=== PATIENT | male | born 1965 | race Caucasian/White ===

== ENCOUNTER 2023-07-18 09:35 | Outpatient (OUT) | payer BC, SELFPAY ==
[2023-07-18 09:53] LABS: Basophils Percent Auto 0.5 % (0.2-2.0); Eosinophils Absolute Auto 0.1 10^3/uL (0.0-0.7); Eosinophils Percent Auto 1.1 % (0.9-7.0); Hematocrit 43.3 % (42.0-54.0); Hemoglobin 14.6 g/dL (14.0-18.0); Immature Granulocytes Abs Auto 0.03 10^3/uL (0.00-0.03); Immature Granulocytes Pct Auto 0.4 % (0.0-0.5); Lymphocytes Absolute Auto 3.5 10^3/uL (1.2-3.8); Lymphocytes Percent Auto 42.1 % (20.5-60.0); Mean Corpuscular HGB Conc 33.7 g/dL (29.9-35.2); Mean Corpuscular Hemoglobin 29.9 pg (25.9-34.0); Mean Corpuscular Volume 88.7 fL (80.0-94.0); Mean Platelet Volume 10.4 fL (9.5-13.5); Monocytes Absolute Auto 0.8 10^3/uL (0.3-0.8); Monocytes Percent Auto 9.4 % (1.7-12.0); Neutrophils Absolute Auto 3.8 10^3/uL (1.4-6.5); Neutrophils Percent Auto 46.5 % (43.0-75.0); Platelet Count 173 10^3/uL (150-450); Red Blood Count 4.88 10^6/uL (4.70-6.10); Red Cell Distribution Width 12.3 % (11.0-15.0); White Blood Count 8.2 10^3/uL (4.0-11.0)
[2023-07-18 10:18] LABS: Estimated Average Glucose 157 mg/dL; Glycohemoglobin A1C 7.1 % (4.5-6.2)
[2023-07-18 10:30] LABS: Alanine Aminotransferase 21 U/L (16-63); Albumin Globulin Ratio 0.9; Albumin Level 3.3 g/dL (3.4-5.0); Alkaline Phosphatase 68 U/L (46-116); Anion Gap 11.4; Aspartate Amino Transferase 9 U/L (15-37); Bilirubin Total 0.3 mg/dL (0.2-1.0); Calcium 8.9 mg/dL (8.5-10.1); Chloride 103 mmol/L (98-107); Cholesterol 222 mg/dL (<=200); Estimated GFR (African America >60 (>=60); Estimated GFR (Non-African Ame >60 (>=60); Free T3 2.54 pg/mL (2.18-3.98); Globulin 3.6 g/dL; Glucose 122 mg/dL (74-106); HDL Cholesterol 44 mg/dL (40-60); Potassium 4.4 mmol/L (3.5-5.1); Sodium 139 mmol/L (136-145); Thyroid Stimulating Hormone 1.707 uIU/mL (0.358-3.740); Total Protein 6.9 g/dL (6.4-8.2); Triglycerides 206 mg/dL (<=150); VLDL CHOLESTEROL 41.2 mg/dL
[2023-07-18 11:19] LABS: Prostate Specific Antigen Scrn 0.75 ng/mL (<=4.00)
== END 2023-07-18 09:36 | disposition home or self-care (01) ==
PROVIDERS: PCP Family Medicine; Visit Provider Family Medicine
DX: Z00.00 Encounter for general adult medical examination without abnormal findings (principal); E78.5 Hyperlipidemia, unspecified; R73.09 Other abnormal glucose; Z12.5 Encounter for screening for malignant neoplasm of prostate
CPT/HCPCS: 36415; 80053; 80061; 83036; 84436; 84443; 84481; 85025; G0103

== ENCOUNTER 2023-10-04 09:01 | Outpatient (OUT) | payer BC, SELFPAY ==
--- OUTSIDE RECORDS SUMMARY | 2023-10-04 09:04 | XMS_ITS | CCD ---
Author Organization [facility] Care Team Providers Care Spinning Frame Changer Name Role Phone Eva Carrillo Unavailable Rylee Morales Primary Care Physician [phone] DIANA MIGUEL Attending Unavailable DIANA MIGUEL Admitting Unavailable CLINTON, DR YURI Zelaya Consulting Unavailable FARIBA, DR MCKEE Primary Care Unavailable DIANA MIGUEL Consulting Unavailable LIZET MENCHACA Consulting Unavailable FARIBA, DR MCKEE Consulting Unavailable FARIBA, DR MCKEE Attending Unavailable FARIBA, DR MCKEE Admitting Unavailable FARIBA, DR MCKEE Primary Care Unavailable COLLEEN NORIEGA Consulting Unavailable FARIBA, DR MCKEE Consulting Unavailable FARIBA, DR MCKEE Attending Unavailable FARIBA, DR MCKEE Admitting Unavailable FARIBA, DR MCKEE Primary Care Unavailable Najma Mcdonnell Attending Unavailable Rylee Morales Referring Unavailable Najma Mcdonnell Attending Unavailable Rylee Morales Referring Unavailable Domingo KATHLEEN Attending Unavailable Rylee Morales Referring Unavailable Domingo KATHLEEN Attending Unavailable Allergies Allergy Classification Reported Allergen(s) Allergy Type Date of Onset Reaction(s) Facility (1 source) No Known Medication Allergies; Translations: [No Known Medication Allergies] Propensity to adverse reactions (disorder) [facility] Repository Medications Current Medications Medication Drug Class(es) Dates Sig (Normalized) Sig (Original) diclofenac sodium 75 mg delayed release oral tablet (2 sources) Nonsteroidal Anti-inflammatory Drug Start: 05-13-20 take 1 tablet by mouth twice daily diclofenac sodium 75 mg Oral EC Tab 75 mg = 1 tab(s), Oral, BID, Refills(s) 0 Start Date: 05/13/22 Status: Ordered 0.5 ml dulaglutide 1.5 mg/ml auto-injector (2 sources) GLP-1 Receptor Agonist Start: 05-13-20 inject 0.75 mg by subcutaneous injection every week Trulicity Pen 0.75 mg/0.5 mL subcutaneous solution 0.75 mg, SubCutaneous, qWeek, Refills(s) 0 Start Date: 05/13/22 Status: Ordered methylPREDNISolone 4 mg oral tablet (1 source) Corticosteroid Start: 06-17-20 methylPREDNISolone 4 MG as directed Orally Once a day for 6 days May, Active tadalafil 20 mg oral tablet (2 sources) Phosphodiesterase 5 Inhibitor Start: 05-15-20 take 1 tablet by mouth once daily tadalafil 20 mg Tab 20 mg = 1 tab(s), Oral, Daily, Refills(s) 0 Start Date: 05/15/22 Status: Ordered Completed/Discontinued Medications Medication Drug Class(es) Dates Sig (Normalized) Sig (Original) fluticasone propionate 0.05 mg/actuat metered dose nasal spray (1 source) Corticosteroid Start: 04-03-2018 take 2 spray(s) nasal route once daily Fluticasone Propionate 50 MCG/ACT 2 sprays in each nostril Nasally Once a day for 14 days Mar, Not-Taking 12 hr guaiFENesin 600 mg extended release oral tablet (1 source) Start: 04-03-2018 take 1-2 tablets by mouth every twelve hours as needed Mucinex 600 MG 1-2 tablet as needed Orally every 12 hrs for 5 days Mar, Not-Taking Problems Active Problems Problem Classification Problem Date Documented Date Episodic/Chronic Abdominal pain (3 sources) Unspecified abdominal pain; Translations: [UNSPECIFIED ABDOMINAL PAIN] Onset: 07-22-2022 Episodic Asthma (2 sources) Asthma 05-13-2022 Chronic Calculus of urinary tract (4 sources) History of calculus of kidney; Translations: [Calculus of kidney] Onset: 07-24-2022 05-13-2022 Episodic Complications of surgical procedures or medical care (1 source) Postprocedural hypothyroidism; Translations: [POSTPROCEDURAL HYPOTHYROIDISM] Onset: 07-24-2022 Chronic Diabetes mellitus without complication (1 source) Type 2 diabetes mellitus without complications; Translations: [TYPE 2 DM WITHOUT COMPLICATIONS] Onset: 07-24-2022 Chronic Esophageal disorders (1 source) Gastro-esophageal reflux disease without esophagitis; Translations: [GERD WITHOUT ESOPHAGITIS] Onset: 07-24-2022 Chronic Hyperplasia of prostate (3 sources) Benign prostatic hypertrophy without outflow obstruction; Translations: [Benign prostatic hyperplasia without lower urinary tract symptoms] Onset: 05-29-2022 Chronic Other and unspecified benign neoplasm (2 sources) History of polyp of colon 05-15-2022 Episodic Other connective tissue disease (2 sources) Impingement syndrome of shoulder region 05-13-2022 Episodic Other diseases of kidney and ureters (1 source) Other specified disorders of kidney and ureter; Translations: [OTHER SPEC DISORDERS KIDNEY URETER] Onset: 07-24-2022 Chronic Other diseases of kidney and ureters (4 sources) Disorder of kidney and ureter, unspecified; Translations: [DISORDER KIDNEY AND URETER UNS] Onset: 08-01-2022 Episodic Other male genital disorders (3 sources) Male erectile dysfunction, unspecified; Translations: [Erectile dysfunction] Onset: 05-29-2022 Chronic Other nutritional; endocrine; and metabolic disorders (2 sources) Body mass index 30+ - obesity 05-15-2022 Chronic Residual codes; unclassified (2 sources) Sleep apnea 05-13-2022 Chronic Screening and history of mental health and substance abuse codes (1 source) Personal history of nicotine dependence; Translations: [PERSONAL HISTORY OF NICOTINE DEPEND] Onset: 07-24-2022 Episodic Unclassified (2 sources) History of rupture of Achilles tendon 05-13-2022 Past or Other Problems Problem Classification Problem Date Documented Da te Episodic/Chronic Immunizations and screening for infectious disease (1 source) Contact with and (suspected) exposure to other viral communicable diseases Onset: 06-17-2021 Resolved: 06-17-2021 Episodic Other screening for suspected conditions (not mental disorders or infectious disease) (1 source) Encounter for screening for malignant neoplasm of prostate; Translations: [ENC SCREEN MALIG NEOPLASM PROSTATE] Onset: 08-21-2021 Episodic Other upper respiratory infections (1 source) Acute laryngitis Onset: 06-17-2021 Resolved: 06-17-2021 Episodic Results Test Name Value Interpretation Reference Range Facility US KIDNEYSon 08-01-2022 US KIDNEYS US KIDNEYS EXAM DATE: 08/01/2022 5:49 AM MST COMPARISON: CT abdomen and pelvis 07/22/2022, ultrasound kidney 09/15/2019, CT abdomen and pelvis 09/14/2019. INDICATION: Right superior pole cortical lesion measuring [address] abdomen and pelvis 07/22/2022. TECHNIQUE: Real-time ultrasound scanning of the kidneys and bladder was performed by the web programmer. Healthcare Consulting Manager static images are submitted for review. Cine images of the right superior renal pole were additionally submitted for review. FINDINGS: Right Kidney: The right kidney measures 10.9 x 5.3 x 5.2 cm and has a volume of 157 mL. Normal echogenicity. No hydronephrosis. No shadowing calculi. No obvious contour deforming lesion or solid renal mass. No sonographic correlate identified for 6 mm cortical lesion seen on comparison CT. Renal cortex measures 2 cm. Left Kidney: The left kidney measures 10.9 x 4.6 x 5.7 cm and has a volume of 150 mL. Normal echogenicity. No hydronephrosis. No shadowing calculi. No obvious contour deforming lesion or solid renal mass. Renal cortex measures 1.5 cm. Bladder: Bladder volume measures up to 672 mL No focal or diffuse bladder wall thickening noted. IMPRESSION: 1. No sonographic correlate identified for previously visualized CT lesion. Nonvisualization may be secondary to small size. Recommend attention on future/follow-up imaging. 2. No hydronephrosis. Electronically authenticated by: COLLEEN NORIEGA Date: 2022-08-01 11:31 Normal [facility] CBC AUTO DIFFon 07-22-2022 BASO # 0.0 103/ul Normal 0.0-0.1 [facility] Comment on above: Performed By: #### U MICRO, ERUR #### [facility] [address] [place] [address] Dr. Allyson Guerrero Basophils/100 WBC (Bld) 0.4 % Normal 0.2-2.0 [facility] Comment on above: Performed By: #### U MICRO, ERUR #### [facility] [address] [place] [address] Dr. Allyson Guerrero EO # 0.1 103/ul Normal 0.0-0.7 [facility] Comment on above: Performed By: #### U MICRO, ERUR #### [facility] [address] [address] [address] Allyson Guerrero Eosinophils/100 WBC (Bld) 1.3 % Normal 0.9-7.0 [facility] Comment on above: Performed By: #### U MICRO, ERUR #### [facility] [address] [place] [address] Dr. Allyson Guerrero Erythrocyte distribution width (RBC) [Ratio] 12.4 % Normal 11.0-15.0 [facility] Comment on above: Performed By: #### U MICRO, ERUR #### [facility] [address] [place] [address] Dr. Allyson Guerrero Hematocrit (Bld) [Volume fraction] 40.3 % Critically low 42.0-54.0 [facility] Comment on above: Performed By: #### U MICRO, ERUR #### [facility] [address] [place] [address] Dr. Allyson Guerrero Hemoglobin (Bld) [Mass/Vol] 14.2 g/dL Normal 14.0-18.0 [facility] Comment on above: Performed By: #### U MICRO, ERUR #### [facility] [address] [place] [address] Dr. Allyson Guerrero IG # 0.02 10e3/ul Normal 0.00-0.03 [facility] Comment on above: Performed By: #### U MICRO, ERUR #### [facility] [address] [place] [address] Dr. Allyson Guerrero IG % 0.3 % Normal 0.0-0.5 [facility] Comment on above: Performed By: #### U MICRO, ERUR #### [facility] [address] [place] [address] Dr. Allyson Guerrero LYMPH # 3.1 103/ul Normal 1.2-3.8 [facility] Comment on above: Performed By: #### U MICRO, ERUR #### [facility] [address] [place] [address] Dr. Allyson Guerrero Lymphocytes/100 WBC (Bld) 44.5 % Normal 20.5-60.0 [facility] Comment on above: Performed By: #### U MICRO, ERUR #### [facility] [address] [place] [address] Dr. Allyson Guerrero MANUAL DIFF REQ NO Normal [facility] Comment on above: Performed By: #### U MICRO, ERUR #### [facility] [address] [address] [address] Allyson Guerrero MCH (RBC) [Entitic mass] 30.0 pg Normal 25.9-34.0 [facility] Comment on above: Performed By: #### U MICRO, ERUR #### [facility] [address] [place] [address] Dr. Allyson Guerrero MCHC (RBC) [Mass/Vol] 35.2 g/dL Normal 29.9-35.2 [facility] Comment on above: Performed By: #### U MICRO, ERUR #### [facility] [address] [place] [address] Dr. Allyson Guerrero MCV (RBC) [Entitic vol] 85.0 fL Normal 80.0-94.0 [facility] Comment on above: Performed By: #### U MICRO, ERUR #### [facility] [address] [place] [address] Dr. Allyson Guerrero MONO # 0.6 103/ul Normal 0.3-0.8 [facility] Comment on above: Performed By: #### U MICRO, ERUR #### [facility] [address] [place] [address] Dr. Allyson Guerrero Monocytes/100 WBC (Bld) 9.1 % Normal 1.7-12.0 [facility] Comment on above: Performed By: #### U MICRO, ERUR #### [facility] [address] [place] [address] Dr. Allyson Guerrero NEUT # 3.1 103/ul Normal 1.4-6.5 [facility] Comment on above: Performed By: #### U MICRO, ERUR #### [facility] [address] [place] [address] Dr. Allyson Guerrero Neutrophils/100 WBC (Bld) 44.4 % Normal 43.0-75.0 [facility] Comment on above: Performed By: #### U MICRO, ERUR #### [facility] [address] [place] [address] Dr. Allyson Guerrero Platelet mean volume (Bld) [Entitic vol] 9.9 fL Normal 9.5-13.5 [facility] Comment on above: Performed By: #### U MICRO, ERUR #### [facility] [address], [place] [address] Dr. Allyson Guerrero PLT 166 103/ul Normal 150-450 [facility] Comment on above: Performed By: #### U MICRO, ERUR #### [facility] [address] [place], [place] [address] Dr. Allyson Guerrero RBC 4.74 106/ul Normal 4.70-6.10 [facility] Comment on above: Performed By: #### U MICRO, ERUR #### [facility] [address] [place], [place] [address] Dr. Allyson Guerrero WBC 7.0 103/ul Normal 4.0-11.0 [facility] Comment on above: Performed By: #### U MICRO, ERUR #### [facility] [address] [place], [place] [address] ABD/PELVIS WO CONon 07-22 CT ABD/PELVIS WO CON EXAMINATION: CT ABD/PELVIS WO CON, 07/22/2022 6:16 AM EST HISTORY: CALCULUS OF KIDNEY , right flank pain, nausea and vomiting COMPARISON: 09/14/2019 TECHNIQUE: CT scan of the abdomen and pelvis was performed without IV contrast. CT dose reduction technique was used, including Automated Exposure Control. FINDINGS: LUNG BASES: No visible pulmonary or pleural disease. LIVER: No enlargement, atrophy, abnormal density, or significant focal lesion. BILIARY: No dilatation or calcification. PANCREAS: No lesion, fluid collection, ductal dilatation, or atrophy. SPLEEN: No enlargement or focal lesion. ADRENALS: No mass or enlargement. KIDNEYS: The millimeter hyperdensity right upper pole cortex axial image 38. 3 mm calcification right ureteral vesicle junction axial image 114 with mild hydroureter. Normal left BOWEL/MESENTERY: Mild colonic diverticulosis. Normal appendix. Nonobstructive bowel gas pattern AORTA/VASCULAR: No aortic aneurysm. Moderate atherosclerosis RETROPERITONEUM: No mass or adenopathy. LYMPH NODES: No adenopathy. URINARY BLADDER: No visible focal wall thickening, lesion, or calculus. PELVIC ORGANS: No visible mass. Pelvic organs appropriate for patient age. ABDOMINAL WALL: No mass or hernia. BONES: No bony lesion or fracture. OTHER: Negative. IMPRESSION: 3 mm calcification right ureteral vesicle junction with mild hydroureter 6 mm hyperdense cortical lesion right upper pole kidney not seen on the prior exam. Consider ultrasound follow-up for short interval CT follow-up Electronically authenticated by: YURI ALONZO Date: 2022-07-22 06:56 Normal [facility] ER URINE PROFILEon 3 Bilirubin Ql (U) Negative Normal NEGATIVE [facility] Comment on above: Performed By: #### U MICRO, ERUR #### [facility] [address] [place] [address] Dr. Allyson Guerrero Clarity (U) CLEAR Normal CLEAR [facility] Comment on above: Performed By: #### U MICRO, ERUR #### [facility] [address] [place] [address] Dr. Allyson Guerrero Color (U) LT. YELLOW Normal YELLOW [facility] Comment on above: Performed By: #### U MICRO, ERUR #### [facility] [address] [place] [address] Dr. Allyson Guerrero ERUAHD A micrscopic examination will be performed if indicated. Normal [facility] Comment on above: Performed By: #### U MICRO, ERUR #### [facility] [address] [place] [address] Dr. Allyson Guerrero Glucose Ql (U) Negative Normal NEGATIVE [facility] Comment on above: Performed By: #### U MICRO, ERUR #### [facility] [address] [address] [address] Allyson Guerrero Hemoglobin Ql (U) LARGE Abnormal NEGATIVE [facility] Comment on above: Performed By: #### U MICRO, ERUR #### [facility] [address] [address] [address] Allyson Guerrero Ketones Ql (U) Negative Normal NEGATIVE [facility] Comment on above: Performed By: #### U MICRO, ERUR #### [facility] [address] [place] [address] Dr. Allyson Guerrero LEUKOCYTES Negative Normal NEGATIVE [facility] Comment on above: Performed By: #### U MICRO, ERUR #### [facility] [address] [place] [address] Dr. Allyson Guerrero Nitrite Ql (U) Negative Normal NEGATIVE [facility] Comment on above: Performed By: #### U MICRO, ERUR #### [facility] [address] [place] [address] Dr. Allyson Guerrero pH (U) 6.0 [pH] Normal 5-9 [facility] Comment on above: Performed By: #### U MICRO, ERUR #### [facility] [address] [place] [address] Dr. Allyson Guerrero SPEC GRAVITY 1.015 Normal 1.005-<=1.025 [facility] Comment on above: Performed By: #### U MICRO, ERUR #### [facility] [address] [place] [address] Dr. Allyson Guerrero UA PROTEIN TRACE Normal NEGATIVE/ TRACE [facility] Comment on above: Performed By: #### U MICRO, ERUR #### [facility] [address] [place] [address] Dr. Allyson Guerrero UR MICRO IND INDICATED Normal [facility] Comment on above: Performed By: #### U MICRO, ERUR #### [facility] [address] [place] [address] Dr. Allyson Guerrero Urobilinogen Qn (U) 0.2 {Dianna'U}/dL Normal 0.2 - 1. 0 [facility] Comment on above: Performed By: #### U MICRO, ERUR #### [facility] [address] [place] [address] Dr. Allyson Guerrero PROF CHEM 8 (BAS METB)on Anion gap [Moles/Vol] 12.7 mmol/L Normal [facility] Comment on above: Performed By: #### U MICRO, ERUR #### [facility] [address] [place] [address] Dr. Allyson Guerrero Calcium [Mass/Vol] 8.9 mg/dL Normal 8.5-10.1 [facility] Comment on above: Performed By: #### U MICRO, ERUR #### [facility] [address] [address] [address] Allyson Guerrero Chloride [Moles/Vol] 103 mmol/L Normal 98-107 [facility] Comment on above: Performed By: #### U MICRO, ERUR #### [facility] [address] [address] [address] Allyson Guerrero CO2 [Moles/Vol] 28.9 mmol/L Normal 21.0-32.0 [facility] Comment on above: Performed By: #### U MICRO, ERUR #### [facility] [address] [address] [address] Allyson Guerrero Creatinine [Mass/Vol] 1.06 mg/dL Normal 0.70-1.30 [facility] Comment on above: Performed By: #### U MICRO, ERUR #### [facility] [address] [address] [address] Allyson Guerrero EGFR-AF CZECH >60 Normal >=60 [facility] Comment on above: Performed By: #### U MICRO, ERUR #### [facility] [address] [address] [address] Allyson Guerrero EGFR-NON AF CZECH >60 Normal >=60 [facility] Comment on above: Performed By: #### U MICRO, ERUR #### [facility] [address] [address] [address] Allyson Guerrero Glucose [Mass/Vol] 191 mg/dL Critically high 74-106 [facility] Comment on above: Performed By: #### U MICRO, ERUR #### [facility] [address] [address] [address] Allyson Guerrero Potassium [Moles/Vol] 4.0 mmol/L Normal 3.5-5.1 [facility] Comment on above: Performed By: #### U MICRO, ERUR #### [facility] [address] [address] [address] Allyson Guerrero Sodium [Moles/Vol] 141 mmol/L Normal 136-145 [facility] Comment on above: Performed By: #### U MICRO, ERUR #### [facility] [address] [address] [address] Allyson Guerrero Urea nitrogen [Mass/Vol] 15.0 mg/dL Normal 7.0-18.0 [facility] Comment on above: Performed By: #### U MICRO, ERUR #### [facility] [address] [address] [address] Allyson Guerrero Urea nitrogen/Creatinine [Mass ratio] 14.2 mg/mg Normal [facility] Comment on above: Performed By: #### U MICRO, ERUR #### [facility] [address] [address] [address] Allyson Guerrero URINE MICROSCOPIC ONLYon BACTERIA NONE SEEN Normal NONE SEEN [facility] Comment on above: Performed By: #### U MICRO, ERUR #### [facility] [address] [place] [address] Dr. Allyson Guerrero Bacteria identified Cx Nom (U) NOT INDICATED Normal [facility] Comment on above: Performed By: #### U MICRO, ERUR #### [facility] [address] [place] [address] Dr. Allyson Guerrero CAST NONE SEEN Normal NONE SEEN [facility] Comment on above: Performed By: #### U MICRO, ERUR #### [facility] [address] [place] [address] Dr. Allyson Guerrero Crystals LM Nom (Urine sed) NONE SEEN Normal NONE SEEN [facility] Comment on above: Performed By: #### U MICRO, ERUR #### [facility] [address] [place] [address] Dr. Allyson Guerrero Epithelial cells LM Ql (Urine sed) FEW Abnormal NONE SEEN /RARE [facility] Comment on above: Performed By: #### U MICRO, ERUR #### [facility] [address] [place] [address] Dr. Allyson Guerrero MUCOUS NONE SEEN Normal NONE SEEN [facility] Comment on above: Performed By: #### U MICRO, ERUR #### [facility] [address] [place] [address] Dr. Allyson Guerrero RBC 10-20 Abnormal 0-2 [facility] Comment on above: Performed By: #### U MICRO, ERUR #### [facility] [address] [address] [address] Allyson Guerrero WBC NONE SEEN Normal NONE SEEN [facility] Comment on above: Performed By: #### U MICRO, ERUR #### [facility] [address] [place], [place] [address] Dr. Allyson Guerrero Auth for Release of Medical Recordson 05-30-2022 Auth for Release of Medical Records [id number] #1.00CD:127 Normal [facility] Formson 05-30-2022 Forms [id number] #1.00CD:127 Normal [facility] Physician Referralon 022 Physician Referral [id number] #1.00CD:127 Normal [facility] Screenson 05-30-2022 Screens [id number]# 1.00CD:127 Normal [facility] Screens [id number]# 1.00CD:127 Normal [facility] Patient Educationon 05-29-20 22 Patient Education Urology Erectile Dysfunction Erectile dysfunction (ED) is the inability to get or keep an erection in order to have sexual intercourse. Erectile dysfunction may include: ? Inability to get an erection. ? Lack of enough hardness of the erection to allow penetration. ? Loss of the erection before sex is finished. What are the causes? This condition may be caused by: ? Certain medicines, such as: ? Pain relievers. ? Antihistamines. ? Antidepressants. ? Blood pressure medicines. ? Water pills (diuretics). ? Ulcer medicines. ? Muscle relaxants. ? Drugs. ? Excessive drinking. ? Psychological causes, such as: ? Anxiety. ? Depression. ? Sadness. ? Exhaustion. ? Performance fear. ? Stress. ? Physical causes, such as: ? Artery problems. This may include diabetes, smoking, liver disease, or atherosclerosis. ? High blood pressure. ? Hormonal problems, such as low testosterone. ? Obesity. ? Nerve problems. This may include back or pelvic injuries, diabetes mellitus, multiple sclerosis, or Parkinson disease. What are the signs or symptoms? Symptoms of this condition include: ? Inability to get an erection. ? Lack of enough hardness of the erection to allow penetration. ? Loss of the erection before sex is finished. ? Normal erections at some times, but with frequent unsatisfactory episodes. ? Low sexual satisfaction in either partner due to erection problems. ? A curved penis occurring with erection. The curve may cause pain or the penis may be too curved to allow for intercourse. ? Never having nighttime erections. How is this diagnosed? This condition is often diagnosed by: ? Performing a physical exam to find other diseases or specific problems with the penis. ? Asking you detailed questions about the problem. ? Performing blood tests to check for diabetes mellitus or to measure hormone levels. ? Performing other tests to check for underlying health conditions. ? Performing an ultrasound exam to check for scarring. ? Performing a test to check blood flow to the penis. ? Doing a sleep study at home to measure nighttime erections. How is this treated? This condition may be treated by: ? Medicine taken by mouth to help you achieve an erection (oral medicine). ? Hormone replacement therapy to replace low testosterone levels. ? Medicine that is injected into the penis. Your health care provider may instruct you how to give yourself these injections at home. ? Vacuum pump. This is a pump with a ring on it. The pump and ring are placed on the penis and used to create pressure that helps the penis become erect. ? Penile implant surgery. In this procedure, you may receive: ? An inflatable implant. This consists of cylinders, a pump, and a reservoir. The cylinders can be inflated with a fluid that helps to create an erection, and they can be deflated after intercourse. ? A semi-rigid implant. This consists of two silicone rubber rods. The rods provide some rigidity. They are also flexible, so the penis can both curve downward in its normal position and become straight for sexual intercourse. ? Blood vessel surgery, to improve blood flow to the penis. During this procedure, a blood vessel from a different part of the body is placed into the penis to allow blood to flow around (bypass) damaged or blocked blood vessels. ? Lifestyle changes, such as exercising more, losing weight, and quitting smoking. Follow these instructions at home: Medicines ? Take edsf-wgp-kovmepn and prescription medicines only as told by your health care provider. Do not increase the dosage without first discussing it with your health care provider. ? If you are using self-injections, perform injections as directed by your health care provider. Make sure to avoid any veins that are on the surface of the penis. After giving an injection, apply pressure to the injection site for 5 minutes. General instructions ? Exercise regularly, as directed by your health care provider. Work with your health care provider to lose weight, if needed. ? Do not use any products that contain nicotine or tobacco, such as cigarettes and e-cigarettes. If you need help quitting, ask your health care provider. ? Before using a vacuum pump, read the instructions that come with the pump and discuss any questions with your health care provider. ? Keep all follow-up visits as told by your health care provider. This is important. Contact a health care provider if: ? You feel nauseous. ? You vomit. Get help right away if: ? You are taking oral or injectable medicines and you have an erection that lasts longer than 4 hours. If your health care provider is unavailable, go to the nearest emergency room for evaluation. An erection that lasts much longer than 4 hours can result in permanent damage to your penis. ? You have severe pain in your groin or abdomen. ? You develop redness or severe swelling of your (more content not included)... Normal [facility] Retail - Clinical Noteon Retail - Clinical Note [id number] #1.00CD:127 Normal [facility] Urology Office/Clinic Noteon 05-29-2022 Urology Office/Clinic Note Chief Complaint New patient ED HPI Staff New patient referral per Dr. Morales due to ED medications not working Patient has tried Cialis 20mg, Viagra 100mg. Stendra 200mg was the most recent medication prescribed to patient however insurance would not cover and he was not interested after he looked up the side effects Dysuria: no Incomplete bladder emptying: no Hematuria: no Frequency: no Urgency: no Nocturia: no Stream: good stream Leaking: no Post void dripping: no Wearing pads/ Depend s: no Urge incontinence: no Stress incontinence: no Incontinence without Sensory Awareness: no Abdominal pain: no Flank pain: no Sexual complaints: pt. states that he is taking Cialis right now, states that he is able to achieve penetration however the erection does not last long , states that Viagra worked however it made him very congested, patient would like to just possibly stop taking pills. History of Present Illness I have reviewed and verified the staff HPI to be accurate for this encounter. I have reviewed the previous health record information and history for this patient from Dr. Morales including external records, labs There have been no associated fever, chills, flank pain, or blood in the urine. Denies any urinary infections Review of Systems ROS - Provider Constitutional: denies weight loss, denies hot flashes. Eyes: denies eye problems. Gastrointestinal: denies nausea, denies vomiting. Cardiovascular: denies chest pain or angina. Integumentary: no dryness Musculoskeletal: denies musculoskeletal symptoms. ENMT: denies otolaryngeal symptoms. Respiratory: no shortness of breath. Heme/Lymph: denies easy bleeding tendency, denies easy bruising tendency. Psychiatric: no confusion, no anxiety. Genitourinary: see HPI Physical Exam Vitals & Measurements HR: 106(Peripheral) BP: 147/66 HT: 65 in HT: 165.1 cm WT: 83.64 kg WT: 184.008 lb BMI: 30.68 General Appearance: alert, no distress, well nourished, well developed male. Head: normocephalic . Eyes: normal orbit and globe. ENMT: normal examination of external ears. Chest: symmetric chest rise, respirations non labored. Cardiovascular: regular rate and rhythm. Abdomen: soft, non distended, no tenderness Genitourinary: Flank Pain: none. Bladder: nonpalpable. Skin: warm, dry, no bruising. Psychiatric: cooperative, affect appropriate for age, normal judgement, euthymic mood. Assessment/Plan 56 yo M with hx of DM2 (unsure of A1c but prior to trulicity was not well controlled Denies heart attack, stroke, or hx of blood thinners 1. Erectile dysfunction (N52.9: Male erectile dysfunction, unspecified) CHARISMA 17 on Cialis 20mg from PCP - difficulty maintaining erections and desired firmness. Desire intact Patient has tried Viagra 100mg. Stendra 200mg was the most recent medication prescribed to patient however insurance would not cover and he was not interested after he looked up the side effects Ongoing for few years. Denies trauma to area, HTN, narcotic use or Peyronie's - Educated how metabolic syndrome, uncontrolled diabetes and high cholesterol contribute to ED - Discussed options for ED, including oral medications, erection pumps, MUSE intraurethral pellet, intracorporal injection therapy, and surgical options. Benefits and risks of every treatment option was explained in full detail to pt's understanding. - Pt will like to try vacuum erection device/penile occlusive ring along with ED med. He is aware not to exceed over 20mg of Tadalafil. If this option does not work well for him, then could proceed with injections vs IPP -LINO will be ordered from [facility]. Education/instructio ns provided 2. BPH (benign prostatic hyperplasia) (N40.0: Benign prostatic hyperplasia without lower urinary tract symptoms) IPSS 1 - Did not leave a UA today - unsure if Dr. Morales is checking PSA. Will obtain PSA records from Dr. Morales office no urinary complaints no bph medications All questions and concerns were discussed. Pt acknowledge and understands. Pt will call our office with any changes in urinary symptoms. Follow-up With When Contact Information Sathya PAVON, Najma Lyon, URL, URO Within 3 months Additional Instructions: f/u to vacuum device Patient Education Erectile Dysfunction Kathrin Coles, personally scribed for Dr. Mdconnell on 05/29/2022 10:31:47. . Documentation recorded by the scribe, Kathrin Hahn, accurately reflects the services(s) I performed and decisions made by me. Authenticated by Dr. Mcdonnell on 05/29/2022 20:30:56. Problem List/Past Medical History Ongoing Asthma BMI 31.0-31.9,adult BPH (benign prostatic hyperplasia) Diabetes Erectile dysfunction History of nephrolithiasis History of rupture of Achilles tendon Personal history of colonic polyps Shoulder impingement syndrome Sleep apnea Historical No qualifying data Procedure/Surgical Hist (more content not included)... Normal [facility] Comment on above: Result Comment: Elec tronically Signed By: Sathya PAVON, Najma Lyon\.br\Date and Time Signed: 05/29/22 20:32 EST Facesheeton 05-16-2022 Facesheet [id number] #1.00CD:[address] [facility] Ambulatory Visit Summaryon 1 07-15-2021 Ambulatory Visit Summary ROSANA GALVAN :1965 Visit Date:05/15/2022 Ambulatory Visit Instructions Your Care Team Attending Physician - HEVER PAVON, Domingo Petersen Primary Care Physician - ARAM PAVON, VICKY Referring Physician - Rylee Morales MD This Is Your Medications List diclofenac (diclofenac sodium 75 mg Oral EC Tab) dulaglutide (Trulicity Pen 0.75 mg/0.5 mL subcutaneous solution) tadalafil (tadalafil 20 mg Tab) Procedures Performed Colonoscopy (03/28/2015), Colonoscopy (03/13/2015), Achilles tendon repair, Carpal tunnel release, History of partial thyroidectomy. Discharge Vitals Heart Rate (Peripheral) 68 Respiratory Rate 16 Blood Pressure 118/70 Height 165 cm Height 65 in Weight 85.7 kg Weight 188.54 lb BMI 31.48 What to do next Scheduled Follow-Up Appointments Friday 9:00 AM EST With: Sathya PAVON, Najma Lyon Where: [facility] Historical Records Officeon 04-18-2022 Historical Records Office [id number] #1.00CD:[address] [facility] Historical Records Office [id number] #1.00CD:[address] [facility] Physician Referralon 022 Physician Referral [id number] #1.00CD:[address] [facility] INSULINon 08-20-2021 Insulin 20.0 uIU/mL Normal 2.6-24.9 [facility] Comment on above: Performed By: #### I NSULIN #### [facility] [address] [place] [address] Dr. Allyson Guerrero CBC AUTO DIFFon 08-18-2021 BASO # 0.0 103/ul Normal 0.0-0.1 [facility] Comment on above: Performed By: #### U MICRO, ERUR #### [facility] [address] [place] [address] Dr. Allyson Guerrero Basophils/100 WBC (Bld) 0.6 % Normal 0.2-2.0 [facility] Comment on above: Performed By: #### U MICRO, ERUR #### [facility] [address] [place] [address] Dr. Allyson Guerrero EO # 0.1 103/ul Normal 0.0-0.7 [facility] Comment on above: Performed By: #### U MICRO, ERUR #### [facility] [address] [place] [address] Dr. Allyson Guerrero Eosinophils/100 WBC (Bld) 1.3 % Normal 0.9-7.0 [facility] Comment on above: Performed By: #### U MICRO, ERUR #### [facility] [address] [place] [address] Dr. Allyson Guerrero Erythrocyte distribution width (RBC) [Ratio] 12.2 % Normal 11.0-15.0 [facility] Comment on above: Performed By: #### U MICRO, ERUR #### [facility] [address] [place] [address] Dr. Allyson Guerrero Hematocrit (Bld) [Volume fraction] 42.7 % Normal 42.0-54.0 [facility] Comment on above: Performed By: #### U MICRO, ERUR #### [facility] [address] [place] [address] Dr. Allyson Guerrero Hemoglobin (Bld) [Mass/Vol] 14.1 g/dL Normal 14.0-18.0 [facility] Comment on above: Performed By: #### U MICRO, ERUR #### [facility] [address] [place] [address] Dr. Allyson Guerrero IG # 0.03 10e3/ul Normal 0.00-0.03 [facility] Comment on above: Performed By: #### U MICRO, ERUR #### [facility] [address] [address] [address] Allyson Guerrero IG % 0.5 % Normal 0.0-0.5 [facility] Comment on above: Performed By: #### U MICRO, ERUR #### [facility] [address] [address] [address] Allyson Guerrero LYMPH # 2.8 103/ul Normal 1.2-3.8 [facility] Comment on above: Performed By: #### U MICRO, ERUR #### [facility] [address] [address] [address] Allyson Guerrero Lymphocytes/100 WBC (Bld) 45.0 % Normal 20.5-60.0 [facility] Comment on above: Performed By: #### U MICRO, ERUR #### [facility] [address] [place] [address] Dr. Allyson Guerrero MANUAL DIFF REQ NO Normal [facility] Comment on above: Performed By: #### U MICRO, ERUR #### [facility] [address] [address] [address] Allyson Guerrero MCH (RBC) [Entitic mass] 28.9 pg Normal 25.9-34.0 [facility] Comment on above: Performed By: #### U MICRO, ERUR #### [facility] [address] [address] [address] Allyson Guerrero MCHC (RBC) [Mass/Vol] 33.0 g/dL Normal 29.9-35.2 [facility] Comment on above: Performed By: #### U MICRO, ERUR #### [facility] [address] [address] [address] Allyson Guerrero MCV (RBC) [Entitic vol] 87.5 fL Normal 80.0-94.0 [facility] Comment on above: Performed By: #### U MICRO, ERUR #### [facility] [address] [address] [address] Allyson Guerrero MONO # 0.6 103/ul Normal 0.3-0.8 [facility] Comment on above: Performed By: #### U MICRO, ERUR #### [facility] [address] [place] [address] Dr. Allyson Guerrero Monocytes/100 WBC (Bld) 10.1 % Normal 1.7-12.0 [facility] Comment on above: Performed By: #### U MICRO, ERUR #### [facility] [address] [place] [address] Dr. Allyson Guerrero NEUT # 2.6 103/ul Normal 1.4-6.5 [facility] Comment on above: Performed By: #### U MICRO, ERUR #### [facility] [address] [place] [address] Dr. Allyson Guerrero Neutrophils/100 WBC (Bld) 42.5 % Critically low 43.0-75.0 [facility] Comment on above: Performed By: #### U MICRO, ERUR #### [facility] [address] [place] [address] Dr. Allyson Guerrero Platelet mean volume (Bld) [Entitic vol] 10.2 fL Normal 9.5-13.5 [facility] Comment on above: Performed By: #### U MICRO, ERUR #### [facility] [address] [place] [address] Dr. Allyson Guerrero PLT 191 103/ul Normal 150-450 [facility] Comment on above: Performed By: #### U MICRO, ERUR #### [facility] [address] [place] [address] Dr. Allyson Guerrero RBC 4.88 106/ul Normal 4.70-6.10 [facility] Comment on above: Performed By: #### U MICRO, ERUR #### [facility] [address] [place] [address] Dr. Allyson Guerrero WBC 6.2 103/ul Normal 4.0-11.0 [facility] Comment on above: Performed By: #### U MICRO, ERUR #### [facility] [address] [place] [address] Dr. Allyson Guerrero FREE THYROXINE INDEX T7on 02 -19-2022 FTI 1.69 Normal [facility] Comment on above: Performed By: #### T SH, T4, LIPID, T7, URIC, CMP #### [facility] [address] [place] [address] Dr. Allyson Guerrero T3U 36.0 % Normal 23.5-40.5 [facility] Comment on above: Performed By: #### T SH, T4, LIPID, T7, URIC, CMP #### [facility] [address] [place] [address] Dr. Allyson Guerrero T4 [Mass/Vol] 4.70 ug/dL Critically low 5.53-11.00 [facility] Comment on above: Performed By: #### T SH, T4, LIPID, T7, URIC, CMP #### [facility] [address] [place] [address] Dr. Allyson Guerrero Performed By: #### U MICRO, ERUR #### [facility] [address] [place] [address] Dr. Allyson Guerrero GLYCOHEMOGLOBIN A1Con 2021 ADA RECOMMENDATION ADA THERAPEUTIC TARGET 6.0 - 7.0 ACTION SUGGESTED > 7.0 Normal [facility] Comment on above: Performed By: #### A 1C #### [facility] [address] [place] [address] Dr. Allyson Guerrero Glucose [Mass/Vol] 258 mg/dL Normal [facility] Comment on above: Performed By: #### A 1C #### [facility] [address] [place] [address] Dr. Allyson Guerrero HbA1c (Bld) [Mass fraction] 10.6 % Critically high <=6.0 [facility] Comment on above: Performed By: #### A 1C #### [facility] [address] [place] [address] Dr. Allyson Guerrero LIPID PROFILEon 08-18-2021 CHOL-HDL RATIO NORM SEE BELOW Normal [facility] Comment on above: Result Comment: 3.3 - 4.4 LOW RISK 4.4 - 7.1 AVERAGE RISK 7.1 - 11.0 MODERATE RISK >11.0 HIGH RISK Performed By: #### T SH, T4, LIPID, T7, URIC, CMP #### [facility] [address] [address] [address] Allyson Guerrero Cholesterol [Mass/Vol] 200 mg/dL Normal <=200 [facility] Comment on above: Performed By: #### T SH, T4, LIPID, T7, URIC, CMP #### [facility] [address] [place] [address] Dr. Allyson Guerrero Cholesterol in HDL [Mass/Vol] 36 mg/dL Normal [facility] Comment on above: Performed By: #### T SH, T4, LIPID, T7, URIC, CMP #### [facility] [address] [place] [address] Dr. Allyson Guerrero Cholesterol in LDL [Mass/Vol] 120.6 mg/dL Normal [facility] Comment on above: Performed By: #### T SH, T4, LIPID, T7, URIC, CMP #### [facility] [address] [place] [address] Dr. Allyson Guerrero Cholesterol.total/Ch olesterol in HDL [Mass ratio] 5.6 {ratio} Normal [facility] Comment on above: Performed By: #### T SH, T4, LIPID, T7, URIC, CMP #### [facility] [address] [place] [address] Dr. Allyson Guerrero HDL NORMAL > or = 60 mg/dl - LOW CARDIOVASCULAR RISK <40 mg/dl - HIGH CARDIOVASCULAR RISK Normal [facility] Comment on above: Performed By: #### T SH, T4, LIPID, T7, URIC, CMP #### [facility] [address] [place] [address] Dr. Allyson Guerrero LDL CALC NORMAL SEE BELOW Normal [facility] Comment on above: Result Comment: <100 mg/dl OPTIMAL 100 - 129 mg/dl NEAR OR ABOVE OPTIMAL 130 - 159 mg/dl BORDERLINE HIGH 160 - 189 mg/dl HIGH >190 mg/dl VERY HIGH Performed By: #### T SH, T4, LIPID, T7, URIC, CMP #### [facility] [address] [place] [address] Dr. Allyson Guerrero Triglyceride [Mass/Vol] 217 mg/dL Critically high <=150 [facility] Comment on above: Performed By: #### T SH, T4, LIPID, T7, URIC, CMP #### [facility] [address] [address] [address] Allyson Guerrero VLDL CALC 43.4 mg/dL Normal [facility] Comment on above: Performed By: #### T SH, T4, LIPID, T7, URIC, CMP #### [facility] [address] [address] [address] Allyson Guerrero PROF 14(COMP METB)on 022 Albumin [Mass/Vol] 3.5 g/dL Normal 3.5-5.0 [facility] Comment on above: Performed By: #### T SH, T4, LIPID, T7, URIC, CMP #### [facility] [address] [place] [address] Dr. Allyson Guerrero Albumin/Globulin [Mass ratio] 0.9 {ratio} Normal [facility] Comment on above: Performed By: #### T SH, T4, LIPID, T7, URIC, CMP #### [facility] [address] [address] [address] Allyson Guerrero ALP [Catalytic activity/Vol] 94 U/L Normal 38-126 [facility] Comment on above: Performed By: #### T SH, T4, LIPID, T7, URIC, CMP #### [facility] [address] [address] [address] Allyson Guerrero ALT [Catalytic activity/Vol] 27 U/L Normal 21-72 [facility] Comment on above: Performed By: #### T SH, T4, LIPID, T7, URIC, CMP #### [facility] [address] [address] [address] Allyson Guerrero Anion gap [Moles/Vol] 8.5 mmol/L Normal [facility] Comment on above: Performed By: #### T SH, T4, LIPID, T7, URIC, CMP #### [facility] [address] [address] [address] Allyson Guerrero AST [Catalytic activity/Vol] 12 U/L Critically low 17-59 [facility] Comment on above: Performed By: #### T SH, T4, LIPID, T7, URIC, CMP #### [facility] [address] [address] [address] Allyson Guerrero Bilirubin [Mass/Vol] 0.4 mg/dL Normal 0.2-1.3 [facility] Comment on above: Performed By: #### T SH, T4, LIPID, T7, URIC, CMP #### [facility] [address] [address] [address] Allyson Guerrero Calcium [Mass/Vol] 9.1 mg/dL Normal 8.4-10.2 [facility] Comment on above: Performed By: #### T SH, T4, LIPID, T7, URIC, CMP #### [facility] [address] [place] [address] Dr. Allyson Guerrero Chloride [Moles/Vol] 101 mmol/L Normal 98-107 [facility] Comment on above: Performed By: #### T SH, T4, LIPID, T7, URIC, CMP #### [facility] [address] [address] [address] Allyson Guerrero CO2 [Moles/Vol] 30.9 mmol/L Critically high 22.0-30.0 [facility] Comment on above: Performed By: #### T SH, T4, LIPID, T7, URIC, CMP #### [facility] [address] [place] [address] Dr. Allyson Guerrero Creatinine [Mass/Vol] 0.98 mg/dL Normal 0.66-1.25 [facility] Comment on above: Performed By: #### T SH, T4, LIPID, T7, URIC, CMP #### [facility] [address] [address] [address] Allyson Guerrero EGFR-AF CZECH >60 Normal >=60 [facility] Comment on above: Performed By: #### T SH, T4, LIPID, T7, URIC, CMP #### [facility] [address] [place] [address] Dr. Allyson Guerrero EGFR-NON AF CZECH >60 Normal >=60 [facility] Comment on above: Performed By: #### T SH, T4, LIPID, T7, URIC, CMP #### [facility] [address] [place] [address] Dr. Allyson Guerrero Globulin (S) [Mass/Vol] 3.7 g/dL Normal [facility] Comment on above: Performed By: #### T SH, T4, LIPID, T7, URIC, CMP #### [facility] [address] [place] [address] Dr. Allyson Guerrero Glucose [Mass/Vol] 265 mg/dL Critically high 74-106 [facility] Comment on above: Performed By: #### T SH, T4, LIPID, T7, URIC, CMP #### [facility] [address] [place] [address] Dr. Allyson Guerrero Potassium [Moles/Vol] 4.4 mmol/L Normal 3.4-5.0 [facility] Comment on above: Performed By: #### T SH, T4, LIPID, T7, URIC, CMP #### [facility] [address] [place] [address] Dr. Allyson Guerrero Protein [Mass/Vol] 7.2 g/dL Normal 6.1-8.2 [facility] Comment on above: Performed By: #### T SH, T4, LIPID, T7, URIC, CMP #### [facility] [address] [place] [address] Dr. Allyson Guerrero Sodium [Moles/Vol] 136 mmol/L Critically low 137-145 [facility] Comment on above: Performed By: #### T SH, T4, LIPID, T7, URIC, CMP #### [facility] [address] [place] [address] Dr. Allyson Guerrero Urea nitrogen [Mass/Vol] 13.0 mg/dL Normal 9.0-20.0 [facility] Comment on above: Performed By: #### T SH, T4, LIPID, T7, URIC, CMP #### [facility] [address] [place] [address] Dr. Allyson Guerrero Urea nitrogen/Creatinine [Mass ratio] 13.3 mg/mg Normal [facility] Comment on above: Performed By: #### T SH, T4, LIPID, T7, URIC, CMP #### [facility] [address] [address] [address] Allyson Guerrero TSHon 08-18-2021 TSH 2.147 uIU/mL Normal 0.470-4.680 [facility] Comment on above: Performed By: #### U MICRO, ERUR #### [facility] [address] [address] [address] Allyson Guerrero TSH RANGE SEE BELOW Normal [facility] Comment on above: Result Comment: <0.3 4 UIU/ml HYPERTHYROID 0.34-5.60 UIU/ml EUTHYROID >5.60 UIU/ml HYPOTHYROID Performed By: #### U MICRO, ERUR #### [facility] [address] [address] [address] Allyson Guerrero URIC ACID SERUMon 08-18-2021 Urate [Mass/Vol] 4.4 mg/dL Normal 3.5-8.5 [facility] Comment on above: Performed By: #### U MICRO, ERUR #### [facility] [address] [address] [address] Allyson Guerrero COVID Quick Testingon 2020 Result Negative [employer] Other Vital Signs Date Time Vital Sign Value Performing Clinician Facility 05-29-2022 08:59-0500 Blood Pressure Location Najmasalbador Mcdonnell [facility] 05-29-2022 08:59-0500 Diastolic blood pressure 66 mm[Hg] Najma Lue [facility] 05-29-2022 08:59-0500 Heart rate 106 /min Najma Lue [facility] 05-29-2022 08:59-0500 Systolic blood pressure 147 mm[Hg] Najma Lue [facility] 06-17-2021 13:00-0500 Body height 161.29 cm Eva Carrillo Other [employer] Other 06-17-2021 13:00-0500 Body mass index (BMI) [Ratio] 33.13 kg/m2 Eva Carrillo Other [employer] Other 06-17-2021 13:00-0500 Body temperature 97.7 [degF] Eva Carrillo Other [employer] Other 06-17-2021 13:00-0500 Body weight 86.18 kg Eva Carrillo Other [employer] Other 06-17-2021 13:00-0500 Respiratory rate 18 /min Eva Carrillo Other [employer] Other 06-17-2021 13:00-0500 SaO2% (BldA) [Mass fraction] 96 % Eva Carrillo Other [employer] Other Encounters Encounter Date Encounter Type Care Provider Facility Start: 08-28-2022 End: 08-29-2022 ambulatory Najma Mcdonnell Facility:[facility] Start: 08-28-2022 End: 08-28-2022 Patient encounter procedure Najma Mcdonnell [facility] Start: 08-01-2022 End: 08-02-[address] RYLEE MORALES Facility: Start: 07-22-2022 End: 07-22-2022 ambulatory DIANA MIGUEL Facility: Start: 05-29-2022 End: 05-30-2022 ambulatory Najma Mcdonnell Facility:[facility] Start: 05-29-2022 End: 05-29-2022 Patient encounter procedure Najma LakeErik Sathya [facility] Start: 05-15-2022 End: 05-16-2022 ambulatory Rylee Morales Facility:[facility] Start: 04-25-2022 ambulatory Najma Mcdonnell Facility:[facility] Start: 04-16-2022 ambulatory Rylee Morales Facility:[facility] Start: 08-21-2021 Encounter for genera l adult medical examination without abnormal findings DR RYLEE MORALES [facility] Start: 08-18-2021 End: 08-19-[address] RYLEE MORALES Facility:[facility] Start: 08-18-2021 End: 08-19-2021 Encounter for general adult medical examination without abnormal findings DR RYLEE MORALES Facility:[facility] Start: 06-17-2021 End: 06-17-2021 ambulatory Eva Carrillo Other [employer] Other Start: 06-17-2021 Office outpatient vi sit 15 minutes Eva Carrillo [facility] Procedures Date Procedure Procedure Detail Performing Clinician Start: 08-18-2021 PSA screening DIANA MCCORD Comment on above: Performed By: #### [facility] #### [facility] [address] [place] [address] Dr. Allyson Guerrero Start: 03-28-2015 Colonoscopy Najma Lue Start: 03-13-2015 Colonoscopy Najma Lue Decompression of med pari nerve Najma Lusouleymane History of subtotal thyroidectomy Najma Azule Repair of tendo achilles Tiara hy Lue Immunizations Immunization Date Immunization Notes Care Provider Prasanna rushing 04-17-2022 influenza virus vaccine, unspecified formulation Najma Mcdonnell [facility] 05-18-2021 influenza, unspecifi ed formulation Najma Lue [facility] 04-18-2021 influenza virus vaccine, unspecified formulation Najma Lue [facility] 02-14-2021 SARS-CoV-2 (COVID-19 ) mRNA BNT-162b2 vax Najma Lue [facility] Comment on above: Result Comment: 2021: [id number] 01-24-2021 SARS-CoV-2 (COVID-19 ) mRNA BNT-162a3 vax Najma Lue [facility] Comment on above: Result Comment: 2021: [id number] 03-29-2020 influenza virus vaccine, unspecified formulation Najma Lue [facility] 04-14-2019 influenza virus vaccine, unspecified formulation Najma Lue [facility] 04-07-2018 influenza virus vaccine, unspecified formulation Najma Lue [facility] 04-09-2017 influenza virus vaccine, unspecified formulation Najma Lue [facility] 04-10-2016 influenza virus vaccine, unspecified formulation Najma Lue [facility] Payers Date Payer Category Payer Unknown [id number] 2.16.84 [id number] 1965 Unknown [id number] 2.16.84 [id number] 1965 Unknown [id number] 2.16.84 [id number] 1965 Unknown [id number] 2.16.8 [id number] 1965 Unknown [id number] 2.16.8 [id number] 1965 Unknown [id number] 2.16.8 [id number] 1965 Unknown [id number] 2.16.8 [id number] 1959 Unknown [id number] Private Health Insurance [id number] Social History Date Type Detail Facility Unknown if ever smoked [employer] Other Sex Assigned At [facility] Start: 05-29-2022 Tobacco smoking status Ex-smoker (fi nding) [facility] Tobacco smoking status Never [facility] Functional Status Date Assessment Result Facility 05-29-2022 Functional Status N/A [facility] Hospital Discharge instructions 05-29-2022 Note Date & Type Note Facility 05-29-2022 Hospital Discharg e instructions Patient Education 05/29/2022 10:25:12 Erectile Dysfunction Erectile Dysfunction Erectile dysfunction (ED) is the inability to get or keep an erection in order to have sexual intercourse. Erectile dysfunction may include: Inability to get an erection. Lack of enough hardness of the erection to allow penetration. Loss of the erection before sex is finished. What are the causes? This condition may be caused by: Certain medicines, such as: ?Pain relievers. ?Antihistamines. ?Antidepressants. ?Blood pressure medicines. ?Water pills (diuretics). ?Ulcer medicines. ?Muscle relaxants. ?Drugs. Excessive drinking. Psychological causes, such as: ?Anxiety. ?Depression. ?Sadness. ?Exhaustion. ?Performance fear. ?Stress. Physical causes, such as: ?Artery problems. This may include diabetes, smoking, liver disease, or atherosclerosis. ?High blood pressure. ?Hormonal problems, such as low testosterone. ?Obesity. ?Nerve problems. This may include back or pelvic injuries, diabetes mellitus, multiple sclerosis, or Parkinson disease. What are the signs or symptoms? Symptoms of this condition include: Inability to get an erection. Lack of enough hardness of the erection to allow penetration. Loss of the erection before sex is finished. Normal erections at some times, but with frequent unsatisfactory episodes. Low sexual satisfaction in either partner due to erection problems. A curved penis occurring with erection. The curve may cause pain or the penis may be too curved to allow for intercourse. Never having nighttime erections. How is this diagnosed? This condition is often diagnosed by: Performing a physical exam to find other diseases or specific problems with the penis. Asking you detailed questions about the problem. Performing blood tests to check for diabetes mellitus or to measure hormone levels. Performing other tests to check for underlying health conditions. Performing an ultrasound exam to check for scarring. Performing a test to check blood flow to the penis. Doing a sleep study at home to measure nighttime erections. How is this treated? This condition may be treated by: Medicine taken by mouth to help you achieve an erection (oral medicine). Hormone replacement therapy to replace low testosterone levels. Medicine that is injected into the penis. Your health care provider may instruct you how to give yourself these injections at home. Vacuum pump. This is a pump with a ring on it. The pump and ring are placed on the penis and used to create pressure that helps the penis become erect. Penile implant surgery. In this procedure, you may receive: ?An inflatable implant. This consists of cylinders, a pump, and a reservoir. The cylinders can be inflated with a fluid that helps to create an erection, and they can be deflated after intercourse. ?A semi-rigid implant. This consists of two silicone rubber rods. The rods provide some rigidity. They are also flexible, so the penis can both curve downward in its normal position and become straight for sexual intercourse. Blood vessel surgery, to improve blood flow to the penis. During this procedure, a blood vessel from a different part of the body is placed into the penis to allow blood to flow around (bypass) damaged or blocked blood vessels. Lifestyle changes, such as exercising more, losing weight, and quitting smoking. Follow these instructions at home: Medicines Take vols-jva-dmzrejy and prescription medicines only as told by your health care provider. Do not increase the dosage without first discussing it with your health care provider. If you are using self-injections, perform injections as directed by your health care provider. Make sure to avoid any veins that are on the surface of the penis. After giving an injection, apply pressure to the injection site for 5 minutes. General instructions Exercise regularly, as directed by your health care provider. Work with your health care provider to lose weight, if needed. Do not use any products that contain nicotine or tobacco, such as cigarettes and e-cigarettes. If you need help quitting, ask your health care provider. Before using a vacuum pump, read the instructions that come with the pump and discuss any questions with your health care provider. Keep all follow-up visits as told by your health care provider. This is important. Contact a health care provider if: You feel nauseous. You vomit. Get help right away if: You are taking oral or injectable medicines and you have an erection that lasts longer than 4 hours. If your health care provider is unavailable, go to the nearest emergency room for evaluation. An erection that lasts much longer than 4 hours can result in permanent damage to your penis. You have severe pain in your groin or abdomen. You develop redness or severe swelling of your penis. You have redness spreading up into your groin or lower abdomen. You are unable to urinate. You experience chest pain or a rapid heart beat (palpitations) after taking oral medicines. Summary Erectile dysfunction (ED) is the inability to get or keep an erection during sexual intercourse. This problem can usually be treated successfully. This condition is diagnosed based on a physical exam, your symptoms, and tests to determine the cause. Treatment varies depending on the cause, and may include medicines, hormone therapy, surgery, or vacuum pump. You may need follow-up visits to make sure that you are using your medicines or devices correctly. Get help right away if you are taking or injecting medicines and you have an erection that lasts longer than 4 hours. This information is not intended to replace advice given to you by your health care provider. Make sure you discuss any questions you have with your health care provider. Document Released: 06/13/2001 Document Revised: 05/29/2018 Document Reviewed: 07/02/2017 [employer] Patient Education 2020 [employer] Follow Up Care 04/25/2022 16:00:36 With:Sathya PAVON, Najma Lyon, URL, URO Address: When:3 months Comments:f/u to vacuum device [facility] 05-15-2022 Note Date & Type Note Facility 05-15-2022 Note Chief Complaint consultation for colonoscopy HPI Staff 56 year old male presents on consultation from Dr. Morales for colonoscopy recall. Colonoscopy completed 03/13/2015 and 03/28/2015 with tubular adenoma x 4 and tubulovillous adenoma x 1. Denies abdominal or rectal pain. No rectal bleeding or change in bowel habits. Denies nausea or vomiting. No unexplained weight loss. No known family history of colon cancer. History of Present Illness 56 yo male with h/o DMII, asthma, TRACY, referred for personal h/o colon polyps; colonoscopy 02/2015 with removal of multiple tubular adenomas, and 2 cm tubulovillous adenoma; had 2 colonoscopies 2 weeks apart due to sedation problems, last colonoscopy reported that a 1 cm cecal polyp was left behind due to inability to snare it; TBH, patient not aware of it; no change in bms or blood in stools, no abdominal complaints; no previous abdominal operations; no asa or NSAID use, no SBE prophylaxis; no fmhx of GI malignancy or IBD; no tobacco use. Review of Systems PHQ Score Initial Depression Screen Score: 0 ROS - Provider Constitutional: no fever, no sweats, no weight loss. Eyes: no glasses, no blurred vision, no visual loss. ENMT: no dentures, no hoarseness, no swallowing difficulties, no hearing loss, no ear infection(s), no nose bleeds. Cardiovascular: normal blood pressure, no chest pain, regular heartbeat, no heart murmur. Respiratory: no shortness of breath, no cough, no asthma, no wheezing. Gastrointestinal: no nausea, no vomiting, no diarrhea, no constipation, no blood in stool, no change in bowel habits, no abdominal pain, no hepatitis. Genitourinary: no kidney stones, no urine infection, no dysuria. Musculoskeletal: no pain, no weakness. Skin: no changing moles, no rash, no skin lumps. Neurologic: no seizures, no epilepsy, no headache. Psychiatric: no emotional or psychiatric problem. Heme/Lymph: no bleeding problems, no anemia, no blood clots, no transfusions. Allergy/Immunologic: no swollen lymph nodes/glands, no IV drug abuse. Other: Additional ROS info: Except as noted in the above Review of Systems and in the History of Present Illness, all other systems have been reviewed and are negative or noncontributory. Physical Exam Vitals & Measurements HR: 68(Peripheral) RR: 16 BP: 118/70 HT: 65 in HT: 165 cm WT: 85.7 kg WT: 188.54 lb BMI: 31.48 HEENT: normal conjunctiva, sclera clear, no scleral icterus, EOM intact, PERRLA, oral mucosa moist without lesions. Neck: trachea midline, no mass, symmetric, no thyromegaly or nodules, no adenopathy Respiratory: lungs CTA, respirations non labored. Cardiovascular: regular rate and rhythm, no murmur, no pedal edema or varicosities. Gastrointestinal: soft, non distended, no tenderness, no masses, no palpable hernias, diastasis recti no, no hepatosplenomegaly; normal bs Lymphatic: no cervical adenopathy, Musculoskeletal: normal gait, digits and nails without infection, nodes, cyanosis, clubbing. Skin: no rashes, no lesions, no ulcers, no subcutaneous nodules, induration. Psychiatric/Neuro: oriented to time, place, person, judgement normal, affect appropriate for age, insight intact, no focal deficits. Tests: , review of old records completed, Discussed surgical options, risks, and possible complications with patient. Assessment/Plan 1. Personal history of colonic polyps (Z86.010: Personal history of colonic polyps) plan surveillance colonoscopy under anesthesia, informed consent obtained. Follow-up No qualifying data available Problem List/Past Medical History Ongoing Asthma BMI 31.0-31.9,adult Diabetes Erectile dysfunction History of nephrolithiasis History of rupture of Achilles tendon Personal history of colonic polyps Shoulder impingement syndrome Sleep apnea Historical No qualifying data Procedure/Surgical History Colonoscopy (03/28/2015), Colonoscopy (03/13/2015), Achilles tendon repair, Carpal tunnel release, History of partial thyroidectomy. Medications diclofenac sodium 75 mg Oral EC Tab, 75 mg= 1 tab(s), Oral, BID tadalafil 20 mg Tab, 20 mg= 1 tab(s), Oral, Daily Trulicity Pen 0.75 mg/0.5 mL subcutaneous solution, 0.75 mg, SubCutaneous, qWeek Allergies No Known Allergies No Known Medication Allergies Social History Alcohol - Denies Alcohol Use, 05/15/2022 Substance Abuse - Denies Substance Abuse, 05/15/2022 Tobacco Former smoker, quit more than 30 days ago Tobacco Use:. Never Smokeless Tobacco Use:. Cigarettes, 1 per day. Started age 19.0 Years. Stopped age 40 Years., 05/15/2022 Family History Cancer: Father. Diabetes mellitus type 2: Father and Brother. [facility] Comment on above: Result Comment: Elec tronically Signed By: HEVER PAVON, Domingo Boo.[email or web address]\Date and Time Signed: 05/15/22 17:38 EST Evaluation note 06-17-2021 Note Date & Type Note Facility 06-17-2021 Evaluation note Encounter Date Diagnosis Assessment Notes May, Contact with and (suspected) exposure to other viral communicable diseases (ICD-10 - Z20.828) Today test was performed in office. Results are currently negative. That does not mean that you will not develop COVID or do not currently have a low viral count of COVID. The rapid test works best if symptoms have been over 72 hours and the results can vary if you are asymptomatic There is a higher chance of false negative results to occur if testing is performed too soon. It is recommended that even if results are negative and you have been exposed to someone that has COVID that you follow current CDC recommendations . These can be found at CDC.GOV. Follow up with primary care provider if symptoms persist or do not improve *VIRAL URI HANOUT GIVEN ON OTC TREATMENTS, FOLLOW UP AND WHEN TO SEEK EMERGENCY TREATMENT May, Laryngitis (ICD-10 - J04.0) Symptoms of laryngitis is caused by viruses or allergies. Salt water gargles may help with discomfort. Take medications as directed. Cool mist humidifier, steaming up bathroom with shower may help with symptom relief. Follow up with primary care provider if no improvement of symptoms May, Other Additional time spent conducting pre-visit phone call, screening for symptoms, instructions on social distancing, application and removal of PPE, and cleaning of examination room, equipment and supplies was preformed. Patient education given for testing methodology and results. Patient care instructions given in writting by [facility] Care At Home document. [employer] Other Evaluation + Plan note Note Date & Type Note Facility Evaluation + Plan note Future Appointments Appointment Date:08/28/2022 09:30:00 AM Scheduled Provider:Najma Mcdonnell MD Location:[facility] Appointment Type:URO Office Visit [facility] History general Narrative - Reported Note Date & Type Note Facility History general Narrative - Reported Type Medical History Diabetes type 2 Surgical History half thryroid removal Hospitalization History see above [employer] Other Hospital course Narrative Note Date & Type Note Facility Hospital course Narrative No data available for this section [facility] Hospital Discharge instructions Note Date & Type Note Facility Hospital Discharge instructions No data available for this section [facility] Progress note Note Date & Type Note Facility Progress note No data available for this section [facility] [employer] Summary Purpose Family History No Family History Records FoundNo Family History Records Found Advance Directives No Advanced Directives Records FoundNo Advanced Directives Records Found Additional Source Comments REASON FOR VISIT (unrecogniz ed section and content) #13 SILVER CHEVY TRUCK, COUG H, CONGESTION, COVID Provider Visit Patient Care team informatio n (unrecognized section and content) Personnel Name: Rylee Morales MD Address: Address: [address] [place] [address] Personnel Name: Rylee Morales MD Address: Address: [address] [place] [address] (unrecognized sect ion and content) No Status Records FoundNo Status Records Found INFORMATION SOURCE (unrecogn ized section and content) DATE CREATED AUTHOR 08/04/2022 [facility] DATE CREATED AUTHOR 'S ORGANIZ ATION 08/30/2022 [facility] FOR RECORDS PERTAINING TO PATIENTS WHO ARE OR HAVE BEEN ENROLLED IN A CHEMICAL DEPENDENCY/SUBSTANCEABUSE PROGRAM, SOME INFORMATION MAY BE OMITTED. This clinical summary was aggregated from multiple sources. Caution should be exercised in using it in the provision of clinical care. This summary normalizes information from multiple sources, and as a consequence, information in this document may materially change the coding, format and clinical context of patient data. In addition, data may be omitted in some cases. CLINICAL DECISIONS SHOULD BE BASED ON THE PRIMARY CLINICAL RECORDS. [facility] [employer] [facility]. provides no warranty or guarantee of the accuracy or completeness of information in this document.
[2023-10-04 09:50] LABS: Estimated Average Glucose 157 mg/dL; Glycohemoglobin A1C 7.1 % (4.5-6.2)
[2023-10-04 10:13] LABS: Basophils Percent Auto 0.5 % (0.2-2.0); Eosinophils Absolute Auto 0.1 10^3/uL (0.0-0.7); Hematocrit 43.5 % (42.0-54.0); Hemoglobin 14.2 g/dL (14.0-18.0); Immature Granulocytes Abs Auto 0.03 10^3/uL (0.00-0.03); Immature Granulocytes Pct Auto 0.3 % (0.0-0.5); Lymphocytes Absolute Auto 2.6 10^3/uL (1.2-3.8); Lymphocytes Percent Auto 29.8 % (20.5-60.0); Mean Corpuscular HGB Conc 32.6 g/dL (29.9-35.2); Mean Corpuscular Hemoglobin 29.3 pg (25.9-34.0); Mean Corpuscular Volume 89.9 fL (80.0-94.0); Mean Platelet Volume 10.5 fL (9.5-13.5); Monocytes Absolute Auto 0.8 10^3/uL (0.3-0.8); Monocytes Percent Auto 9.8 % (1.7-12.0); Neutrophils Percent Auto 58.6 % (43.0-75.0); Platelet Count 164 10^3/uL (150-450); Red Blood Count 4.84 10^6/uL (4.70-6.10); Red Cell Distribution Width 12.2 % (11.0-15.0); White Blood Count 8.6 10^3/uL (4.0-11.0)
[2023-10-04 10:46] LABS: Prostate Specific Antigen Scrn 0.59 ng/mL (<=4.00)
[2023-10-04 11:52] LABS: Alanine Aminotransferase 15 U/L (16-63); Albumin Level 3.4 g/dL (3.4-5.0); Alkaline Phosphatase 69 U/L (46-116); Anion Gap 10.4; Aspartate Amino Transferase 8 U/L (15-37); BUN Creatinine Ratio 14.7; Bilirubin Total 0.4 mg/dL (0.2-1.0); Chloride 104 mmol/L (98-107); Chol HDL Ratio 5.2; Cholesterol 230 mg/dL (<=200); Estimated GFR (African America >60 (>=60); Estimated GFR (Non-African Ame >60 (>=60); Free T3 2.96 pg/mL (2.18-3.98); Globulin 3.3 g/dL; Glucose 135 mg/dL (74-106); HDL Cholesterol 44 mg/dL (40-60); Potassium 4.4 mmol/L (3.5-5.1); Sodium 140 mmol/L (136-145); Thyroid Stimulating Hormone 2.317 uIU/mL (0.358-3.740); Total Protein 6.7 g/dL (6.4-8.2); Triglycerides 185 mg/dL (<=150)
== END 2023-10-04 09:02 | disposition home or self-care (01) ==
LOC: LAB 09:02
PROVIDERS: PCP Family Medicine; Visit Provider Nurse Practitioner Family
DX: Z00.00 Encounter for general adult medical examination without abnormal findings (principal); E78.5 Hyperlipidemia, unspecified; R73.09 Other abnormal glucose; Z12.5 Encounter for screening for malignant neoplasm of prostate
CPT/HCPCS: 36415; 80053; 80061; 82306; 83036; 83525; 83540; 84436; 84443; 84481; 85025; G0103

== ENCOUNTER 2023-10-24 07:47 | Outpatient (OUT) | payer BC, SELFPAY ==
--- NOTE | 2023-10-24 | PCN_ITS ---
CARDIAC STRESS TEST Requesting Physician: Procedure Date: 10/24/2023 This was a treadmill stress test with myocardial perfusion imaging performed at the [facility] on 10/24/2023. Informed consent was obtained. The patient was attached to electrocardiographic monitoring. An intravenous line was secured. Baseline ECG and vital signs were obtained. The patient exercises on the treadmill according to the Teo protocol. ECG and vital signs were obtained at regular intervals. Following exercise, the patient went on to obtain myocardial perfusion imaging. Resting heart rate was 74 BPM and maximum heart rate was 146 BPM representing 89% of maximum predicted heart rate. Resting blood pressure was 134/82 and maximum blood pressure was 150/84. Total exercise time was 6 minutes and 36 seconds, the patient reached stage 3 of the Teo protocol and achieved 8.8 METS. The patient reported chest pain during treadmill exercise and the pain subsided at the end of the test. Baseline ECG showed normal sinus rhythm with no ischemic changes. ECG during exercise showed sinus tachycardia. At peak exercise, there was evidence of [address] segment depressions in leads V5 and V6. During recovery, there was evidence of sinus rhythm with occasional PVCs. Final ECG showed evidence of normal sinus rhythm with no ischemic changes and was comparable to baseline. SUMMARY OF THE FINDINGS: 1. Positive treadmill exercise stress for exercise induced ischemic ECG changes. 2. Resting hypertension and appropriate blood pressure response to exercise. 3. Symptoms of chest pain developed during treadmill exercise that resolved at rest. 4. 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 5. Myocardial perfusion images will be reported separately. [email or web address]
--- OUTSIDE RECORDS SUMMARY | 2023-10-24 07:50 | XMS_ITS | CCD ---
Author Organization [facility] Care Team Providers Care Litigation Attorney Name Role Phone Eva Carrillo Unavailable Rylee Morales Primary Care Physician DIANA MIGUEL Attending Unavailable DIANA MIGUEL Admitting [...] Medication Allergies] Propensity to adverse reactions (disorder) [facility] Repository Medications Current Medications Medication Drug Class(es) [...] kidneys and bladder was performed by the assistant professor of forestry. Assistant Professor Of Drama static images are submitted for review. Cine [...] COLLEEN NORIEGA Date: 2022-08-01 11:31 Normal [facility] CBC AUTO DIFFon 07-22-2022 BASO # 0.0 103/ul Normal 0.0-0.1 [facility] Comment on above: Performed By: #### U MICRO, ERUR #### [facility] [address] [place] [address] Dr. Allyson Guerrero Basophils/100 WBC (Bld) 0.4 % Normal 0.2-2.0 [facility] Comment on above: Performed By: #### U MICRO, ERUR #### [facility] [address] [place] [address] Dr. Allyson Guerrero EO # 0.1 103/ul Normal 0.0-0.7 [facility] Comment on above: Performed By: #### U MICRO, ERUR #### [facility] [address] [address] [address] Allyson Guerrero Eosinophils/100 WBC (Bld) 1.3 % Normal 0.9-7.0 [facility] Comment on above: Performed By: #### U MICRO, ERUR #### [facility] [address] [place] [address] Dr. Allyson Guerrero Erythrocyte distribution width (RBC) [Ratio] 12.4 % Normal 11.0-15.0 [facility] Comment on above: Performed By: #### U MICRO, ERUR #### [facility] [address] [place] [address] Dr. Allyson Guerrero Hematocrit (Bld) [Volume fraction] 40.3 % Critically low 42.0-54.0 [facility] Comment on above: Performed By: #### U MICRO, ERUR #### [facility] [address] [place] [address] Dr. Allyson Guerrero Hemoglobin (Bld) [Mass/Vol] 14.2 g/dL Normal 14.0-18.0 [facility] Comment on above: Performed By: #### U MICRO, ERUR #### [facility] [address] [place] [address] Dr. Allyson Guerrero IG # 0.02 10e3/ul Normal 0.00-0.03 [facility] Comment on above: Performed By: #### U MICRO, ERUR #### [facility] [address] [place] [address] Dr. Allyson Guerrero IG % 0.3 % Normal 0.0-0.5 [facility] Comment on above: Performed By: #### U MICRO, ERUR #### [facility] [address] [place] [address] Dr. Allyson Guerrero LYMPH # 3.1 103/ul Normal 1.2-3.8 [facility] Comment on above: Performed By: #### U MICRO, ERUR #### [facility] [address] [place] [address] Dr. Allyson Guerrero Lymphocytes/100 WBC (Bld) 44.5 % Normal 20.5-60.0 [facility] Comment on above: Performed By: #### U MICRO, ERUR #### [facility] [address] [place] [address] Dr. Allyson Guerrero MANUAL DIFF REQ NO Normal [facility] Comment on above: Performed By: #### U MICRO, ERUR #### [facility] [address] [address] [address] Allyson Guerrero MCH (RBC) [Entitic mass] 30.0 pg Normal 25.9-34.0 [facility] Comment on above: Performed By: #### U MICRO, ERUR #### [facility] [address] [place] [address] Dr. Allyson Guerrero MCHC (RBC) [Mass/Vol] 35.2 g/dL Normal 29.9-35.2 [facility] Comment on above: Performed By: #### U MICRO, ERUR #### [facility] [address] [place] [address] Dr. Allyson Guerrero MCV (RBC) [Entitic vol] 85.0 fL Normal 80.0-94.0 [facility] Comment on above: Performed By: #### U MICRO, ERUR #### [facility] [address] [place] [address] Dr. Allyson Guerrero MONO # 0.6 103/ul Normal 0.3-0.8 [facility] Comment on above: Performed By: #### U MICRO, ERUR #### [facility] [address] [place] [address] Dr. Allyson Guerrero Monocytes/100 WBC (Bld) 9.1 % Normal 1.7-12.0 [facility] Comment on above: Performed By: #### U MICRO, ERUR #### [facility] [address] [place] [address] Dr. Allyson Guerrero NEUT # 3.1 103/ul Normal 1.4-6.5 [facility] Comment on above: Performed By: #### U MICRO, ERUR #### [facility] [address] [place] [address] Dr. Allyson Guerrero Neutrophils/100 WBC (Bld) 44.4 % Normal 43.0-75.0 [facility] Comment on above: Performed By: #### U MICRO, ERUR #### [facility] [address] [place] [address] Dr. Allyson Guerrero Platelet mean volume (Bld) [Entitic vol] 9.9 fL Normal 9.5-13.5 [facility] Comment on above: Performed By: #### U MICRO, ERUR #### [facility] [address] [place], [place] [address] Dr. Allyson Guerrero PLT 166 103/ul Normal 150-450 [facility] Comment on above: Performed By: #### U MICRO, ERUR #### [facility] [address] [place], [place] [address] Dr. Allyson Guerrero RBC 4.74 106/ul Normal 4.70-6.10 [facility] Comment on above: Performed By: #### U MICRO, ERUR #### [facility] [address] [place], [place] [address] Dr. Allyson Guerrero WBC 7.0 103/ul Normal 4.0-11.0 [facility] Comment on above: Performed By: #### U MICRO, ERUR #### [facility] [address] [place], [place] [address] ABD/PELVIS WO CONon [...] YURI ALONZO Date: 2022-07-22 06:56 Normal [facility] ER URINE PROFILEon 3 Bilirubin Ql (U) Negative Normal NEGATIVE [facility] Comment on above: Performed By: #### U MICRO, ERUR #### [facility] [address] [place] [address] Dr. Allyson Guerrero Clarity (U) CLEAR Normal CLEAR [facility] Comment on above: Performed By: #### U MICRO, ERUR #### [facility] [address] [place] [address] Dr. Allyson Guerrero Color (U) LT. YELLOW Normal YELLOW [facility] Comment on above: Performed By: #### U MICRO, ERUR #### [facility] [address] [place] [address] Dr. Allyson Guerrero ERUAHD A micrscopic examination will be performed if indicated. Normal [facility] Comment on above: Performed By: #### U MICRO, ERUR #### [facility] [address] [place] [address] Dr. Allyson Guerrero Glucose Ql (U) Negative Normal NEGATIVE [facility] Comment on above: Performed By: #### U MICRO, ERUR #### [facility] [address] [address] [address] Allyson Guerrero Hemoglobin Ql (U) LARGE Abnormal NEGATIVE [facility] Comment on above: Performed By: #### U MICRO, ERUR #### [facility] [address] [address] [address] Allyson Guerrero Ketones Ql (U) Negative Normal NEGATIVE [facility] Comment on above: Performed By: #### U MICRO, ERUR #### [facility] [address] [place] [address] Dr. Allyson Guerrero LEUKOCYTES Negative Normal NEGATIVE [facility] Comment on above: Performed By: #### U MICRO, ERUR #### [facility] [address] [place] [address] Dr. Allyson Guerrero Nitrite Ql (U) Negative Normal NEGATIVE [facility] Comment on above: Performed By: #### U MICRO, ERUR #### [facility] [address] [place] [address] Dr. Allyson Guerrero pH (U) 6.0 [pH] Normal 5-9 [facility] Comment on above: Performed By: #### U MICRO, ERUR #### [facility] [address] [place] [address] Dr. Allyson Guerrero SPEC GRAVITY 1.015 Normal 1.005-<=1.025 [facility] Comment on above: Performed By: #### U MICRO, ERUR #### [facility] [address] [place] [address] Dr. Allyson Guerrero UA PROTEIN TRACE Normal NEGATIVE/ TRACE [facility] Comment on above: Performed By: #### U MICRO, ERUR #### [facility] [address] [place] [address] Dr. Allyson Guerrero UR MICRO IND INDICATED Normal [facility] Comment on above: Performed By: #### U MICRO, ERUR #### [facility] [address] [place] [address] Dr. Allyson Guerrero Urobilinogen Qn (U) 0.2 {Dianna'U}/dL Normal 0.2 - 1. 0 [facility] Comment on above: Performed By: #### U MICRO, ERUR #### [facility] [address] [place] [address] Dr. Allyson Guerrero PROF CHEM 8 (BAS METB)on Anion gap [Moles/Vol] 12.7 mmol/L Normal [facility] Comment on above: Performed By: #### U MICRO, ERUR #### [facility] [address] [place] [address] Dr. Allyson Guerrero Calcium [Mass/Vol] 8.9 mg/dL Normal 8.5-10.1 [facility] [place] [facility] Comment on above: Performed By: #### U MICRO, ERUR #### [facility] [address] [address] [address] Allyson Guerrero Chloride [Moles/Vol] 103 mmol/L Normal 98-107 [facility] Comment on above: Performed By: #### U MICRO, ERUR #### [facility] [address] [address] [address] Allyson Guerrero CO2 [Moles/Vol] 28.9 mmol/L Normal 21.0-32.0 [facility] Comment on above: Performed By: #### U MICRO, ERUR #### [facility] [address] [address] [address] Allyson Guerrero Creatinine [Mass/Vol] 1.06 mg/dL Normal 0.70-1.30 [facility] Comment on above: Performed By: #### U MICRO, ERUR #### [facility] [address] [address] [address] Allyson Guerrero EGFR-AF GABONESE >60 Normal >=60 [facility] Comment on above: Performed By: #### U MICRO, ERUR #### [facility] [address] [address] [address] Allyson Guerrero EGFR-NON AF GABONESE >60 Normal >=60 [facility] Comment on above: Performed By: #### U MICRO, ERUR #### [facility] [address] [address] [address] Allyson Guerrero Glucose [Mass/Vol] 191 mg/dL Critically high 74-106 [facility] Comment on above: Performed By: #### U MICRO, ERUR #### [facility] [address] [address] [address] Allyson Guerrero Potassium [Moles/Vol] 4.0 mmol/L Normal 3.5-5.1 [facility] Comment on above: Performed By: #### U MICRO, ERUR #### [facility] [address] [address] [address] Allyson Guerrero Sodium [Moles/Vol] 141 mmol/L Normal 136-145 [facility] [place] [facility] Comment on above: Performed By: #### U MICRO, ERUR #### [facility] [address] [address] [address] Allyson Guerrero Urea nitrogen [Mass/Vol] 15.0 mg/dL Normal 7.0-18.0 [facility] Comment on above: Performed By: #### U MICRO, ERUR #### [facility] [address] [address] [address] Allyson Guerrero Urea nitrogen/Creatinine [Mass ratio] 14.2 mg/mg Normal [facility] Comment on above: Performed By: #### U MICRO, ERUR #### [facility] [address] [address] [address] Allyson Guerrero URINE MICROSCOPIC ONLYon BACTERIA NONE SEEN Normal NONE SEEN [facility] Comment on above: Performed By: #### U MICRO, ERUR #### [facility] [address] [place] [address] Dr. Allyson Guerrero Bacteria identified Cx Nom (U) NOT INDICATED Normal [facility] Comment on above: Performed By: #### U MICRO, ERUR #### [facility] [address] [place] [address] Dr. Allyson Guerrero CAST NONE SEEN Normal NONE SEEN [facility] Comment on above: Performed By: #### U MICRO, ERUR #### [facility] [address] [place] [address] Dr. Allyson Guerrero Crystals LM Nom (Urine sed) NONE SEEN Normal NONE SEEN [facility] Comment on above: Performed By: #### U MICRO, ERUR #### [facility] [address] [place] [address] Dr. Allyson Guerrero Epithelial cells LM Ql (Urine sed) FEW Abnormal NONE SEEN /RARE [facility] Comment on above: Performed By: #### U MICRO, ERUR #### [facility] [address] [place] [address] Dr. Allyson Guerrero MUCOUS NONE SEEN Normal NONE SEEN [facility] Comment on above: Performed By: #### U MICRO, ERUR #### [facility] [address] [place] [address] Dr. Allyson Guerrero RBC 10-20 Abnormal 0-2 [facility] Comment on above: Performed By: #### U MICRO, ERUR #### [facility] [address] [address] [address] Allyson Guerrero WBC NONE SEEN Normal NONE SEEN [facility] Comment on above: Performed By: #### U MICRO, ERUR #### [facility] [address] [place], [place] [address] Dr. Allyson Guerrero Auth for Release of Medical Recordson 05-30-2022 Auth for Release of Medical Records [id number] #1.00CD:127 Normal [facility] Formson 05-30-2022 Forms [id number] #1.00CD:127 Normal [facility] Physician Referralon 022 Physician Referral [id number] #1.00CD:127 Normal [facility] Screenson 05-30-2022 Screens [id number]# 1.00CD:127 Normal [facility] Screens [id number]# 1.00CD:127 Normal [facility] Patient Educationon 05-29-20 22 Patient Education Urology [...] these instructions at home: Medicines ? Take kohy-qoc-mspfrtj and prescription medicines only as told by [...] of your (more content not included)... Normal [facility] Retail - Clinical Noteon Retail - Clinical Note [id number] #1.00CD:127 Normal [facility] Urology Office/Clinic Noteon 05-29-2022 Urology Office/Clinic Note [...] vs IPP -LINO will be ordered from [facility]. Education/instructio ns provided 2. BPH (benign prostatic [...] Dysfunction Kathrin Coles, personally scribed for Dr. Mcdonnell on 05/29/2022 10:31:47. . Documentation recorded by [...] Procedure/Surgical Hist (more content not included)... Normal [facility] Comment on above: Result Comment: Elec tronically Signed By: Sathya PAVON, Najma Lyon\.br\Date and Time Signed: 05/29/22 20:32 EST Facesheeton 05-16-2022 Facesheet [id number] #1.00CD:127 [facility] Ambulatory Visit Summaryon 1 07-15-2021 Ambulatory Visit [...] PAVON, Najma Lyon Where: [facility] Historical Records Officeon 04-18-2022 Historical Records Office [id number] #1.00CD:127 [facility] Historical Records Office [id number] #1.00CD:127 [facility] Physician Referralon 022 Physician Referral [id number] #1.00CD:127 [facility] INSULINon 08-20-2021 Insulin 20.0 uIU/mL Normal 2.6-24.9 [facility] Comment on above: Performed By: #### I NSULIN #### [facility] [address] [place] [address] Dr. Allyson Guerrero CBC AUTO DIFFon 08-18-2021 BASO # 0.0 103/ul Normal 0.0-0.1 [facility] Comment on above: Performed By: #### U MICRO, ERUR #### [facility] [address] [place] [address] Dr. Allyson Guerrero Basophils/100 WBC (Bld) 0.6 % Normal 0.2-2.0 [facility] Comment on above: Performed By: #### U MICRO, ERUR #### [facility] [address] [place] [address] Dr. Allyson Guerrero EO # 0.1 103/ul Normal 0.0-0.7 [facility] Comment on above: Performed By: #### U MICRO, ERUR #### [facility] [address] [place] [address] Dr. Allyson Guerrero Eosinophils/100 WBC (Bld) 1.3 % Normal 0.9-7.0 [facility] Comment on above: Performed By: #### U MICRO, ERUR #### [facility] [address] [place] [address] Dr. Allyson Guerrero Erythrocyte distribution width (RBC) [Ratio] 12.2 % Normal 11.0-15.0 [facility] Comment on above: Performed By: #### U MICRO, ERUR #### [facility] [address] [place] [address] Dr. Allyson Guerrero Hematocrit (Bld) [Volume fraction] 42.7 % Normal 42.0-54.0 [facility] Comment on above: Performed By: #### U MICRO, ERUR #### [facility] [address] [place] [address] Dr. Allyson Guerrero Hemoglobin (Bld) [Mass/Vol] 14.1 g/dL Normal 14.0-18.0 [facility] Comment on above: Performed By: #### U MICRO, ERUR #### [facility] [address] [place] [address] Dr. Allyson Guerrero IG # 0.03 10e3/ul Normal 0.00-0.03 [facility] Comment on above: Performed By: #### U MICRO, ERUR #### [facility] [address] [address] [address] Allyson Guerrero IG % 0.5 % Normal 0.0-0.5 [facility] Comment on above: Performed By: #### U MICRO, ERUR #### [facility] [address] [address] [address] Allyson Guerrero LYMPH # 2.8 103/ul Normal 1.2-3.8 [facility] Comment on above: Performed By: #### U MICRO, ERUR #### [facility] [address] [address] [address] Allyson Guerrero Lymphocytes/100 WBC (Bld) 45.0 % Normal 20.5-60.0 [facility] Comment on above: Performed By: #### U MICRO, ERUR #### [facility] [address] [place] [address] Dr. Allyson Guerrero MANUAL DIFF REQ NO Normal [facility] Comment on above: Performed By: #### U MICRO, ERUR #### [facility] [address] [address] [address] Allyson Guerrero MCH (RBC) [Entitic mass] 28.9 pg Normal 25.9-34.0 [facility] Comment on above: Performed By: #### U MICRO, ERUR #### [facility] [address] [address] [address] Allyson Guerrero MCHC (RBC) [Mass/Vol] 33.0 g/dL Normal 29.9-35.2 [facility] Comment on above: Performed By: #### U MICRO, ERUR #### [facility] [address] [address] [address] Allyson Guerrero MCV (RBC) [Entitic vol] 87.5 fL Normal 80.0-94.0 [facility] Comment on above: Performed By: #### U MICRO, ERUR #### [facility] [address] [address] [address] Allyson Guerrero MONO # 0.6 103/ul Normal 0.3-0.8 [facility] Comment on above: Performed By: #### U MICRO, ERUR #### [facility] [address] [place] [address] Dr. Allyson Guerrero Monocytes/100 WBC (Bld) 10.1 % Normal 1.7-12.0 [facility] Comment on above: Performed By: #### U MICRO, ERUR #### [facility] [address] [place] [address] Dr. Allyson Guerrero NEUT # 2.6 103/ul Normal 1.4-6.5 [facility] Comment on above: Performed By: #### U MICRO, ERUR #### [facility] [address] [place] [address] Dr. Allyson Guerrero Neutrophils/100 WBC (Bld) 42.5 % Critically low 43.0-75.0 [facility] Comment on above: Performed By: #### U MICRO, ERUR #### [facility] [address] [place] [address] Dr. Allyson Guerrero Platelet mean volume (Bld) [Entitic vol] 10.2 fL Normal 9.5-13.5 [facility] Comment on above: Performed By: #### U MICRO, ERUR #### [facility] [address] [place] [address] Dr. Allyson Guerrero PLT 191 103/ul Normal 150-450 [facility] Comment on above: Performed By: #### U MICRO, ERUR #### [facility] [address] [place] [address] Dr. Allyson Guerrero RBC 4.88 106/ul Normal 4.70-6.10 [facility] Comment on above: Performed By: #### U MICRO, ERUR #### [facility] [address] [place] [address] Dr. Allyson Guerrero WBC 6.2 103/ul Normal 4.0-11.0 [facility] Comment on above: Performed By: #### U MICRO, ERUR #### [facility] [address] [place] [address] Dr. Allyson Guerrero FREE THYROXINE INDEX T7on 02 -19-2022 FTI 1.69 Normal [facility] Comment on above: Performed By: #### T SH, T4, LIPID, T7, URIC, CMP #### [facility] [address] [place] [address] Dr. Allyson Guerrero T3U 36.0 % Normal 23.5-40.5 [facility] Comment on above: Performed By: #### T SH, T4, LIPID, T7, URIC, CMP #### [facility] [address] [place] [address] Dr. Allyson Guerrero T4 [Mass/Vol] 4.70 ug/dL Critically low 5.53-11.00 [facility] Comment on above: Performed By: #### T SH, T4, LIPID, T7, URIC, CMP #### [facility] [address] [place] [address] Dr. Allyson Guerrero Performed By: #### U MICRO, ERUR #### [facility] [address] [place] [address] Dr. Allyson Guerrero GLYCOHEMOGLOBIN A1Con 2021 ADA RECOMMENDATION ADA THERAPEUTIC TARGET 6.0 - 7.0 ACTION SUGGESTED > 7.0 Normal [facility] Comment on above: Performed By: #### A 1C #### [facility] [address] [place] [address] Dr. Allyson Guerrero Glucose [Mass/Vol] 258 mg/dL Normal [facility] [place] [facility] Comment on above: Performed By: #### A 1C #### [facility] [address] [place] [address] Dr. Allyson Guerrero HbA1c (Bld) [Mass fraction] 10.6 % Critically high <=6.0 [facility] Comment on above: Performed By: #### A 1C #### [facility] [address] [place] [address] Dr. Allyson Guerrero LIPID PROFILEon 08-18-2021 CHOL-HDL RATIO NORM SEE BELOW Normal [facility] Comment on above: Result Comment: 3.3 - 4.4 LOW RISK 4.4 - 7.1 AVERAGE RISK 7.1 - 11.0 MODERATE RISK >11.0 HIGH RISK Performed By: #### T SH, T4, LIPID, T7, URIC, CMP #### [facility] [address] [address] [address] Allyson Guerrero Cholesterol [Mass/Vol] 200 mg/dL Normal <=200 [facility] Comment on above: Performed By: #### T SH, T4, LIPID, T7, URIC, CMP #### [facility] [address] [place] [address] Dr. Allyson Guerrero Cholesterol in HDL [Mass/Vol] 36 mg/dL Normal [facility] [facility] Comment on above: Performed By: #### T SH, T4, LIPID, T7, URIC, CMP #### [facility] [address] [place] [address] Dr. Allyson Guerrero Cholesterol in LDL [Mass/Vol] 120.6 mg/dL Normal [facility] Comment on above: Performed By: #### T SH, T4, LIPID, T7, URIC, CMP #### [facility] [address] [place] [address] Dr. Allyson Guerrero Cholesterol.total/Ch olesterol in HDL [Mass ratio] 5.6 {ratio} Normal [facility] Comment on above: Performed By: #### T SH, T4, LIPID, T7, URIC, CMP #### [facility] [address] [place] [address] Dr. Allyson Guerrero HDL NORMAL > or = 60 mg/dl - LOW CARDIOVASCULAR RISK <40 mg/dl - HIGH CARDIOVASCULAR RISK Normal [facility] Comment on above: Performed By: #### T SH, T4, LIPID, T7, URIC, CMP #### [facility] [address] [place] [address] Dr. Allyson Guerrero LDL CALC NORMAL SEE BELOW Normal [facility] Comment on above: Result Comment: <100 mg/dl OPTIMAL 100 - 129 mg/dl NEAR OR ABOVE OPTIMAL 130 - 159 mg/dl BORDERLINE HIGH 160 - 189 mg/dl HIGH >190 mg/dl VERY HIGH Performed By: #### T SH, T4, LIPID, T7, URIC, CMP #### [facility] [address] [place] [address] Dr. Allyson Guerrero Triglyceride [Mass/Vol] 217 mg/dL Critically high <=150 [facility] Comment on above: Performed By: #### T SH, T4, LIPID, T7, URIC, CMP #### [facility] [address] [address] [address] Allyson Guerrero VLDL CALC 43.4 mg/dL Normal [facility] Comment on above: Performed By: #### T SH, T4, LIPID, T7, URIC, CMP #### [facility] [address] [address] [address] Allyson Guerrero PROF 14(COMP METB)on 022 Albumin [Mass/Vol] 3.5 g/dL Normal 3.5-5.0 [facility] Comment on above: Performed By: #### T SH, T4, LIPID, T7, URIC, CMP #### [facility] [address] [place] [address] Dr. Allyson Guerrero Albumin/Globulin [Mass ratio] 0.9 {ratio} Normal [facility] Comment on above: Performed By: #### T SH, T4, LIPID, T7, URIC, CMP #### [facility] [address] [address] [address] Allyson Guerrero ALP [Catalytic activity/Vol] 94 U/L Normal 38-126 [facility] Comment on above: Performed By: #### T SH, T4, LIPID, T7, URIC, CMP #### [facility] [address] [address] [address] Allyson Guerrero ALT [Catalytic activity/Vol] 27 U/L Normal 21-72 [facility] Comment on above: Performed By: #### T SH, T4, LIPID, T7, URIC, CMP #### [facility] [address] [address] [address] Allyson Guerrero Anion gap [Moles/Vol] 8.5 mmol/L Normal [facility] Comment on above: Performed By: #### T SH, T4, LIPID, T7, URIC, CMP #### [facility] [address] [address] [address] Allyson Guerrero AST [Catalytic activity/Vol] 12 U/L Critically low 17-59 [facility] Comment on above: Performed By: #### T SH, T4, LIPID, T7, URIC, CMP #### [facility] [address] [address] [address] Allyson Guerrero Bilirubin [Mass/Vol] 0.4 mg/dL Normal 0.2-1.3 [facility] Comment on above: Performed By: #### T SH, T4, LIPID, T7, URIC, CMP #### [facility] [address] [address] [address] Allyson Guerrero Calcium [Mass/Vol] 9.1 mg/dL Normal 8.4-10.2 [facility] Comment on above: Performed By: #### T SH, T4, LIPID, T7, URIC, CMP #### [facility] [address] [place] [address] Dr. Allyson Guerrero Chloride [Moles/Vol] 101 mmol/L Normal 98-107 [facility] Comment on above: Performed By: #### T SH, T4, LIPID, T7, URIC, CMP #### [facility] [address] [address] [address] Allyson Guerrero CO2 [Moles/Vol] 30.9 mmol/L Critically high 22.0-30.0 [facility] Comment on above: Performed By: #### T SH, T4, LIPID, T7, URIC, CMP #### [facility] [address] [place] [address] Dr. Allyson Guerrero Creatinine [Mass/Vol] 0.98 mg/dL Normal 0.66-1.25 [facility] Comment on above: Performed By: #### T SH, T4, LIPID, T7, URIC, CMP #### [facility] [address] [address] [address] Allyson Guerrero EGFR-AF GABONESE >60 Normal >=60 [facility] Comment on above: Performed By: #### T SH, T4, LIPID, T7, URIC, CMP #### [facility] [address] [place] [address] Dr. Allyson Guerrero EGFR-NON AF GABONESE >60 Normal >=60 [facility] Comment on above: Performed By: #### T SH, T4, LIPID, T7, URIC, CMP #### [facility] [address] [place] [address] Dr. Allyson Guerrero Globulin (S) [Mass/Vol] 3.7 g/dL Normal [facility] Comment on above: Performed By: #### T SH, T4, LIPID, T7, URIC, CMP #### [facility] [address] [place] [address] Dr. Allyson Guerrero Glucose [Mass/Vol] 265 mg/dL Critically high 74-106 [facility] Comment on above: Performed By: #### T SH, T4, LIPID, T7, URIC, CMP #### [facility] [address] [place] [address] Dr. Allyson Guerrero Potassium [Moles/Vol] 4.4 mmol/L Normal 3.4-5.0 [facility] Comment on above: Performed By: #### T SH, T4, LIPID, T7, URIC, CMP #### [facility] [address] [place] [address] Dr. Allyson Guerrero Protein [Mass/Vol] 7.2 g/dL Normal 6.1-8.2 [facility] Comment on above: Performed By: #### T SH, T4, LIPID, T7, URIC, CMP #### [facility] [address] [place] [address] Dr. Allyson Guerrero Sodium [Moles/Vol] 136 mmol/L Critically low 137-145 [facility] Comment on above: Performed By: #### T SH, T4, LIPID, T7, URIC, CMP #### [facility] [address] [place] [address] Dr. Allyson Guerrero Urea nitrogen [Mass/Vol] 13.0 mg/dL Normal 9.0-20.0 [facility] Comment on above: Performed By: #### T SH, T4, LIPID, T7, URIC, CMP #### [facility] [address] [place] [address] Dr. Allyson Guerrero Urea nitrogen/Creatinine [Mass ratio] 13.3 mg/mg Normal [facility] Comment on above: Performed By: #### T SH, T4, LIPID, T7, URIC, CMP #### [facility] [address] [address] [address] Allyson Guerrero TSHon 08-18-2021 TSH 2.147 uIU/mL Normal 0.470-4.680 [facility] Comment on above: Performed By: #### U MICRO, ERUR #### [facility] [address] [address] [address] Allyson Guerrero TSH RANGE SEE BELOW Normal [facility] Comment on above: Result Comment: <0.3 4 UIU/ml HYPERTHYROID 0.34-5.60 UIU/ml EUTHYROID >5.60 UIU/ml HYPOTHYROID Performed By: #### U MICRO, ERUR #### [facility] [address] [address] [address] Allyson Guerrero URIC ACID SERUMon 08-18-2021 Urate [Mass/Vol] 4.4 mg/dL Normal 3.5-8.5 [facility] Comment on above: Performed By: #### U MICRO, ERUR #### [facility] [address] [address] [address] Allyson Guerrero COVID Quick Testingon 2020 Result Negative [facility] Other Vital Signs Date Time Vital Sign Value Performing Clinician Facility 05-29-2022 08:59-0500 Blood Pressure Location Najmasalbador Mcdonnell [facility] 05-29-2022 08:59-0500 Diastolic blood pressure 66 mm[Hg] Najma Lue [facility] 05-29-2022 08:59-0500 Heart rate 106 /min Najma Lue [facility] 05-29-2022 08:59-0500 Systolic blood pressure 147 mm[Hg] Najma Lue [facility] 06-17-2021 13:00-0500 Body height 161.29 cm Eva Carrillo Other [facility] Other 06-17-2021 13:00-0500 Body mass index (BMI) [Ratio] 33.13 kg/m2 Eva Carrillo Other [facility] Other 06-17-2021 13:00-0500 Body temperature 97.7 [degF] Eva Carrillo Other [facility] Other 06-17-2021 13:00-0500 Body weight 86.18 kg Eva Carrillo Other [facility] Other 06-17-2021 13:00-0500 Respiratory rate 18 /min Eva Carrillo Other [facility] Other 06-17-2021 13:00-0500 SaO2% (BldA) [Mass fraction] 96 % Eva Carrillo Other [facility] Other Encounters Encounter Date Encounter Type Care Provider Facility Start: 08-28-2022 End: 08-29-2022 ambulatory Najma Mcdonnell Facility:[facility] Start: 08-28-2022 End: 08-28-2022 Patient encounter procedure Najma Mcdonnell [facility] Start: 08-01-2022 End: 08-02-[address] RYLEE MORALES Facility: Start: 07-22-2022 End: 07-22-2022 ambulatory DIANA MIGUEL Facility: Start: 05-29-2022 End: 05-30-2022 ambulatory Najma Mcdonnell Facility:[facility] Start: 05-29-2022 End: 05-29-2022 Patient encounter procedure Najma LakeErik Sathya [facility] Start: 05-15-2022 End: 05-16-2022 ambulatory Rylee Morales Facility:[facility] Start: 04-25-2022 ambulatory Najma Mcdonnell Facility:[facility] Start: 04-16-2022 ambulatory Rylee Morales Facility:[facility] Start: 08-21-2021 Encounter for genera l adult medical examination without abnormal findings DR RYLEE MORLAES [facility] Start: 08-18-2021 End: 08-19-[address] RYLEE MORALES Facility:[facility] Start: 08-18-2021 End: 08-19-2021 Encounter for general adult medical examination without abnormal findings DR RYLEE MORALES Facility:[facility] Start: 06-17-2021 End: 06-17-2021 ambulatory Eva Carrillo Other [facility] Other Start: 06-17-2021 Office outpatient vi sit 15 minutes Eva Carrillo [facility] Procedures Date Procedure Procedure Detail Performing Clinician Start: 08-18-2021 PSA screening DIANA MCCORD Comment on above: Performed By: #### P [facility] #### [facility] [address] [place] [address] Dr. Allyson Guerrero Start: 03-28-2015 Colonoscopy Najma Lue Start: 03-13-2015 Colonoscopy Najma Lue Decompression of med pari nerve Najma Lusouleymane History of subtotal thyroidectomy Najma Azule Repair of tendo achilles Tiara hy Lue Immunizations Immunization Date Immunization Notes Care Provider Prasanna rushing 04-17-2022 influenza virus vaccine, unspecified formulation Najma Mcdonnell [facility] 05-18-2021 influenza, unspecifi ed formulation Najma Lue [facility] 04-18-2021 influenza virus vaccine, unspecified formulation Najma Lue [facility] 02-14-2021 SARS-CoV-2 (COVID-19 ) mRNA BNT-162b2 vax Najma Lue [facility] Comment on above: Result Comment: 2021: TPV50 01-24-2021 SARS-CoV-2 (COVID-19 ) mRNA BNT-162u2 vax Najma Lue [facility] Comment on above: Result Comment: 2021: TPV50 03-29-2020 influenza virus vaccine, unspecified formulation Najma Lue [facility] 04-14-2019 influenza virus vaccine, unspecified formulation Najma Lue [facility] 04-07-2018 influenza virus vaccine, unspecified formulation Najma Lue [facility] 04-09-2017 influenza virus vaccine, unspecified formulation Najma Lue [facility] 04-10-2016 influenza virus vaccine, unspecified formulation Najma Lue [facility] Payers Date Payer Category Payer Unknown [id number] 2.16.84 [id number] 1965 Unknown [id number] 2.16.84 [id number] 1965 Unknown [id number] 2.16.84 [id number] 1965 Unknown [id number] 2.16.8 [id number] 1965 Unknown [id number] 2.16.8 [id number] 1965 Unknown [id number] 2.16.8 [id number] 1965 Unknown [id number] 2.16.8 [id number] 1959 Unknown [id number] Private Health Insurance [id number] Social History Date Type Detail Facility Unknown if ever smoked [facility] Other Sex Assigned [facility] Start: 05-29-2022 Tobacco smoking status Ex-smoker (fi nding) [facility] Tobacco smoking status Never [facility] Functional Status Date Assessment Result Facility 05-29-2022 Functional Status N/A [facility] Hospital Discharge instructions 05-29-2022 Note Date [...] Follow these instructions at home: Medicines Take [id number] and prescription medicines only as told by [...] 06/13/2001 Document Revised: 05/29/2018 Document Reviewed: 07/02/2017 [employer] Patient Education 2020 [employer] Follow Up Care 04/25/2022 16:00:36 With:Sathya PAVON, Najma Lyon, URL, URO Address: When:3 months Comments:f[facility]u to vacuum device [facility] 05-15-2022 Note Date [...] Diabetes mellitus type 2: Father and Brother. [facility] Comment on above: Result Comment: Elec tronically Signed By: HEVER PAVON, Domingo Boo.kneneth\Date and Time Signed: 05/15/22 17:38 EST Evaluation [...] Patient care instructions given in writting by [facility] Care At Home document. [facility] Other Evaluation + Plan note Note Date & Type Note Facility Evaluation + Plan note Future Appointments Appointment Date:08/28/2022 09:30:00 AM Scheduled Provider:Najma Mcdonnell MD Location:[facility] Appointment Type:URO Office Visit [facility] History general Narrative - Reported Note Date & Type Note Facility History general Narrative - Reported Type Medical History Diabetes type 2 Surgical History half thryroid removal Hospitalization History see above [facility] Other Hospital course Narrative Note Date & Type Note Facility Hospital course Narrative No data available for this section [facility] Hospital Discharge instructions Note Date & Type Note Facility Hospital Discharge instructions No data available for this section [facility] Progress note Note Date & Type Note Facility Progress note No data available for this section [facility] [employer] Summary Purpose Family History No Family History Records FoundNo Family History Records Found Advance Directives No Advanced Directives Records FoundNo Advanced Directives Records Found Additional Source Comments REASON FOR VISIT (unrecogniz ed section and content) #13 SILVER CHEVY TRUCK, COUG H, CONGESTION, COVID Provider Visit Patient Care team informatio n (unrecognized section and content) Personnel Name: Rylee Morales MD Address: Address: [address] [place] [address] Personnel Name: Rylee Morales MD Address: Address: [address] [place] [address] (unrecognized sect ion and content) No Status Records FoundNo Status Records Found INFORMATION SOURCE (unrecogn ized section and content) DATE CREATED AUTHOR 08/04/2022 [facility] DATE CREATED AUTHOR 'S ORGANIZ ATION 08/30/2022 [facility] FOR RECORDS PERTAINING TO PATIENTS WHO [...] BE BASED ON THE PRIMARY CLINICAL RECORDS. [facility] [employer] [facility]. provides no warranty or guarantee of the accuracy or completeness of information in this document.
--- NOTE | 2023-10-24 08:10 | NM_ITS ---
Patient Name: ROSANA GALVAN MR#: [id number] : 1965 Exam Date: 10/24/2023 Ordering Doctor: DR William Morales . RADIOLOGY REPORT PROCEDURE: NM ISABELLE PERF SPECT REST STR COMPARISON: None. INDICATIONS: CHEST PAIN TECHNIQUE: Exam Description: Stress/Rest two day protocol gated SPECT Rest Imagin.2 mCi Tc-99m Cardiolite IV on 10/24/2023 Stress Imaging 30.7 mCi Tc-99m Cardiolite IV on 10/24/2023 Exercise Protocol: Teo Heart Rate (bpm): Rest: 74 Max: 146 PMHR: 89 Blood Pressure: Rest: 134/82 Max: 150/84 Exercise Time: Minutes: 6 Seconds: 36 Stage Reached: Stage: 3 Mets 8.8 Symptoms: Rest and peak stress ECG findings were abnormal and the exercise portion of the study was abnormal per attending physician Dr. Almaguer due to EKG changes. For more details please see separate cardiac stress test report. FINDINGS: QUALITY OF STUDY: Excellent. PERFUSION DEFECT: LOCATION: Basal inferior. Mid-inferior. Apical anterior. Apical inferior. [place]. SIZE: Large (5 or more segments). SEVERITY: Severe. TYPE: Mixed. WALL MOTION: Mild hypokinesis: LV SIZE: Normal. 94 mL. TID / TCD: None; 1.1 LVEF: Normal. Calculated EF 55%. SUMMARY: Myocardial perfusion imaging study has ABNORMAL findings. CONCLUSION: 1. Moderate to large area moderate to severe decreased uptake in the distal anterior wall, apex and apical inferior wall with redistribution on rest imaging. An area reversible ischemia is suspected. Further evaluation is recommended 2. Borderline low left ventricular ejection fraction of 55% 3. Abnormal exercise test secondary to EKG changes Dictated by: Julio Cesar Olvera MD on 10/24/2023 at 13:14 Approved by: Julio Cesar Olvera MD on 10/24/2023 at 13:16
[2023-10-24 08:32] LABS: Chol HDL Ratio 4.2; Cholesterol 189 mg/dL (<=200); HDL Cholesterol 45 mg/dL (40-60); LDL Cholesterol Calculated 121.6 mg/dL; Triglycerides 112 mg/dL (<=150); VLDL CHOLESTEROL 22.4 mg/dL
--- NOTE | 2023-10-24 13:43 | PC.NURSE ---
Cardiolite stress test done today. Pt had chest pain with 8/10 noted that resolved to a 0/10 within 3 minutes of rest. States this pain was not as severe as it has been while he was at home over the last few weeks. No other symptoms noted and pt left stress lab to go to the cafeteria in no pain and states felt back to normal.
== END 2023-10-24 07:48 | disposition home or self-care (01) ==
LOC: LAB 07:47
PROVIDERS: PCP Family Medicine; Visit Provider Family Medicine
DX: I24.9 Acute ischemic heart disease, unspecified (principal); I21.4 Non-ST elevation (NSTEMI) myocardial infarction; Z87.891 Personal history of nicotine dependence; E11.9 Type 2 diabetes mellitus without complications; Z79.899 Other long term (current) drug therapy; E78.5 Hyperlipidemia, unspecified; R07.9 Chest pain, unspecified
CPT/HCPCS: 36415; 71045; 78452; 80053; 80061; 83880; 84484; 85025; 85610; 85730; 93005; 93017; 96374; 99285; A9500

== ENCOUNTER 2023-10-24 14:19 | Emergency (ER) | payer BC, SELFPAY ==
[2023-10-24] VITALS (15 sets, daily range): BP systolic 118–140; BP diastolic 78–99; PULSE 82–103; TEMP 36.9; O2SAT 93–98; BMI 29.1
--- NOTE | 2023-10-24 14:43 | XR_ITS ---
[address] [address] Patient Name: ROSANA GALVAN MRN: [id number] date: 1965 Sex: M Assigned Patient Location: ER Current Patient Location: ED.MAIN Accession/Order Number: [id number] Exam Date: 10/24/2023 15:03 Report Date: 10/24/2023 15:47 At the request of: ROSANA SILVERIO Procedure: XR chest 1V EXAM: XR CHEST 1V 10/24/2023 FINDINGS: Upright AP chest image was obtained. HISTORY: Failed stress. COMPARISON: None. XR/XR chest 1V IMPRESSION: 1. Cardiomediastinal contours are within normal limits. 2. No dense consolidation, effusion, edema, failure, pneumothorax or acute osseous change otherwise identified. Electronically authenticated by: NADER OAKLEY Date: 10/24/2023 15:47
--- NOTE | 2023-10-24 14:43 | ECG_ITS ---
[facility] Test Date: 2023-10-24 Pat Name: ROSANA GALVAN Department: Room: - Gender: Male [employer] Super[employer]: : 1965 Requested By: [id number] Order Number: [id number] Reading MD: RYLEE LINK Measurements Intervals [place] Rate: 108 P: 38 MO: 142 QRS: 54 QRSD: 74 T: -8 QT: 282 QTc: 345 Interpretive Statements 1120 Sinus tachycardia 4068 Nonspecific Twave abnormality - concerning for inferior wall ischemia 8305 Short QTc interval 9150 abnormal ECG No previous ECG available for comparison Electronically Signed On 10-26-2023 7:10:03 EDT by RYLEE LINK
--- NOTE | 2023-10-24 14:48 | ED_ITS ---
HPI HPI - General Adult General Chief complaint: Chest Pain Stated complaint: FAST HEART RATE Time Seen by Provider: 10/24/23 14:33 Source: patient Mode of arrival: walk-in Limitations: no limitations History of Present Illness HPI narrative: Patient is a 57-year-old male who is presenting to the ER with chief complaint to be seen, evaluated, and transferred to [facility] To the ER from our ER to be seen evaluated and go to the cardiac Brim Stretcher today. The [employer] who reviewed patient's stress test, Dr Sanders, has called the cardiac cath team and [employer] in [place] to make them aware of the failed stress test, need for transfer, and need for cardiac cath today. Patient's PCP DR MORALES may be aware of this, and also Maximiliano WIN RN. Patient did smoke cigarettes, patient quit smoking in 2009. Patient does no cocaine, no illicit drug use. Patient does take Ozempic for type 2 diabetes, also takes medication for cholesterol, not blood pressure. Patient has no recent traveling out of state or country in the last several months. Patient went home after a stress test, patient came back he is asymptomatic at this time. He is having no chest pain, no shortness of breath. No abdominal pain, nausea or vomiting. Patient has been having chest pain with exertion for the past month. Patient finally had his cardiac stress test done today. Patient works in a factory, owns a side business. Patient has no other acute complaints at this time. All systems are negative except as noted/marked. All systems reviewed and otherwise negative. Nurses note and vital signs reviewed and patient is not hypoxic. General: The patient appears well and in no apparent distress. Patient is resting comfortably on cart. Patient is not toxic, lethargic, or listless Skin: Warm, dry, no pallor noted. There is no rash noted. No petechiae, purpura. Head: Normocephalic, atraumatic Eye: Normal conjunctiva, no drainage, EOMI. PERRL Ears, Nose, Mouth, and Throat: oral mucosa is moist. Nares patent. Mouth without vesicles. Cardiovascular: Regular Rate and Rhythm, no murmur, gallop, rub Respiratory: Patient is in no distress, no accessory muscle use, lungs are clear to auscultation, no wheezing, rales or rhonchi Back: non-tender, no CVA tenderness bilaterally to percussion. No CT LS midline pain GI: no tenderness to palpation, no masses appreciated. No rebound, guarding, or rigidity noted. No distention Musculoskeletal: Patient has full range of motion of all of the extremities, no motor, sensory, or focal neurological deficits Neurological: A&O x4, normal speech Psychiatric: Cooperative Related Data Allergies Allergy/AdvReac Type Severity Reaction Status Date / Time No Known Drug Allergies Allergy Verified 10/24/23 14:24 Opioid HPI Opioid Management Most Recent Opioid Data: Last Pain Scale 1 10/24/23 14:39 PFSH [facility] Medical History (Updated 10/24/23 @ 15:39 by Jeramie Parker MD) Diabetes ?E11.9 - Type 2 diabetes mellitus without complications (ICD-10) Exam Constitutional Vital Signs, click to edit/add: Last Vital Signs Temp 98.5 F 10/24/23 14:25 Pulse 89 10/24/23 16:10 Resp 17 10/24/23 16:10 BP 118/78 10/24/23 16:00 Pulse Ox 98 10/24/23 16:10 O2 Del Method Nasal Cannula 10/24/23 15:29 O2 Flow Rate 2 10/24/23 15:29 Course Vital Signs Vital signs: Vital Signs Temperature 98.5 F 10/24/23 14:25 Pulse Rate 93 H 10/24/23 14:25 Respiratory Rate 18 10/24/23 14:25 Blood Pressure 137/92 H 10/24/23 14:25 Pulse Oximetry 95 10/24/23 14:25 Oxygen Delivery Method Room Air 10/24/23 14:25 Temperature 98.5 F 10/24/23 14:25 Pulse Rate 89 10/24/23 16:10 Respiratory Rate 17 10/24/23 16:10 Blood Pressure 118/78 10/24/23 16:00 Pulse Oximetry 98 10/24/23 16:10 Oxygen Delivery Method Nasal Cannula 10/24/23 15:29 Oxygen Delivery Flow Rate 2 10/24/23 15:29 Medical Decision Making MDM Narrative Medical decision making narrative: Patient had a nuclear medicine stress test done today at [facility]. The myocardial perfusion imaging study was abnormal. The rest and peak stress EKG findings were abnormal and the exercise portion of the study was abnormal per attending [employer] Dr. Almaguer due to EKG changes. Patient has a moderate to large area of moderate to severe decreased uptake in the distal anterior wall, apex, and apical inferior wall with redistribution on rest imaging. An area of reversible ischemia is suspected. EF was 55%. I received a phone call from Dr. Morales prior to arrival. Pt Failed a stress test, was coming back from home to the ER and will be sent to the ER to [facility] and will be going to cardiac Brim Stretcher today. After the stress test, patient was feeling lightheaded, dizzy, the patient did go back home. The stress test was read at [address] Olvera, radiologist. Dr. Sanders has called out to the cash[employer] at [facility] and has spoken to the Brim Stretcher team; and [employer] to arrange this transfer and cardiac cath today. Andrew Win RN, also came down to the ER to deliver the results of the stress test, and confirmed information listed above. 1445 Phone calls were made to [facility] to secure transfer from ER to ER. Transfer line was not aware of the information, they will be looking into this. 1520 I have spoken to Dr. Wallace; and he initially was not aware the patient, but his cardiac fellow was. Patient will be seen by cardiology. Dr. Wallace will see the patient, agrees with heparin drip at this time. No other recommendations. 1530 I did speak to the ER physician at [facility], Dr Salguero. He is aware of the patient, and agrees to acceptance of the patient from ER to ER. Report was given to him as well. He is aware of IV, O2, monitoring analyst and pulse ox. Oxygen 2 L nasal cannula was placed for comfort, he is not hypoxic. Patient has been started on heparin drip. 1540 patient lab work came back, patient's troponin was 203. This result was af ter I spoke to the [employer] and ER physician 1650 EMS has arrived, report was given to them by myself and Maranda MARTIN. Patient now will be going directly to the cardiac Brim Stretcher, the cardiac Brim Stretcher is waiting for the patient at [facility]. Critical care time 35 minutes exclusive from separate billable procedures that were performed. The following was considered in the determination of critical ca re but not limited to the level of medical decision making, intensive cardiac and/or respiratory monitoring, frequent vital sign monitoring, evaluation of laboratory studies, evaluation of radiographic studies, oxygen monitoring, and constant monitoring and speaking to family at bedside Lab Data Lab results reviewed: Yes I reviewed the patient's lab results Labs: Lab Results 10/24/23 Range/Units 14:30 WBC 9.2 (4.0-11.0) 10^3/uL RBC 4.90 (4.70-6.10) 10^6/uL Hgb 14.4 (14.0-18.0) g/dL Hct 42.7 (42.0-54.0) % MCV 87.1 (80.0-94.0) fL MCH 29.4 (25.9-34.0) pg MCHC 33.7 (29.9-35.2) g/dL RDW 12.1 (11.0-15.0) % Plt Count 204 (150-450) 10^3/uL MPV 10.7 (9.5-13.5) fL Neut % (Auto) 48.4 (43.0-75.0) % Lymph % (Auto) 41.5 (20.5-60.0) % Chase % (Auto) 8.2 (1.7-12.0) % Eos % (Auto) 1.4 (0.9-7.0) % Baso % (Auto) 0.3 (0.2-2.0) % Neut # (Auto) 4.4 (1.4-6.5) 10^3/uL Lymph # (Auto) 3.8 (1.2-3.8) 10^3/uL Chase # (Auto) 0.8 (0.3-0.8) 10^3/uL Eos # (Auto) 0.1 (0.0-0.7) 10^3/uL Baso # (Auto) 0.0 (0.0-0.1) 10^3/uL Abs Immat Gran (auto) 0.02 (0.00-0.03) 10^3/uL Imm/Tot Granulo (auto) 0.2 (0.0-0.5) % PT 9.8 (9.0-11.6) sec INR <0.93 APTT 27.3 (22.3-36.2) sec Sodium 141 (136-145) mmol/L Potassium 4.0 (3.5-5.1) mmol/L Chloride 103 (98-107) mmol/L Carbon Dioxide 27.3 (21.0-32.0) mmol/L Anion Gap 14.7 BUN 20.0 H (7.0-18.0) mg/dL Creatinine 1.16 (0.70-1.30) mg/dL Est GFR ( Amer) >60 (>=60) Est GFR (Non-Af Amer) >60 (>=60) BUN/Creatinine Ratio 17.2 Glucose 248 H (74-106) mg/dL Calcium 9.8 (8.5-10.1) mg/dL Total Bilirubin 0.4 (0.2-1.0) mg/dL AST 10 L (15-37) U/L ALT 19 (16-63) U/L Alkaline Phosphatase 86 (46-116) U/L Troponin I High Sens 203.3 H* (4.0-76.1) pg/mL NT-Pro-B Natriuret Pep 215.0 (<=900.0) pg/mL Total Protein 7.1 (6.4-8.2) g/dL Albumin 3.5 (3.4-5.0) g/dL Globulin 3.6 g/dL Albumin/Globulin Ratio 1.0 troponin [address] scan - pelvis: Radiologist's impression: ITS Impressions Chest X-Ray 10/24/23 14:43 IMPRESSION: 1. Cardiomediastinal contours are within normal limits. 2. No dense consolidation, effusion, edema, failure, pneumothorax or acute osseous change otherwise identified. Electronically authenticated by: NADER OAKLEY Date: 10/24/2023 15:47 ECG Data Attestation: I personally reviewed and interpreted this ECG as follows: (EKG interpretation. Sinus tachycardia at 108. Normal axis deviation. No acute ST elevation, no acute ectopy. T wave inversion through the inferior leads, nonspecific ST changes throughout.. QTC 345) Critical Care Time Critical Care Time Critical Care Time: Yes Total Critical Care Time: 35 Attestation: Critical care time 35 minutes exclusive from separate billable procedures that were performed. The following was considered in the determination of critical care but not limited to the level of medical decision making, intensive cardiac and/or respiratory monitoring, frequent vital sign monitoring, evaluation of laboratory studies, evaluation of radiographic studies, oxygen monitoring, and constant monitoring and speaking to family at bedside Discharge Plan Discharge Chief Complaint: Chest Pain Clinical Impression: ACS (acute coronary syndrome), Non-ST elevation IA (NSTEMI) Patient Disposition: [facility] Time of Disposition Decision: 15:39 Discharge Location: [facility] Condition: Serious Mode of Transportation: EMS
[2023-10-24] MEDS: ASPIRIN 81 MG TAB.CHEW 162 MG PO (14:51)
[2023-10-24 14:56] LABS: Basophils Percent Auto 0.3 % (0.2-2.0); Eosinophils Absolute Auto 0.1 10^3/uL (0.0-0.7); Eosinophils Percent Auto 1.4 % (0.9-7.0); Hematocrit 42.7 % (42.0-54.0); Hemoglobin 14.4 g/dL (14.0-18.0); Immature Granulocytes Abs Auto 0.02 10^3/uL (0.00-0.03); Immature Granulocytes Pct Auto 0.2 % (0.0-0.5); Lymphocytes Absolute Auto 3.8 10^3/uL (1.2-3.8); Lymphocytes Percent Auto 41.5 % (20.5-60.0); Mean Corpuscular HGB Conc 33.7 g/dL (29.9-35.2); Mean Corpuscular Hemoglobin 29.4 pg (25.9-34.0); Mean Corpuscular Volume 87.1 fL (80.0-94.0); Mean Platelet Volume 10.7 fL (9.5-13.5); Monocytes Absolute Auto 0.8 10^3/uL (0.3-0.8); Monocytes Percent Auto 8.2 % (1.7-12.0); Neutrophils Absolute Auto 4.4 10^3/uL (1.4-6.5); Neutrophils Percent Auto 48.4 % (43.0-75.0); Platelet Count 204 10^3/uL (150-450); Red Cell Distribution Width 12.1 % (11.0-15.0); White Blood Count 9.2 10^3/uL (4.0-11.0)
[2023-10-24] MEDS: HEPARIN SODIUM,PORCINE/D5W 25,000 UNIT/500 ML IV.SOLN 17 UNIT IV (15:25)
[2023-10-24] MEDS: HEPARIN SODIUM (PORCINE) 5,000 UNIT/ML VIAL 4000 UNIT IV (15:25)
[2023-10-24 15:36] LABS: Alanine Aminotransferase 19 U/L (16-63); Albumin Level 3.5 g/dL (3.4-5.0); Alkaline Phosphatase 86 U/L (46-116); Anion Gap 14.7; Aspartate Amino Transferase 10 U/L (15-37); BUN Creatinine Ratio 17.2; Bilirubin Total 0.4 mg/dL (0.2-1.0); Calcium 9.8 mg/dL (8.5-10.1); Carbon Dioxide 27.3 mmol/L (21.0-32.0); Chloride 103 mmol/L (98-107); Estimated GFR (African America >60 (>=60); Estimated GFR (Non-African Ame >60 (>=60); Globulin 3.6 g/dL; Glucose 248 mg/dL (74-106); Sodium 141 mmol/L (136-145); Total Protein 7.1 g/dL (6.4-8.2)
[2023-10-24 15:38] LABS: Troponin I High Sensitivity 203.3 pg/mL (4.0-76.1)
[2023-10-24 15:46] LABS: Partial Thromboplastin Time 27.3 sec (22.3-36.2); Prothrombin Time 9.8 sec (9.0-11.6)
[2023-10-24 15:47] LABS: INR <0.93
== END 2023-10-24 17:11 | disposition short-term general hospital (02) ==
PROVIDERS: Emergency Provider Emergency Medicine; PCP Family Medicine
DX: I24.9 Acute ischemic heart disease, unspecified (principal); I21.4 Non-ST elevation (NSTEMI) myocardial infarction; Z87.891 Personal history of nicotine dependence; E11.9 Type 2 diabetes mellitus without complications; Z79.899 Other long term (current) drug therapy
CPT/HCPCS: 36415; 71045; 80053; 83880; 84484; 85025; 85610; 85730; 93005; 96374; 99285

== ENCOUNTER 2024-02-06 07:16 | Outpatient (RCR) | payer BC, SELFPAY ==
--- NOTE | 2023-12-15 | CR1_ITS ---
[facility] Test Date: 2023-12-15 Pat Name: ROSANA GALVAN Department: Room: - Gender: Male Overhead [employer]er: : 1965 Requested By: RYLEE LINK Order Number: [id number] Talia MD: LORETTA CHIU Interpretive Statements Session Date: Electronically Signed On 12-15-2023 22:54:39 EDT by LORETTA CHIU
--- OUTSIDE RECORDS SUMMARY | 2023-12-15 07:33 | XMS_ITS ---
Patient Summarization (C-CDA 2.1 CCD) Created on: December 15, 2023 MARANDA GALVANKAMRYN Pritchard : 1965 Sex: Undifferentiated Author Organization Sample organization Care Team Providers Care Plan Checker Name Role Phone Eva Carrillo Unavailable Rylee Link Primary Care Physician DIANA MIGUEL Attending Unavailable [...] Care Unavailable Najma Mcdonnell Attending Unavailable Rylee Link Referring Unavailable Najma Mcdonnell Attending Unavailable Rylee Link Referring Unavailable Domingo KATHLEEN Attending Unavailable Rylee Link Referring Unavailable Domingo KATHLEEN Attending Unavailable MD Rylee Link Primary Care Provider [phone] MD Terrell Richardson Admit Provider MD Terrell Richardson Attending Provider MARIO Dias Other Provider Unavailable MARIO Harmon Other Provider Unavailable MARIO Beasley Other Provider Unavailable MARIO Kurtz Other Provider Unavailable MARIO Caor Other Provider Unavailable MD Katia Irvin Other Provider DO Elpidio Hardwick Other Provider [phone] MD Jas Winslow Other Provider DO Lisandro Collado Other Provider MD Won Jesus Other Provider MD Cristy Miner Other Provider MD Art Lombardo Other Provider Unavailable YIN Gomez Other Provider MD John Flower Other Provider MD James Sheets Other Provider MD Maty Johnson Other Provider MD Doron Napier Other Provider DO Domingo Merrill Other Provider MD Samantha Ornelas Other Provider MD Parth Canales Other Provider NAVA Bustos-C mIan Pritchard Other Provider YIN Spencer Other Provider Unavailable MD Morgan Jc Other Provider MD Rikki Trammell Other Provider MD Bo Samuel Other Provider MD Maria C Daniels Other Provider Unavailable MD Bill Ramos Other Provider DO Anali Martinez Other Provider DO Parker Giron Other Provider [phone] YIN Bradford Other Provider DO Murali Ford Other Provider MD Aditya Harvey Other Provider YIN Camejo Other Provider YIN Gee Other Provider [phone] MD Kai Christopher Other Provider MD Andrew Cárdenas Other Provider DO Won Dior Other Provider DO Amalia Kent Other Provider MD Jeffrey Samuel Other Provider MARIO Kuo Other Provider Unavailable Terrell Richardson Admitting Unavailable Rylee Link Primary Care Unavailable Leora Dias Consulting Unavailable Terrell Richardson Attending Unavailable Gudelia Harmon Consulting Unavailable Lorraine Beasley Consulting Unavailable Geetha Kurtz Consulting Unavailable Catherine Caro Consulting Unavailable Katia Irvin Consulting Unavailable Elpidio Hardwick Consulting Unavailable Jas Winslow Consulting Unavailable Lisandro Collado Consulting Unavailabl Won Mays Consulting Unavailable Cristy Miner Consulting Unavailable Art Lombardo Consulting Unavailable Michelle Gomez Consulting UnavailJohn Storm Consulting Unavailable James Sheets Consulting Unavailable Maty Johnson Consulting Unavailable Doron Napier Consulting Unavailable Domingo Merrill Consulting Unavailable Samantha Ornelas Consulting Unavailable Parth Canales Consulting Unavailable Iman Bustos Consulting Unavailable Jeanie Spencer Consulting Unavailable Morgan Jc Consulting Unavailab Rikki Esquivel Consulting Unavailable Bo Samuel Consulting Unavailable Maria C Daniels Consulting Unavailable Rachel Bill Consulting Unavailable Anali Martinez Consulting Unavailable Parker Giron Consulting Unavailable Gilda Bradford Consulting Unavailable Murali Ford Consulting Unavailable DaromaAditya petersen Consulting Unavailable Cece Camejo Consulting Unavailable Donna Gee Consulting Unavailable Alajose Alaa Consulting Unavailable Andrew Cárdenas Consulting Unavailable Won Dior Consulting Unavailable Amalia Kent Consulting Unavailable Jeffrey Samuel Consulting Unavailable Wilda Kuo Consulting Unavailable CORNELIO REED Referring Unavailable CORNELIO REED Referring Unavailable LAUREN MAI Referring Unavailabl VICTORIA Martinez Referring Unavailable LAUREN MAI Referring Unavailabl DEB Craig Attending Unavailable VICTORIA MATHEWS Consulting Unavailable CORNELIO REED Attending Unavailable CORNELIO REED Admitting Unavailable JERAMIE SAWYER Referring Unavailable DARYL PENA Referring Unavailable VICTORIA MATHEWS Referring Unavailable CORNELIO REED Referring Unavailable LAUREN MAI Referring Unavailabl e REED, CORNELIO Referring Unavailable REED, CORNELIO Referring Unavailable ADALBERTO HAGAN Attending Unavailable LAUREN MAI Referring Unavailabl e PAU, LAUREN Pritchard Referring Unavailabl e LING, NASHEED Referring Unavailable REED, CORNELIO Referring Unavailable REED, CORNELIO Referring Unavailable VICTORIA MATHEWS Referring Unavailable LAUREN MAI Referring Unavailabl e PAU, LAUREN Pritchard Referring Unavailabl e REED, CORNELIO Referring Unavailable REED, DEB Referring Unavailable Allergies Allergy Classification Reported Allergen(s) Allergy Type Date of Onset Reaction(s) Facility (1 source) No Known Medication Allergies; Translations: [No Known Medication Allergies] Propensity to adverse reactions (disorder) [facility] Repository (1 source) ALLERGIES NOT ON FILE; Translations: [ALLERGIES NOT ON FILE] Propensity to adverse reactions (disorder) [facility] Repository Encounters Encounter Date Encounter Type Care Provider Facility Start: 12-11-2023 End: 12-11-2023 ambulatory [facility] Start: 12-11-2023 End: 12-11-2023 ambulatory [facility] Start: 11-20-2023 ambulatory ADALBERTO [facility] Start: 11-04-2023 Non-patient / Non-visit MD Bere Link Work Phone: [facility] Work Phone: Start: 11-03-2023 End: 11-10-2023 Evaluation and management of inpatient Terrell Richardson Facility:[facility] Start: 11-03-2023 End: 11-10-2023 Evaluation and management of inpatient MD Rylee Link Work Phone: [facility] Work Phone: Start: 11-03-2023 Evaluation and management of inpatient [facility] Start: 11-01-2023 Evaluation and management of inpatient [facility] Start: 10-31-2023 Evaluation and management of inpatient [facility] Start: 10-31-2023 Evaluation and management of inpatient CORNELIO REED [facility] Start: 10-30-2023 Evaluation and management of inpatient LAUREN MAI [facility] Start: 10-29-2023 Evaluation and management of inpatient LAUREN HOLLEYCACHALINOAALIYAH [facility] Start: 10-28-2023 [facility]: 10-28-[facility]23 Evaluation and management of inpatient LAUREN MAI [facility] Start: 10-28-2023 [facility]: 10-27-2023 Evaluation and management of inpatient CORNELIO [facility] Start: 10-27-2023 Evaluation and management of inpatient DARYL PENA [facility] Start: 10-27-2023 [facility]: 10-27-[facility]23 [facility] Start: 10-27-2023 Evaluation and management of inpatient VICTORIA [facility] Start: 10-26-2023 [facility] Start: 10-25-2023 Evaluation and management of inpatient CORNELIO [facility] Start: 10-25-2023 Evaluation and management of inpatient CORNELIO [facility] Start: 10-25-2023 Evaluation and management of inpatient VICTORIA VELASCO [facility] Start: 10-24-2023 Emergency department patient visit [facility] Start: 10-24-2023 End: 11-03-2023 Evaluation and management of inpatient VICTORIA VELASCO [facility] Start: 08-28-2022 End: 08-29-2022 ambulatory Najma Mcdonnell Facility:[facility] Start: 08-28-2022 End: 08-28-2022 Patient encounter procedure Najma Mcdonnell [facility] Start: 08-01-2022 End: 08-02-[address] RYLEE LINK Facility:[facility] Start: 07-22-2022 End: 07-22-2022 ambulatory DIANA MIGUEL Facility:[facility] Start: 05-29-2022 End: 05-30-2022 ambulatory Najma Mcdonnell Facility:[facility] Start: 05-29-2022 End: 05-29-2022 Patient encounter procedure Najma Mcdonnell [facility] Start: 05-15-2022 End: 05-16-2022 ambulatory Rylee Link Facility:[facility] Start: 04-25-2022 ambulatory Najma Mcdonnell Facility:[facility] Start: 04-16-2022 ambulatory Rylee Link Facility:[facility] Start: 08-21-2021 Encounter for genera l adult medical examination without abnormal findings DR RYLEE LINK [facility] Start: 08-18-2021 End: 08-19-[address] RYLEE LINK Facility:[facility] Start: 08-18-2021 End: 08-19-2021 Encounter for general adult medical examination without abnormal findings DR RYLEE LINK Facility:[facility] Start: 06-17-2021 End: 06-17-2021 ambulatory Eva Carrillo Other [facility] Other Start: 06-17-2021 Office outpatient vi sit 15 minutes Eva Carrillo [facility] Goals Date Patient Goal Desired Activity /State Immunizations Immunization Date Immunization Notes Care Provider Prasanna rushing 04-17-2022 influenza virus vaccine, unspecified formulation Najma Mcdonnell [facility] 05-18-2021 influenza, unspecifi ed formulation Najma Mcdonnell [facility] 04-18-2021 influenza virus vaccine, unspecified formulation Najma Lue [facility] 02-14-2021 SARS-CoV-2 (COVID-19 ) mRNA BNT-162b2 vax Najma Lue [facility] Comment on above: Result Comment: 2021: TPV50 01-24-2021 SARS-CoV-2 (COVID-19 ) mRNA BNT-162k8 vax Najma Lue [facility] Comment on above: Result Comment: 2021: TPV50 03-29-2020 influenza virus vaccine, unspecified formulation Najma Lue [facility] 04-14-2019 influenza virus vaccine, unspecified formulation Najma Lue [facility] 04-07-2018 influenza virus vaccine, unspecified formulation Najma Lue [facility] 04-09-2017 influenza virus vaccine, unspecified formulation Najma Lue [facility] 04-10-2016 influenza virus vaccine, unspecified formulation Najma Lue [facility] Medications Current Medications Medication Drug Class(es) Dates Sig (Normalized) Sig (Original) acetaminophen 500 mg oral tablet (1 source) Start: 11-10-2023 take 500 mg by mouth every four hours Acetaminophen Active 500 MG PO Q4H 0 November 10, 2023 12:00am aspirin 81 mg chewable tablet (2 sources) Platelet Aggregation Inhibitor, Nonsteroidal Anti-inflammatory Drug Start: 11-03-2023 End: 11-10-2023 take 1 tablet by mouth once daily Aspirin (Children's Aspirin) 81 mg Tablet,Chewable Active 81 MG PO Daily November 10, 2023 12:00am atorvastatin 80 mg oral tablet (2 sources) HMG-CoA Reductase Inhibitor Start: 11-03-2023 End: 11-10-2023 take 80 mg by mouth once daily at bedtime Atorvastatin Active 80 MG PO Daily at bedtime November 10, 2023 12:00am clopidogrel 75 mg oral tablet (2 sources) P2Y12 Platelet Inhibitor Start: 11-03-2023 End: 11-10-2023 take 75 mg by mouth once daily Clopidogrel Active 75 MG PO Daily November 10, 2023 12:00am diclofenac sodium 75 mg delayed release oral tablet (2 sources) Nonsteroidal Anti-inflammatory Drug Start: 05-13-2022 take 1 tablet by mouth twice daily diclofenac sodium 75 mg Oral EC Tab 75 mg = 1 tab(s), Oral, BID, Refills(s) 0 Start Date: 05/13/22 Status: Ordered 0.5 ml dulaglutide 1.5 mg/ml auto-injector (2 sources) GLP-1 Receptor Agonist Start: 05-13-2022 inject 0.75 mg by subcutaneous injection every week Trulicity Pen 0.75 mg/0.5 mL subcutaneous solution 0.75 mg, SubCutaneous, qWeek, Refills(s) 0 Start Date: 05/13/22 Status: Ordered ezetimibe 10 mg oral tablet (2 sources) Dietary Cholesterol Absorption Inhibitor Start: 11-03-2023 End: 11-10-2023 take 10 mg by mouth at bedtime Ezetimibe Active 10 MG PO Bedtime November 10, 2023 12:00am ferrous sulfate 324 mg delayed release oral tablet (2 sources) Start: 11-10-2023 take 324 mg by mouth once daily Ferrous Sulfate Active 324 MG PO Daily November 10, 2023 12:00am Start: 11-03-2023 End: 11-10-2023 take 1 tablet by mouth at breakfast Ferrous Sulfate (Ferosul) 325 mg (65 mg iron) tablet Discontinued 325 MG PO With breakfast and supper November 03, 2023 12:00am November 10, 2023 9:00am methylPREDNISolone 4 mg oral tablet (1 source) Corticosteroid Start: 06-17-2021 methylPREDNISolone 4 MG as directed Orally Once a day for 6 days May, Active metoprolol tartrate 25 mg oral tablet (2 sources) beta-Adrenergic Tessa Start: 11-03-2023 End: 11-10-2023 take 12.5 mg by mouth twice daily Metoprolol Tartrate Active 12.5 MG PO Twice daily 30 November 10, 2023 12:00am Semaglutide (2 sources) Start: 11-10-2023 inject 0.5 mg by subcutaneous injection every week Semaglutide Active 0.5 MG SUBCUT every week November 10, 2023 12:00am Start: 11-03-2023 End: 11-10-2023 Semaglutide (Ozempic) 0.25 m g or 0.5 mg (2 mg/3 mL) pen injector Discontinued 0.5 MG SUBCUT every week November 03, 2023 12:00am November 10, 2023 9:00am tadalafil 20 mg oral tablet (2 sources) Phosphodiesterase 5 Inhibitor Start: 05-15-2022 take 1 tablet by mouth once daily [...] a day for 14 days Mar, Not-Taking gabapentin 100 mg oral capsule (1 source) Anti-epileptic Agent Start: 11-03-2023 End: 11-10-2023 take 100 mg by mouth three times daily Gabapentin Discontinued 100 MG PO Three times daily November 03, 2023 12:00am November 10, 2023 9:00am 12 hr guaiFENesin 600 mg extended release oral tablet (1 source) Start: 04-03-2018 take 1-2 tablets by mouth every twelve hours as needed Mucinex 600 MG 1-2 tablet as needed Orally every 12 hrs for 5 days Mar, Not-Taking 3 ml insulin glargine 100 unt/ml pen injector (1 source) Insulin Analog Start: 11-03-2023 End: 11-10-2023 Insulin Glargine (Lantus Solostar U-100 Insulin) 100 unit/mL (3 mL) insulin pen Discontinued 15 UNIT SUBCUT Twice daily November 03, 2023 12:00am November 10, 2023 9:00am Payers Date Payer Category Payer Self-pay 1965 Unknown [id number] 2.16.84 [id number] 1965 Unknown [id number] 2.16.84 [id number] 1965 Unknown [id number] 2.16.84 [id number] 1965 Unknown [id number] 2.16.8 [id number] 1965 Unknown [id number] 2.16.8 [id number] 1965 Unknown [id number] 2.16.8 [id number] 1965 Unknown [id number] 2.16.8 [id number] 1959 Unknown [id number] Private Health Insurance [id number] Unknown [facility] [id number] Unknown [id number] 2.16.8 [id number] Plan of Treatment Date Care Activity Detail Author Start: 11-10-2023 [facility] Start: 11-03-2023 Hospital admission [facility] Start: 11-03-2023 Referral to clinical surveillance sensor operator [facility] Patient Education Heart Healthy Diet Sternal Precautions After Heart Bypass Surgery Coronary Artery Disease (DC) Know your Meds [facility] Work Phone: Patient referral [facility] Work Phone: Problems Active Problems Problem Classification Problem Date Documented Date Episodic/Chronic Abdominal pain (3 sources) Unspecified abdominal pain; Translations: [UNSPECIFIED ABDOMINAL PAIN] Onset: 07-22-2022 Episodic Acute myocardial infarction (6 sources) Myocardial infarction; Translations: [Non-ST elevation (NSTEMI) myocardial infarction] Onset: 10-26-2023 11-04-2023 Chronic Administrative/social admission (3 sources) Other reduced mobility; Translations: [Impaired mobility and activities of daily living] Onset: 11-03-2023 11-04-2023 Episodic Asthma (2 sources) Asthma 05-13-2022 Chronic Calculus of urinary tract (4 sources) History of calculus of kidney; Translations: [Calculus of kidney] Onset: 07-24-2022 05-13-2022 Episodic Complication of device; implant or graft (5 sources) Atherosclerosis of coronary artery bypass graft(s) without angina pectoris; Translations: [Atherosclerosis of coronary artery bypass graft(s), unspecified, with other forms of angina pectoris] Onset: 10-24-2023 Chronic Complications of surgical procedures or medical care (1 source) Postprocedural hypothyroidism; Translations: [POSTPROCEDURAL HYPOTHYROIDISM] Onset: 07-24-2022 Chronic Coronary atherosclerosis and other heart disease (7 sources) Coronary arteriosclerosis; Translations: [Atherosclerotic heart disease of [place] coronary artery without angina pectoris] Onset: 10-24-2023 11-04-2023 Chronic Coronary atherosclerosis and other heart disease (5 sources) Presence of aortocoronary bypass graft; Translations: [Aortocoronary bypass status] Onset: 11-03-2023 11-10-2023 Episodic Deficiency and other anemia (1 source) Anemia; Translations: [Anemia, unspecified] 11-04-2023 Episodic Deficiency and other anemia (2 sources) Anemia, unspecified; Translations: [Anemia, unspecified] Onset: 11-03-2023 11-10-2023 Episodic Diabetes mellitus with complications (3 sources) Diabetes mellitus; Translations: [Type 2 diabetes mellitus with diabetic neuropathy, unspecified] Onset: 11-03-2023 11-04-2023 Chronic Diabetes mellitus without complication (7 sources) Type 2 diabetes mellitus without complications; Translations: [Diabetes mellitus] Onset: 07-24-2022 11-04-2023 Chronic Disorders of lipid metabolism (3 sources) Hyperlipidemia; Translations: [Hyperlipidemia, unspecified] Onset: 11-03-2023 11-04-2023 Chronic Esophageal disorders (1 source) Gastro-esophageal reflux disease without esophagitis; Translations: [GERD WITHOUT ESOPHAGITIS] Onset: 07-24-2022 Chronic Essential hypertension (6 sources) Hypertensive disorder; Translations: [Essential (primary) hypertension] Onset: 10-26-2023 11-04-2023 Chronic Hyperplasia of prostate (3 sources) Benign [...] unclassified (2 sources) Sleep apnea 05-13-2022 Chronic Residual codes; unclassified (1 source) Other specified health status; Translations: [Other specified health status] Onset: 11-03-2023 Episodic Screening and history of mental health and substance abuse codes (1 source) Personal history of nicotine dependence; Translations: [PERSONAL HISTORY OF NICOTINE DEPEND] Onset: 07-24-2022 Episodic Unclassified (2 sources) History of rupture of Achilles tendon 05-13-2022 Unclassified (2 sources) Hospital Follow-up; Translations: [Hospital Follow-up] Onset: 11-20-2023 Past or Other Problems Problem Classification Problem [...] Acute laryngitis Onset: 06-17-2021 Resolved: 06-17-2021 Episodic Procedures Date Procedure Procedure Detail Performing Clinician Start: 12-11-2023 Follow-up visit CORNELIO REED Start: 11-04-2023 Plain chest X-ray MD Hinojosa Work Phone: Start: 08-18-2021 PSA screening DIANA MCCORD Comment on above: Performed By: #### P [facility] #### [facility] [address] [place] [address] Dr. Allyson Guerrero Start: 03-28-2015 Colonoscopy Najma Lusouleymane Start: 03-13-2015 Colonoscopy Najma Lue Decompression of med pari nerve Najma Sathya History of coronary artery bypass grafting S/P CABG x 4 MD Rylee Link Work Phone: History of subtotal thyroidectomy Najma Mcdonnell Repair of tendo achilles Tiara Mcdonnell Results Test Name Value Interpretation Reference Range Facility Apolipoprotein B [Mass/Vol]o n 12-11-2023 APOLIPOPROTEIN B See Below Normal [facility] Comment on above: Result Comment: NOTE TEST RESULT FLAG UNIT REF.RANGE -------- Apolipoprotein B 72 mg/dL <90 Moderate Risk: 90-119 mg/dL High Risk: >119 mg/dL Test Performed By: [facility] [employer] [address] [place] [address] Grassland Conservationist: Lucille Kahn III #[id number] Performed By: #### Hermes BC, CMP, 80705-1, , HA1C #### [facility] ([id number]) [address], [address] [place] [address] COMPLETE BLOOD COUNTon 12-10 Erythrocyte distribution width (RBC) [Ratio] 14.7 % Normal 11.5-15.0 [facility] Comment on above: Performed By: #### Hermes BC, CMP, 61950-8, , HA1C #### [facility] ([id number]) [address], [address] [place] [address] Hematocrit (Bld) [Volume fraction] 38.3 % Low 39-49 [facility] Comment on above: Performed By: #### Hermes BC, CMP, 72404-2, , HA1C #### [facility] ([id number]) [address], [address] [place] [address] Hemoglobin (Bld) [Mass/Vol] 13.4 g/dL Normal 13.0-17.0 [facility] Comment on above: Performed By: #### Hermes BC, CMP, 03358-6, , HA1C #### [facility] ([id number]) [address], [address] [place] [address] MCH (RBC) [Entitic mass] 29.7 pg Normal 27-34 [facility] Comment on above: Performed By: #### C BC, CMP, 48850-3, , HA1C #### [facility] ([id number]) [address], [address] [place] [address] MCHC (RBC) [Mass/Vol] 34.9 g/dL Normal 32-36 [facility] Comment on above: Performed By: #### Hermes BC, CMP, 80734-1, , HA1C #### [facility] ([id number]) [address], [address] [place] [address] MCV (RBC) [Entitic vol] 85 fL Normal 80-100 [facility] Comment on above: Performed By: #### C BC, CMP, 57829-3, , HA1C #### [facility] ([id number]) [address], [address] [place] [address] Platelet mean volume (Bld) [Entitic vol] 8.7 fL Normal 7-12 [facility] Comment on above: Performed By: #### Hermes BC, CMP, 19856-8, , HA1C #### [facility] ([id number]) [address], [address] [place] [address] Platelets (Bld) [#/Vol] 210 10*3/uL Normal 150-450 [facility] Comment on above: Performed By: #### Hermes BC, CMP, 68524-7, , HA1C #### [facility] ([id number]) [address], [address] [place] [address] RBC COUNT 4.50 X10E12/L Normal 4.10-5.70 [facility] Comment on above: Performed By: #### Hermes BC, CMP, 75666-6, , HA1C #### [facility] ([id number]) [address], [address] [place] [address] WBC (Bld) [#/Vol] 6.7 10*3/uL Normal 4.0-11.0 [facility] Comment on above: Performed By: #### Hermes BC, CMP, 37273-3, , HA1C #### [facility] ([id number]) [address], [address] [place] [address] COMPREHENSIVE METABOLIC PANE Edgar 12-11-2023 Albumin [Mass/Vol] 3.9 g/dL Normal 3.2-5.3 [facility] Comment on above: Performed By: #### C SHIRIN, CMP, 31136-8, , HA1C #### [facility] ([id number]) [address] [place] [address] ALP [Catalytic activity/Vol] 78 U/L Normal 39-130 [facility] Comment on above: Performed By: #### C BC, CMP, 91226-1, , HA1C #### [facility] ([id number]) [address], [address] [place] [address] ALT [Catalytic activity/Vol] 13 U/L Normal 0-40 [facility] Comment on above: Performed By: #### C BC, CMP, 03039-6, , HA1C #### [facility] ([id number]) [address], [address] [place] [address] Anion gap [Moles/Vol] 7 mmol/L Normal 5-15 [facility] Comment on above: Performed By: #### Hermes CARPIO, CMP, 16681-3, , HA1C #### [facility] ([id number]) [address], [address] [place] [address] AST [Catalytic activity/Vol] 13 U/L Normal 0-41 [facility] Comment on above: Performed By: #### C BC, CMP, 22987-5, , HA1C #### [facility] ([id number]) [address], [address] [place] [address] Bilirubin [Mass/Vol] 0.5 mg/dL Normal 0.3-1.2 [facility] [facility] Comment on above: Performed By: #### C BC, CMP, 02240-2, , HA1C #### [facility] ([id number]) [address], [address] [place] [address] Calcium [Mass/Vol] 9.1 mg/dL Normal 8.5-10.5 [facility] Comment on above: Performed By: #### C SHIRIN [facility], , , HA1C #### [facility] ([id number]) [address], [address] [place] [address] Chloride [Moles/Vol] 100 mmol/L Normal 98-109 [facility] Comment on above: Performed By: #### C SHIRIN, [facility], , , HA1C #### [facility] ([id number]) [address], [address] [place] [address] CO2 [Moles/Vol] 30 mmol/L Normal 22-32 [facility] Comment on above: Performed By: #### Hermes CARPIO CMP, , , HA1C #### [facility] ([id number]) [address], [address] [place] [address] Creatinine [Mass/Vol] 0.83 mg/dL Normal 0.60-1.30 [facility] Comment on above: Result Comment: METH OD TRACEABLE TO IDMS STANDARD Performed By: #### C CAIN CARPIO, , , HA1C #### [facility] ([id number]) [address], [address] [place] [address] eGFR (CKD-EPI) NON-RACE DEPENDENT >90 Normal >59 [facility] Comment on above: Result Comment: Reported eGFR is based on the CKD-EPI 2021 equation that does not use a race coefficient. Performed By: #### C SHIRIN, CAIN, , , HA1C #### [facility] ([id number]) [address], [address] [place] [address] Glucose [Mass/Vol] 267 mg/dL High 65-99 [facility] Comment on above: Performed By: #### C BCCAIN, , , HA1C #### [facility] ([id number]) [address], [address] [place] [address] Potassium [Moles/Vol] 4.3 mmol/L Normal 3.5-5.0 [facility] Comment on above: Performed By: #### Hermes BC, [facility], , , HA1C #### [facility] ([id number]) [address], [address] [place] [address] Protein [Mass/Vol] 6.6 g/dL Normal 6.0-8.0 [facility] Comment on above: Performed By: #### Hermes CARPIO, [facility], , , HA1C #### [facility] ([id number]) [address], [address] [place] [address] Sodium [Moles/Vol] 137 mmol/L Normal 134-146 [facility] Comment on above: Performed By: #### Hermes CARPIO, [facility], , , HA1C #### [facility] ([id number]) [address], [address] [place] [address] Urea nitrogen [Mass/Vol] 14 mg/dL Normal 5-23 [facility] Comment on above: Performed By: #### Hermes CARPIO, [facility], , , HA1C #### [facility] ([id number]) [address], [address] [place] [address] HGB A1C (GLYCO-HGB)on 2023 Glucose [Mass/Vol] 157 mg/dL Normal [facility] Comment on above: Performed By: #### Hermes CARPIO, CMP, , , HA1C #### [facility] ([id number]) [address], [address] [place] [address] HbA1c (Bld) [Mass fraction] 7.1 % High 4.4-5.6 [facility] [place] [facility] Comment on above: Result Comment: NOTE ADA Guidelines Result HgbA1c Normal : less than 5.7 % Prediabetes : 5.7 % to 6.4 % Diabetes : > 6.4 % Use with caution in patients with abnormal hemoglobin variants as the half-life of red blood cells and in vivo glycation rates are affected. Performed By: #### C SHIRIN, [facility], 01664-5, , HA1C #### [facility] ([id number]) [address] [place] [address] LIPOPROTEIN (a)on 12-11-2023 Lipoprotein a [Mass/Vol] mg/dL Normal <30 [facility] Comment on above: Result Comment: NOTE Test Performed By: [facility] [address] [place] [address] Grassland Conservationist: Lucille Kahn III #[id number] Performed By: #### Hermes CARPIO, [facility], 99786-3, 88249-2, HA1C #### [facility] ([id number]) [address], [address] [place] [address] Lipid 1996 panelon 4 Cholesterol [Mass/Vol] 137 mg/dL Low 150-200 [facility] Comment on above: Performed By: #### Hermes CARPIO, [facility], , , HA1C #### [facility] ([id number]) [address] [place] [address] Cholesterol in HDL [Mass/Vol] 43 mg/dL Normal >39 [facility] Comment on above: Result Comment: HDL <40 mg/dL - High Risk HDL > or = 40mg/dL- Desirable HDL >60 mg/dL - Negative Risk Performed By: #### Hermes BC, [facility], 22659-7, , HA1C #### [facility] ([id number]) [address], [address] [place] [address] Cholesterol in LDL [Mass/Vol] 49 mg/dL Normal <130 [facility] Comment on above: Result Comment: LDL <100 mg/dL - Desirable LDL >160 mg/dL - High Risk Performed By: #### Hermes CARPIO, [facility], 47141-9, , HA1C #### [facility] ([id number]) [address], [address] [place] [address] Cholesterol in VLDL [Mass/Vol] 45 mg/dL High 0-30 [facility] Comment on above: Performed By: #### Hermes CARPIO, [facility], 36152-0, , HA1C #### [facility] ([id number]) [address], [address] [place] [address] CHOLESTEROL:HDL 3.2 Normal 1.0-5.0 [facility] Comment on above: Performed By: #### Hermes CARPIO, [facility], 19701-2, , HA1C #### [facility] ([id number]) [address], [address] [place] [address] Triglyceride [Mass/Vol] 226 mg/dL High 27-150 [facility] Comment on above: Performed By: #### Hermes BC, [facility], 70526-4, , HA1C #### [facility] ([id number]) [address], [address] [place] [address] MAGNESIUMon 12-11-2023 Magnesium [Mass/Vol] 1.9 mg/dL Normal 1.8-2.6 [facility] Comment on above: Performed By: #### C , [facility], 26245-5, 91816-2, HA1C #### [facility] ([id number]) [address] [place] [address] Abstracton 11-25-2023 Abstract [id number] Jeramie Galvan 1965 M Date Provider Department Center 11/25/2023 2020-OLIVARES, JASS HVCVASENDO [facility] No family history on file Normal [facility] Glucose Glucometer (BldC) [M ass/Vol]Ordered By: Terrell Richardson on 11-10-2023 Glucose [Mass/Vol] 89 mg/dL [facility] Comment on above: Random Glucose Refer ence Range is dependent on time and content of last meal. Glucose of more than 200 mg/dL in a nonstressed, ambulatory subject supports the diagnosis of Diabetes Mellitus. Glucose Poct Glucometerson 0 11-10-2023 Commemt1 Glu2: Cleaned Meter Normal [facility] Comment on above: Result Comment: PERF ORMED BY: [facility] [address] [place] [address] PATHOLOGIST SAP CONSULTANT NAN ANDREW M.D. Performed By: #### G LULS #### Point of Care testing , Glucose [Mass/Vol] 89 mg/dL Normal [facility] Comment on above: Result Comment: [place] om Glucose Reference Range is dependent on time and content of last meal. Glucose of more than 200 mg/dL in a nonstressed, ambulatory subject supports the diagnosis of Diabetes Mellitus. Performed By: #### G LULS #### Point of Care testing , No Panel InformationOrdered By: Terrell Richardson on 11-10-2023 Bedside Glucose Comment Glu2: cleaned meter [facility] Glucose Poct Glucometerson 0 11-09-2023 Commemt1 Glu2: Cleaned Meter Normal [facility] Comment on above: Result Comment: PERF ORMED BY: [facility] [address] [place] [address] PATHOLOGIST SAP CONSULTANT NAN ANDREW M.D. Performed By: #### G LULS #### Point of Care testing , Commemt1 Glu2: Cleaned Meter Normal [facility] Comment on above: Result Comment: PERF ORMED BY: [address] [place] [address] PATHOLOGIST SAP CONSULTANT NAN ANDREW M.D. Performed By: #### G LULS #### Point of Care testing , Glucose [Mass/Vol] 105 mg/dL Normal [facility] Comment on above: Result Comment: [place] om Glucose Reference Range is dependent on time and content of last meal. Glucose of more than 200 mg/dL in a nonstressed, ambulatory subject supports the diagnosis of Diabetes Mellitus. PERFORMED BY: [address] [place] [address] PATHOLOGIST SAP CONSULTANT NAN ANDREW M.D. Performed By: #### G LULS #### Point of Care testing , Glucose [Mass/Vol] 196 mg/dL Normal [facility] Comment on above: Result Comment: [place] om Glucose Reference Range is dependent on time and content of last meal. Glucose of more than 200 mg/dL in a nonstressed, ambulatory subject supports the diagnosis of Diabetes Mellitus. Performed By: #### G LULS #### Point of Care testing , Glucose [Mass/Vol] 90 mg/dL Normal [facility] Comment on above: Result Comment: [place] om Glucose Reference Range is dependent on time and content of last meal. Glucose of more than 200 mg/dL in a nonstressed, ambulatory subject supports the diagnosis of Diabetes Mellitus. Performed By: #### G LULS #### Point of Care testing , Glucose [Mass/Vol] 224 mg/dL Normal [facility] Comment on above: Result Comment: [place] om Glucose Reference Range is dependent on time and content of last meal. Glucose of more than 200 mg/dL in a nonstressed, ambulatory subject supports the diagnosis of Diabetes Mellitus. PERFORMED BY: [place] [address] [place] [address] PATHOLOGIST SAP CONSULTANT NAN ANDREW M.D. Performed By: #### G LULS #### Point of Care testing , Glucose Poct Glucometerson 0 11-08-2023 Glucose [Mass/Vol] 110 mg/dL Normal [facility] Comment on above: Result Comment: [place] Glucose Reference Range is dependent on time and content of last meal. Glucose of more than 200 mg/dL in a nonstressed, ambulatory subject supports the diagnosis of Diabetes Mellitus. PERFORMED BY: [address] [place] [address] PATHOLOGIST SAP CONSULTANT NAN ANDREW M.D. Performed By: #### G LULS #### Point of Care testing , Glucose [Mass/Vol] 139 mg/dL Normal [facility] Comment on above: Result Comment: [facility] Glucose Reference Range is dependent on time and content of last meal. Glucose of more than 200 mg/dL in a nonstressed, ambulatory subject supports the diagnosis of Diabetes Mellitus. PERFORMED BY: [address] [place] [address] PATHOLOGIST SAP CONSULTANT NAN ANDREW M.D. Performed By: #### G LULS #### Point of Care testing , Glucose [Mass/Vol] 105 mg/dL Normal [facility] Comment on above: Result Comment: [facility] Glucose Reference Range is dependent on time and content of last meal. Glucose of more than 200 mg/dL in a nonstressed, ambulatory subject supports the diagnosis of Diabetes Mellitus. PERFORMED BY: [address] [place] [address] PATHOLOGIST SAP CONSULTANT NAN ANDREW M.D. Performed By: #### G LULS #### Point of Care testing , Glucose [Mass/Vol] 150 mg/dL Normal [facility] Comment on above: Result Comment: [facility] Glucose Reference Range is dependent on time and content of last meal. Glucose of more than 200 mg/dL in a nonstressed, ambulatory subject supports the diagnosis of Diabetes Mellitus. PERFORMED BY: [facility] [address] [place] [place] [address] PATHOLOGIST SAP CONSULTANT NAN ANDREW M.D. Performed By: #### G LULS #### Point of Care testing , Glucose Poct Glucometerson 0 11-07-2023 Glucose [Mass/Vol] 84 mg/dL Normal [facility] Comment on above: Result Comment: [place] Glucose Reference Range is dependent on time and content of last meal. Glucose of more than 200 mg/dL in a nonstressed, ambulatory subject supports the diagnosis of Diabetes Mellitus. PERFORMED BY: [address] [place] [address] PATHOLOGIST SAP CONSULTANT NAN ANDREW M.D. Performed By: #### G LULS #### Point of Care testing , Glucose [Mass/Vol] 125 mg/dL Normal [facility] Comment on above: Result Comment: [facility] Glucose Reference Range is dependent on time and content of last meal. Glucose of more than 200 mg/dL in a nonstressed, ambulatory subject supports the diagnosis of Diabetes Mellitus. PERFORMED BY: [address] [place] [address] PATHOLOGIST SAP CONSULTANT NAN ANDREW M.D. Performed By: #### G LULS #### Point of Care testing , Glucose [Mass/Vol] 157 mg/dL Normal [facility] Comment on above: Result Comment: [facility] Glucose Reference Range is dependent on time and content of last meal. Glucose of more than 200 mg/dL in a nonstressed, ambulatory subject supports the diagnosis of Diabetes Mellitus. PERFORMED BY: [address] [place] [address] PATHOLOGIST SAP CONSULTANT NAN ANDREW M.D. Performed By: #### G LULS #### Point of Care testing , Glucose [Mass/Vol] 232 mg/dL Normal [facility] Comment on above: Result Comment: [facility] Glucose Reference Range is dependent on time and content of last meal. Glucose of more than 200 mg/dL in a nonstressed, ambulatory subject supports the diagnosis of Diabetes Mellitus. PERFORMED BY: [facility] [address] [facility] [place] [address] PATHOLOGIST SAP CONSULTANT NAN ANDREW M.D. Performed By: #### G LULS #### Point of Care testing , Glucose Poct Glucometerson 0 11-06-2023 Commemt1 Glu2: Cleaned Meter Normal [facility] Comment on above: Result Comment: PERF ORMED BY: [address] [place] [address] PATHOLOGIST SAP CONSULTANT NAN ANDREW M.D. Performed By: #### G LULS #### Point of Care testing , Glucose [Mass/Vol] 138 mg/dL Normal [facility] Comment on above: Result Comment: [place] om Glucose Reference Range is dependent on time and content of last meal. Glucose of more than 200 mg/dL in a nonstressed, ambulatory subject supports the diagnosis of Diabetes Mellitus. PERFORMED BY: [address] [place] [address] PATHOLOGIST SAP CONSULTANT NAN ANDREW M.D. Performed By: #### G LULS #### Point of Care testing , Glucose [Mass/Vol] 178 mg/dL Normal [facility] Comment on above: Result Comment: [place] om Glucose Reference Range is dependent on time and content of last meal. Glucose of more than 200 mg/dL in a nonstressed, ambulatory subject supports the diagnosis of Diabetes Mellitus. Performed By: #### G LULS #### Point of Care testing , Glucose [Mass/Vol] 100 mg/dL Normal [facility] Comment on above: Result Comment: [place] om Glucose Reference Range is dependent on time and content of last meal. Glucose of more than 200 mg/dL in a nonstressed, ambulatory subject supports the diagnosis of Diabetes Mellitus. PERFORMED BY: [address] [place] [address] PATHOLOGIST SAP CONSULTANT NAN ANDREW M.D. Performed By: #### G LULS #### Point of Care testing , Glucose [Mass/Vol] 195 mg/dL Normal [facility] Comment on above: Result Comment: [place] om Glucose Reference Range is dependent on time and content of last meal. Glucose of more than 200 mg/dL in a nonstressed, ambulatory subject supports the diagnosis of Diabetes Mellitus. PERFORMED BY: [place] [address] PATHOLOGIST SAP CONSULTANT NAN ANDREW M.D. Performed By: #### G LULS #### Point of Care testing , Glucose Poct Glucometerson 0 11-05-2023 Commemt1 Glu2: Cleaned Meter Normal [facility] Comment on above: Result Comment: PERF ORMED BY: [place] [address] PATHOLOGIST SAP CONSULTANT NAN ANDREW M.D. Performed By: #### G LULS #### Point of Care testing , Glucose [Mass/Vol] 130 mg/dL Normal [facility] Comment on above: Result Comment: [place] om Glucose Reference Range is dependent on time and content of last meal. Glucose of more than 200 mg/dL in a nonstressed, ambulatory subject supports the diagnosis of Diabetes Mellitus. PERFORMED BY: [place] [address] PATHOLOGIST SAP CONSULTANT NAN ANDREW M.D. Performed By: #### G LULS #### Point of Care testing , Glucose [Mass/Vol] 149 mg/dL Normal [facility] Comment on above: Result Comment: [place] om Glucose Reference Range is dependent on time and content of last meal. Glucose of more than 200 mg/dL in a nonstressed, ambulatory subject supports the diagnosis of Diabetes Mellitus. Performed By: #### G LULS #### Point of Care testing , Glucose [Mass/Vol] 154 mg/dL Normal [facility] Comment on above: Result Comment: [place] om Glucose Reference Range is dependent on time and content of last meal. Glucose of more than 200 mg/dL in a nonstressed, ambulatory subject supports the diagnosis of Diabetes Mellitus. PERFORMED BY: [place] [address] PATHOLOGIST SAP CONSULTANT NAN ANDREW M.D. Performed By: #### G LULS #### Point of Care testing , Glucose [Mass/Vol] 175 mg/dL Normal [facility] Comment on above: Result Comment: [place] om Glucose Reference Range is dependent on time and content of last meal. Glucose of more than 200 mg/dL in a nonstressed, ambulatory subject supports the diagnosis of Diabetes Mellitus. PERFORMED BY: [facility] [place] [address] PATHOLOGIST SAP CONSULTANT NAN ANDREW M.D. Performed By: #### G LULORRIE #### Point of Care testing , Alanine aminotransferase [En zymatic activity/volume] in Serum or PlasmaOrdered By: Terrell Richardson on 11-04-2023 ALT [Catalytic activity/Vol] 26 U/L 7-52 [facility] Albumin [Mass/volume] in Ser um or Plasma by Bromocresol green (BCG) dye binding methoOrdered By: Terrell Richardson on 11-04-2023 Albumin BCG dye [Mass/Vol] 3.3 g/dL 3.5-5.7 [facility] Alkaline phosphatase [Enzyma tic activity/volume] in Serum or PlasmaOrdered By: Terrell Richardson on 11-04-2023 ALP [Catalytic activity/Vol] 54 U/L 34-104 [facility] Aspartate aminotransferase [ Enzymatic activity/volume] in Serum or PlasmaOrdered By: Terrell Richardson on 11-04-2023 AST [Catalytic activity/Vol] 33 U/L 13-39 [facility] Basophils Auto (Bld) [#/Vol] Ordered By: Terrell Richardson on 11-04-2023 Basophils (Bld) [#/Vol] 0.0 10*3/uL 0.0-0.2 [facility] Basophils/100 WBC Auto (Bld) Ordered By: Terrell Richardson on 11-04-2023 Basophils/100 WBC (Bld) 0.4 % . [facility] Bilirubin.total [Mass/volume ] in Serum or PlasmaOrdered By: Terrell Richardson on 11-04-2023 Bilirubin [Mass/Vol] 0.7 mg/dL 0.3-1.0 [facility] Calcium [Mass/volume] in Ser um or PlasmaOrdered By: Terrell Richardson on 11-04-2023 Calcium [Mass/Vol] 8.6 mg/dL 8.6-10.3 [facility] Carbon dioxide, total [Moles /volume] in Serum or PlasmaOrdered By: Terrell Richardson on 11-04-2023 CO2 [Moles/Vol] 30.1 mmol/L 21.0-31.0 [facility] Chloride [Moles/volume] in S stephanie or PlasmaOrdered By: Terrell Richardson on 11-04-2023 Chloride [Moles/Vol] 104 mmol/L 98-107 [facility] Complete Blood Count Auto Di ffon 11-04-2023 Basophils (Bld) [#/Vol] 0.0 10*3/uL Normal 0.0-0.2 [facility] Comment on above: Result Comment: PERF ORMED BY: [facility] [address] [place] [address] PATHOLOGIST SAP CONSULTANT NAN ANDREW M.D. Performed By: #### G LULS #### Point of Care testing , Basophils/100 WBC (Bld) 0.4 % Normal . [facility] Comment on above: Performed By: #### G LULS #### Point of Care testing , Eosinophils (Bld) [#/Vol] 0.2 10*3/uL Normal 0.0-0.45 [facility] Comment on above: Performed By: #### G LULS #### Point of Care testing , Eosinophils/100 WBC (Bld) 1.9 % Normal . [facility] Comment on above: Performed By: #### G LULS #### Point of Care testing , Erythrocyte distribution width (RBC) [Ratio] 13.7 % Normal 12.0-14.8 [facility] Comment on above: Performed By: #### G LULS #### Point of Care testing , Hematocrit (Bld) [Volume fraction] 26.9 % Low 38.8-50.0 [facility] Comment on above: Performed By: #### G LULS #### Point of Care testing , Hemoglobin (Bld) [Mass/Vol] 9.1 g/dL Low 13.0-17.0 [facility] Comment on above: Performed By: #### G LULS #### Point of Care testing , Lymphocytes (Bld) [#/Vol] 2.5 10*3/uL Normal 1.00-4.8 [facility] Comment on above: Performed By: #### G LULS #### Point of Care testing , Lymphocytes/100 WBC (Bld) 26.4 % Normal . [facility] Comment on above: Performed By: #### G LULS #### Point of Care testing , MCH (RBC) [Entitic mass] 30.0 pg Normal 27.5-35.2 [facility] Comment on above: Performed By: #### G LULS #### Point of Care testing , MCV (RBC) [Entitic vol] 88.9 fL Normal 83.5-101 [facility] Comment on above: Performed By: #### G LULS #### Point of Care testing , Mean Corpuscular HGB Conc 33.8 g/dL Normal 32.5-35.6 [facility] Comment on above: Performed By: #### G LULS #### Point of Care testing , Monocytes (Bld) [#/Vol] 1.3 10*3/uL High 0.0-0.8 [facility] Comment on above: Performed By: #### G LULS #### Point of Care testing , Monocytes/100 WBC (Bld) 13.6 % Normal . [facility] Comment on above: Performed By: #### G LULS #### Point of Care testing , Neutrophils (Bld) [#/Vol] 5.4 10*3/uL Normal 1.8-7.7 [facility] Comment on above: Performed By: #### G LULS #### Point of Care testing , Neutrophils/100 WBC (Bld) 57.7 % Normal . [facility] Comment on above: Performed By: #### G LULS #### Point of Care testing , NRBC% 0.2 /100{WBC} Normal 0-0.5 [facility] Comment on above: Performed By: #### G LULS #### Point of Care testing , Platelet mean volume (Bld) [Entitic vol] 7.1 fL Normal 6.6-10.1 [facility] Comment on above: Performed By: #### G ARVINLS #### Point of Care testing , Platelets (Bld) [#/Vol] 283 10*3/uL Normal 150-450 [facility] Comment on above: Performed By: #### G LULS #### Point of Care testing , RBC (Bld) [#/Vol] 3.03 10*6/uL Low 3.90-5.60 [facility] Comment on above: Performed By: #### G ARVINLS #### Point of Care testing , WBC (Bld) [#/Vol] 9.4 10*3/uL Normal 4.1-10.5 [facility] Comment on above: Performed By: #### G ARVINLS #### Point of Care testing , Comprehensive Metabolic Pane edgar 11-04-2023 Albumin [Mass/Vol] 3.3 g/dL Low 3.5-5.7 [facility] Comment on above: Performed By: #### G ARVINLS #### Point of Care testing , Albumin/Globulin [Mass ratio] 1.4 {ratio} Normal [facility] Comment on above: Performed By: #### G NÉSTOR #### Point of Care testing , ALP [Catalytic activity/Vol] 54 U/L Normal 34-104 [facility] Comment on above: Performed By: #### G NÉSTOR #### Point of Care testing , ALT [Catalytic activity/Vol] 26 U/L Normal 7-52 [facility] Comment on above: Performed By: #### G ARVINLS #### Point of Care testing , Anion gap [Moles/Vol] 11.6 mmol/L Normal 6.0-15.[address] [facility] Comment on above: Performed By: #### G ARVINLS #### Point of Care testing , AST [Catalytic activity/Vol] 33 U/L Normal 13-39 [facility] Comment on above: Performed By: #### G NÉSTOR #### Point of Care testing , Bilirubin [Mass/Vol] 0.7 mg/dL Normal 0.3-1.0 [facility] Comment on above: Performed By: #### G LULS #### Point of Care testing , Calcium [Mass/Vol] 8.6 mg/dL Normal 8.6-10.3 [facility] Comment on above: Performed By: #### G LULS #### Point of Care testing , Chloride [Moles/Vol] 104 mmol/L Normal 98-107 [facility] Comment on above: Performed By: #### G LULS #### Point of Care testing , CO2 [Moles/Vol] 30.1 mmol/L Normal 21.0-31.0 [facility] Comment on above: Performed By: #### G LULS #### Point of Care testing , Creatinine [Mass/Vol] 0.91 mg/dL Normal 0.70-1.30 [facility] Comment on above: Performed By: #### G LULS #### Point of Care testing , Creatinine Clr Calc Pharmacy 89.89 Normal [facility] Comment on above: Performed By: #### G LULS #### Point of Care testing , GFR/1.73 sq M.predicted MDRD (S/P/Bld) [Vol rate/Area] mL/min/{1.73_m2} Normal [facility] Comment on above: Performed By: #### G LULS #### Point of Care testing , Globulin (S) [Mass/Vol] 2.3 g/dL Normal T [facility] Comment on above: Performed By: #### G LULS #### Point of Care testing , Glucose [Mass/Vol] 83 mg/dL Normal 70-100 [facility] Comment on above: Result Comment: [place] Glucose Reference Range is dependent on time and content of last meal. Glucose of more than 200 mg/dL in a nonstressed, ambulatory subject supports the diagnosis of Diabetes Mellitus. ADA recommended reference range Performed By: #### G LULS #### Point of Care testing , Potassium [Moles/Vol] 3.7 mmol/L Normal 3.5-5.1 [facility] Comment on above: Performed By: #### G LULS #### Point of Care testing , Protein [Mass/Vol] 5.6 g/dL Low 6.4-8.9 [facility] Comment on above: Performed By: #### G LULS #### Point of Care testing , Sodium [Moles/Vol] 142 mmol/L Normal 136-145 [facility] Comment on above: Performed By: #### G LULS #### Point of Care testing , Urea nitrogen [Mass/Vol] 14 mg/dL Normal 7-25 [facility] Comment on above: Performed By: #### G LULS #### Point of Care testing , Creatinine [Mass/volume] in Serum or PlasmaOrdered By: Terrell Richardson on 11-04-2023 Creatinine [Mass/Vol] 0.91 mg/dL 0.70-1.[address] [facility] Eosinophils Auto (Bld) [#/Vo l]Ordered By: Terrell Richardson on 11-04-2023 Eosinophils (Bld) [#/Vol] 0.2 10*3/uL 0.0-0.45 [facility] Eosinophils/100 WBC Auto (Bl d)Ordered By: Terrell Richardson on 11-04-2023 Eosinophils/100 WBC (Bld) 1.9 % . [facility] Erythrocyte distribution wid th Auto (RBC) [Ratio]Ordered By: Terrell Richardson on 11-04-2023 Erythrocyte distribution width (RBC) [Ratio] 13.7 % 12.0-14.8 [facility] Globulin Calc (S) [Mass/Vol] Ordered By: Terrell Richardson on 11-04-2023 Globulin (S) [Mass/Vol] 2.3 g/dL [facility] Glucose Poct Glucometerson 0 11-04-2023 Commemt1 Glu2: Cleaned Meter Normal [facility] Comment on above: Result Comment: PERF ORMED BY: [facility] [address] [place] [address] PATHOLOGIST SAP CONSULTANT NAN ANDREW M.D. Performed By: #### G LULS #### Point of Care testing , Commemt1 Glu2: Cleaned Meter Normal [facility] Comment on above: Result Comment: PERF ORMED BY: [facility] [address] [place] [address] PATHOLOGIST SAP CONSULTANT NAN ANDREW M.D. Performed By: #### G LULS #### Point of Care testing , Glucose [Mass/Vol] 152 mg/dL Normal [facility] Comment on above: Result Comment: [place] om Glucose Reference Range is dependent on time and content of last meal. Glucose of more than 200 mg/dL in a nonstressed, ambulatory subject supports the diagnosis of Diabetes Mellitus. Performed By: #### G LULS #### Point of Care testing , Glucose [Mass/Vol] 104 mg/dL Normal [facility] Comment on above: Result Comment: [place] om Glucose Reference Range is dependent on time and content of last meal. Glucose of more than 200 mg/dL in a nonstressed, ambulatory subject supports the diagnosis of Diabetes Mellitus. PERFORMED BY: [facility] [address] [place] [address] PATHOLOGIST SAP CONSULTANT NAN ANDREW M.D. Performed By: #### G LULS #### Point of Care testing , Glucose [Mass/Vol] 109 mg/dL Normal [facility] Comment on above: Result Comment: [place] om Glucose Reference Range is dependent on time and content of last meal. Glucose of more than 200 mg/dL in a nonstressed, ambulatory subject supports the diagnosis of Diabetes Mellitus. PERFORMED BY: [facility] [address] [place] [address] PATHOLOGIST SAP CONSULTANT NAN ANDREW M.D. Performed By: #### G LULS #### Point of Care testing , Glucose [Mass/Vol] 191 mg/dL Normal [facility] Comment on above: Result Comment: [place] om Glucose Reference Range is dependent on time and content of last meal. Glucose of more than 200 mg/dL in a nonstressed, ambulatory subject supports the diagnosis of Diabetes Mellitus. Performed By: #### G LULS #### Point of Care testing , Glucose [Mass/volume] in Ser um or PlasmaOrdered By: Terrell Richardson on 11-04-2023 Glucose [Mass/Vol] 83 mg/dL 70-100 [facility] Comment on above: ADA recommended refe rence rangeRandom Glucose Reference Range is dependent on time and content of last meal. Glucose of more than 200 mg/dL in a nonstressed, ambulatory subject supports the diagnosis of Diabetes Mellitus. Hematocrit Auto (Bld) [Volum e fraction]Ordered By: Terrell Richardson on 11-04-2023 Hematocrit (Bld) [Volume fraction] 26.9 % 38.8-50.0 [facility] Hemoglobin [Mass/volume] in BloodOrdered By: Terrell Richardson on 11-04-2023 Hemoglobin (Bld) [Mass/Vol] 9.1 g/dL 13.0-17.0 [facility] Leukocytes [#/volume] correc destiny for nucleated erythrocytes in Blood by Automated counOrdered By: Terrell Richardson on 11-04-2023 WBC corrected for nucl RBC Auto (Bld) [#/Vol] 9.4 10*3/uL 4.1-10.5 [facility] Lymphocytes Auto (Bld) [#/Vo l]Ordered By: Terrell Richardson on 11-04-2023 Lymphocytes (Bld) [#/Vol] 2.5 10*3/uL 1.00-4.8 [facility] Lymphocytes/100 WBC Auto (Bl d)Ordered By: Terrell Richardson on 11-04-2023 Lymphocytes/100 WBC (Bld) 26.4 % . [facility] MCH Auto (RBC) [Entitic mass ]Ordered By: Terrell Richardson on 11-04-2023 MCH (RBC) [Entitic mass] 30.0 pg 27.5-35.2 [facility] MCHC Auto (RBC) [Mass/Vol]Or dered By: Terrell Richardson on 11-04-2023 MCHC (RBC) [Mass/Vol] 33.8 g/dL 32.5-35.[address] [facility] MCV Auto (RBC) [Entitic vol] Ordered By: Terrell Richardson on 11-04-2023 MCV (RBC) [Entitic vol] 88.9 fL 83.5-101 [facility] Monocytes Auto (Bld) [#/Vol] Ordered By: Terrell Richardson on 11-04-2023 Monocytes (Bld) [#/Vol] 1.3 10*3/uL 0.0-0.8 [facility] Monocytes/100 WBC Auto (Bld) Ordered By: Terrell Richardson on 11-04-2023 Monocytes/100 WBC (Bld) 13.6 % . [facility] Neutrophils Auto (Bld) [#/Vo l]Ordered By: Terrell Richardson on 11-04-2023 Neutrophils (Bld) [#/Vol] 5.4 10*3/uL 1.8-7.7 [facility] Neutrophils/100 WBC Auto (Bl d)Ordered By: Terrell Richardson on 11-04-2023 Neutrophils/100 WBC (Bld) 57.7 % . [facility] No Panel InformationOrdered By: Terrell Richardson on 11-04-2023 Estimated GFR (CKD-EPI) > 60.0 mL/Min [facility] Creatinine Clearance (Chem 89.89 [facility] Nucleated erythrocytes [Pres ence] in Blood by Automated countOrdered By: Terrell Richardson on 11-04-2023 Nucleated RBC Auto Ql (Bld) 0.2 /100{WBC} 0-0.5 [facility] Platelet mean volume Auto (B ld) [Entitic vol]Ordered By: Terrell Richardson on 11-04-2023 Platelet mean volume (Bld) [Entitic vol] 7.1 fL 6.6-10.1 [facility] Platelets Auto (Bld) [#/Vol] Ordered By: Terrell Richardson on 11-04-2023 Platelets (Bld) [#/Vol] 283 10*3/uL 150-450 [facility] Potassium [Moles/volume] in Serum or PlasmaOrdered By: Terrell Richardson on 11-04-2023 Potassium [Moles/Vol] 3.7 mmol/L 3.5-5.[address] [facility] Prealbuminon 11-04-2023 Prealbumin [Mass/Vol] 14.2 mg/dL Low 17.0-34.0 [facility] Comment on above: Result Comment: PERF ORMED BY: [facility] [address] [place] [address] PATHOLOGIST SAP CONSULTANT NAN ANDREW M.D. Performed By: #### G LULS #### Point of Care testing , Prealbumin [Mass/volume] in Serum or PlasmaOrdered By: Terrell Richardson on 11-04-2023 Prealbumin [Mass/Vol] 14.2 mg/dL 17.0-34.[address] [facility] Protein [Mass/volume] in Ser um or PlasmaOrdered By: Terrell Richardson on 11-04-2023 Protein [Mass/Vol] 5.6 g/dL 6.4-8.9 [facility] RBC Auto (Bld) [#/Vol]Ordere d By: Terrell Richardson on 11-04-2023 RBC (Bld) [#/Vol] 3.03 10*6/uL 3.90-5.60 [facility] Serum or plasma albumin/glob ulin mass ratioOrdered By: Terrell Richardson on 11-04-2023 Albumin/Globulin [Mass ratio] 1.4 {ratio} [facility] Serum or plasma anion gap de terminationOrdered By: Terrell Richardson on 11-04-2023 Anion gap [Moles/Vol] 11.6 mmol/L 6.0-15.0 [facility] Sodium [Moles/volume] in Ser um or PlasmaOrdered By: Terrell Richardson on 11-04-2023 Sodium [Moles/Vol] 142 mmol/L 136-145 [facility] Urea nitrogen [Mass/volume] in Serum or PlasmaOrdered By: Terrell Richardson on 11-04-2023 Urea nitrogen [Mass/Vol] 14 mg/dL 7-25 [facility] WBC Auto (Bld) [#/Vol]Ordere d By: Terrell Richardson on 11-04-2023 WBC (Bld) [#/Vol] 9.4 10*3/uL 4.1-10.5 [facility] XR chest 2V*on 11-04-2023 XR chest 2V* [address] [address] XRay Report Signed Patient: Jeramie Galvan MR#: [id number] : 1965 Acct:[id number] Age/Sex: 57 / M ADM Date: 11/03/23 Loc: Room: [address] [place] [address] Type: ADM IN Attending Dr: Terrell Richardson MD Copies to: YIN Aguilar MD Ordering Provider: Moon Beck APRN Date of Service: 11/04/23 XR/XR chest 2V*: f/u CABG Plain film chest 2 view HISTORY: Follow-up CABG COMPARISON: None FINDINGS: SUPPORT DEVICES: None POSTSURGICAL CHANGES: Unremarkable CABG changes. HEART: Within normal limits PULMONARY DASIA: Within normal limits MEDIASTINUM: Unremarkable LUNGS AND PLEURA: Minor basilar pleural-parenchymal changes with blunting the posterior costophrenic angles BONY STRUCTURES: Thoracic hyperostosis ADDITIONAL FINDINGS None XR/XR chest 2V* IMPRESSION: Minor basilar pleural-parenchymal change. Impression dictated by: Jeramie Morris M.D.11/04/2023 4:10 PM Dictation Location: [place] [address] Transcribed By: [facility] 11/04/23 1610 Dictated By: Jeramie Morris DO 11/04/23 1609 Signed By: 11/04/23 1610 Normal [facility] 30on 11-03-2023 30 Normal [facility] DSon 11-03-2023 DS Normal [facility] Glucose Poct Glucometerson 0 11-03-2023 Commemt1 Glu2: Cleaned Meter Normal [facility] Comment on above: Result Comment: PERF ORMED BY: [facility] [address] [place] [address] PATHOLOGIST SAP CONSULTANT NAN ANDREW M.D. Performed By: #### G LULS #### Point of Care testing , Glucose [Mass/Vol] 96 mg/dL Normal [facility] Comment on above: Result Comment: [place] Glucose Reference Range is dependent on time and content of last meal. Glucose of more than 200 mg/dL in a nonstressed, ambulatory subject supports the diagnosis of Diabetes Mellitus. Performed By: #### G LULS #### Point of Care testing , NURSNOTEon 11-03-2023 NURSNOTE Report called to Shaniqua at [facility] NURSNOTE Report given to [facility], pt discharged via stretcher to [facility] without incident. Normal [facility] POCT GLUCOSE METER UNSOLICIT ED RESULTSon 11-03-2023 Glucose [Mass/Vol] 89 mg/dL Normal 70-105 [facility] Comment on above: Order Comment: Waive d Testing in the ED is performed under the ED CLIA certificate #[id number]. Result Comment: [email or web address] Performed By: #### L [id number] ####[facility] ([facility])[address] [place] [address] Glucose [Mass/Vol] 151 mg/dL High 70-105 [facility] Comment on above: Order Comment: Waive d Testing in the ED is performed under the ED CLIA certificate #[id number]. Result Comment: [email or web address] Performed By: #### L [id number] ####[facility] ([facility])[address] [place] [address] Glucose [Mass/Vol] 170 mg/dL High 70-105 [facility] Comment on above: Order Comment: Waive d Testing in the ED is performed under the ED CLIA certificate #[id number]. Result Comment: [email or web address] Performed By: #### L [id number] ####[facility] ([facility])[address] [place] [address] 30on 11-02-2023 30 Normal [facility] POCT GLUCOSE METER UNSOLICIT ED RESULTSon 11-02-2023 Glucose [Mass/Vol] 107 mg/dL High 70-105 [facility] Comment on above: Order Comment: Waive d Testing in the ED is performed under the ED CLIA certificate #[id number]. Result Comment: [email or web address] Performed By: #### L [id number] ####[facility] ([facility])[address] [place] [address] Glucose [Mass/Vol] 56 mg/dL Low 70-105 [facility] Comment on above: Order Comment: Waive d Testing in the ED is performed under the ED CLIA certificate #[id number]. Result Comment: [email or web address] Performed By: #### L [id number] ####[facility] ([facility])[address] [place] [address] Glucose [Mass/Vol] 99 mg/dL Normal 70-105 [facility] Comment on above: Order Comment: Waive d Testing in the ED is performed under the ED CLIA certificate #[id number]. Result Comment: [email or web address] Performed By: #### L [id number] ####[facility] ([facility])[address] [place] [address] Glucose [Mass/Vol] 116 mg/dL High 70-105 [facility] Comment on above: Order Comment: Waive d Testing in the ED is performed under the ED CLIA certificate #[id number]. Result Comment: [email or web address] Performed By: #### L [id number] ####[facility] ([facility])[address] [place] [address] Glucose [Mass/Vol] 192 mg/dL High 70-105 [facility] Comment on above: Order Comment: Waive d Testing in the ED is performed under the ED CLIA certificate #[id number]. Result Comment: [email or web address] Performed By: #### L [id number] ####[facility] ([facility])[address] [place] [address] 30on 11-01-2023 30 Normal [facility] BASIC METABOLIC PANELon 05-0 Anion gap [Moles/Vol] 11 mmol/L Normal 7-20 [facility] Comment on above: Performed By: #### L [id number] ####[facility] ([facility])[address] [place] [address] Calcium [Mass/Vol] 8.4 mg/dL Low 8.6-10.3 [facility] Comment on above: Performed By: #### L [id number] ####[facility] ([facility])[address] [place] [address] Chloride [Moles/Vol] 96 mmol/L Low 98-107 [facility] Comment on above: Performed By: #### L [id number] ####[facility] ([facility])[address] [place] [address] CO2 [Moles/Vol] 30 mmol/L Normal 21-31 [facility] Comment on above: Performed By: #### L [id number] ####[facility] ([facility])[address] [place] [address] Creatinine [Mass/Vol] 0.90 mg/dL Normal 0.70-1.30 [facility] Comment on above: Performed By: #### L [id number] ####[facility] ([facility])[address] [place] [address] GLOMERULAR FILTRATION RATE ML/MIN/1.73 SQ M.PREDICTED 99.6 mL/min/1.73m*2 Normal >60.0 [facility] Comment on above: Result Comment: The [facility]???s estimated glomerular filtration rate (eGFR) will no longer include consideration of race in its calculation. The National Kidney Foundation???s eGFR Task Force developed new recommendations for the estimation of the glomerular filtration rate in the [place] They recommend immediate implementation of the new equation refit without the race variable in all laboratories because the calculation does not include race. In addition to not including race in the calculation and reporting, it included diversity in its development, and has acceptable performance characteristics and potential consequences that do not disproportionately affect any one group of individuals. Performed By: #### L [id number] ####[facility] ([facility])[address] [place] [address] Glucose [Mass/Vol] 149 mg/dL High 70-100 [facility] Comment on above: Performed By: #### L [id number] ####[facility] ([facility])[address] [place] [address] Potassium [Moles/Vol] 3.9 mmol/L Normal 3.5-5.1 [facility] Comment on above: Performed By: #### L [id number] ####[facility] ([facility])[address] [place] [address] Sodium [Moles/Vol] 133 mmol/L Low 136-145 [facility] Comment on above: Performed By: #### L [id number] ####[facility] ([facility])[address] [place] [address] Urea nitrogen [Mass/Vol] 24 mg/dL Normal 7-25 [facility] Comment on above: Performed By: #### L [id number] ####[facility] ([facility])[address] [place] [address] UREA NITROGEN/CREATININE (MASS RATIO) IN SER/PLAS 26.7 Normal [facility] Comment on above: Performed By: #### L [id number] ####[facility] ([facility])[address] [place] [address] CBCon 11-01-2023 Erythrocyte distribution width (RBC) [Ratio] 13.0 % Normal 11.5-15.0 [facility] Comment on above: Performed By: #### L [id number] ####[facility] ([facility])[address] [place] [address] ERYTHROCYTE MEAN CORPUSCULAR HEMOGLOBIN CONCENTRATION (G/DL) BY AUTOMATED 32.2 g/dL Normal 32.0-35.0 [facility] Comment on above: Performed By: #### L [id number] ####[facility] ([facility])[address] [place] [address] Hematocrit (Bld) [Volume fraction] 24.5 % Low 39.0-55.0 [facility] Comment on above: Performed By: #### L [id number] ####[facility] ([facility])[address] [place] [address] Hemoglobin (Bld) [Mass/Vol] 7.9 g/dL Low 13.0-17.0 [facility] Comment on above: Performed By: #### L [id number] ####[facility] ([facility])[address] [place] [address] MCH (RBC) [Entitic mass] 29.8 pg Normal 27.0-33.0 [facility] Comment on above: Performed By: #### L [id number] ####[facility] ([facility])[address] [place] [address] MCV (RBC) [Entitic vol] 92.5 fL Normal 82.0-98.0 [facility] Comment on above: Performed By: #### L [id number] ####[facility] ([facility])[address] [place] [address] PLATELETS (10*3/UL) IN BLOOD AUTOMATED COUNT 174 10*3/uL Normal 150-400 [facility] Comment on above: Performed By: #### L [id number] ####[facility] ([facility])[address] [place] [address] RBC (Bld) [#/Vol] 2.65 10*6/uL Low 4.20-5.70 [facility] Comment on above: Performed By: #### L [id number] ####[facility] ([facility])[address] [place] [address] WBC (Bld) [#/Vol] 8.70 10*3/uL Normal 4.00-10.60 [facility] Comment on above: Performed By: #### L [id number] ####[facility] ([facility])[address] [place] [address] MAGNESIUMon 11-01-2023 Magnesium [Mass/Vol] 2.1 mg/dL Normal 1.9-2.7 [facility] Comment on above: Performed By: #### L [id number] ####[facility] ([facility])[address] [place] [address] NURSNOTEon 11-01-2023 NURSNOTE Normal [facility] POCT GLUCOSE METER UNSOLICIT ED RESULTSon 11-01-2023 Glucose [Mass/Vol] 202 mg/dL High 70-105 [facility] Comment on above: Order Comment: Waive d Testing in the ED is performed under the ED CLIA certificate #[id number]. Result Comment: [email or web address] Performed By: #### L [id number] ####[facility] ([facility])[address] [place] [address] Glucose [Mass/Vol] 183 mg/dL High 70-105 [facility] Comment on above: Order Comment: Waive d Testing in the ED is performed under the ED CLIA certificate #[id number]. Result Comment: [email or web address] Performed By: #### L [id number] ####[facility] ([facility])[address] [place] [address] Glucose [Mass/Vol] 108 mg/dL High 70-105 [facility] Comment on above: Order Comment: Waive d Testing in the ED is performed under the ED CLIA certificate #[id number]. Result Comment: [email or web address] Performed By: #### L [id number] ####[facility] ([facility])[address] [place] [address] Glucose [Mass/Vol] 90 mg/dL Normal 70-105 [facility] Comment on above: Order Comment: Waive d Testing in the ED is performed under the ED CLIA certificate #[id number]. Result Comment: [email or web address] Performed By: #### L [id number] ####[facility] ([facility])[address] [place] [address] 30on 10-31-2023 30 The patient is Moderately Stable - Low risk of patient condition declining or worsening The patient's goals for the shift include comfort, rest The clinical goals for the shift include Stable vitals, comfort Normal [facility] 30 Normal [facility] 30 Normal [facility] BASIC METABOLIC PANELon 05-0 Anion gap [Moles/Vol] 11 mmol/L Normal 7-20 [facility] Comment on above: Performed By: #### L [id number] ####[facility] ([facility])[address] [place] [address] Calcium [Mass/Vol] 8.4 mg/dL Low 8.6-10.3 [facility] Comment on above: Performed By: #### L [id number] ####[facility] ([facility])[address] [place] [address] Chloride [Moles/Vol] 95 mmol/L Low 98-107 [facility] Comment on above: Performed By: #### L [id number] ####[facility] ([facility])[address] [place] [address] CO2 [Moles/Vol] 31 mmol/L Normal 21-31 [facility] Comment on above: Performed By: #### L [id number] ####[facility] ([facility])[address] [place] [address] Creatinine [Mass/Vol] 0.94 mg/dL Normal 0.70-1.30 [facility] Comment on above: Performed By: #### L [id number] ####[facility] ([facility])[address] [place] [address] GLOMERULAR FILTRATION RATE ML/MIN/1.73 SQ M.PREDICTED 94.6 mL/min/1.73m*2 Normal >60.0 [facility] Comment on above: Result Comment: The [facility]???s estimated glomerular filtration rate (eGFR) will no longer include consideration of race in its calculation. The National Kidney Foundation???s eGFR Task Force developed new recommendations for the estimation of the glomerular filtration rate in the [place] They recommend immediate implementation of the new equation refit without the race variable in all laboratories because the calculation does not include race. In addition to not including race in the calculation and reporting, it included diversity in its development, and has acceptable performance characteristics and potential consequences that do not disproportionately affect any one group of individuals. Performed By: #### L [id number] ####[facility] ([facility])[address] [place] [address] Glucose [Mass/Vol] 146 mg/dL High 70-100 [facility] Comment on above: Performed By: #### L [id number] ####[facility] ([facility])[address] [place] [address] Potassium [Moles/Vol] 4.2 mmol/L Normal 3.5-5.1 [facility] Comment on above: Performed By: #### L [id number] ####[facility] ([facility])[address] [place] [address] Sodium [Moles/Vol] 133 mmol/L Low 136-145 [facility] Comment on above: Performed By: #### L [id number] ####[facility] ([facility])[address] [place] [address] Urea nitrogen [Mass/Vol] 26 mg/dL High 7-25 [facility] Comment on above: Performed By: #### L [id number] ####[facility] ([facility])[address] [place] [address] UREA NITROGEN/CREATININE (MASS RATIO) IN SER/PLAS 27.7 Normal [facility] Comment on above: Performed By: #### L [id number] ####[facility] ([facility])[address] [place] [address] CBCon 10-31-2023 Erythrocyte distribution width (RBC) [Ratio] 12.9 % Normal 11.5-15.0 [facility] Comment on above: Performed By: #### L [id number] ####[facility] ([facility])[address] [place] [address] ERYTHROCYTE MEAN CORPUSCULAR HEMOGLOBIN CONCENTRATION (G/DL) BY AUTOMATED 33.1 g/dL Normal 32.0-35.0 [facility] Comment on above: Performed By: #### L [id number] ####[facility] ([facility])[address] [place] [address] Hematocrit (Bld) [Volume fraction] 24.2 % Low 39.0-55.0 [facility] Comment on above: Performed By: #### L [id number] ####[facility] ([facility])[address] [place] [address] Hemoglobin (Bld) [Mass/Vol] 8.0 g/dL Low 13.0-17.0 [facility] Comment on above: Performed By: #### L [id number] ####[facility] ([facility])[address] [place] [address] MCH (RBC) [Entitic mass] 29.4 pg Normal 27.0-33.0 [facility] Comment on above: Performed By: #### L [id number] ####[facility] ([facility])[address] [place] [address] MCV (RBC) [Entitic vol] 89.0 fL Normal 82.0-98.0 [facility] Comment on above: Performed By: #### L [id number] ####[facility] ([facility])[address] [place] [address] PLATELETS (10*3/UL) IN BLOOD AUTOMATED COUNT 151 10*3/uL Normal 150-400 [facility] Comment on above: Performed By: #### L [id number] ####[facility] ([facility])[address] [place] [address] RBC (Bld) [#/Vol] 2.72 10*6/uL Low 4.20-5.70 [facility] Comment on above: Performed By: #### L [id number] ####[facility] ([facility])[address] [place] [address] WBC (Bld) [#/Vol] 9.44 10*3/uL Normal 4.00-10.60 [facility] Comment on above: Performed By: #### L [id number] ####[facility] ([facility])[address] [place] [address] CT CHEST WO IV CONTRASTon CT CHEST WO IV CONTRAST Invalid Interpretation Code [facility] CT HEAD WO IV CONTRASTon CT HEAD WO IV CONTRAST Invalid Interpretation Code [facility] MAGNESIUMon 10-31-2023 Magnesium [Mass/Vol] 2.3 mg/dL Normal 1.9-2.7 [facility] Comment on above: Performed By: #### L [id number] ####[facility] ([facility])[address] [place] [address] NURSNOTEon 10-31-2023 NURSNOTE Normal [facility] POCT GLUCOSE METER UNSOLICIT ED RESULTSon 10-31-2023 Glucose [Mass/Vol] 171 mg/dL High 70-105 [facility] Comment on above: Order Comment: Waive d Testing in the ED is performed under the ED CLIA certificate #[id number]. Result Comment: [email or web address] Performed By: #### L [id number] ####[facility] ([facility])[address] [facility] [address] Glucose [Mass/Vol] 171 mg/dL High 70-105 [facility] Comment on above: Order Comment: Waive d Testing in the ED is performed under the ED CLIA certificate #[id number]. Result Comment: [email or web address] Performed By: #### L [id number] ####[facility] ([employer])[address] [facility] [address] Glucose [Mass/Vol] 152 mg/dL High 70-105 [facility] Comment on above: Order Comment: Waive d Testing in the ED is performed under the ED CLIA certificate #[id number]. Result Comment: [email or web address] Performed By: #### L [id number] ####[facility] ([employer])[address] [facility] [address] Glucose [Mass/Vol] 189 mg/dL High 70-105 [facility] Comment on above: Order Comment: Waive d Testing in the ED is performed under the ED CLIA certificate #[id number]. Result Comment: [email or web address] Performed By: #### L [id number] ####[facility] ([facility])[address] [facility] [address] 30on 10-30-2023 30 Normal [facility] BASIC METABOLIC PANELon Anion gap [Moles/Vol] 6 mmol/L Low 7-20 [facility] Comment on above: Performed By: #### L [id number] ####[facility] ([employer])[address] [place] [address] Calcium [Mass/Vol] 8.3 mg/dL Low 8.6-10.3 [facility] Comment on above: Performed By: #### L [id number] ####[facility] ([facility])[address] [place] [address] Chloride [Moles/Vol] 94 mmol/L Low 98-107 [facility] Comment on above: Performed By: #### L [id number] ####[facility] ([facility])[address] [place] [address] CO2 [Moles/Vol] 35 mmol/L High 21-31 [facility] Comment on above: Performed By: #### L [id number] ####[facility] ([facility])[address] [place] [address] Creatinine [Mass/Vol] 1.11 mg/dL Normal 0.70-1.30 [facility] Comment on above: Performed By: #### L [id number] ####[facility] ([facility])[address] [place] [address] GLOMERULAR FILTRATION RATE ML/MIN/1.73 SQ M.PREDICTED 77.5 mL/min/1.73m*2 Normal >60.0 [facility] Comment on above: Result Comment: The [facility]???s estimated glomerular filtration rate (eGFR) will no longer include consideration of race in its calculation. The National Kidney Foundation???s eGFR Task Force developed new recommendations for the estimation of the glomerular filtration rate in the [place] They recommend immediate implementation of the new equation refit without the race variable in all laboratories because the calculation does not include race. In addition to not including race in the calculation and reporting, it included diversity in its development, and has acceptable performance characteristics and potential consequences that do not disproportionately affect any one group of individuals. Performed By: #### L [id number] ####[facility] ([facility])[address] [place] [address] Glucose [Mass/Vol] 177 mg/dL High 70-100 [facility] Comment on above: Performed By: #### L [id number] ####[facility] ([facility])[address] [place] [address] Potassium [Moles/Vol] 3.9 mmol/L Normal 3.5-5.1 [facility] Comment on above: Performed By: #### L [id number] ####[facility] ([facility])[address] [place] [address] Sodium [Moles/Vol] 131 mmol/L Low 136-145 [facility] Comment on above: Performed By: #### L [id number] ####[facility] ([facility])[address] [place] [address] Urea nitrogen [Mass/Vol] 30 mg/dL High 7-25 [facility] Comment on above: Performed By: #### L [id number] ####[facility] ([facility])[address] [place] [address] UREA NITROGEN/CREATININE (MASS RATIO) IN SER/PLAS 27.0 Normal [facility] Comment on above: Performed By: #### L [id number] ####[facility] ([facility])[address] [place] [address] CBCon 10-30-2023 Erythrocyte distribution width (RBC) [Ratio] 12.6 % Normal 11.5-15.0 [facility] Comment on above: Performed By: #### L [id number] ####[facility] ([facility])[address] [place] [address] ERYTHROCYTE MEAN CORPUSCULAR HEMOGLOBIN CONCENTRATION (G/DL) BY AUTOMATED 33.2 g/dL Normal 32.0-35.0 [facility] Comment on above: Performed By: #### L [id number] ####[facility] ([facility])[address] [place] [address] Hematocrit (Bld) [Volume fraction] 23.8 % Low 39.0-55.0 [facility] Comment on above: Performed By: #### L [id number] ####[facility] ([facility])[address] [place] [address] Hemoglobin (Bld) [Mass/Vol] 7.9 g/dL Low 13.0-17.0 [facility] Comment on above: Performed By: #### L [id number] ####[facility] ([facility])[address] [place] [address] IMMATURE PLATELET FRACTION % 6.2 % Normal 0.8-6.3 [facility] Comment on above: Performed By: #### L [id number] ####[facility] ([facility])[address] [place] [address] MCH (RBC) [Entitic mass] 30.0 pg Normal 27.0-33.0 [facility] Comment on above: Performed By: #### L [id number] ####[facility] ([facility])[address] [place] [address] MCV (RBC) [Entitic vol] 90.5 fL Normal 82.0-98.0 [facility] Comment on above: Performed By: #### L [id number] ####[facility] ([facility])[address] [place] [address] PLATELETS (10*3/UL) IN BLOOD AUTOMATED COUNT 112 10*3/uL Low 150-400 [facility] Comment on above: Performed By: #### L [id number] ####[facility] ([facility])[address] [place] [address] RBC (Bld) [#/Vol] 2.63 10*6/uL Low 4.20-5.70 [facility] Comment on above: Performed By: #### L [id number] ####[facility] ([facility])[address] [place] [address] WBC (Bld) [#/Vol] 9.82 10*3/uL Normal 4.00-10.60 [facility] Comment on above: Performed By: #### L [id number] ####[facility] ([facility] [place] [address] CONSULTon 10-30-2023 CONSULT Normal [facility] MAGNESIUMon 10-30-2023 Magnesium [Mass/Vol] 2.2 mg/dL Normal 1.9-2.7 [facility] Comment on above: Performed By: #### L [id number] ####[facility] ([facility])[address] [place] [address] NURSNOTEon 10-30-2023 NURSNOTE Normal [facility] PHOSPHORUSon 10-30-2023 Magnesium [Mass/Vol] 3.7 mg/dL Normal 2.5-5.0 [facility] Comment on above: Performed By: #### L [id number] ####[facility] ([facility])[address] [place] [address] POCT GLUCOSE METER UNSOLICIT ED RESULTSon 10-30-2023 Glucose [Mass/Vol] 175 mg/dL High 70-105 [facility] Comment on above: Order Comment: Waive d Testing in the ED is performed under the ED CLIA certificate #[id number]. Result Comment: [email or web address] Performed By: #### L [id number] ####[facility] ([facility])[address] [place] [address] Glucose [Mass/Vol] 202 mg/dL High 70-105 [facility] Comment on above: Order Comment: Waive d Testing in the ED is performed under the ED CLIA certificate #[id number]. Result Comment: [email or web address] Performed By: #### L [id number] ####[facility] [place] [address] Glucose [Mass/Vol] 189 mg/dL High 70-105 [facility] Comment on above: Order Comment: Waive d Testing in the ED is performed under the ED CLIA certificate #[id number]. Result Comment: [email or web address] Performed By: #### L [id number] ####[facility] (BE[facility])[address] [place] [address] 30on 10-29-2023 30 Normal [facility] BASIC METABOLIC PANELon 05-0 Anion gap [Moles/Vol] 11 mmol/L Normal 7-20 [facility] Comment on above: Performed By: #### L [id number] ####[facility] ([facility])[address] [facility] [address] Calcium [Mass/Vol] 8.9 mg/dL Normal 8.6-10.3 [facility] Comment on above: Performed By: #### L [id number] ####[facility] ([facility])[address] [facility] [address] Chloride [Moles/Vol] 99 mmol/L Normal 98-107 [facility] Comment on above: Performed By: #### L [id number] ####[facility] ([facility])[address] [facility] [address] CO2 [Moles/Vol] 28 mmol/L Normal 21-31 [facility] Comment on above: Performed By: #### L [id number] ####[facility] ([facility])[address] [facility] [address] Creatinine [Mass/Vol] 1.20 mg/dL Normal 0.70-1.30 [facility] Comment on above: Performed By: #### L [id number] ####[facility] ([facility])[address] [facility] [address] GLOMERULAR FILTRATION RATE ML/MIN/1.73 SQ M.PREDICTED 70.5 mL/min/1.73m*2 Normal >60.0 [facility] Comment on above: Result Comment: The [facility]???s estimated glomerular filtration rate (eGFR) will no longer include consideration of race in its calculation. The National Kidney Foundation???s eGFR Task Force developed new recommendations for the estimation of the glomerular filtration rate in the [place] They recommend immediate implementation of the new equation refit without the race variable in all laboratories because the calculation does not include race. In addition to not including race in the calculation and reporting, it included diversity in its development, and has acceptable performance characteristics and potential consequences that do not disproportionately affect any one group of individuals. Performed By: #### L [id number] ####[facility] ([facility])[address] [place] [address] Glucose [Mass/Vol] 184 mg/dL High 70-100 [facility] Comment on above: Performed By: #### L [id number] ####[facility] ([facility])[address] [place] [address] Potassium [Moles/Vol] 4.7 mmol/L Normal 3.5-5.1 [facility] Comment on above: Performed By: #### L [id number] ####[facility] ([facility])[address] [place] [address] Sodium [Moles/Vol] 133 mmol/L Low 136-145 [facility] Comment on above: Performed By: #### L [id number] ####[facility] ([facility])[address] [place] [address] Urea nitrogen [Mass/Vol] 30 mg/dL High 7-25 [facility] Comment on above: Performed By: #### L [id number] ####[facility] ([facility])[address] [place] [address] UREA NITROGEN/CREATININE (MASS RATIO) IN SER/PLAS 25.0 Normal [facility] Comment on above: Performed By: #### L [id number] ####[facility] ([facility])[address] [place] [address] CBCon 10-29-2023 Erythrocyte distribution width (RBC) [Ratio] 12.7 % Normal 11.5-15.0 [facility] Comment on above: Performed By: #### L [id number] ####[facility] ([facility])[address] [place] [address] ERYTHROCYTE MEAN CORPUSCULAR HEMOGLOBIN CONCENTRATION (G/DL) BY AUTOMATED 33.7 g/dL Normal 32.0-35.0 [facility] Comment on above: Performed By: #### L [id number] ####[facility] ([facility])[address] [place] [address] Hematocrit (Bld) [Volume fraction] 27.0 % Low 39.0-55.0 [facility] Comment on above: Performed By: #### L [id number] ####[facility] ([facility])[address] [place] [address] Hemoglobin (Bld) [Mass/Vol] 9.1 g/dL Low 13.0-17.0 [facility] Comment on above: Performed By: #### L [id number] ####[facility] ([facility])[address] [place] [address] IMMATURE PLATELET FRACTION % 5.7 % Normal 0.8-6.3 [facility] Comment on above: Performed By: #### L [id number] ####[facility] ([facility])[address] [place] [address] MCH (RBC) [Entitic mass] 30.2 pg Normal 27.0-33.0 [facility] Comment on above: Performed By: #### L [id number] ####[facility] ([facility])[address] [place] [address] MCV (RBC) [Entitic vol] 89.7 fL Normal 82.0-98.0 [facility] Comment on above: Performed By: #### L [id number] ####[facility] ([facility])[address] [place] [address] PLATELETS (10*3/UL) IN BLOOD AUTOMATED COUNT 120 10*3/uL Low 150-400 [facility] Comment on above: Performed By: #### L [id number] ####[facility] ([facility])[address] [place] [address] RBC (Bld) [#/Vol] 3.01 10*6/uL Low 4.20-5.70 [facility] Comment on above: Performed By: #### L [id number] ####[facility] ([facility])[address] [place] [address] WBC (Bld) [#/Vol] 11.19 10*3/uL High 4.00-10.60 [facility] Comment on above: Performed By: #### L [id number] ####[facility] ([facility])[address] [place] [address] MAGNESIUMon 10-29-2023 Magnesium [Mass/Vol] 2.1 mg/dL Normal 1.9-2.7 [facility] Comment on above: Performed By: #### L [id number] ####[facility] ([facility])[address] [place] [address] PHOSPHORUSon 10-29-2023 Magnesium [Mass/Vol] 5.7 mg/dL High 2.5-5.0 [facility] Comment on above: Performed By: #### L [id number] ####[facility] ([facility])[address] [place] [address] POCT GLUCOSE METER UNSOLICIT ED RESULTSon 10-29-2023 Glucose [Mass/Vol] 169 mg/dL High 70-105 [facility] Comment on above: Order Comment: Waive d Testing in the ED is performed under the ED CLIA certificate #[id number]. Result Comment: [email or web address] Performed By: #### L [id number] ####[facility] ([facility])[address] [place] [address] Glucose [Mass/Vol] 194 mg/dL High 70-105 [facility] Comment on above: Order Comment: Waive d Testing in the ED is performed under the ED CLIA certificate #[id number]. Result Comment: [email or web address] Performed By: #### L [id number] ####[facility] ([facility])[address] [place] [address] Glucose [Mass/Vol] 198 mg/dL High 70-105 [facility] Comment on above: Order Comment: Waive d Testing in the ED is performed under the ED CLIA certificate #[id number]. Result Comment: [email or web address] Performed By: #### L [id number] ####[facility] ([facility])[address] [place] [address] Glucose [Mass/Vol] 147 mg/dL High 70-105 [facility] Comment on above: Order Comment: Waive d Testing in the ED is performed under the ED CLIA certificate #[id number]. Result Comment: [email or web address] Performed By: #### L [id number] ####[facility] ([facility])[address] [place] [address] APTTon 10-28-2023 ACTIVATED PARTIAL THROMBOPLASTIN TIME IN PPP BY COAGULATION ASSAY >200.0 Critically high 25.0-35.0 [facility] Comment on above: Result Comment: Clin ical significance of the APTT is questionable in the presence of heparin. Performed By: #### L [id number] ####[facility] ([facility])[address] [place] [address] ACTIVATED PARTIAL THROMBOPLASTIN TIME IN PPP BY COAGULATION ASSAY 31.6 Seconds Normal 25.0-35.0 [facility] Comment on above: Result Comment: Clin ical significance of the APTT is questionable in the presence of heparin. Performed By: #### L [id number] ####[facility] ([facility])[address] [facility] [place] [address] ARTERIAL BLOOD GAS WITH IONI ZED CALCIUMon 10-28-2023 Base excess Calc (Bld) [Moles/Vol] -3.0000 mmol/L Low -2.0-3.0 [facility] Comment on above: Performed By: #### L [id number] ####[facility] [id number] [place] [address] [place] Base excess Calc (Bld) [Moles/Vol] -1.1000 mmol/L Normal -2.0-3.0 [facility] Comment on above: Order Comment: V60 1 12/05 Performed By: #### L [id number] ####[facility] [id number] [place] [address] [place] CALCIUM IONIZED (MMOL/L) IN BLOOD 1.23 mmol/L Normal 1.15-1.33 [facility] Comment on above: Performed By: #### L [id number] ####[facility] [id number] [place] [address] [place] CALCIUM IONIZED (MMOL/L) IN BLOOD 1.21 mmol/L Normal 1.15-1.33 [facility] Comment on above: Order Comment: 12/05 Performed By: #### L [id number] ####[facility] [id number] [place] [address] [place] CO2 (Bld) [Partial pressure] 52 mm[Hg] High 35-48 [facility] Comment on above: Performed By: #### L [id number] ####[facility] [id number] [facility] [place] [address] [place] CO2 (Bld) [Partial pressure] 48 mm[Hg] Normal 35-48 [facility] Comment on above: Order Comment: 12/05 Performed By: #### L [id number] ####[facility] [id number] [place] [address] [place] FIO2 40 % Normal [facility] Comment on above: Performed By: #### L [id number] ####[facility] [id number] [facility] [place] [address] [place] FIO2 40 % Normal [facility] Comment on above: Order Comment: 12/05 Performed By: #### L [id number] ####[facility] [id number] [facility] [place] [address] [place] HCO3 (Bld) [Moles/Vol] 24.4 mmol/L Normal 21.0-28.0 [facility] Comment on above: Performed By: #### L [id number] ####[facility] [id number] [place] [address] [place] HCO3 (Bld) [Moles/Vol] 25.3 mmol/L Normal 21.0-28.0 [facility] Comment on above: Order Comment: 12/05 Performed By: #### L [id number] ####[facility] [id number] [place] [address] [place] LPM 40 Normal [facility] Comment on above: Performed By: #### L [id number] ####[facility] RESPIRATORY [id number] [place] [address] [place] Oxygen (Bld) [Partial pressure] 64 mm[Hg] Low 83-100 [facility] Comment on above: Performed By: #### L [id number] ####[facility] RESPIRATORY [id number] [place] [address] [place] Oxygen (Bld) [Partial pressure] 115 mm[Hg] High 83-100 [facility] Comment on above: Order Comment: 12/05 Performed By: #### L [id number] ####[facility] RESPIRATORY [id number] [place] [address] [place] OXYGEN SATURATION (%) IN ARTERIAL BLOOD 93.0 % Low 94.0-98.0 [facility] Comment on above: Performed By: #### L [id number] ####[facility] RESPIRATORY [id number] [place] [address] [place] OXYGEN SATURATION (%) IN ARTERIAL BLOOD 99.8 % High 94.0-98.0 [facility] Comment on above: Order Comment: 12/05 Performed By: #### L [id number] ####[facility] RESPIRATORY [id number] [place] [address] [place] pH (Bld) 7.28 [pH] Low 7.35-7.45 [facility] Comment on above: Performed By: #### L [id number] ####[facility] RESPIRATORY [id number] [place] [address] [place] pH (Bld) 7.33 [pH] Low 7.35-7.45 [facility] Comment on above: Order Comment: 12/05 Performed By: #### L [id number] ####[facility] RESPIRATORY [id number] [place] [address] [place] SOURCE OF OXYGEN High flow nasal cannula Normal [facility] Comment on above: Performed By: #### L [id number] ####[facility] RESPIRATORY [id number] [place] [address] [place] SOURCE OF OXYGEN Bi-PAP Normal [facility] Comment on above: Order Comment: 12/05 Performed By: #### L [id number] ####[facility] RESPIRATORY [id number] [place] [address] [facility] BASIC METABOLIC PANELon -3 Anion gap [Moles/Vol] 10 mmol/L Normal 7-20 [facility] Comment on above: Performed By: #### L [id number] ####[facility] LAB (BEAKER)[address] [place] [address] Anion gap [Moles/Vol] 14 mmol/L Normal 7-20 [facility] Comment on above: Performed By: #### L [id number] ####[facility] LAB (BEAKER)[address] [place] [address] Calcium [Mass/Vol] 8.3 mg/dL Low 8.6-10.3 [facility] Comment on above: Performed By: #### L [id number] ####[facility] (BEAKER)[address] [place] [address] Calcium [Mass/Vol] 8.5 mg/dL Low 8.6-10.3 [facility] Comment on above: Performed By: #### L [id number] ####[facility] (BEAKER)[address] [place] [address] Chloride [Moles/Vol] 107 mmol/L Normal 98-107 [facility] Comment on above: Performed By: #### L [id number] ####[facility] (BEAKER)[address] [place] [address] Chloride [Moles/Vol] 105 mmol/L Normal 98-107 [facility] Comment on above: Performed By: #### L [id number] ####[facility] (BEAKER)[address] [place] [address] CO2 [Moles/Vol] 27 mmol/L Normal 21-31 [facility] Comment on above: Performed By: #### L [id number] ####[facility] (BEAKER)[address] [place] [address] CO2 [Moles/Vol] 24 mmol/L Normal 21-31 [facility] Comment on above: Performed By: #### L [id number] ####[facility] ([facility])[address] [place] [address] Creatinine [Mass/Vol] 0.94 mg/dL Normal 0.70-1.30 [facility] Comment on above: Performed By: #### L [id number] ####[facility] ([facility])[address] [place] [address] Creatinine [Mass/Vol] 1.05 mg/dL Normal 0.70-1.30 [facility] Comment on above: Performed By: #### L [id number] ####[facility] ([facility])[address] [place] [address] GLOMERULAR FILTRATION RATE ML/MIN/1.73 SQ M.PREDICTED 94.6 mL/min/1.73m*2 Normal >60.0 [facility] Comment on above: Result Comment: The [facility]???s estimated glomerular filtration rate (eGFR) will no longer include consideration of race in its calculation. The National Kidney Foundation???s eGFR Task Force developed new recommendations for the estimation of the glomerular filtration rate in the [place] They recommend immediate implementation of the new equation refit without the race variable in all laboratories because the calculation does not include race. In addition to not including race in the calculation and reporting, it included diversity in its development, and has acceptable performance characteristics and potential consequences that do not disproportionately affect any one group of individuals. Performed By: #### L [id number] ####[facility] ([facility])[address] [place] [address] GLOMERULAR FILTRATION RATE ML/MIN/1.73 SQ M.PREDICTED 82.8 mL/min/1.73m*2 Normal >60.0 [facility] Comment on above: Result Comment: The [facility]???s estimated glomerular filtration rate (eGFR) will no longer include consideration of race in its calculation. The National Kidney Foundation???s eGFR Task Force developed new recommendations for the estimation of the glomerular filtration rate in the [place] They recommend immediate implementation of the new equation refit without the race variable in all laboratories because the calculation does not include race. In addition to not including race in the calculation and reporting, it included diversity in its development, and has acceptable performance characteristics and potential consequences that do not disproportionately affect any one group of individuals. Performed By: #### L [id number] ####[facility] ([facility])[address] [place] [address] Glucose [Mass/Vol] 84 mg/dL Normal 70-100 [facility] Comment on above: Performed By: #### L [id number] ####[facility] ([facility])[address] [place] [address] Glucose [Mass/Vol] 175 mg/dL High 70-100 [facility] Comment on above: Performed By: #### L [id number] ####[facility] ([facility])[address] [place] [address] Potassium [Moles/Vol] 4.6 mmol/L Normal 3.5-5.1 [facility] Comment on above: Performed By: #### L [id number] ####[facility] (BEAKER)[address] [place] [address] Potassium [Moles/Vol] 4.7 mmol/L Normal 3.5-5.1 [facility] Comment on above: Performed By: #### L [id number] ####[facility] (BEAKER)[address] [place] [address] Sodium [Moles/Vol] 139 mmol/L Normal 136-145 [facility] Comment on above: Performed By: #### L [id number] ####[facility] (BEAKER)[address] [place] [address] Sodium [Moles/Vol] 138 mmol/L Normal 136-145 [facility] Comment on above: Performed By: #### L [id number] ####[facility] (BEAKER)[address] [place] [address] Urea nitrogen [Mass/Vol] 17 mg/dL Normal 7-25 [facility] Comment on above: Performed By: #### L [id number] ####[facility] (BEAKER)[address] [place] [address] Urea nitrogen [Mass/Vol] 19 mg/dL Normal 01-21 [facility] Comment on above: Performed By: #### L [id number] ####[facility] (BEAKER)[address] [place] [address] UREA NITROGEN/CREATININE (MASS RATIO) IN SER/PLAS 18.1 Normal [facility] Comment on above: Performed By: #### L [id number] ####[facility] (BEAKER)[address] [place] [address] UREA NITROGEN/CREATININE (MASS RATIO) IN SER/PLAS 18.1 Normal [facility] Comment on above: Performed By: #### L [id number] ####[facility] (BEAKER)[address] [place] [address] CBCon 10-28-2023 Erythrocyte distribution width (RBC) [Ratio] 12.4 % Normal 11.5-15.0 [facility] Comment on above: Performed By: #### L [id number] ####[facility] (BEAKER)[address] [place] [address] ERYTHROCYTE MEAN CORPUSCULAR HEMOGLOBIN CONCENTRATION (G/DL) BY AUTOMATED 34.3 g/dL Normal 32.0-35.0 [facility] Comment on above: Performed By: #### L [id number] ####[facility] (BEAKER)[address] [place] [address] Hematocrit (Bld) [Volume fraction] 27.4 % Low 39.0-55.0 [facility] Comment on above: Performed By: #### L [id number] ####[facility] (BEAKER)[address] [place] [address] Hemoglobin (Bld) [Mass/Vol] 9.4 g/dL Low 13.0-17.0 [facility] Comment on above: Performed By: #### L [id number] ####[facility] (BEAKER)[address] [place] [address] IMMATURE PLATELET FRACTION % 4.2 % Normal 0.8-6.3 [facility] Comment on above: Performed By: #### L [id number] ####[facility] ([facility])[address] [place] [address] MCH (RBC) [Entitic mass] 29.6 pg Normal 27.0-33.0 [facility] Comment on above: Performed By: #### L [id number] ####[facility] ([facility])[address] [place] [address] MCV (RBC) [Entitic vol] 86.2 fL Normal 82.0-98.0 [facility] Comment on above: Performed By: #### L [id number] ####[facility] ([facility])[address] [place] [address] PLATELETS (10*3/UL) IN BLOOD AUTOMATED COUNT 138 10*3/uL Low 150-400 [facility] Comment on above: Performed By: #### L [id number] ####[facility] ([facility])[address] [place] [address] RBC (Bld) [#/Vol] 3.18 10*6/uL Low 4.20-5.70 [facility] Comment on above: Performed By: #### L [id number] ####[facility] ([facility])[address] [place] [address] WBC (Bld) [#/Vol] 9.88 10*3/uL Normal 4.00-10.60 [facility] Comment on above: Performed By: #### L [id number] ####[facility] ([facility])[address] [place] [address] CONSULTon 10-28-2023 CONSULT Normal [facility] LACTIC ACID, PLASMAon 2023 LACTATE (MMOL/L) IN SER/PLAS 1.1 mmol/L Normal 0.5-2.2 [facility] Comment on above: Performed By: #### L [id number] ####[facility] (BEAKER)[address] [place] [address] MAGNESIUMon 10-28-2023 Magnesium [Mass/Vol] 2.1 mg/dL Normal 1.9-2.7 [facility] Comment on above: Performed By: #### L [id number] ####[facility] ([facility])[address] [place] [address] Magnesium [Mass/Vol] 2.0 mg/dL Normal 1.9-2.7 [facility] Comment on above: Performed By: #### L [id number] ####[facility] ([facility])[address] [place] [address] Magnesium [Mass/Vol] 2.1 mg/dL Normal 1.9-2.7 [facility] Comment on above: Performed By: #### L [id number] ####[facility] ([facility])[address] [place] [address] Magnesium [Mass/Vol] 2.0 mg/dL Normal 1.9-2.7 [facility] Comment on above: Performed By: #### L [id number] ####[facility] ([facility])[address] [place] [address] PHOSPHORUSon 10-28-2023 Magnesium [Mass/Vol] 5.4 mg/dL High 2.5-5.0 [facility] Comment on above: Performed By: #### L [id number] ####[facility] ([facility])[address] [place] [address] Magnesium [Mass/Vol] 5.2 mg/dL High 2.5-5.0 [facility] Comment on above: Performed By: #### L [id number] ####[facility] ([facility])[address] [place] [address] POCT GLUCOSE METER UNSOLICIT ED RESULTSon 10-28-2023 Glucose [Mass/Vol] 107 mg/dL High 70-105 [facility] Comment on above: Order Comment: Waive d Testing in the ED is performed under the ED CLIA certificate #[id number]. Result Comment: mper due Performed By: #### L [id number] ####[facility] ([facility])[address] [place] [address] Glucose [Mass/Vol] 107 mg/dL High 70-105 [facility] Comment on above: Order Comment: Waive d Testing in the ED is performed under the ED CLIA certificate #[id number]. Result Comment: [email or web address] Performed By: #### L [id number] ####[facility] ([facility])[address] [place] [address] Glucose [Mass/Vol] 95 mg/dL Normal 70-105 [facility] Comment on above: Order Comment: Waive d Testing in the ED is performed under the ED CLIA certificate #[id number]. Result Comment: ebol tz Performed By: #### L [id number] ####[facility] ([facility])[address] [place] [address] Glucose [Mass/Vol] 79 mg/dL Normal 70-105 [facility] Comment on above: Order Comment: Waive d Testing in the ED is performed under the ED CLIA certificate #[id number]. Result Comment: ebol tz Performed By: #### L [id number] ####[facility] ([facility])[address] [place] [address] Glucose [Mass/Vol] 81 mg/dL Normal 70-105 [facility] Comment on above: Order Comment: Waive d Testing in the ED is performed under the ED CLIA certificate #[id number]. Result Comment: ebol tz Performed By: #### L [id number] ####[facility] ([facility])[address] [place] [address] Glucose [Mass/Vol] 148 mg/dL High 70-105 [facility] Comment on above: Order Comment: Waive d Testing in the ED is performed under the ED CLIA certificate #[id number]. Result Comment: ebol tz Performed By: #### L [id number] ####[facility] ([facility])[address] [place] [address] Glucose [Mass/Vol] 173 mg/dL High 70-105 [facility] Comment on above: Order Comment: Waive d Testing in the ED is performed under the ED CLIA certificate #[id number]. Result Comment: [email or web address] Performed By: #### L [id number] ####[facility] ([facility])[address] [place] [address] Glucose [Mass/Vol] 214 mg/dL High 70-105 [facility] Comment on above: Order Comment: Waive d Testing in the ED is performed under the ED CLIA certificate #[id number]. Result Comment: [email or web address] Performed By: #### L [id number] ####[facility] ([facility])[address] [place] [address] Glucose [Mass/Vol] 181 mg/dL High 70-105 [facility] Comment on above: Order Comment: Waive d Testing in the ED is performed under the ED CLIA certificate #[id number]. Result Comment: [email or web address] Performed By: #### L [id number] ####[facility] ([facility])[address] [place] [address] POTASSIUMon 10-28-2023 Potassium [Moles/Vol] 4.7 mmol/L Normal 3.5-5.1 [facility] Comment on above: Performed By: #### L [id number] ####[facility] ([facility])[address] [place] [address] Potassium [Moles/Vol] 4.4 mmol/L Normal 3.5-5.1 [facility] Comment on above: Performed By: #### L [id number] ####[facility] ([facility])[address] [place] [address] PROTIME-INRon 10-28-2023 INR IN PPP BY COAGULATION ASSAY 1.31 High 0.90-1.10 [facility] Comment on above: Result Comment: ACCC P RECOMMENDED INR FOR WARFARIN THERAPY CONDITION INRPROPHYLAXIS OF VENOUS THROMBOSIS 2-3(HIGH-RISK SURGERY)TREATMENT OF VENOUS THROMBOSIS 2-3TREATMENT OF PULMONARY EMBOLISM 2-3PREVENTION OF SYSTEMIC EMBOLISM: 2-3 ACUTE MYOCARDIAL INFARCTION TISSUE HEART VALVES VALVULAR HEART DISEASE ATRIAL FIBRILLATION RECURRENT SYSTEMIC EMBOLISMMECHANICAL HEART VALVE 2.5-3.5 FROM: ORAL ANTICOAGULANTS. MECHANISM OF ACTION, CLINICAL EFFECTIVENESS, AND OPTIMAL THERAPEUTIC RANGE. CHEST 1995;108:231S-246S. Performed By: #### L [id number] ####[facility] (BEAKER)[address] [place] [address] INR IN PPP BY COAGULATION ASSAY 1.24 High 0.90-1.10 [facility] Comment on above: Result Comment: ACCC P RECOMMENDED INR FOR WARFARIN THERAPY CONDITION INRPROPHYLAXIS OF VENOUS THROMBOSIS 2-3(HIGH-RISK SURGERY)TREATMENT OF VENOUS THROMBOSIS 2-3TREATMENT OF PULMONARY EMBOLISM 2-3PREVENTION OF SYSTEMIC EMBOLISM: 2-3 ACUTE MYOCARDIAL INFARCTION TISSUE HEART VALVES VALVULAR HEART DISEASE ATRIAL FIBRILLATION RECURRENT SYSTEMIC EMBOLISMMECHANICAL HEART VALVE 2.5-3.5 FROM: ORAL ANTICOAGULANTS. MECHANISM OF ACTION, CLINICAL EFFECTIVENESS, AND OPTIMAL THERAPEUTIC RANGE. CHEST 1995;108:231S-246S. Performed By: #### L [id number] ####[facility] ([facility])[address] [place] [address] PROTHROMBIN TIME (PT) IN PPP BY COAGULATION ASSAY 16.3 Seconds High 12.3-14.8 [facility] Comment on above: Performed By: #### L [id number] ####[facility] ([facility])[address] [place] [address] PROTHROMBIN TIME (PT) IN PPP BY COAGULATION ASSAY 15.6 Seconds High 12.3-14.8 [facility] Comment on above: Performed By: #### L [id number] ####[facility] ([facility])[address] [place] [address] [id number] 10-27-2023 [id number] Normal [facility] 30on 10-27-2023 30 The patient is Moderately Stable - Low risk of patient condition declining or worsening The patient's goals for the shift include comfort The clinical goals for the shift include safety Normal [facility] ANESon 10-27-2023 ANES Normal [facility] APTTon 10-27-2023 ACTIVATED PARTIAL THROMBOPLASTIN TIME IN PPP BY COAGULATION ASSAY 31.2 Seconds Normal 25.0-35.0 [facility] Comment on above: Result Comment: Clin ical significance of the APTT is questionable in the presence of heparin. Performed By: #### L [id number] ####[facility] ([facility])[address] [place] [address] ACTIVATED PARTIAL THROMBOPLASTIN TIME IN PPP BY COAGULATION ASSAY 28.9 Seconds Normal 25.0-35.0 [facility] Comment on above: Order Comment: Pre-o p diagnosis:NSTEMI (non-ST elevated myocardial infarction) (CMS/HCC) [I21.4] Result Comment: Clin ical significance of the APTT is questionable in the presence of heparin. Performed By: #### L [id number] ####[facility] ([facility])[address] [place] [address] ACTIVATED PARTIAL THROMBOPLASTIN TIME IN PPP BY COAGULATION ASSAY 32.8 Seconds Normal 25.0-35.0 [facility] Comment on above: Result Comment: Clin ical significance of the APTT is questionable in the presence of heparin. Performed By: #### L [id number] ####[facility] ([facility]ER)[address] [place] [address] ARTERIAL BLOOD GAS WITH IONI ZED CALCIUMon 10-27-2023 Base excess Calc (Bld) [Moles/Vol] -3.3000 mmol/L Low -2.0-3.0 [facility] Comment on above: Performed By: #### L [id number] ####[facility] RESPIRATORY [id number] [place] [address] [facility] Base excess Calc (Bld) [Moles/Vol] -4.2000 mmol/L Low -2.0-3.0 [facility] Comment on above: Order Comment: On ar rival to CVU Performed By: #### L [id number] ####[facility] RESPIRATORY [id number] [place] [address] [place] CALCIUM IONIZED (MMOL/L) IN BLOOD 1.12 mmol/L Low 1.15-1.33 [facility] Comment on above: Performed By: #### L [id number] ####[facility] RESPIRATORY [id number] [place] [address] [place] CALCIUM IONIZED (MMOL/L) IN BLOOD 1.23 mmol/L Normal 1.15-1.33 [facility] Comment on above: Order Comment: On ar rival to CVU Performed By: #### L [id number] ####[facility] RESPIRATORY [id number] [place] [address] [place] CO2 (Bld) [Partial pressure] 40 mm[Hg] Normal 35-48 [facility] Comment on above: Performed By: #### L [id number] ####[facility] RESPIRATORY [id number] [place] [address] [place] CO2 (Bld) [Partial pressure] 47 mm[Hg] Normal 35-48 [facility] Comment on above: Order Comment: On ar rival to CVU Performed By: #### L [id number] ####[facility] RESPIRATORY [id number] [place] [address] [place] FIO2 40 % Normal [facility] Comment on above: Performed By: #### L [id number] ####[facility] RESPIRATORY [id number] [place] [address] [place] FIO2 50 % Normal [facility] Comment on above: Order Comment: On ar rival to CVU Performed By: #### L [id number] ####[facility] RESPIRATORY [id number] [place] [address] [place] HCO3 (Bld) [Moles/Vol] 22.1 mmol/L Normal 21.0-28.0 [facility] Comment on above: Performed By: #### L [id number] ####[facility] RESPIRATORY [id number] [place] [address] [place] HCO3 (Bld) [Moles/Vol] 22.6 mmol/L Normal 21.0-28.0 [facility] Comment on above: Order Comment: On ar rival to CVU Performed By: #### L [id number] ####[facility] RESPIRATORY [id number] [place] [address] [place] LPM 40 Normal [facility] Comment on above: Order Comment: On ar rival to CVU Performed By: #### L [id number] ####[facility] RESPIRATORY [id number] [place] [address] [place] Oxygen (Bld) [Partial pressure] 93 mm[Hg] Normal 83-100 [facility] Comment on above: Performed By: #### L [id number] ####[facility] RESPIRATORY [id number] [place] [address] [place] Oxygen (Bld) [Partial pressure] 109 mm[Hg] High 83-100 [facility] Comment on above: Order Comment: On ar rival to CVU Performed By: #### L [id number] ####[facility] RESPIRATORY [id number] [place] [address] [place] OXYGEN SATURATION (%) IN ARTERIAL BLOOD 99.0 % High 94.0-98.0 [facility] Comment on above: Performed By: #### L [id number] ####[facility] RESPIRATORY [id number] [place] [address] [facility] OXYGEN SATURATION (%) IN ARTERIAL BLOOD 99.7 % High 94.0-98.0 [facility] Comment on above: Order Comment: On ar rival to CVU Performed By: #### L [id number] ####[facility] RESPIRATORY [id number] [place] [address] [place] PEEP 8 cmH2O Normal [facility] Comment on above: Performed By: #### L [id number] ####[facility] RESPIRATORY [id number] [place] [address] [facility] pH (Bld) 7.35 [pH] Normal 7.35-7.45 [facility] Comment on above: Performed By: #### L [id number] ####[facility] RESPIRATORY [id number] [place] [address] [facility] pH (Bld) 7.29 [pH] Low 7.35-7.45 [facility] Comment on above: Order Comment: On ar rival to [facility] Performed By: #### L [id number] ####[facility] RESPIRATORY [id number] [place] [address] [place] PRESSURE SUPPORT 10 Normal [facility] Comment on above: Performed By: #### L [id number] ####[facility] RESPIRATORY [id number] [place] [facility] [place] [place] [address] [facility] SOURCE OF OXYGEN Vent Normal [facility] Comment on above: Performed By: #### L [id number] ####[facility] RESPIRATORY [id number] [place] [address] [facility] SOURCE OF OXYGEN High flow nasal cannula Normal [facility] Comment on above: Order Comment: On ar rival to CVU Performed By: #### L [id number] ####[facility] RESPIRATORY [id number] [place] [address] [facility] BASIC METABOLIC PANELon 04-2 Anion gap [Moles/Vol] 11 mmol/L Normal 7-20 [facility] Comment on above: Performed By: #### L [id number] ####[facility] HOSPITAL LAB (BEAKER)[address] [place] [address] Anion gap [Moles/Vol] 10 mmol/L Normal 7-20 [facility] Comment on above: Order Comment: Pre-o p diagnosis:NSTEMI (non-ST elevated myocardial infarction) (CMS/HCC) [I21.4] Performed By: #### L [id number] ####[facility] HOSPITAL LAB (BEAKER)[address] [place] [address] Anion gap [Moles/Vol] 12 mmol/L Normal 7-20 [facility] Comment on above: Performed By: #### L [id number] ####[facility]OSPITAL LAB (BEAKER)[address] [place] [address] Calcium [Mass/Vol] 8.7 mg/dL Normal 8.6-10.3 [facility] Comment on above: Performed By: #### L [id number] ####[facility] LAB (BEAKER)[address] [place] [address] Calcium [Mass/Vol] 7.7 mg/dL Low 8.6-10.3 [facility] Comment on above: Order Comment: Pre-o p diagnosis:NSTEMI (non-ST elevated myocardial infarction) (CMS/HCC) [I21.4] Performed By: #### L [id number] ####[facility]PITAL LAB (BEAKER)[address] [place] [address] Calcium [Mass/Vol] 8.3 mg/dL Low 8.6-10.3 [facility] Comment on above: Performed By: #### L [id number] ####[facility] LAB (BEAKER)[address] [place] [address] Chloride [Moles/Vol] 104 mmol/L Normal 98-107 [facility] Comment on above: Performed By: #### L [id number] ####[facility] LAB (BEAKER)[address] [place] [address] Chloride [Moles/Vol] 108 mmol/L High 98-107 [facility] Comment on above: Order Comment: Pre-o p diagnosis:NSTEMI (non-ST elevated myocardial infarction) (CMS/HCC) [I21.4] Performed By: #### L [id number] ####[facility] LAB (BEAKER)[address] [place] [address] Chloride [Moles/Vol] 107 mmol/L Normal 98-107 [facility] Comment on above: Performed By: #### L [id number] ####[facility] LAB (BEAKER)[address] [place] [address] CO2 [Moles/Vol] 27 mmol/L Normal 21-31 [facility] Comment on above: Performed By: #### L [id number] ####[facility] LAB (BEAKER)[address] [place] [address] CO2 [Moles/Vol] 24 mmol/L Normal 21-31 [facility] Comment on above: Order Comment: Pre-o p diagnosis:NSTEMI (non-ST elevated myocardial infarction) (CMS/HCC) [I21.4] Performed By: #### L [id number] ####[facility] LAB (BEAKER)[address] [place] [address] CO2 [Moles/Vol] 24 mmol/L Normal 21-31 [facility] Comment on above: Performed By: #### L [id number] ####[facility] LAB (BEAKER)[address] [place] [address] Creatinine [Mass/Vol] 1.04 mg/dL Normal 0.70-1.30 [facility] Comment on above: Performed By: #### L [id number] ####[facility] LAB (BEAKER)[address] [place] [address] Creatinine [Mass/Vol] 0.85 mg/dL Normal 0.70-1.30 [facility] Comment on above: Order Comment: Pre-o p diagnosis:NSTEMI (non-ST elevated myocardial infarction) (CMS/HCC) [I21.4] Performed By: #### L [id number] ####[facility] LAB ([facility])[address] [place] [address] Creatinine [Mass/Vol] 1.01 mg/dL Normal 0.70-1.30 [facility] Comment on above: Performed By: #### L [id number] ####[facility] ([facility])[address] [place] [address] GLOMERULAR FILTRATION RATE ML/MIN/1.73 SQ M.PREDICTED 83.7 mL/min/1.73m*2 Normal >60.0 [facility] Comment on above: Result Comment: The [facility]???s estimated glomerular filtration rate (eGFR) will no longer include consideration of race in its calculation. The National Kidney Foundation???s eGFR Task Force developed new recommendations for the estimation of the glomerular filtration rate in the [place] They recommend immediate implementation of the new equation refit without the race variable in all laboratories because the calculation does not include race. In addition to not including race in the calculation and reporting, it included diversity in its development, and has acceptable performance characteristics and potential consequences that do not disproportionately affect any one group of individuals. Performed By: #### L [id number] ####[facility] ([facility])[address] [place] [address] GLOMERULAR FILTRATION RATE ML/MIN/1.73 SQ M.PREDICTED 101.4 mL/min/1.73m*2 Normal >60.0 [facility] Comment on above: Order Comment: Pre-o p diagnosis:NSTEMI (non-ST elevated myocardial infarction) ([facility]) [I21.4] Result Comment: The [facility]???s estimated glomerular filtration rate (eGFR) will no longer include consideration of race in its calculation. The National Kidney Foundation???s eGFR Task Force developed new recommendations for the estimation of the glomerular filtration rate in the [place] They recommend immediate implementation of the new equation refit without the race variable in all laboratories because the calculation does not include race. In addition to not including race in the calculation and reporting, it included diversity in its development, and has acceptable performance characteristics and potential consequences that do not disproportionately affect any one group of individuals. Performed By: #### L [id number] ####[facility] ([facility])[address] [place] [address] GLOMERULAR FILTRATION RATE ML/MIN/1.73 SQ M.PREDICTED 86.7 mL/min/1.73m*2 Normal >60.0 [facility] Comment on above: Result Comment: The [facility]???s estimated glomerular filtration rate (eGFR) will no longer include consideration of race in its calculation. The National Kidney Foundation???s eGFR Task Force developed new recommendations for the estimation of the glomerular filtration rate in the [place] They recommend immediate implementation of the new equation refit without the race variable in all laboratories because the calculation does not include race. In addition to not including race in the calculation and reporting, it included diversity in its development, and has acceptable performance characteristics and potential consequences that do not disproportionately affect any one group of individuals. Performed By: #### L [id number] ####[facility] ([facility])[address] [place] [address] Glucose [Mass/Vol] 149 mg/dL High 70-100 [facility] Comment on above: Performed By: #### L [id number] ####[facility] ([facility])[address] [place] [address] Glucose [Mass/Vol] 142 mg/dL High 70-100 [facility] Comment on above: Order Comment: Pre-o p diagnosis:NSTEMI (non-ST elevated myocardial infarction) ([facility]) [I21.4] Performed By: #### L [id number] ####[facility] ([facility])[address] [place] [address] Glucose [Mass/Vol] 151 mg/dL High 70-100 [facility] Comment on above: Performed By: #### L [id number] ####[facility] ([facility])[address] [place] [address] Potassium [Moles/Vol] 4.1 mmol/L Normal 3.5-5.1 [facility] Comment on above: Performed By: #### L [id number] ####[facility] (BEAKER)[address] [place] [address] Potassium [Moles/Vol] 4.2 mmol/L Normal 3.5-4.9 [facility] Comment on above: Order Comment: Pre-o p diagnosis:NSTEMI (non-ST elevated myocardial infarction) (CMS/HCC) [I21.4] Performed By: #### L [id number] ####[facility] LAB (BEAKER)[address] [place] [address] Performed By: #### L [id number] ####[facility] LAB (BEAKER)[address] [place] [address] Potassium [Moles/Vol] 4.2 mmol/L Normal 3.5-5.1 [facility] Comment on above: Performed By: #### L [id number] ####[facility] LAB (BEAKER)[address] [place] [address] Sodium [Moles/Vol] 138 mmol/L Normal 136-145 [facility] Comment on above: Performed By: #### L [id number] ####[facility] LAB (BEAKER)[address] [place] [address] Sodium [Moles/Vol] 138 mmol/L Normal 136-145 [facility] Comment on above: Order Comment: Pre-o p diagnosis:NSTEMI (non-ST elevated myocardial infarction) (CMS/HCC) [I21.4] Performed By: #### L [id number] ####[facility] LAB (BEAKER)[address] [place] [address] Sodium [Moles/Vol] 139 mmol/L Normal 136-145 [facility] Comment on above: Performed By: #### L [id number] ####[facility] LAB (BEAKER)[address] [place] [address] Urea nitrogen [Mass/Vol] 19 mg/dL Normal 7-25 [facility] Comment on above: Performed By: #### L [id number] ####[facility] LAB (BEAKER)[address] [place] [address] Urea nitrogen [Mass/Vol] 15 mg/dL Normal 7-25 [facility] Comment on above: Order Comment: Pre-o p diagnosis:NSTEMI (non-ST elevated myocardial infarction) (CMS/HCC) [I21.4] Performed By: #### L [id number] ####[facility] LAB (BEAKER)[address] [place] [address] Urea nitrogen [Mass/Vol] 17 mg/dL Normal 7-25 [facility] Comment on above: Performed By: #### L [id number] ####[facility] LAB (BEAKER)[address] [place] [address] UREA NITROGEN/CREATININE (MASS RATIO) IN SER/PLAS 18.3 Normal [facility] Comment on above: Performed By: #### L [id number] ####[facility] LAB (BEAKER)[address] [facility] [place] [address] UREA NITROGEN/CREATININE (MASS RATIO) IN SER/PLAS 17.6 Normal [facility] Comment on above: Order Comment: Pre-o p diagnosis:NSTEMI (non-ST elevated myocardial infarction) (CMS/HCC) [I21.4] Performed By: #### L [id number] ####[facility] ([facility] [place] [address] UREA NITROGEN/CREATININE (MASS RATIO) IN SER/PLAS 16.8 Normal [facility] Comment on above: Performed By: #### L [id number] ####[facility] LAB (BEAKER)[address] [facility] [place] [address] CALCIUM, IONIZEDon 4 CALCIUM IONIZED (MMOL/L) IN BLOOD 1.23 mmol/L Normal 1.15-1.33 [facility] Comment on above: Performed By: #### C ALCIUM, IONIZED ####[facility] RESPIRATORY [id number] [place] [address] [facility] CALCIUM IONIZED (MMOL/L) IN BLOOD 1.17 mmol/L Normal 1.15-1.33 [facility] Comment on above: Performed By: #### C ALCIUM, IONIZED ####[facility] RESPIRATORY [id number] [place] [address] [place] CALCIUM IONIZED (MMOL/L) IN BLOOD 1.18 mmol/L Normal 1.15-1.33 [facility] Comment on above: Performed By: #### C ALCIUM, IONIZED ####[facility] RESPIRATORY [id number] [place] [address] [place] CBCon 10-27-2023 Erythrocyte distribution width (RBC) [Ratio] 12.2 % Normal 11.5-15.0 [facility] Comment on above: Order Comment: Pre-o p diagnosis:NSTEMI (non-ST elevated myocardial infarction) (CMS/HCC) [I21.4] Performed By: #### L [id number] ####[facility] LAB (BEAKER)[address] [place] [address] Erythrocyte distribution width (RBC) [Ratio] 12.4 % Normal 11.5-15.0 [facility] Comment on above: Performed By: #### L [id number] ####[facility]OSP[facility] LAB (BEAKER)[address] [place] [address] ERYTHROCYTE MEAN CORPUSCULAR HEMOGLOBIN CONCENTRATION (G/DL) BY AUTOMATED 33.9 g/dL Normal 32.0-35.0 [facility] Comment on above: Order Comment: Pre-o p diagnosis:NSTEMI (non-ST elevated myocardial infarction) (CMS/HCC) [I21.4] Performed By: #### L [id number] ####[facility] LAB (BEAKER)[address] [place] [address] ERYTHROCYTE MEAN CORPUSCULAR HEMOGLOBIN CONCENTRATION (G/DL) BY AUTOMATED 35.1 g/dL High 32.0-35.0 [facility] Comment on above: Performed By: #### L [id number] ####[facility] LAB (BEAKER)[address] [place] [address] Hematocrit (Bld) [Volume fraction] 29.5 % Low 39.0-55.0 [facility] Comment on above: Order Comment: Pre-o p diagnosis:NSTEMI (non-ST elevated myocardial infarction) (CMS/HCC) [I21.4] Performed By: #### L [id number] ####[facility] LAB (BEAKER)[address] [place] [address] Hematocrit (Bld) [Volume fraction] 31.9 % Low 39.0-55.0 [facility] Comment on above: Performed By: #### L [id number] ####[facility] LAB (BEAKER)[address] [place] [address] Hemoglobin (Bld) [Mass/Vol] 10.0 g/dL Low 13.0-17.0 [facility] Comment on above: Order Comment: Pre-o p diagnosis:NSTEMI (non-ST elevated myocardial infarction) (CMS/HCC) [I21.4] Performed By: #### L [id number] ####[facility] ([facility] [place] [address] Hemoglobin (Bld) [Mass/Vol] 11.2 g/dL Low 13.0-17.0 [facility] Comment on above: Performed By: #### L [id number] ####[facility] LAB (BEAKER)[address] [place] [address] MCH (RBC) [Entitic mass] 30.2 pg Normal 27.0-33.0 [facility] Comment on above: Order Comment: Pre-o p diagnosis:NSTEMI (non-ST elevated myocardial infarction) (CMS/HCC) [I21.4] Performed By: #### L [id number] ####[facility] LAB (BEAKER)[address] [place] [address] MCH (RBC) [Entitic mass] 29.9 pg Normal 27.0-33.0 [facility] Comment on above: Performed By: #### L [id number] ####[facility] LAB (BEAKER)[address] [place] [address] MCV (RBC) [Entitic vol] 89.1 fL Normal 82.0-98.0 [facility] Comment on above: Order Comment: Pre-o p diagnosis:NSTEMI (non-ST elevated myocardial infarction) (CMS/HCC) [I21.4] Performed By: #### L [id number] ####[facility] LAB (BEAKER)[address] [place] [address] MCV (RBC) [Entitic vol] 85.1 fL Normal 82.0-98.0 [facility] Comment on above: Performed By: #### L [id number] ####[facility] ([facility])[address] [place] [address] PLATELETS (10*3/UL) IN BLOOD AUTOMATED COUNT 135 10*3/uL Low 150-400 [facility] Comment on above: Order Comment: Pre-o p diagnosis:NSTEMI (non-ST elevated myocardial infarction) (CMS/HCC) [I21.4] Performed By: #### L [id number] ####[facility] LAB (BEAKER)[address] [place] [address] PLATELETS (10*3/UL) IN BLOOD AUTOMATED COUNT 188 10*3/uL Normal 150-400 [facility] Comment on above: Performed By: #### L [id number] ####[facility] ([facility])[address] [place] [address] RBC (Bld) [#/Vol] 3.31 10*6/uL Low 4.20-5.70 [facility] Comment on above: Order Comment: Pre-o p diagnosis:NSTEMI (non-ST elevated myocardial infarction) (CMS/HCC) [I21.4] Performed By: #### L [id number] ####[facility] ([facility])[address] [place] [address] RBC (Bld) [#/Vol] 3.75 10*6/uL Low 4.20-5.70 [facility] Comment on above: Performed By: #### L [id number] ####[facility] LAB (BEAKER)[address] [place] [address] WBC (Bld) [#/Vol] 12.96 10*3/uL High 4.00-10.60 [facility] Comment on above: Order Comment: Pre-o p diagnosis:NSTEMI (non-ST elevated myocardial infarction) ([facility]/HCC) [I21.4] Performed By: #### L [id number] ####[facility] LAB (BEAKER)[address] [place] [address] WBC (Bld) [#/Vol] 17.04 10*3/uL High 4.00-10.60 [facility] Comment on above: Performed By: #### L [id number] ####[facility] LAB (BEAKER)[address] [place] [address] CBC WITH AUTO DIFFERENTIALon 10-27-2023 Basophils (Bld) [#/Vol] 0.03 10*3/uL Normal 0.00-0.20 [facility] Comment on above: Performed By: #### L [id number] ####[facility] LAB (BEAKER)[address] [place] [address] Basophils/100 WBC (Bld) 0.4 % Normal 0.0-1.0 [facility] Comment on above: Performed By: #### L [id number] ####[facility] (BEAKER)[address] [place] [address] Eosinophils (Bld) [#/Vol] 0.16 10*3/uL Normal 0.00-0.50 [facility] Comment on above: Performed By: #### L [id number] ####[facility] (BEAKER)[address] [place] [address] Eosinophils/100 WBC (Bld) 2.0 % Normal 0.0-6.0 [facility] Comment on above: Performed By: #### L [id number] ####[facility] (BEAKER)[address] [place] [address] Erythrocyte distribution width (RBC) [Ratio] 12.3 % Normal 11.5-15.0 [facility] Comment on above: Performed By: #### L [id number] ####[facility] (BEAKER)[address] [place] [address] ERYTHROCYTE MEAN CORPUSCULAR HEMOGLOBIN CONCENTRATION (G/DL) BY AUTOMATED 34.1 g/dL Normal 32.0-35.0 [facility] Comment on above: Performed By: #### L [id number] ####[facility] ([facility] [place] [address] Hematocrit (Bld) [Volume fraction] 41.4 % Normal 39.0-55.0 [facility] Comment on above: Performed By: #### L [id number] ####[facility] ([facility])[address] [place] [address] Hemoglobin (Bld) [Mass/Vol] 14.1 g/dL Normal 13.0-17.0 [facility] Comment on above: Performed By: #### L [id number] ####[facility] ([facility])[address] [place] [address] Immature granulocytes (Bld) [#/Vol] 0.03 10*3/uL Normal 0.00-0.20 [facility] Comment on above: Performed By: #### L [id number] ####[facility] LAB (BEAKER)[address] [place] [address] Immature granulocytes/100 WBC (Bld) 0.4 % Normal 0.0-1.0 [facility] Comment on above: Performed By: #### L [id number] ####[facility] LAB (BEAKER)[address] [place] [address] Lymphocytes (Bld) [#/Vol] 3.47 10*3/uL Normal 1.20-4.00 [facility] Comment on above: Performed By: #### L [id number] ####[facility] LAB (BEAKER)[address] [place] [address] Lymphocytes/100 WBC (Bld) 44.2 % Normal 20.0-45.0 [facility] Comment on above: Performed By: #### L [id number] ####[facility] (BEAKER)[address] [place] [address] MCH (RBC) [Entitic mass] 29.4 pg Normal 27.0-33.0 [facility] Comment on above: Performed By: #### L [id number] ####[facility] ([facility])[address] [place] [address] MCV (RBC) [Entitic vol] 86.3 fL Normal 82.0-98.0 [facility] Comment on above: Performed By: #### L [id number] ####[facility] ([facility])[address] [place] [address] Monocytes (Bld) [#/Vol] 0.79 10*3/uL Normal 0.10-1.00 [facility] Comment on above: Performed By: #### L [id number] ####[facility] ([facility])[address] [place] [address] Monocytes/100 WBC (Bld) 10.1 % Normal 5.0-12.0 [facility] Comment on above: Performed By: #### L [id number] ####[facility] ([facility])[address] [place] [address] Neutrophils (Bld) [#/Vol] 3.37 10*3/uL Normal 1.60-7.60 [facility] Comment on above: Performed By: #### L [id number] ####[facility] ([facility])[address] [place] [address] Neutrophils/100 WBC (Bld) 42.9 % Normal 40.0-72.0 [facility] Comment on above: Performed By: #### L [id number] ####[facility] ([facility])[address] [place] [address] NRBC (PER 100 WBCS) BY AUTOMATED COUNT 0.0 % Normal 0 [facility] Comment on above: Performed By: #### L [id number] ####[facility] (BEAKER)[address] [place] [address] PLATELETS (10*3/UL) IN BLOOD AUTOMATED COUNT 177 10*3/uL Normal 150-400 [facility] Comment on above: Performed By: #### L [id number] ####[facility] ([facility])[address] [place] [address] RBC (Bld) [#/Vol] 4.80 10*6/uL Normal 4.20-5.70 [facility] Comment on above: Performed By: #### L [id number] ####[facility] ([facility])[address] [place] [address] WBC (Bld) [#/Vol] 7.85 10*3/uL Normal 4.00-10.60 [facility] Comment on above: Performed By: #### L [id number] ####[facility] ([facility])[address] [place] [address] CONSULTon 10-27-2023 CONSULT Normal [facility] FIBRINOGENon 10-27-2023 Magnesium [Mass/Vol] 253 mg/dL Normal 150-425 [facility] Comment on above: Order Comment: Pre-o p diagnosis:NSTEMI (non-ST elevated myocardial infarction) (CMS/HCC) [I21.4] Performed By: #### L [id number] ####[facility] (Alo[facility])[address] [place] [address] LACTIC ACID WITH 4 HOUR REFL EXon 10-27-2023 LACTATE (MMOL/L) IN SER/PLAS 1.9 mmol/L Normal 0.5-2.2 [facility] Comment on above: Order Comment: Pre-o p diagnosis:NSTEMI (non-ST elevated myocardial infarction) (CMS/HCC) [I21.4] Performed By: #### L [id number] ####[facility] (BE[facility])[address] [facility] [place] [address] LACTIC ACID, PLASMAon 2023 LACTATE (MMOL/L) IN SER/PLAS 3.7 mmol/L Critically high 0.5-2.2 [facility] Comment on above: Result Comment: M-CR ITICAL RESULT(S) REVIEWED, CALLED TO AND READ BACK BY DARYL SPICER RN AT 2203 Performed By: #### L [id number] ####[facility] (BEAKER)[address] [place] [address] MAGNESIUMon 10-27-2023 Magnesium [Mass/Vol] 2.0 mg/dL Normal 1.9-2.7 [facility] Comment on above: Performed By: #### L [id number] ####[facility] LAB (BEAKER)[address] [place] [address] Magnesium [Mass/Vol] 2.4 mg/dL Normal 1.9-2.7 [facility] Comment on above: Order Comment: Pre-o p diagnosis:NSTEMI (non-ST elevated myocardial infarction) ([facility]) [I21.4] Performed By: #### L [id number] ####[facility] ([facility])[address] [place] [address] Magnesium [Mass/Vol] 2.2 mg/dL Normal 1.9-2.7 [facility] Comment on above: Performed By: #### L [id number] ####[facility] ([facility])[address] [place] [address] OPNOTEon 10-27-2023 OPNOTE Normal [facility] PHOSPHORUSon 10-27-2023 Magnesium [Mass/Vol] 3.7 mg/dL Normal 2.5-5.0 [facility] Comment on above: Performed By: #### L [id number] ####[facility] ([facility])[address] [place] [address] Magnesium [Mass/Vol] 4.6 mg/dL Normal 2.5-5.0 [facility] Comment on above: Performed By: #### L [id number] ####[facility] ([facility])[address] [place] [address] POCT ACTIVATED CLOTTING TIME UNSOLICITED RESULTSon 10-27-2023 POC ACTIVATED CLOTTING TIME 129 sec Normal 82-152 [facility] Comment on above: Performed By: #### L [id number] ####[facility] (BEAKER)[address] [place] [address] POC ACTIVATED CLOTTING TIME 348 sec High 82-152 [facility] Comment on above: Performed By: #### L [id number] ####[facility] (BEAKER)[address] [place] [address] POC ACTIVATED CLOTTING TIME 508 sec High 82-152 [facility] Comment on above: Performed By: #### L [id number] ####[facility] (BEAKER)[address] [place] [address] POC ACTIVATED CLOTTING TIME 462 sec High 82-152 [facility] Comment on above: Performed By: #### L [id number] ####[facility] (BEAKER)[address] [place] [address] POC ACTIVATED CLOTTING TIME 540 sec High 82-152 [facility] Comment on above: Performed By: #### L [id number] ####[facility] (BEAKER)[address] [place] [address] POC ACTIVATED CLOTTING TIME 495 sec High 82-152 [facility] Comment on above: Performed By: #### L [id number] ####[facility] (BEAKER)[address] [place] [address] POC ACTIVATED CLOTTING TIME 462 sec High 82-152 [facility] Comment on above: Performed By: #### L [id number] ####[facility] (BEAKER)[address] [place] [address] POC ACTIVATED CLOTTING TIME 122 sec Normal 82-152 [facility] Comment on above: Performed By: #### L [id number] ####[facility] (BEAKER)[address] [place] [address] POCT GLUCOSE METER UNSOLICIT ED RESULTSon 10-27-2023 Glucose [Mass/Vol] 144 mg/dL High 70-105 [facility] Comment on above: Order Comment: Waive d Testing in the ED is performed under the ED CLIA certificate #[id number]. Result Comment: [email or web address] Performed By: #### L [id number] ####[facility] (BEAKER)[address] [place] [address] Glucose [Mass/Vol] 197 mg/dL High 70-105 [facility] Comment on above: Order Comment: Waive d Testing in the ED is performed under the ED CLIA certificate #[id number]. Result Comment: [email or web address] Performed By: #### L [id number] ####[facility] (BEAKER)[address] [place] [address] Glucose [Mass/Vol] 208 mg/dL High 70-105 [facility] Comment on above: Order Comment: Waive d Testing in the ED is performed under the ED CLIA certificate #[id number]. Result Comment: [email or web address] Performed By: #### L [id number] ####[facility] ([facility])[address] [place] [address] Glucose [Mass/Vol] 180 mg/dL High 70-105 [facility] Comment on above: Order Comment: Waive d Testing in the ED is performed under the ED CLIA certificate #[id number]. Result Comment: [email or web address] Performed By: #### L [id number] ####[facility] (BEAKER)[address] [place] [address] Glucose [Mass/Vol] 178 mg/dL High 70-105 [facility] Comment on above: Order Comment: Waive d Testing in the ED is performed under the ED CLIA certificate #[id number]. Result Comment: ebol tz Performed By: #### L [id number] ####[facility] (BEAKER)[address] [place] [address] Glucose [Mass/Vol] 147 mg/dL High 70-105 [facility] Comment on above: Order Comment: Waive d Testing in the ED is performed under the ED CLIA certificate #[id number]. Result Comment: ebol tz Performed By: #### L [id number] ####[facility] (BEAKER)[address] [place] [address] Glucose [Mass/Vol] 144 mg/dL High 70-105 [facility] Comment on above: Order Comment: Waive d Testing in the ED is performed under the ED CLIA certificate #[id number]. Result Comment: ebol tz Performed By: #### L [id number] ####[facility] (BEAKER)[address] [place] [address] Glucose [Mass/Vol] 120 mg/dL High 70-105 [facility] Comment on above: Order Comment: Waive d Testing in the ED is performed under the ED CLIA certificate #[id number]. Result Comment: mper [email or web address] Performed By: #### L [id number] ####[facility] (BEAKER)[address] [place] [address] POCT PERFUSION PANEL UNSOLIC ITED RESULTSon 10-27-2023 CO2 [Moles/Vol] 26.0 mmol/L Normal 21.0-29.0 [facility] Comment on above: Performed By: #### L [id number] ####[facility] (BEAKER)[address] [place] [address] CO2 [Moles/Vol] 25.0 mmol/L Normal 21.0-29.0 [facility] Comment on above: Performed By: #### L [id number] ####[facility] (BEAKER)[address] [place] [address] CO2 [Moles/Vol] 24.0 mmol/L Normal 21.0-29.0 [facility] Comment on above: Performed By: #### L [id number] ####[facility] (BEAKER)[address] [place] [address] CO2 [Moles/Vol] 27.0 mmol/L Normal 21.0-29.0 [facility] Comment on above: Performed By: #### L [id number] ####[facility] (BEAKER)[address] [place] [address] CO2 [Moles/Vol] 26.0 mmol/L Normal 21.0-29.0 [facility] Comment on above: Performed By: #### L [id number] ####[facility] (BEAKER)[address] [place] [address] CO2 [Moles/Vol] 27.0 mmol/L Normal 21.0-29.0 [facility] Comment on above: Performed By: #### L [id number] ####[facility] (BEAKER)[address] [place] [address] CO2 [Moles/Vol] 24.0 mmol/L Normal 21.0-29.0 [facility] Comment on above: Performed By: #### L [id number] ####[facility] (BEAKER)[address] [place] [address] Glucose [Mass/Vol] 188 mg/dL High 70-105 [facility] Comment on above: Performed By: #### L [id number] ####[facility] (BEAKER)[address] [place] [address] Glucose [Mass/Vol] 159 mg/dL High 70-105 [facility] Comment on above: Performed By: #### L [id number] ####[facility] (BEAKER)[address] [place] [address] Glucose [Mass/Vol] 187 mg/dL High 70-105 [facility] Comment on above: Performed By: #### L [id number] ####[facility] (BEAKER)[address] [place] [address] Glucose [Mass/Vol] 133 mg/dL High 70-105 [facility] Comment on above: Performed By: #### L [id number] ####[facility] (BEAKER)[address] [place] [address] Glucose [Mass/Vol] 147 mg/dL High 70-105 [facility] Comment on above: Performed By: #### L [id number] ####[facility] (BEAKER)[address] [place] [address] Glucose [Mass/Vol] 164 mg/dL High 70-105 [facility] Comment on above: Performed By: #### L [id number] ####[facility] (BEAKER)[address] [place] [address] Glucose [Mass/Vol] 155 mg/dL High 70-105 [facility] Comment on above: Performed By: #### L [id number] ####[facility] (BEAKER)[address] [place] [address] Glucose [Mass/Vol] 150 mg/dL High 70-105 [facility] Comment on above: Performed By: #### L [id number] ####[facility] (BEAKER)[address] [place] [address] Glucose [Mass/Vol] 135 mg/dL High 70-105 [facility] Comment on above: Performed By: #### L [id number] ####[facility] (BEAKER)[address] [place] [address] Glucose [Mass/Vol] 136 mg/dL High 70-105 [facility] Comment on above: Performed By: #### L [id number] ####[facility] (BEAKER)[address] [place] [address] HCO3 (Bld) [Moles/Vol] 24.4 mmol/L Normal 23.0-28.0 [facility] Comment on above: Performed By: #### L [id number] ####[facility] (BEAKER)[address] [place] [address] HCO3 (Bld) [Moles/Vol] 24.2 mmol/L Normal 23.0-28.0 [facility] Comment on above: Performed By: #### L [id number] ####[facility] (BEAKER)[address] [place] [address] HCO3 (Bld) [Moles/Vol] 22.7 mmol/L Low 23.0-28.0 [facility] Comment on above: Performed By: #### L [id number] ####[facility] (BEAKER)[address] [place] [address] HCO3 (Bld) [Moles/Vol] 25.8 mmol/L Normal 23.0-28.0 [facility] Comment on above: Performed By: #### L [id number] ####[facility] (BEAKER)[address] [place] [address] HCO3 (Bld) [Moles/Vol] 25.2 mmol/L Normal 23.0-28.0 [facility] Comment on above: Performed By: #### L [id number] ####[facility] (BEAKER)[address] [place] [address] HCO3 (Bld) [Moles/Vol] 26.0 mmol/L Normal 23.0-28.0 [facility] Comment on above: Performed By: #### L [id number] ####[facility] (BEAKER)[address] [place] [address] HCO3 (Bld) [Moles/Vol] 25.6 mmol/L Normal 23.0-28.0 [facility] Comment on above: Performed By: #### L [id number] ####[facility] (BEAKER)[address] [place] [address] HCO3 (Bld) [Moles/Vol] 22.3 mmol/L Low 23.0-28.0 [facility] Comment on above: Performed By: #### L [id number] ####[facility] (BEAKER)[address] [place] [address] HCO3 (Bld) [Moles/Vol] 22.6 mmol/L Low 23.0-28.0 [facility] Comment on above: Performed By: #### L [id number] ####[facility] (BEAKER)[address] [place] [address] Hematocrit (Bld) [Volume fraction] 41 % Normal 38-51 [facility] Comment on above: Performed By: #### L [id number] ####[facility] (BEAKER)[address] [place] [address] Hematocrit (Bld) [Volume fraction] 40 % Normal 38-51 [facility] Comment on above: Performed By: #### L [id number] ####[facility] (BEAKER)[address] [place] [address] Hematocrit (Bld) [Volume fraction] 40 % Normal 38-51 [facility] Comment on above: Performed By: #### L [id number] ####[facility] (BEAKER)[address] [place] [address] Hematocrit (Bld) [Volume fraction] 25 % Low 38-51 [facility] Comment on above: Performed By: #### L [id number] ####[facility] (BEAKER)[address] [place] [address] Hematocrit (Bld) [Volume fraction] 27 % Low -[address] [place] [address] Comment on above: Performed By: #### L [id number] ####[facility] (BEAKER)[address] [place] [address] Hematocrit (Bld) [Volume fraction] 28 % Low 38-[address] [place] [address] Comment on above: Performed By: #### L [id number] ####[facility] (BEAKER)[address] [place] [address] Hematocrit (Bld) [Volume fraction] 26 % Low 38-[address] [place] [address] Comment on above: Performed By: #### L [id number] ####[facility] (BEAKER)[address] [place] [address] Hematocrit (Bld) [Volume fraction] 25 % Low 38-[address] [place] [address] Comment on above: Performed By: #### L [id number] ####[facility] (BEAKER)[address] [place] [address] Hematocrit (Bld) [Volume fraction] 29 % Low 38-[address] [place] [address] Comment on above: Performed By: #### L [id number] ####[facility] (BEAKER)[address] [place] [address] Hemoglobin (Bld) [Mass/Vol] 13.9 g/dL Normal 12.0-17.0 [facility] Comment on above: Performed By: #### L [id number] ####[facility] (BEAKER)[address] [place] [address] Hemoglobin (Bld) [Mass/Vol] 13.6 g/dL Normal 12.0-17.0 [facility] Comment on above: Performed By: #### L [id number] ####[facility] (BEAKER)[address] [place] [address] Hemoglobin (Bld) [Mass/Vol] 13.6 g/dL Normal 12.0-17.0 [facility] Comment on above: Performed By: #### L [id number] ####[facility] (BEAKER)[address] [place] [address] Hemoglobin (Bld) [Mass/Vol] 8.5 g/dL Low 12.0-17.0 [facility] Comment on above: Performed By: #### L [id number] ####[facility] (BEAKER)[address] [place] [address] Hemoglobin (Bld) [Mass/Vol] 9.2 g/dL Low 12.0-17.0 [facility] Comment on above: Performed By: #### L [id number] ####[facility] (BEAKER)[address] [place] [address] Hemoglobin (Bld) [Mass/Vol] 9.5 g/dL Low 12.0-17.0 [facility] Comment on above: Performed By: #### L [id number] ####[facility] (BEAKER)[address] [place] [address] Hemoglobin (Bld) [Mass/Vol] 8.8 g/dL Low 12.0-17.0 [facility] Comment on above: Performed By: #### L [id number] ####[facility] (BEAKER)[address] [place] [address] Hemoglobin (Bld) [Mass/Vol] 8.5 g/dL Low 12.0-17.0 [facility] Comment on above: Performed By: #### L [id number] ####[facility] ([facility])[address] [place] [address] Hemoglobin (Bld) [Mass/Vol] 9.9 g/dL Low 12.0-17.0 [facility] Comment on above: Performed By: #### L [id number] ####[facility] ([facility])[address] [place] [address] POCT BASE EXCESS -1.0 mmol/L Normal -2.0-3.0 [facility] Comment on above: Performed By: #### L [id number] ####[facility] ([facility])[address] [place] [address] POCT BASE EXCESS -1.0 mmol/L Normal -2.0-3.0 [facility] Comment on above: Performed By: #### L [id number] ####[facility] ([facility])[address] [place] [address] POCT BASE EXCESS -2.0 mmol/L Normal -2.0-3.0 [facility] Comment on above: Performed By: #### L [id number] ####[facility] ([facility])[address] [place] [address] POCT BASE EXCESS 2.0 mmol/L Normal -2.0-3.0 [facility] Comment on above: Performed By: #### L [id number] ####[facility] [place] [address] POCT BASE EXCESS 0.0 mmol/L Normal -2.0-3.0 [facility] Comment on above: Performed By: #### L [id number] ####[facility] (BEAKER)[address] [place] [address] POCT BASE EXCESS 1.0 mmol/L Normal -2.0-3.0 [facility] Comment on above: Performed By: #### L [id number] ####[facility] (BEAKER)[address] [place] [address] POCT BASE EXCESS 0.0 mmol/L Normal -2.0-3.0 [facility] Comment on above: Performed By: #### L [id number] ####[facility] (BEAKER)[address] [place] [address] POCT BASE EXCESS -3.0 mmol/L Low -2.0-3.0 [facility] Comment on above: Performed By: #### L [id number] ####[facility] (BEAKER)[address] [place] [address] POCT IONIZED CALCIUM 1.21 mmol/L Normal 1.12-1.32 [facility] Comment on above: Performed By: #### L [id number] ####[facility] (BEAKER)[address] [place] [address] POCT IONIZED CALCIUM 1.22 mmol/L Normal 1.12-1.32 [facility] Comment on above: Performed By: #### L [id number] ####[facility] (BEAKER)[address] [place] [address] POCT IONIZED CALCIUM 1.21 mmol/L Normal 1.12-1.32 [facility] Comment on above: Performed By: #### L [id number] ####[facility] (BEAKER)[address] [place] [address] POCT IONIZED CALCIUM 0.95 mmol/L Low 1.12-1.32 [facility] Comment on above: Performed By: #### L [id number] ####[facility] (BEAKER)[address] [place] [address] POCT IONIZED CALCIUM 1.02 mmol/L Low 1.12-1.32 [facility] Comment on above: Performed By: #### L [id number] ####[facility] (BEAKER)[address] [place] [address] POCT IONIZED CALCIUM 1.07 mmol/L Low 1.12-1.32 [facility] Comment on above: Performed By: #### L [id number] ####[facility] ([facility])[address] [place] [address] POCT IONIZED CALCIUM 1.04 mmol/L Low 1.12-1.32 [facility] Comment on above: Performed By: #### L [id number] ####[facility] ([facility])[address] [place] [address] POCT IONIZED CALCIUM 1.28 mmol/L Normal 1.12-1.32 [facility] Comment on above: Performed By: #### L [id number] ####[facility] ([facility])[address] [place] [address] POCT IONIZED CALCIUM 1.24 mmol/L Normal 1.12-1.32 [facility] Comment on above: Performed By: #### L [id number] ####[facility] [place] [address] POCT PCO2 41.6 mmHg Normal 41.0-51.0 [facility] Comment on above: Performed By: #### L [id number] ####[facility] ([facility])[address] [place] [address] POCT PCO2 42.4 mmHg Normal 41.0-51.0 [facility] Comment on above: Performed By: #### L [id number] ####[facility] (BEAKER)[address] [place] [address] POCT PCO2 39.7 mmHg Low 41.0-51.0 [facility] Comment on above: Performed By: #### L [id number] ####[facility] (BEAKER)[address] [place] [address] POCT PCO2 46.0 mmHg Normal 41.0-51.0 [facility] Comment on above: Performed By: #### L [id number] ####[facility] (BEAKER)[address] [place] [address] POCT PCO2 38.3 mmHg Low 41.0-51.0 [facility] Comment on above: Performed By: #### L [id number] ####[facility] (BEAKER)[address] [place] [address] POCT PCO2 40.0 mmHg Low 41.0-51.0 [facility] Comment on above: Performed By: #### L [id number] ####[facility] (BEAKER)[address] [place] [address] POCT PCO2 40.7 mmHg Low 41.0-51.0 [facility] Comment on above: Performed By: #### L [id number] ####[facility] (BEAKER)[address] [place] [address] POCT PCO2 42.8 mmHg Normal 41.0-51.0 [facility] Comment on above: Performed By: #### L [id number] ####[facility] (BEAKER)[address] [place] [address] POCT PCO2 38.9 mmHg Low 41.0-51.0 [facility] Comment on above: Performed By: #### L [id number] ####[facility] (BEAKER)[address] [place] [address] POCT PCO2 40.6 mmHg Low 41.0-51.0 [facility] Comment on above: Performed By: #### L [id number] ####[facility] (BEAKER)[address] [place] [address] POCT PH 7.38 Normal 7.31-7.41 [facility] Comment on above: Performed By: #### L [id number] ####[facility] (BEAKER)[address] [place] [address] POCT PH 7.36 Normal 7.31-7.41 [facility] Comment on above: Performed By: #### L [id number] ####[facility] (BEAKER)[address] [place] [address] POCT PH 7.37 Normal 7.31-7.41 [facility] Comment on above: Performed By: #### L [id number] ####[facility] (BEAKER)[address] [place] [address] POCT PH 7.36 Normal 7.31-7.41 [facility] Comment on above: Performed By: #### L [id number] ####[facility] (BEAKER)[address] [place] [address] POCT PH 7.44 High 7.31-7.41 [facility] Comment on above: Performed By: #### L [id number] ####[facility] (BEAKER)[address] [place] [address] POCT PH 7.41 Normal 7.31-7.41 [facility] Comment on above: Performed By: #### L [id number] ####[facility] (BEAKER)[address] [place] [address] POCT PH 7.39 Normal 7.31-7.41 [facility] Comment on above: Performed By: #### L [id number] ####[facility] (BEAKER)[address] [place] [address] POCT PH 7.37 Normal 7.31-7.41 [facility] Comment on above: Performed By: #### L [id number] ####[facility] (BEAKER)[address] [place] [address] POCT PH 7.36 Normal 7.31-7.41 [facility] Comment on above: Performed By: #### L [id number] ####[facility] (BE[facility]ER)[address] [place] [address] POCT PO2 417 mmHg High 80-105 [facility] Comment on above: Performed By: #### L [id number] ####[facility] (BE[facility]ER)[address] [place] [address] POCT PO2 263 mmHg High 80-105 [facility] Comment on above: Performed By: #### L [id number] ####[facility] (BE[facility]ER)[address] [place] [address] POCT PO2 189 mmHg High 80-105 [facility] Comment on above: Performed By: #### L [id number] ####[facility] ([facility]ER)[address] [place] [address] POCT PO2 367 mmHg High 80-105 [facility] Comment on above: Performed By: #### L [id number] ####[facility] ([facility])[address] [place] [address] POCT PO2 403 mmHg High 80-105 [facility] Comment on above: Performed By: #### L [id number] ####[facility] ([facility])[address] [place] [address] POCT PO2 408 mmHg High 80-105 [facility] Comment on above: Performed By: #### L [id number] ####[facility] ([facility])[address] [place] [address] POCT PO2 379 mmHg High 80-105 [facility] Comment on above: Performed By: #### L [id number] ####[facility] ([facility])[address] [place] [address] POCT PO2 474 mmHg High 80-105 [facility] Comment on above: Performed By: #### L [id number] ####[facility] ([facility])[address] [place] [address] POCT PO2 72 mmHg Low 80-105 [facility] Comment on above: Performed By: #### L [id number] ####[facility] ([facility])[address] [place] [address] POCT PO2 118 mmHg High 80-105 [facility] Comment on above: Performed By: #### L [id number] ####[facility] ([facility])[address] [place] [address] POCT SO2 100 % High 95-98 [facility] Comment on above: Performed By: #### L [id number] ####[facility] ([facility])[address] [place] [address] POCT SO2 100 % High 95-98 [facility] Comment on above: Performed By: #### L [id number] ####[facility] ([facility])[address] [place] [address] POCT SO2 100 % High 95-98 [facility] Comment on above: Performed By: #### L [id number] ####[facility] (BEAKER)[address] [place] [address] POCT SO2 100 % High 95-98 [facility] Comment on above: Performed By: #### L [id number] ####[facility] (BEAKER)[address] [place] [address] POCT SO2 100 % High 95-98 [facility] Comment on above: Performed By: #### L [id number] ####[facility] (BEAKER)[address] [place] [address] POCT SO2 94 % Low 95-98 [facility] Comment on above: Performed By: #### L [id number] ####[facility] (BEAKER)[address] [place] [address] POCT SO2 98 % Normal 95-98 [facility] Comment on above: Performed By: #### L [id number] ####[facility] (BEAKER)[address] [place] [address] Potassium [Moles/Vol] 4.4 mmol/L Normal 3.5-4.9 [facility] Comment on above: Performed By: #### L [id number] ####[facility] (BEAKER)[address] [place] [address] Potassium [Moles/Vol] 4.4 mmol/L Normal 3.5-4.9 [facility] Comment on above: Performed By: #### L [id number] ####[facility] (BEAKER)[address] [place] [address] Potassium [Moles/Vol] 4.4 mmol/L Normal 3.5-4.9 [facility] Comment on above: Performed By: #### L [id number] ####[facility] ([facility])[address] [place] [address] Potassium [Moles/Vol] 5.0 mmol/L High 3.5-4.9 [facility] Comment on above: Performed By: #### L [id number] ####[facility] ([facility])[address] [place] [address] Potassium [Moles/Vol] 4.7 mmol/L Normal 3.5-4.9 [facility] Comment on above: Performed By: #### L [id number] ####[facility] ([facility])[address] [place] [address] Potassium [Moles/Vol] 4.3 mmol/L Normal 3.5-4.9 [facility] Comment on above: Performed By: #### L [id number] ####[facility] ([facility])[address] [place] [address] Potassium [Moles/Vol] 4.7 mmol/L Normal 3.5-4.9 [facility] Comment on above: Performed By: #### L [id number] ####[facility] ([facility])[address] [place] [address] Potassium [Moles/Vol] 3.9 mmol/L Normal 3.5-4.9 [facility] Comment on above: Performed By: #### L [id number] ####[facility] ([facility])[address] [place] [address] Sodium [Moles/Vol] 138 mmol/L Normal 138.0-146.0 [facility] Comment on above: Performed By: #### L [id number] ####[facility] (BEAKER)[address] [place] [address] Sodium [Moles/Vol] 138 mmol/L Normal 138.0-146.0 [facility] Comment on above: Performed By: #### L [id number] ####[facility] (BEAKER)[address] [place] [address] Sodium [Moles/Vol] 138 mmol/L Normal 138.0-146.0 [facility] Comment on above: Performed By: #### L [id number] ####[facility] (BEAKER)[address] [place] [address] Sodium [Moles/Vol] 137 mmol/L Low 138.0-146.0 [facility] Comment on above: Performed By: #### L [id number] ####[facility] (BEAKER)[address] [place] [address] Sodium [Moles/Vol] 138 mmol/L Normal 138.0-146.0 [facility] Comment on above: Performed By: #### L [id number] ####[facility] (BEAKER)[address] [place] [address] Sodium [Moles/Vol] 139 mmol/L Normal 138.0-146.0 [facility] Comment on above: Performed By: #### L [id number] ####[facility] (BEAKER)[address] [place] [address] Sodium [Moles/Vol] 138 mmol/L Normal 138.0-146.0 [facility] Comment on above: Performed By: #### L [id number] ####[facility] (BEAKER)[address] [place] [address] Sodium [Moles/Vol] 139 mmol/L Normal 138.0-146.0 [facility] Comment on above: Performed By: #### L [id number] ####[facility] (BEAKER)[address] [place] [address] Sodium [Moles/Vol] 140 mmol/L Normal 138.0-146.0 [facility] Comment on above: Performed By: #### L [id number] ####[facility] (BEAKER)[address] [place] [address] POTASSIUM, WHOLE BLOODon Potassium [Moles/Vol] 4.3 mmol/L Normal 3.5-5.1 [facility] Comment on above: Performed By: #### P OTASSIUM, WHOLE BLOOD ####[facility] [id number] [place] [address] [facility] Potassium [Moles/Vol] 4.1 mmol/L Normal 3.5-5.1 [facility] Comment on above: Performed By: #### P OTASSIUM, WHOLE BLOOD ####[facility] [id number] [place] [address] [facility] Potassium [Moles/Vol] 4.2 mmol/L Normal 3.5-5.1 [facility] Comment on above: Performed By: #### P OTASSIUM, WHOLE BLOOD ####[facility] [id number] [place] [address] [facility] PROTIME-INRon 10-27-2023 INR IN PPP BY COAGULATION ASSAY 0.97 Normal 0.90-1.10 [facility] Comment on above: Result Comment: [facility] P RECOMMENDED INR FOR WARFARIN THERAPY CONDITION INRPROPHYLAXIS OF VENOUS THROMBOSIS 2-3(HIGH-RISK SURGERY)TREATMENT OF VENOUS THROMBOSIS 2-3TREATMENT OF PULMONARY EMBOLISM 2-3PREVENTION OF SYSTEMIC EMBOLISM: 2-3 ACUTE MYOCARDIAL INFARCTION TISSUE HEART VALVES VALVULAR HEART DISEASE ATRIAL FIBRILLATION RECURRENT SYSTEMIC EMBOLISMMECHANICAL HEART VALVE 2.5-3.5 FROM: ORAL ANTICOAGULANTS. MECHANISM OF ACTION, CLINICAL EFFECTIVENESS, AND OPTIMAL THERAPEUTIC RANGE. CHEST 1995;108:231S-246S. Performed By: #### L [id number] ####[facility] (BEAKER)[address] [place] [address] INR IN PPP BY COAGULATION ASSAY 1.39 High 0.90-1.10 [facility] Comment on above: Order Comment: Pre-o p diagnosis:NSTEMI (non-ST elevated myocardial infarction) ([facility]) [I21.4] Result Comment: [facility] P RECOMMENDED INR FOR WARFARIN THERAPY CONDITION INRPROPHYLAXIS OF VENOUS THROMBOSIS 2-3(HIGH-RISK SURGERY)TREATMENT OF VENOUS THROMBOSIS 2-3TREATMENT OF PULMONARY EMBOLISM 2-3PREVENTION OF SYSTEMIC EMBOLISM: 2-3 ACUTE MYOCARDIAL INFARCTION TISSUE HEART VALVES VALVULAR HEART DISEASE ATRIAL FIBRILLATION RECURRENT SYSTEMIC EMBOLISMMECHANICAL HEART VALVE 2.5-3.5 FROM: ORAL ANTICOAGULANTS. MECHANISM OF ACTION, CLINICAL EFFECTIVENESS, AND OPTIMAL THERAPEUTIC RANGE. CHEST 1995;108:231S-246S. Performed By: #### L [id number] ####[facility] (BEAKER)[address] [place] [address] INR IN PPP BY COAGULATION ASSAY 1.26 High 0.90-1.10 [facility] Comment on above: Result Comment: [facility] P RECOMMENDED INR FOR WARFARIN THERAPY CONDITION INRPROPHYLAXIS OF VENOUS THROMBOSIS 2-3(HIGH-RISK SURGERY)TREATMENT OF VENOUS THROMBOSIS 2-3TREATMENT OF PULMONARY EMBOLISM 2-3PREVENTION OF SYSTEMIC EMBOLISM: 2-3 ACUTE MYOCARDIAL INFARCTION TISSUE HEART VALVES VALVULAR HEART DISEASE ATRIAL FIBRILLATION RECURRENT SYSTEMIC EMBOLISMMECHANICAL HEART VALVE 2.5-3.5 FROM: ORAL ANTICOAGULANTS. MECHANISM OF ACTION, CLINICAL EFFECTIVENESS, AND OPTIMAL THERAPEUTIC RANGE. CHEST 1995;108:231S-246S. Performed By: #### L [id number] ####[facility] (BEAKER)[address] [place] [address] PROTHROMBIN TIME (PT) IN PPP BY COAGULATION ASSAY 12.9 Seconds Normal 12.3-14.8 [facility] Comment on above: Performed By: #### L [id number] ####[facility] (BEAKER)[address] [place] [address] PROTHROMBIN TIME (PT) IN PPP BY COAGULATION ASSAY 17.1 Seconds High 12.3-14.8 [facility] Comment on above: Order Comment: Pre-o p diagnosis:NSTEMI (non-ST elevated myocardial infarction) ([facility]) [I21.4] Performed By: #### L [id number] ####[facility] (BEAKER)[address] [place] [address] PROTHROMBIN TIME (PT) IN PPP BY COAGULATION ASSAY 15.8 Seconds High 12.3-14.8 [facility] Comment on above: Performed By: #### L [id number] ####[facility] (BEAKER)[address] [place] [address] SODIUM, WHOLE BLOODon 2023 SODIUM, WHOLE BLOOD 135 Low 136-145 [facility] Comment on above: Performed By: #### S ODIUM, WHOLE BLOOD ####[facility] [id number] [place] [address] [facility] SODIUM, WHOLE BLOOD 136 Normal 136-145 [facility] Comment on above: Performed By: #### S ODIUM, WHOLE BLOOD ####[facility] [id number] [place] [address] [place] 30on 10-26-2023 30 The patient is Moderately Stable - Low risk of patient condition declining or worsening The patient's goals for the shift include comfort The clinical goals for the shift include safety Normal [facility] 30 Normal [facility] ANESon 10-26-2023 ANES Normal [facility] ANTI-XA (HEPARIN LEVEL)on HEPARIN UNFRACTIONATED (U/ML) IN PPP BY CHROMOGENIC METHOD 0.49 IU/mL Normal 0.3-0.7 [facility] Comment on above: Result Comment: Bethany roxaban and Apixaban will interfere with the anti Xa assay used to monitor UFH and LMWH. Performed By: #### L [id number] ####[facility] (BEAKER)[address] [place] [address] HEPARIN UNFRACTIONATED (U/ML) IN PPP BY CHROMOGENIC METHOD 0.42 IU/mL Normal 0.3-0.7 [facility] Comment on above: Result Comment: Shante roxaban and Apixaban will interfere with the anti Xa assay used to monitor UFH and LMWH. Performed By: #### L [id number] ####[facility] (BEAKER)[address] [place] [address] MRSA/MSSA DNA NASALon 2023 MRSA DNA Negative Normal Negative [facility] Comment on above: Order Comment: Testi ng methodology is an automated qualitative in vitro diagnostic test for the directdetection and differentiation of Staphylococcus aureus (SA) DNA and methicillin-resistant Staphylococcus aureus (MRSA) DNA from nasal swabs in patients at risk for nasal colonization. The test utilizes real-time polymerase chain reaction (PCR) for the amplification of MRSA/SA DNA and fluorogenic target-specific hybridization probes for the detection of the amplified DNA. A negative result does not preclude nasal colonization. Performed By: #### L [id number] ####[facility] (BEAKER)[address] [place] [address] MSSA DNA Negative Normal Negative [facility] Comment on above: Order Comment: Testi ng methodology is an automated qualitative in vitro diagnostic test for the directdetection and differentiation of Staphylococcus aureus (SA) DNA and methicillin-resistant Staphylococcus aureus (MRSA) DNA from nasal swabs in patients at risk for nasal colonization. The test utilizes real-time polymerase chain reaction (PCR) for the amplification of MRSA/SA DNA and fluorogenic target-specific hybridization probes for the detection of the amplified DNA. A negative result does not preclude nasal colonization. Performed By: #### L [id number] ####[facility] ([facility])[address] [place] [address] POCT GLUCOSE METER UNSOLICIT ED RESULTSon 10-26-2023 Glucose [Mass/Vol] 158 mg/dL High 70-105 [facility] Comment on above: Order Comment: Waive d Testing in the ED is performed under the ED CLIA certificate #[id number]. Result Comment: [email or web address] Performed By: #### L [id number] ####[facility] ([facility])[address] [place] [address] Glucose [Mass/Vol] 164 mg/dL High 70-105 [facility] Comment on above: Order Comment: Waive d Testing in the ED is performed under the ED CLIA certificate #[id number]. Result Comment: [email or web address] Performed By: #### L [id number] ####[facility] ([facility])[address] [place] [address] Glucose [Mass/Vol] 180 mg/dL High 70-105 [facility] Comment on above: Order Comment: Waive d Testing in the ED is performed under the ED CLIA certificate #[id number]. Result Comment: [email or web address] Performed By: #### L [id number] ####[facility] ([facility])[address] [place] [address] TOXICOLOGY PANEL URINEon AMPHETAMINE+METHAMPHETA MINE SCREEN (PRESENCE) IN URINE Negative Normal Negative [facility] Comment on above: Performed By: #### L [id number] ####[facility] ([facility])[address] [place] [address] BARBITURATES PRESENCE IN URINE BY SCREEN METHOD Negative Normal Negative [facility] Comment on above: Performed By: #### L [id number] ####[facility] (BEAKER)[address] [place] [address] Benzodiazepines Ql (U) Positive Abnormal Negative Un [facility] Comment on above: Performed By: #### L [id number] ####[facility] (BEAKER)[address] [place] [address] CANNABINOID (PRESENCE) IN URINE BY SCREEN METHOD Negative Normal Negative [facility] Comment on above: Performed By: #### L [id number] ####[facility] (BEAKER)[address] [place] [address] Cocaine Ql (U) Negative Normal Negative [facility] Comment on above: Performed By: #### L [id number] ####[facility] (BEAKER)[address] [place] [address] METHADONE (PRESENCE) IN URINE BY SCREEN METHOD Negative Normal Negative [facility] Comment on above: Performed By: #### L [id number] ####[facility] (BEAKER)[address] [place] [address] OPIATES (PRESENCE) IN URINE BY SCREEN METHOD Negative Normal Negative [facility] Comment on above: Performed By: #### L [id number] ####[facility] (BEAKER)[address] [place] [address] PHENCYCLIDINE PRESENCE IN URINE BY SCREEN METHOD Negative Normal Negative [facility] Comment on above: Performed By: #### L [id number] ####[facility] (BEAKER)[address] [place] [address] Propoxyphene Screen Ql (U) Negative Normal Negative [facility] Comment on above: Performed By: #### L [id number] ####[facility] (BEAKER)[address] [place] [address] TRICYCLIC ANTIDEPRESSANTS (PRESENCE) IN URINE Negative Normal Negative [facility] Comment on above: Performed By: #### L [id number] ####[facility] (BEAKER)[address] [place] [address] TYPE AND SCREENon 10-26-2023 AB SCREEN Negative Normal [facility] Comment on above: Performed By: #### L [id number] ####[facility], ABO group Nom (Bld) O Normal [facility] Comment on above: Performed By: #### L [id number] ####[facility], RH TYPE IN BLOOD Negative Normal [facility] Comment on above: Performed By: #### L [id number] ####[facility], URINALYSISon 10-26-2023 BILIRUBIN, TOTAL PRESENCE IN URINE Negative Normal Negative [facility] Comment on above: Order Comment: Micro scopics not performed on urines with negative chemical reactions unless requested on original order. Performed By: #### L [id number] ####[facility] ([facility])[address] [place] [address] Clarity (U) Clear Normal Clear [facility] Comment on above: Order Comment: Micro scopics not performed on urines with negative chemical reactions unless requested on original order. Performed By: #### L [id number] ####[facility] ([facility])[address] [place] [address] Color (U) Yellow Normal Yellow [facility] Comment on above: Order Comment: Micro scopics not performed on urines with negative chemical reactions unless requested on original order. Performed By: #### L [id number] ####[facility] ([facility])[address] [place] [address] Glucose (U) [Mass/Vol] Negative Normal [facility] on above: Order Comment: Micro scopics not performed on urines with negative chemical reactions unless requested on original order. Performed By: #### L [id number] ####[facility] (BEAKER)[address] [place] [address] HEMOGLOBIN PRESENCE IN URINE Negative Normal Negative [facility] Comment on above: Order Comment: Micro scopics not performed on urines with negative chemical reactions unless requested on original order. Performed By: #### L [id number] ####[facility] (BEAKER)[address] [place] [address] Ketones Ql (U) Negative Normal Negative [facility] Comment on above: Order Comment: Micro scopics not performed on urines with negative chemical reactions unless requested on original order. Performed By: #### L [id number] ####[facility] ([facility])[address] [place] [address] LEUKOCYTE ESTERASE PRESENCE IN URINE BY TEST STRIP Negative Normal Negative [facility] Comment on above: Order Comment: Micro scopics not performed on urines with negative chemical reactions unless requested on original order. Performed By: #### L [id number] ####[facility] ([facility])[address] [place] [address] NITRITE PRESENCE IN URINE Negative Normal Negative [facility] Comment on above: Order Comment: Micro scopics not performed on urines with negative chemical reactions unless requested on original order. Performed By: #### L [id number] ####[facility] (BEAKER)[address] [place] [address] pH (U) 5.0 [pH] Normal 5.0-8.0 [facility] Comment on above: Order Comment: Micro scopics not performed on urines with negative chemical reactions unless requested on original order. Performed By: #### L [id number] ####[facility] (BEAKER)[address] [place] [address] Protein (U) [Mass/Vol] Negative Normal Negative [facility] Comment on above: Order Comment: Micro scopics not performed on urines with negative chemical reactions unless requested on original order. Performed By: #### L [id number] ####[facility] (BEAKER)[address] [place] [address] Specific gravity (U) [Rel density] 1.025 High 1.015-1.020 [facility] Comment on above: Order Comment: Micro scopics not performed on urines with negative chemical reactions unless requested on original order. Performed By: #### L [id number] ####[facility] (BEAKER)[address] [place] [address] 30on 10-25-2023 30 The patient is Moderately Stable - Low risk of patient condition declining or worsening The patient's goals for the shift include comfort The clinical goals for the shift include stable vitals Normal [facility] 30 Normal [facility] ANESon 10-25-2023 ANES Normal [facility] ANTI-XA (HEPARIN LEVEL)on HEPARIN UNFRACTIONATED (U/ML) IN PPP BY CHROMOGENIC METHOD 0.22 IU/mL Low 0.3-0.7 [facility] Comment on above: Order Comment: Check anti-Xa level every 6 hours while on heparin infusion, or per protocol. Result Comment: Bethany roxaban and Apixaban will interfere with the anti Xa assay used to monitor UFH and LMWH. Performed By: #### L [id number] ####[facility] ([facility])[address] [place] [address] HEPARIN UNFRACTIONATED (U/ML) IN PPP BY CHROMOGENIC METHOD <0.10 Invalid Interpretation Code 0.3-0.7 [facility] Comment on above: Result Comment: Shante roxaban and Apixaban will interfere with the anti Xa assay used to monitor UFH and LMWH. Performed By: #### L [id number] ####[facility] ([facility])[address] [place] [address] HEPARIN UNFRACTIONATED (U/ML) IN PPP BY CHROMOGENIC METHOD 0.23 IU/mL Low 0.3-0.7 [facility] Comment on above: Result Comment: Bethany roxaban and Apixaban will interfere with the anti Xa assay used to monitor UFH and LMWH. Performed By: #### L [id number] ####[facility] ([facility])[address] [place] [address] BASIC METABOLIC PANELon 09-29 Anion gap [Moles/Vol] 16 mmol/L Normal 7-20 [facility] Comment on above: Performed By: #### L [id number] ####[facility] ([facility])[address] [place] [address] Calcium [Mass/Vol] 9.0 mg/dL Normal 8.6-10.3 [facility] Comment on above: Performed By: #### L [id number] ####[facility] ([facility])[address] [place] [address] Chloride [Moles/Vol] 104 mmol/L Normal 98-107 [facility] Comment on above: Performed By: #### L [id number] ####[facility] ([facility])[address] [place] [address] CO2 [Moles/Vol] 21 mmol/L Normal 21-31 [facility] Comment on above: Performed By: #### L [id number] ####[facility] ([facility])[address] [facility] [address] Creatinine [Mass/Vol] 1.02 mg/dL Normal 0.70-1.30 [facility] Comment on above: Performed By: #### L [id number] ####[facility] ([facility])[address] [place] [address] GLOMERULAR FILTRATION RATE ML/MIN/1.73 SQ M.PREDICTED 85.7 mL/min/1.73m*2 Normal >60.0 [facility] Comment on above: Result Comment: The [facility]???s estimated glomerular filtration rate (eGFR) will no longer include consideration of race in its calculation. The [employer]???s eGFR Task Force developed new recommendations for the estimation of the glomerular filtration rate in the [place] They recommend immediate implementation of the new equation refit without the race variable in all laboratories because the calculation does not include race. In addition to not including race in the calculation and reporting, it included diversity in its development, and has acceptable performance characteristics and potential consequences that do not disproportionately affect any one group of individuals. Performed By: #### L [id number] ####[facility] ([facility])[address] [place] [address] Glucose [Mass/Vol] 194 mg/dL High 70-100 [facility] Comment on above: Performed By: #### L [id number] ####[facility] (BEAKER)[address] [place] [address] Potassium [Moles/Vol] 3.7 mmol/L Normal 3.5-5.1 [facility] Comment on above: Performed By: #### L [id number] ####[facility] (BEAKER)[address] [place] [address] Sodium [Moles/Vol] 137 mmol/L Normal 136-145 [facility] Comment on above: Performed By: #### L [id number] ####[facility] (BEAKER)[address] [place] [address] Urea nitrogen [Mass/Vol] 18 mg/dL Normal 7-25 [facility] Comment on above: Performed By: #### L [id number] ####[facility] (BEAKER)[address] [place] [address] UREA NITROGEN/CREATININE (MASS RATIO) IN SER/PLAS 17.6 Normal [facility] Comment on above: Performed By: #### L [id number] ####[facility] [facility] [place] [address] CBCon 10-25-2023 Erythrocyte distribution width (RBC) [Ratio] 12.2 % Normal 11.5-15.0 [facility] Comment on above: Performed By: #### L [id number] ####[facility] ([facility])[address] [place] [address] ERYTHROCYTE MEAN CORPUSCULAR HEMOGLOBIN CONCENTRATION (G/DL) BY AUTOMATED 33.9 g/dL Normal 32.0-35.0 [facility] Comment on above: Performed By: #### L [id number] ####[facility] ([facility])[address] [place] [address] Hematocrit (Bld) [Volume fraction] 42.5 % Normal 39.0-55.0 [facility] Comment on above: Performed By: #### L [id number] ####[facility] ([facility])[address] [place] [address] Hemoglobin (Bld) [Mass/Vol] 14.4 g/dL Normal 13.0-17.0 [facility] Comment on above: Performed By: #### L [id number] ####[facility] ([facility])[address] [place] [address] MCH (RBC) [Entitic mass] 29.8 pg Normal 27.0-33.0 [facility] Comment on above: Performed By: #### L [id number] ####[facility] ([facility])[address] [place] [address] MCV (RBC) [Entitic vol] 87.8 fL Normal 82.0-98.0 [facility] Comment on above: Performed By: #### L [id number] ####[facility] ([facility])[address] [place] [address] PLATELETS (10*3/UL) IN BLOOD AUTOMATED COUNT 200 10*3/uL Normal 150-400 [facility] Comment on above: Performed By: #### L [id number] ####[facility] ([facility])[address] [place] [address] RBC (Bld) [#/Vol] 4.84 10*6/uL Normal 4.20-5.70 [facility] Comment on above: Performed By: #### L [id number] ####[facility] ([facility])[address] [place] [address] WBC (Bld) [#/Vol] 8.97 10*3/uL Normal 4.00-10.60 [facility] Comment on above: Performed By: #### L [id number] ####[facility] ([facility])[address] [place] [address] CONSULTon 10-25-2023 CONSULT Normal [facility] CT ABDOMEN PELVIS WO IV CONT RASTon 10-25-2023 CT ABDOMEN PELVIS WO IV CONTRAST Invalid Interpretation Code [facility] CT CHEST WO IV CONTRASTon CT CHEST WO IV CONTRAST Invalid Interpretation Code [facility] HPon 10-25-2023 HP Normal [facility] POCT GLUCOSE METER UNSOLICIT ED RESULTSon 10-25-2023 Glucose [Mass/Vol] 170 mg/dL High 70-105 [facility] Comment on above: Order Comment: Waive d Testing in the ED is performed under the ED CLIA certificate #[id number]. Result Comment: [email or web address] Performed By: #### L [id number] ####[facility] ([facility])[address] [place] [address] Glucose [Mass/Vol] 195 mg/dL High 70-105 [facility] Comment on above: Order Comment: Waive d Testing in the ED is performed under the ED CLIA certificate #[id number]. Result Comment: [email or web address] Performed By: #### L [id number] ####[facility] ([facility])[address] [place] [address] Glucose [Mass/Vol] 242 mg/dL High 70-105 [facility] Comment on above: Order Comment: Waive d Testing in the ED is performed under the ED CLIA certificate #[id number]. Result Comment: [email or web address] Performed By: #### L [id number] ####[facility] ([facility])[address] [facility] [place] [address] TROPONIN Ion 10-25-2023 Troponin I.cardiac [Mass/Vol] 0.08 ng/mL High 0.00-0.04 [facility] Comment on above: Performed By: #### L [id number] ####[facility] ([facility])[address] [facility] [place] [address] Troponin I.cardiac [Mass/Vol] 0.07 ng/mL High 0.00-0.04 [facility] Comment on above: Performed By: #### L [id number] ####[facility] ([facility])[address] [place] [address] TSH3 REFLEX TO FT4on 024 THYROTROPIN (MIU/L) IN SER/PLAS BY DETECTION LIMIT <= 0.05 MIU/L 2.92 mIU/L Normal 0.34-5.60 [facility] Comment on above: Performed By: #### L [id number] ####[facility] ([facility])[address] [place] [address] ANTI-XA (HEPARIN LEVEL)on HEPARIN UNFRACTIONATED (U/ML) IN PPP BY CHROMOGENIC METHOD 0.19 IU/mL Low 0.3-0.7 [facility] Comment on above: Order Comment: Check anti-Xa level every 6 hours while on heparin infusion, or per protocol. Result Comment: Bethany roxaban and Apixaban will interfere with the anti Xa assay used to monitor UFH and LMWH. Performed By: #### L [id number] ####[facility] ([facility])[address] [place] [address] APTTon 10-24-2023 ACTIVATED PARTIAL THROMBOPLASTIN TIME IN PPP BY COAGULATION ASSAY 39.6 Seconds High 25.0-35.0 [facility] Comment on above: Order Comment: Basel ine aPTT before initiating heparin infusion. Result Comment: Clin ical significance of the APTT is questionable in the presence of heparin. Performed By: #### L [id number] ####[facility] ([facility])[address] [place] [address] CBC WITH AUTO DIFFERENTIALon 10-24-2023 Basophils (Bld) [#/Vol] 0.06 10*3/uL Normal 0.00-0.20 [facility] Comment on above: Performed By: #### L [id number] ####[facility] ([facility])[address] [place] [address] Basophils/100 WBC (Bld) 0.6 % Normal 0.0-1.0 [facility] Comment on above: Performed By: #### L [id number] ####[facility] ([facility])[address] [place] [address] Eosinophils (Bld) [#/Vol] 0.14 10*3/uL Normal 0.00-0.50 [facility] Comment on above: Performed By: #### L [id number] ####[facility] ([facility])[address] [place] [address] Eosinophils/100 WBC (Bld) 1.5 % Normal 0.0-6.0 [facility] Comment on above: Performed By: #### L [id number] ####[facility] ([facility])[address] [place] [address] Erythrocyte distribution width (RBC) [Ratio] 12.3 % Normal 11.5-15.0 [facility] Comment on above: Performed By: #### L [id number] ####[facility] ([facility])[address] [place] [address] ERYTHROCYTE MEAN CORPUSCULAR HEMOGLOBIN CONCENTRATION (G/DL) BY AUTOMATED 33.7 g/dL Normal 32.0-35.0 [facility] Comment on above: Performed By: #### L [id number] ####[facility] ([facility])[address] [place] [address] Hematocrit (Bld) [Volume fraction] 45.1 % Normal 39.0-55.0 [facility] Comment on above: Performed By: #### L [id number] ####[facility] ([facility])[address] [place] [address] Hemoglobin (Bld) [Mass/Vol] 15.2 g/dL Normal 13.0-17.0 [facility] Comment on above: Performed By: #### L [id number] ####[facility] ([facility])[address] [place] [address] Immature granulocytes (Bld) [#/Vol] 0.03 10*3/uL Normal 0.00-0.20 [facility] Comment on above: Performed By: #### L [id number] ####[facility] ([facility])[address] [place] [address] Immature granulocytes/100 WBC (Bld) 0.3 % Normal 0.0-1.0 [facility] Comment on above: Performed By: #### L [id number] ####[facility] ([facility])[address] [place] [address] Lymphocytes (Bld) [#/Vol] 4.32 10*3/uL High 1.20-4.00 [facility] Comment on above: Performed By: #### L [id number] ####[facility] ([facility])[address] [place] [address] Lymphocytes/100 WBC (Bld) 45.8 % High 20.0-45.0 [facility] Comment on above: Performed By: #### L [id number] ####[facility] ([facility])[address] [place] [address] MCH (RBC) [Entitic mass] 29.7 pg Normal 27.0-33.0 [facility] Comment on above: Performed By: #### L [id number] ####[facility] ([facility])[address] [place] [address] MCV (RBC) [Entitic vol] 88.3 fL Normal 82.0-98.0 [facility] Comment on above: Performed By: #### L [id number] ####[facility] ([facility])[address] [place] [address] Monocytes (Bld) [#/Vol] 0.91 10*3/uL Normal 0.10-1.00 [facility] Comment on above: Performed By: #### L [id number] ####[facility] ([facility])[address] [place] [address] Monocytes/100 WBC (Bld) 9.6 % Normal 5.0-12.0 [facility] Comment on above: Performed By: #### L [id number] ####[facility] ([facility])[address] [place] [address] Neutrophils (Bld) [#/Vol] 3.98 10*3/uL Normal 1.60-7.60 [facility] Comment on above: Performed By: #### L [id number] ####[facility] ([facility])[address] [place] [address] Neutrophils/100 WBC (Bld) 42.2 % Normal 40.0-72.0 [facility] Comment on above: Performed By: #### L [id number] ####[facility] ([facility])[address] [place] [address] NRBC (PER 100 WBCS) BY AUTOMATED COUNT 0.0 % Normal 0 [facility] Comment on above: Performed By: #### L [id number] ####[facility] ([facility])[address] [place] [address] PLATELETS (10*3/UL) IN BLOOD AUTOMATED COUNT 208 10*3/uL Normal 150-400 [facility] Comment on above: Performed By: #### L [id number] ####[facility] ([facility])[address] [place] [address] RBC (Bld) [#/Vol] 5.11 10*6/uL Normal 4.20-5.70 [facility] Comment on above: Performed By: #### L [id number] ####[facility] ([facility])[address] [place] [address] WBC (Bld) [#/Vol] 9.44 10*3/uL Normal 4.00-10.60 [facility] Comment on above: Performed By: #### L [id number] ####[facility] ([facility])[address] [place] [address] COMPREHENSIVE METABOLIC PANE Edgar 10-24-2023 Albumin [Mass/Vol] 4.4 g/dL Normal 3.5-5.7 [facility] Comment on above: Performed By: #### L [id number] ####[facility] [place] [address] ALP [Catalytic activity/Vol] 66 U/L Normal 34-104 [facility] Comment on above: Performed By: #### L [id number] ####[facility] [place] [address] ALT [Catalytic activity/Vol] 11 U/L Normal 7-52 [facility] Comment on above: Performed By: #### L [id number] ####[facility] ([facility])[address] [place] [address] Anion gap [Moles/Vol] 14 mmol/L Normal 7-20 [facility] Comment on above: Performed By: #### L [id number] ####[facility] ([facility])[address] [place] [address] AST [Catalytic activity/Vol] 14 U/L Normal 13-39 [facility] Comment on above: Performed By: #### L [id number] ####[facility] ([facility])[address] [place] [address] Bilirubin [Mass/Vol] 0.4 mg/dL Normal 0.3-1.0 [facility] Comment on above: Performed By: #### L [id number] ####[facility] ([facility])[address] [place] [address] Calcium [Mass/Vol] 9.8 mg/dL Normal 8.6-10.3 [facility] Comment on above: Performed By: #### L [id number] ####[facility] ([facility])[address] [place] [address] Chloride [Moles/Vol] 102 mmol/L Normal 98-107 [facility] Comment on above: Performed By: #### L [id number] ####[facility] ([facility])[address] [place] [address] CO2 [Moles/Vol] 26 mmol/L Normal 21-31 [facility] Comment on above: Performed By: #### L [id number] ####[facility] ([facility])[address] [place] [address] Creatinine [Mass/Vol] 1.13 mg/dL Normal 0.70-1.30 [facility] Comment on above: Performed By: #### L [id number] ####[facility] ([facility])[address] [place] [address] GLOMERULAR FILTRATION RATE ML/MIN/1.73 SQ M.PREDICTED 75.8 mL/min/1.73m*2 Normal >60.0 [facility] Comment on above: Result Comment: The [facility]???s estimated glomerular filtration rate (eGFR) will no longer include consideration of race in its calculation. The [employer]???s eGFR Task Force developed new recommendations for the estimation of the glomerular filtration rate in the [place] They recommend immediate implementation of the new equation refit without the race variable in all laboratories because the calculation does not include race. In addition to not including race in the calculation and reporting, it included diversity in its development, and has acceptable performance characteristics and potential consequences that do not disproportionately affect any one group of individuals. Performed By: #### L [id number] ####[facility] ([facility])[address] [place] [address] Glucose [Mass/Vol] 116 mg/dL High 70-100 [facility] Comment on above: Performed By: #### L [id number] ####[facility] ([facility])[address] [place] [address] Potassium [Moles/Vol] 4.2 mmol/L Normal 3.5-5.1 [facility] Comment on above: Performed By: #### L [id number] ####[facility] ([facility])[address] [place] [address] Protein [Mass/Vol] 7.4 g/dL Normal 6.0-8.3 [facility] Comment on above: Performed By: #### L [id number] ####[facility] ([facility])[address] [place] [address] Sodium [Moles/Vol] 138 mmol/L Normal 136-145 [facility] Comment on above: Performed By: #### L [id number] ####[facility] ([facility])[address] [place] [address] Urea nitrogen [Mass/Vol] 19 mg/dL Normal 7-25 [facility] Comment on above: Performed By: #### L [id number] ####[facility] ([facility])[address] [place] [address] UREA NITROGEN/CREATININE (MASS RATIO) IN SER/PLAS 16.8 Normal [facility] Comment on above: Performed By: #### L [id number] ####[facility] ([facility])[address] [facility] [address] CONSULTon 10-24-2023 CONSULT [facility] EDNURSon 10-24-2023 EDNURS [place] transfer for NSTEMI. No chest pain at this time. [facility] EDPROVon 10-24-2023 EDPROV This report has been cancelled. [facility] EDPROV [facility] ETHANOLon 10-24-2023 ETHANOL (MG/DL) IN SER/PLAS <10 Normal [facility] Comment on above: Performed By: #### L [id number] ####[facility] ([facility])[address] [place] [address] ETHANOL CALCULATED (%) Normal [facility] Comment on above: Performed By: #### L [id number] ####[facility] [place] [address] HEMOGLOBIN A1Con 10-24-2023 Glucose [Mass/Vol] 163 mg/dL Normal [facility] Comment on above: Performed By: #### L [id number] ####[facility] ([facility])[address] [place] [address] HbA1c (Bld) [Mass fraction] 7.3 % High 4.0-6.0 [facility] Comment on above: Performed By: #### L [id number] ####[facility] ([facility])[address] [place] [address] HPon 10-24-2023 HP Normal [facility] LIPID PANELon 10-24-2023 CHOL/HDL 4.2 mg/dL Normal [facility] Comment on above: Performed By: #### L [id number] ####[facility] ([facility])[address] [place] [address] Cholesterol [Mass/Vol] 203 mg/dL High 120-200 Un [facility] Comment on above: Performed By: #### L [id number] ####[facility] ([facility])[address] [place] [address] Magnesium [Mass/Vol] 206 mg/dL High 40-149 [facility] Comment on above: Result Comment: TRIG LYCERIDE REFERENCE RANGE:20 YEARS AND OLDER CARDIOVASCULAR RISKLESS THAN 150 mg/dL LOW [id number] TO 199 mg/dL BORDERLINE VLTT101 mg/dL AND GREATER HIGH RISK Performed By: #### L [id number] ####[facility] ([facility])[address] [place] [address] Magnesium [Mass/Vol] 114 mg/dL Normal 0-160 [facility] Comment on above: Performed By: #### L [id number] ####[facility] ([facility])[address] [place] [address] Magnesium [Mass/Vol] 48 mg/dL Normal 23-92 [facility] Comment on above: Performed By: #### L [id number] ####[facility] ([facility])[address] [place] [address] NON HDL CHOL. (LDL+VLDL) 155 Normal [facility] Comment on above: Performed By: #### L [id number] ####[facility] ([facility])[address] [place] [address] TOTAL VLDL-C 41 mg/dL High 0-40 [facility] Comment on above: Performed By: #### L [id number] ####[facility] ([facility])[address] [place] [address] MAGNESIUMon 10-24-2023 Magnesium [Mass/Vol] 2.1 mg/dL Normal 1.9-2.7 [facility] Comment on above: Performed By: #### L [id number] ####[facility] ([facility])[address] [place] [address] PLATELET COUNTon 10-24-2023 PLATELETS (10*3/UL) IN BLOOD AUTOMATED COUNT 199 10*3/uL Normal 150-400 [facility] Comment on above: Performed By: #### L [id number] ####[facility] ([facility])[address] [place] [address] POCT GLUCOSE METER UNSOLICIT ED RESULTSon 10-24-2023 Glucose [Mass/Vol] 120 mg/dL High 70-105 [facility] Comment on above: Order Comment: Waive d Testing in the ED is performed under the ED CLIA certificate #[id number]. Result Comment: derek shepard Performed By: #### L [id number] ####[facility] ([facility])[address] [place] [address] TROPONIN Ion 10-24-2023 Troponin I.cardiac [Mass/Vol] 0.10 ng/mL High 0.00-0.04 [facility] Comment on above: Performed By: #### L [id number] ####[facility] ([facility])[address] [place] [address] Troponin I.cardiac [Mass/Vol] 0.09 ng/mL High 0.00-0.04 [facility] Comment on above: Performed By: #### L [id number] ####[facility] ([facility])[address] [place] [address] TSH3 REFLEX TO FT4on 024 THYROTROPIN (MIU/L) IN SER/PLAS BY DETECTION LIMIT <= 0.05 MIU/L 2.35 mIU/L Normal 0.34-5.60 [facility] Comment on above: Performed By: #### L [id number] ####[facility] ([facility])[address] [place] [address] US KIDNEYSon 08-01-2022 US KIDNEYS US KIDNEYS EXAM DATE: 08/01/2022 5:49 AM MST COMPARISON: CT abdomen and pelvis 07/22/2022, ultrasound kidney 09/15/2019, CT abdomen and pelvis 09/14/2019. INDICATION: Right superior pole cortical lesion measuring [address] abdomen and pelvis 07/22/2022. TECHNIQUE: Real-time ultrasound scanning of the kidneys and bladder was performed by the asphalt dauber. Titrator static images are submitted for review. Cine [...] COLLEEN NORIEGA Date: 2022-08-01 11:31 Normal [facility] CBC AUTO DIFFon 07-22-2022 BASO # 0.0 103/ul Normal 0.0-0.1 [facility] Comment on above: Performed By: #### U MICRO, ERUR #### [facility] [address] [address] [address] Allyson Guerrero Basophils/100 WBC (Bld) 0.4 % Normal 0.2-2.0 [facility] Comment on above: Performed By: #### U MICRO, ERUR #### [facility] [address] [address] [address] Allyson Guerrero EO # 0.1 103/ul Normal 0.0-0.7 [facility] Comment on above: Performed By: #### U MICRO, ERUR #### [facility] [address] [address] [address] Allyson Guerrero Eosinophils/100 WBC (Bld) 1.3 % Normal 0.9-7.0 [facility] Comment on above: Performed By: #### U MICRO, ERUR #### [facility] [address] [address] [address] Allyson Guerrero Erythrocyte distribution width (RBC) [Ratio] 12.4 % Normal 11.0-15.0 [facility] Comment on above: Performed By: #### U MICRO, ERUR #### [facility] [address] [place] [address] Dr. Allyson Guerrero Hematocrit (Bld) [Volume fraction] 40.3 % Critically low 42.0-54.0 [facility] Comment on above: Performed By: #### U MICRO, ERUR #### [facility] [address] [place] [address] Dr. Allyson Guerrero Hemoglobin (Bld) [Mass/Vol] 14.2 g/dL Normal 14.0-18.0 [facility] Comment on above: Performed By: #### U MICRO, ERUR #### [facility] [address] [place] [address] Dr. Allyson Guerrero IG # 0.02 10e3/ul Normal 0.00-0.03 [facility] Comment on above: Performed By: #### U MICRO, ERUR #### [facility] [address] [place] [address] Dr. Allyson Guerrero IG % 0.3 % Normal 0.0-0.5 [facility] Comment on above: Performed By: #### U MICRO, ERUR #### [facility] [address] [address] [address] Allyson Guerrero LYMPH # 3.1 103/ul Normal 1.2-3.8 [facility] Comment on above: Performed By: #### U MICRO, ERUR #### [facility] [address] [place] [address] Dr. Allyson Guerrero Lymphocytes/100 WBC (Bld) 44.5 % Normal 20.5-60.0 [facility] Comment on above: Performed By: #### U MICRO, ERUR #### [facility] [address] [place] [address] Dr. Allyson Guerrero MANUAL DIFF REQ NO Normal [facility] Comment on above: Performed By: #### U MICRO, ERUR #### [facility] [address] [place] [address] Dr. Allyson Guerrero MCH (RBC) [Entitic mass] 30.0 pg Normal 25.9-34.0 [facility] Comment on above: Performed By: #### U MICRO, ERUR #### [facility] [address] [place] [address] Dr. Allyson Guerrero MCHC (RBC) [Mass/Vol] 35.2 g/dL Normal 29.9-35.2 [facility] Comment on above: Performed By: #### U MICRO, ERUR #### [facility] [address] [place] [address] Dr. Allyson Guerrero MCV (RBC) [Entitic vol] 85.0 fL Normal 80.0-94.0 [facility] Comment on above: Performed By: #### U MICRO, ERUR #### [facility] [address] [place] [address] Dr. Allyson Guerrero MONO # 0.6 103/ul Normal 0.3-0.8 [facility] Comment on above: Performed By: #### U MICRO, ERUR #### [facility] [address] [place] [address] Dr. Allyson Guerrero Monocytes/100 WBC (Bld) 9.1 % Normal 1.7-12.0 [facility] Comment on above: Performed By: #### U MICRO, ERUR #### [facility] [address] [place] [address] Dr. Allyson Guerrero NEUT # 3.1 103/ul Normal 1.4-6.5 [facility] Comment on above: Performed By: #### U MICRO, ERUR #### [facility] [address] [place] [address] Dr. Allyson Guerrero Neutrophils/100 WBC (Bld) 44.4 % Normal 43.0-75.0 [facility] Comment on above: Performed By: #### U MICRO, ERUR #### [facility] [address] [place] [address] Dr. Allyson Guerrero Platelet mean volume (Bld) [Entitic vol] 9.9 fL Normal 9.5-13.5 [facility] Comment on above: Performed By: #### U MICRO, ERUR #### [facility] [address] [address] [address] Allyson Guerrero PLT 166 103/ul Normal 150-450 [facility] Comment on above: Performed By: #### U MICRO, ERUR #### [facility] [address] [address] [address] Allyson Guerrero RBC 4.74 106/ul Normal 4.70-6.10 [facility] Comment on above: Performed By: #### U MICRO, ERUR #### [facility] [address] [address] [address] Allyson Guerrero WBC 7.0 103/ul Normal 4.0-11.0 [facility] Comment on above: Performed By: #### U MICRO, ERUR #### [facility] [address] [address] [address] ABD/PELVIS WO CONon [...] YURI ALONZO Date: 2022-07-22 06:56 Normal [facility] URINE PROFILEon 3 Bilirubin Ql (U) Negative Normal NEGATIVE [facility] Comment on above: Performed By: #### U MICRO, ERUR #### [facility] [address] [place] [address] Dr. Allyson Guerrero Clarity (U) CLEAR Normal CLEAR [facility] Comment on above: Performed By: #### U MICRO, ERUR #### [facility] [address] [place] [address] Dr. Allyson Guerrero Color (U) LT. YELLOW Normal YELLOW [facility] Comment on above: Performed By: #### U MICRO, ERUR #### [facility] [address] [place] [address] Dr. Allyson Guerrero ERUAHD A micrscopic examination will be performed if indicated. Normal [facility] Comment on above: Performed By: #### U MICRO, ERUR #### [facility] [address] [place] [address] Dr. Allyson Guerrero Glucose Ql (U) Negative Normal NEGATIVE [facility] Comment on above: Performed By: #### U MICRO, ERUR #### [facility] [address] [address] [address] Allyson Guerrero Hemoglobin Ql (U) LARGE Abnormal NEGATIVE The [facility] Comment on above: Performed By: #### U MICRO, ERUR #### [facility] [address] [place] [address] Dr. Allyson Guerrero Ketones Ql (U) Negative Normal NEGATIVE [facility] Comment on above: Performed By: #### U MICRO, ERUR #### [facility] [address] [place] [address] Dr. Allyson Guerrero LEUKOCYTES Negative Normal NEGATIVE [facility] Comment on above: Performed By: #### U MICRO, ERUR #### [facility] [address] [address] [address] Allyson Guerrero Nitrite Ql (U) Negative Normal NEGATIVE [facility] Comment on above: Performed By: #### U MICRO, ERUR #### [facility] [address] [address] [address] Allyson Guerrero pH (U) 6.0 [pH] Normal 5-9 [facility] Comment on above: Performed By: #### U MICRO, ERUR #### [facility] [address] [place] [address] Dr. Allyson Guerrero SPEC GRAVITY 1.015 Normal 1.005-<=1.0 25 [facility] Comment on above: Performed By: #### U MICRO, ERUR #### [facility] [address] [place] [address] Dr. Allyson Guerrero UA PROTEIN TRACE Normal NEGATIVE/ TRACE [facility] Comment on above: Performed By: #### U MICRO, ERUR #### [facility] [address] [place] [address] Dr. Allyson Guerrero UR MICRO IND INDICATED Normal [facility] Comment on above: Performed By: #### U MICRO, ERUR #### [facility] [address] [place] [address] Dr. Allyson Guerrero Urobilinogen Qn (U) 0.2 {Dianna'U}/dL Normal 0.2 - 1. 0 [facility] Comment on above: Performed By: #### U MICRO, ERUR #### [facility] [address] [place] [address] Dr. Allyson Guerrero PROF CHEM 8 (BAS METB)on Anion gap [Moles/Vol] 12.7 mmol/L Normal [facility] Comment on above: Performed By: #### U MICRO, ERUR #### [facility] [address] [place] [address] Dr. Allyson Guerrero Calcium [Mass/Vol] 8.9 mg/dL Normal 8.5-10.1 [facility] Comment on above: Performed By: #### U MICRO, ERUR #### [facility] [address] [address] [address] Allyson Guerrero Chloride [Moles/Vol] 103 mmol/L Normal 98-107 [facility] Comment on above: Performed By: #### U MICRO, ERUR #### [facility] [address] [address] [address] Allyson Guerrero CO2 [Moles/Vol] 28.9 mmol/L Normal 21.0-32.0 [facility] Comment on above: Performed By: #### U MICRO, ERUR #### [facility] [address] [address] [address] Allyson Guerrero Creatinine [Mass/Vol] 1.06 mg/dL Normal 0.70-1.30 [facility] Comment on above: Performed By: #### U MICRO, ERUR #### [facility] [address] [address] [address] Allyson Guerrero EGFR-AF [place] >60 Normal >=60 [facility] Comment on above: Performed By: #### U MICRO, ERUR #### [facility] [address] [address] [address] Allyson Guerrero EGFR-NON AF [place] >60 Normal >=60 [facility] Comment on above: Performed By: #### U MICRO, ERUR #### [facility] [address] [address] [address] Allyson Guerrero Glucose [Mass/Vol] 191 mg/dL Critically high 74-106 [facility] Comment on above: Performed By: #### U MICRO, ERUR #### [facility] [address] [address] [address] Allyson Guerrero Potassium [Moles/Vol] 4.0 mmol/L Normal 3.5-5.1 [facility] Comment on above: Performed By: #### U MICRO, ERUR #### [facility] [address] [address] [address] Allyson Guerrero Sodium [Moles/Vol] 141 mmol/L Normal 136-145 [facility] Comment on above: Performed By: #### U MICRO, ERUR #### [facility] [address] [address] [address] Allyson Guerrero Urea nitrogen [Mass/Vol] 15.0 mg/dL Normal 7.0-18.0 [facility] Comment on above: Performed By: #### U MICRO, ERUR #### [facility] [address] [address] [address] Allyson Guerrero Urea nitrogen/Creatinine [Mass ratio] 14.2 mg/mg Normal [facility] Comment on above: Performed By: #### U MICRO, ERUR #### [facility] [address] [address] [address] Allyson Guerrero URINE MICROSCOPIC ONLYon BACTERIA NONE SEEN Normal NONE SEEN [facility] Comment on above: Performed By: #### U MICRO, ERUR #### [facility] [address] [place] [address] Dr. Allyson Guerrero Bacteria identified Cx Nom (U) NOT INDICATED Normal [facility] Comment on above: Performed By: #### U MICRO, ERUR #### [facility] [address] [address] [address] Allyson Guerrero CAST NONE SEEN Normal NONE SEEN [facility] Comment on above: Performed By: #### U MICRO, ERUR #### [facility] [address] [address] [address] Allyson Guerrero Crystals LM Nom (Urine sed) NONE SEEN Normal NONE SEEN [facility] Comment on above: Performed By: #### U MICRO, ERUR #### [facility] [address] [address] [address] Allyson Guerrero Epithelial cells LM Ql (Urine sed) FEW Abnormal NONE SEEN /RARE [facility] Comment on above: Performed By: #### U MICRO, ERUR #### [facility] [address] [address] [address] Allyson Guerrero MUCOUS NONE SEEN Normal NONE SEEN [facility] Comment on above: Performed By: #### U MICRO, ERUR #### [facility] [address] [address] [address] Allyson Guerrero RBC 10-20 Abnormal 0-2 [facility] Comment on above: Performed By: #### U MICRO, ERUR #### [facility] [address] [address] [address] Allyson Guerrero WBC NONE SEEN Normal NONE SEEN [facility] Comment on above: Performed By: #### U MICRO, ERUR #### [facility] [address] [address] [address] Allyson Guerrero Auth for Release of Medical Recordson 05-30-2022 Auth for Release of Medical Records [id number] .00CD:127 Normal [facility] Formson 05-30-2022 Forms [id number] .00CD:127 Normal [facility] Physician Referralon 022 Physician Referral [id number] .00CD:127 Normal [facility] Screenson 05-30-2022 Screens [id number]#1. 00CD:127 Normal [facility] Screens [id number]#1. 00CD:127 Normal [facility] Patient Educationon 05-29-20 22 Patient Education Urology [...] these instructions at home: Medicines ? Take msdd-ovm-qtkyuzt and prescription medicines only as told by [...] of your (more content not included)... Normal [facility] Retail - Clinical Noteon Retail - Clinical Note [id number] .00CD:127 Normal [facility] Urology Office/Clinic Noteon 05-29-2022 Urology Office/Clinic Note Chief Complaint New patient ED HPI Staff New patient referral per Dr. Link due to ED medications not working Patient [...] and history for this patient from Dr. Link including external records, labs There have been [...] vs IPP -LINO will be ordered from [employer]. Education/instruction s provided 2. BPH (benign prostatic hyperplasia) (N40.0: Benign prostatic hyperplasia without lower urinary tract symptoms) IPSS 1 - Did not leave a UA today - unsure if Dr. Link is checking PSA. Will obtain PSA records from Dr. Link office no urinary complaints no bph medications All questions and concerns were discussed. Pt acknowledge and understands. Pt will call our office with any changes in urinary symptoms. Follow-up With When Contact Information Sathya PAVON, Najma Lyon, URL, URO Within 3 months Additional Instructions: f/u to vacuum device Patient Education Erectile Dysfunction I, Kathrin Hahn, personally scribed for Dr. Mcdonnell on 05/29/2022 [...] data Procedure/Surgical Hist (more content not included)... [facility] Comment on above: Result Comment: Elec tronically Signed By: Sathya PAVON, Najma Lyon\.br\Date and Time Signed: 05/29/22 20:32 EST Facesheeton 05-16-2022 Facesheet [id number]#1 .00CD:127 [facility] Ambulatory Visit Summaryon 1 07-15-2021 Ambulatory Visit Summary JERAMIE GALVAN :1965 Visit Date:05/15/2022 Ambulatory Visit Instructions Your Care Team Attending Physician - HEVER PAVON, Domingo Petersen Primary Care Physician - ARAM PAVON, VICKY Referring Physician - Rylee Link MD This Is Your Medications List diclofenac [...] PAVON, Najma Lyon Where: [facility] Historical Records Officeon 04-18-2022 Historical Records Office [id number] .00CD:127 [facility] Historical Records Office [id number] .00CD:127 [facility] Physician Referralon 022 Physician Referral [id number] .00CD:127 [facility] INSULINon 08-20-2021 Insulin 20.0 uIU/mL Normal 2.6-24.9 [facility] Comment on above: Performed By: #### I NSULIN #### [facility] [address] [place] [address] Dr. Allyson Guerrero CBC AUTO DIFFon 08-18-2021 BASO # 0.0 103/ul Normal 0.0-0.1 [facility] Comment on above: Performed By: #### U MICRO, ERUR #### [facility] [address] [place] [address] Dr. Allyson Guerrero Basophils/100 WBC (Bld) 0.6 % Normal 0.2-2.0 [facility] Comment on above: Performed By: #### U MICRO, ERUR #### [facility] [address] [place] [address] Dr. Allyson Guerrero EO # 0.1 103/ul Normal 0.0-0.7 [facility] Comment on above: Performed By: #### U MICRO, ERUR #### [facility] [address] [place] [address] Dr. Allyson Guerrero Eosinophils/100 WBC (Bld) 1.3 % Normal 0.9-7.0 [facility] Comment on above: Performed By: #### U MICRO, ERUR #### [facility] [address] [place] [address] Dr. Allyson Guerrero Erythrocyte distribution width (RBC) [Ratio] 12.2 % Normal 11.0-15.0 [facility] Comment on above: Performed By: #### U MICRO, ERUR #### [facility] [address] [place] [address] Dr. Allyson Guerrero Hematocrit (Bld) [Volume fraction] 42.7 % Normal 42.0-54.0 [facility] Comment on above: Performed By: #### U MICRO, ERUR #### [facility] [address] [place] [address] Dr. Allyson Guerrero Hemoglobin (Bld) [Mass/Vol] 14.1 g/dL Normal 14.0-18.0 [facility] Comment on above: Performed By: #### U MICRO, ERUR #### [facility] [address] [address] [address] Allyson Guerrero IG # 0.03 10e3/ul Normal 0.00-0.03 [facility] Comment on above: Performed By: #### U MICRO, ERUR #### [facility] [address] [place] [address] Dr. Allyson Guerrero IG % 0.5 % Normal 0.0-0.5 [facility] Comment on above: Performed By: #### U MICRO, ERUR #### [facility] [address] [place] [address] Dr. Allyson Guerrero LYMPH # 2.8 103/ul Normal 1.2-3.8 [facility] Comment on above: Performed By: #### U MICRO, ERUR #### [facility] [address] [place] [address] Dr. Allyson Guerrero Lymphocytes/100 WBC (Bld) 45.0 % Normal 20.5-60.0 [facility] Comment on above: Performed By: #### U MICRO, ERUR #### [facility] [address] [place] [address] Dr. Allyson Guerrero MANUAL DIFF REQ NO Normal [facility] Comment on above: Performed By: #### U MICRO, ERUR #### [facility] [address] [place] [address] Dr. Allyson Guerrero MCH (RBC) [Entitic mass] 28.9 pg Normal 25.9-34.0 [facility] Comment on above: Performed By: #### U MICRO, ERUR #### [facility] [address] [place] [address] Dr. Allyson Guerrero MCHC (RBC) [Mass/Vol] 33.0 g/dL Normal 29.9-35.2 [facility] Comment on above: Performed By: #### U MICRO, ERUR #### [facility] [address] [place] [address] Dr. Allyson Guerrero MCV (RBC) [Entitic vol] 87.5 fL Normal 80.0-94.0 [facility] Comment on above: Performed By: #### U MICRO, ERUR #### [facility] [address] [place] [address] Dr. Allyson Guerrero MONO # 0.6 103/ul Normal 0.3-0.8 [facility] Comment on above: Performed By: #### U MICRO, ERUR #### [facility] [address] [place] [address] Dr. Allyson Guerrero Monocytes/100 WBC (Bld) 10.1 % Normal 1.7-12.0 [facility] Comment on above: Performed By: #### U MICRO, ERUR #### [facility] [address] [place] [address] Dr. Allyson Guerrero NEUT # 2.6 103/ul Normal 1.4-6.5 [facility] Comment on above: Performed By: #### U MICRO, ERUR #### [facility] [address] [place] [address] Dr. Allyson Guerrero Neutrophils/100 WBC (Bld) 42.5 % Critically low 43.0-75.0 [facility] Comment on above: Performed By: #### U MICRO, ERUR #### [facility] [address] [place] [address] Dr. Allyson Guerrero Platelet mean volume (Bld) [Entitic vol] 10.2 fL Normal 9.5-13.5 [facility] Comment on above: Performed By: #### U MICRO, ERUR #### [facility] [address] [place] [address] Dr. Allyson Guerrero PLT 191 103/ul Normal 150-450 [facility] Comment on above: Performed By: #### U MICRO, ERUR #### [facility] [address] [place] [address] Dr. Allyson Guerrero RBC 4.88 106/ul Normal 4.70-6.10 [facility] Comment on above: Performed By: #### U MICRO, ERUR #### [facility] [address] [place] [address] Dr. Allyson Guerrero WBC 6.2 103/ul Normal 4.0-11.0 [facility] Comment on above: Performed By: #### U MICRO, ERUR #### [facility] [address] [address] [address] Allyson Guerrero FREE THYROXINE INDEX T7on FTI 1.69 Normal [facility] Comment on above: Performed By: #### T SH, T4, LIPID, T7, URIC, CMP #### [facility] [address] [address] [address] Allyson Guerrero T3U 36.0 % Normal 23.5-40.5 [facility] Comment on above: Performed By: #### T SH, T4, LIPID, T7, URIC, CMP #### [facility] [address] [address] [address] Allyson Guerrero T4 [Mass/Vol] 4.70 ug/dL Critically low 5.53-11.00 [facility] Comment on above: Performed By: #### T SH, T4, LIPID, T7, URIC, CMP #### [facility] [address] [address] [address] Allyson Guerrero Performed By: #### U MICRO, ERUR #### [facility] [address] [address] [address] Allyson Guerrero GLYCOHEMOGLOBIN A1Con 2021 ADA RECOMMENDATION ADA THERAPEUTIC TARGET 6.0 - 7.0 ACTION SUGGESTED > 7.[address] [facility] Comment on above: Performed By: #### A 1C #### [facility] [address] [address] [address] Allyson Guerrero Glucose [Mass/Vol] 258 mg/dL Normal [facility] Comment on above: Performed By: #### A 1C #### [facility] [address] [address] [address] Allyson Guerrero HbA1c (Bld) [Mass fraction] 10.6 % Critically high <=6.0 [facility] Comment on above: Performed By: #### A 1C #### [facility] [address] [place] [address] Dr. Allyson Guerrero LIPID PROFILEon 08-18-2021 CHOL-HDL RATIO NORM SEE BELOW Normal [facility] Comment on above: Result Comment: 3.3 - 4.4 LOW RISK 4.4 - 7.1 AVERAGE RISK 7.1 - 11.0 MODERATE RISK >11.0 HIGH RISK Performed By: #### T SH, T4, LIPID, T7, URIC, CMP #### [facility] [address] [place] [address] Dr. Allyson Guerrero Cholesterol [Mass/Vol] 200 mg/dL Normal <=200 Th e [facility] Comment on above: Performed By: #### T SH, T4, LIPID, T7, URIC, CMP #### [facility] [address] [place] [address] Dr. Allyson Guerrero Cholesterol in HDL [Mass/Vol] 36 mg/dL Normal [facility] Comment on above: Performed By: #### T SH, T4, LIPID, T7, URIC, CMP #### [facility] [address] [place] [address] Dr. Allyson Guerrero Cholesterol in LDL [Mass/Vol] 120.6 mg/dL Normal [facility] Comment on above: Performed By: #### T SH, T4, LIPID, T7, URIC, CMP #### [facility] [address] [place] [address] Dr. Allyson Guerrero Cholesterol.total/Malu sterol in HDL [Mass ratio] 5.6 {ratio} Normal [facility] Comment on above: Performed By: #### T SH, T4, LIPID, T7, URIC, CMP #### [facility] [address] [place] [address] Dr. Allyson Guerrero HDL NORMAL > or = 60 mg/dl - LO W CARDIOVASCULAR RISK <40 mg/dl - HIGH CARDIOVASCULAR RISK Normal [facility] Comment on above: Performed By: #### T SH, T4, LIPID, T7, URIC, CMP #### [facility] [address] [place] [address] Dr. Allyson Guerrero LDL CALC NORMAL SEE BELOW Normal [facility] Comment on above: Result Comment: <100 mg/dl OPTIMAL 100 - 129 mg/dl NEAR OR ABOVE OPTIMAL 130 - 159 mg/dl BORDERLINE HIGH 160 - 189 mg/dl HIGH >190 mg/dl VERY HIGH Performed By: #### T SH, T4, LIPID, T7, URIC, CMP #### [facility] [address] [place] [address] Dr. Allyson Guerrero Triglyceride [Mass/Vol] 217 mg/dL Critically high <=150 [facility] Comment on above: Performed By: #### T SH, T4, LIPID, T7, URIC, CMP #### [facility] [address] [place] [address] Dr. Allyson Guerrero VLDL CALC 43.4 mg/dL Normal [facility] Comment on above: Performed By: #### T SH, T4, LIPID, T7, URIC, CMP #### [facility] [address] [place] [address] Dr. Allyson Guerrero PROF 14(COMP METB)on 022 Albumin [Mass/Vol] 3.5 g/dL Normal 3.5-5.[address] [facility] Comment on above: Performed By: #### T SH, T4, LIPID, T7, URIC, CMP #### [facility] [address] [place] [address] Dr. Allyson Guerrero Albumin/Globulin [Mass ratio] 0.9 {ratio} Normal [facility] Comment on above: Performed By: #### T SH, T4, LIPID, T7, URIC, CMP #### [facility] [address] [place] [address] Dr. Allyson Guerrero ALP [Catalytic activity/Vol] 94 U/L Normal 38-126 [facility] Comment on above: Performed By: #### T SH, T4, LIPID, T7, URIC, CMP #### [facility] [address] [place] [address] Dr. Allyson Guerrero ALT [Catalytic activity/Vol] 27 U/L Normal 21-72 [facility] Comment on above: Performed By: #### T SH, T4, LIPID, T7, URIC, CMP #### [facility] [address] [place] [address] Dr. Allyson Guerrero Anion gap [Moles/Vol] 8.5 mmol/L Normal [facility] [facility] Comment on above: Performed By: #### T SH, T4, LIPID, T7, URIC, CMP #### [facility] [address] [place] [address] Dr. Allyson Guerrero AST [Catalytic activity/Vol] 12 U/L Critically low 17-59 [facility] Comment on above: Performed By: #### T SH, T4, LIPID, T7, URIC, CMP #### [facility] [address] [address] [address] Allyson Guerrero Bilirubin [Mass/Vol] 0.4 mg/dL Normal 0.2-1.3 [facility] Comment on above: Performed By: #### T SH, T4, LIPID, T7, URIC, CMP #### [facility] [address] [place] [address] Dr. Allyson Guerrero Calcium [Mass/Vol] 9.1 mg/dL Normal 8.4-10.2 [facility] Comment on above: Performed By: #### T SH, T4, LIPID, T7, URIC, CMP #### [facility] [address] [place] [address] Dr. Allyson Guerrero Chloride [Moles/Vol] 101 mmol/L Normal 98-107 [facility] Comment on above: Performed By: #### T SH, T4, LIPID, T7, URIC, CMP #### [facility] [address] [place] [address] Dr. Allyson Guerrero CO2 [Moles/Vol] 30.9 mmol/L Critically high 22.0-30.0 [facility] Comment on above: Performed By: #### T SH, T4, LIPID, T7, URIC, CMP #### [facility] [address] [place] [address] Dr. Allyson Guerrero Creatinine [Mass/Vol] 0.98 mg/dL Normal 0.66-1.25 [facility] Comment on above: Performed By: #### T SH, T4, LIPID, T7, URIC, CMP #### [facility] [address] [place] [address] Dr. Allyson Guerrero EGFR-AF [place] >60 Normal >=60 [facility] Comment on above: Performed By: #### T SH, T4, LIPID, T7, URIC, CMP #### [facility] [address] [place] [address] Dr. Allyson Guerrero EGFR-NON AF [place] >60 Normal >=60 [facility] Comment on above: Performed By: #### T SH, T4, LIPID, T7, URIC, CMP #### [facility] [address] [place] [address] Dr. Allyson Guerrero Globulin (S) [Mass/Vol] 3.7 g/dL Normal [facility] Comment on above: Performed By: #### T SH, T4, LIPID, T7, URIC, CMP #### [facility] [address] [place] [address] Dr. Allyson Guerrero Glucose [Mass/Vol] 265 mg/dL Critically high 74-106 [facility] Comment on above: Performed By: #### T SH, T4, LIPID, T7, URIC, CMP #### [facility] [address] [place] [address] Dr. Allyson Guerrero Potassium [Moles/Vol] 4.4 mmol/L Normal 3.4-5.0 [facility] Comment on above: Performed By: #### T SH, T4, LIPID, T7, URIC, CMP #### [facility] [address] [place] [address] Dr. Allyson Guerrero Protein [Mass/Vol] 7.2 g/dL Normal 6.1-8.[address] [facility] Comment on above: Performed By: #### T SH, T4, LIPID, T7, URIC, CMP #### [facility] [address] [place] [address] Dr. Allyson Guerrero Sodium [Moles/Vol] 136 mmol/L Critically low 137-145 [facility] Comment on above: Performed By: #### T SH, T4, LIPID, T7, URIC, CMP #### [facility] [address] [place] [address] Dr. Allyson Guerrero Urea nitrogen [Mass/Vol] 13.0 mg/dL Normal 9.0-20.0 [facility] Comment on above: Performed By: #### T SH, T4, LIPID, T7, URIC, CMP #### [facility] [address] [place] [address] Dr. Allyson Guerrero Urea nitrogen/Creatinine [Mass ratio] 13.3 mg/mg Normal [facility] Comment on above: Performed By: #### T SH, T4, LIPID, T7, URIC, CMP #### [facility] [address] [address] [address] Allyson Guerrero TSHon 08-18-2021 TSH 2.147 uIU/mL Normal 0.470-4.680 [facility] Comment on above: Performed By: #### U MICRO, ERUR #### [facility] [address] [address] [address] Allyson Guerrero TSH RANGE SEE BELOW Normal [facility] Comment on above: Result Comment: <0.3 4 UIU/ml HYPERTHYROID 0.34-5.60 UIU/ml EUTHYROID >5.60 UIU/ml HYPOTHYROID Performed By: #### U MICRO, ERUR #### [facility] [address] [address] [address] Allyson Guerrero URIC ACID SERUMon 08-18-2021 Urate [Mass/Vol] 4.4 mg/dL Normal 3.5-8.5 [facility] Comment on above: Performed By: #### U MICRO, ERUR #### [facility] [address] [place] [address] Dr. Allyson Guerrero COVID Quick Testingon 2020 Result Negative [facility] Other Social History Date Type Detail Facility Start: 05-29-2022 End: 11-04-2023 Tobacco smoking status Ex-smoker (finding) [facility] Start: 1965 Sex Assigned At Male [facility] Unknown if ever smoked [facility] Other Sex Assigned At [facility] Tobacco smoking status Never [facility] Vital Signs Date Time Vital Sign Value Performing Clinician Facility 11-10-2023 07:54-0400 Body temperature 98.2 [degF] MD Rylee Link Work Phone: [facility] 11-10-2023 07:54-0400 Diastolic blood pressure 76 mm[Hg] MD Rylee Link Work Phone: [facility] 11-10-2023 07:54-0400 Heart rate 92 /min MD Rylee Link Work Phone: [facility] 11-10-2023 07:54-0400 Respiratory rate 14 /min MD Rylee Link Work Phone: [facility] 11-10-2023 07:54-0400 SaO2% (BldA) [Mass fraction] 95 % MD Rylee Link Work Phone: [facility] 11-10-2023 07:54-0400 Systolic blood pressure 114 mm[Hg] MD Rylee Link Work Phone: [facility] 11-07-2023 09:40-0400 Body height 167.64 cm MD Rylee Link Work Phone: [facility] 11-04-2023 06:18-0400 Body weight 81.7 kg MD Rylee Link Work Phone: [facility] 05-29-2022 08:59-0500 Blood Pressure Location Najma Lue [facility] 05-29-2022 08:59-0500 Diastolic blood pressure 66 mm[Hg] Najma Lue [facility] 05-29-2022 08:59-0500 Heart rate 106 /min Najma Lue [facility] 05-29-2022 08:59-0500 Systolic blood pressure 147 mm[Hg] Najma Lue [facility] 06-17-2021 13:00-0500 Body height 161.29 cm Eva Carrillo Other [facility] Other 06-17-2021 13:00-0500 Body mass index (BMI) [Ratio] 33.13 kg/m2 Eva Carrillo Other [facility] Other 06-17-2021 13:00-0500 Body temperature 97.7 [degF] Eva Carrillo Other [facility] Other 06-17-2021 13:00-0500 Body weight 86.18 kg Eva Carrillo Other [facility] Other 06-17-2021 13:00-0500 Respiratory rate 18 /min Eva Carrillo Other [facility] Other 06-17-2021 13:00-0500 SaO2% (BldA) [Mass fraction] 96 % Eva Carrillo Other [facility] Other Functional Status Date Assessment Result Facility 11-10-2023 Functional status Patient at Baseline [facility] Work Phone: 05-29-2022 Functional Status N/A [facility] Mental Status Date Assessment Result Facility 11-10-2023 Cognitive function Cognitive Sta tus Patient at Baseline [facility] Work Phone: Clinical Notes 06-17-2021 to 12-11-2023 Note Date & Type Note Facility 12-11-2023 Note [facility] 11-07-2023 Progress note Note Date/Time November 05, 2023 2:19pm [facility] [address] [place] [address] Physiatry(Rehab) Progress Note Signed Patient: Jeramie Galvan MR#: [id number] : 1965 Acct:[id number] Age/Sex: 57 / M Adm Date: 4 Loc: Room: 7C3667-5 Type: ADM IN Attending Dr: Terrell Richardson MD Copies to: ~ Date of Service: 11/05/2023 Subjective Subjective Narrative: Mr. Galvan is a 57 year old male with medical history of mlq-jhymtjn-fmpogrugx DM type II, hypertension and hyperlipidemia admitted to acute inpatient rehab with functional impairments in the setting of non-STEMI s/p CABG x 4. Patient initially presented to his family doctor with complaints of ongoing/worsening chest pain for several weeks. Patient thought he's had a viral illness with some cough, nasal drainage and associated chest tightness. Chest discomfort gradually became worse, especially with activity. He was also becoming dyspneic on exertion. Underwent a stress test which was abnormal and sent to [facility]. After some workup eventually transferred to [facility] for further management. Left Heart catheterization demonstrated multivessel disease. Echocardiogram with normal EF and no valvular abnormalities. On 10/26 patient underwent CABG x 4 (GAGNON to LAD, AICHA to OM 3, LSVG to PD, LSVG to OM 2). No major intraoperative complications. Postoperatively had some increased oxygen demands requiring BiPAP/high flow. Was diuresed with IV furosemide with improvement in respiratory status. Eventually weaned off of oxygen. Did sustain a mechanical fall while in the hospital. No injury, imaging was negative. Was evaluated by PT/OT and recommended acute rehab to address functional impairments. On assessment this morning patient is alert, oriented pleasant andcooperative. Reports no pain or major discomfort. Denies palpitations, shortness of breath. Does endorse persistent dry, nonproductive cough; this hasbeen going on since preoperative period. His vitals are stable. Is afebrile and remains on room air saturating in high 90s. Midsternal incision is well-approximated without surrounding erythema. There is moderate serous sanguinous drainage from the bottom of the incision, although there is no dehiscence. Nursing instructed to reinforce the dressing and monitor incision for signs of infection. Interval history: Patient seen and evaluated in his room this afternoon. He is alert, pleasant, oriented. He has not slept well, partly because he feels anxious being in the hospital. Wishes he could just get up and walk around but understands he has totake precautions while in the hospital. Midsternal incision is draining much less. He is asking about discharge home. He is doing very well functionally and couldprobably go home soon. Will arrange an FI with family/friend. Review of Systems Review of Systems All other systems reviewed & are negative unless noted below or in HPI Exam Physical Exam Vital Signs: Temp Pulse Resp BP Pulse Ox O2 Del Method 98.3 F 94 18 116/72 96 Room Air 11/05/23 05:30 11/05/23 05:30 11/05/23 05:30 11/05/23 05:30 11/05/23 05:30 11/05/23 07:30 Narrative: General: Awake, alert, oriented x3 HENT: Normal to inspection, normocephalic, atraumatic Eyes: PERRL, normal conjunctiva and sclera Neck: Normal ROM, normal visual inspection. Trachea midline. Chest: Midsternal incision, well-approximated/glue, no surrounding erythema. Lower incisional drainage, serosanguineous. Cardio: Regular heart rate and rhythm Respiratory: Clear to auscultation bilaterally, diminished in bases bilaterally. Normal respiratory effort. No respiratory distress. Dry nonproductive cough GI: Abdomen soft, nontender, nondistended, active bowel sounds x4 quadrants Neuro: CN II-XII intact. Strength 5/5, equal bilaterally Extremities: No edema, erythema, cyanosis Psych: Mood and affect appropriate. Normal speech. Objective Labs 11/04/23 05:09 11/04/23 05:09 Labs: Laboratory Results - last 24 hr 11/04/23 11/04/23 11/05/23 16:41 20:52 07:05 POC Glucose 109 191 130 POC Glucose Comment Glu2: cleaned meter 11/05/23 11:39 POC Glucose 149 POC Glucose Comment Glu2: cleaned meter Medications and Allergies Allergies and Active Meds: Allergies No Known Allergies Allergy (Verified 11/03/23 18:36) Active Medications Generic Name Dose Route Start Last Admin Trade Name Freq PRN Reason Stop Dose Admin Acetaminophen 500 mg 11/03/23 18:10 Acetaminophen 500 Mg Tablet PO 11/02/24 18:09 Q4H PRN Pain Al Hydrox/Mg Hydrox/Simethicone 30 ml 11/03/23 18:10 Mag Hydrox/Al Hydrox/Simeth 30 Ml Udc PO 11/02/24 18:09 Q4H PRN Indigestion Aspirin 81 mg 11/04/23 09:00 11/05/23 08:18 Aspirin 81 Mg Tab.Chew PO 11/03/24 08:59 81 mg DAILY PAULETTE Administration Atorvastatin Calcium 80 mg 11/03/23 22:00 11/04/23 22:03 Atorvastatin 80 Mg Tablet PO 11/02/24 21:59 80 mg QHS [facility] Administration Benzonatate 200 mg 11/04/23 10:31 11/04/23 14:14 Benzonatate 100 Mg Capsule PO 11/03/24 10:30 200 mg TID PRN Administration Cough Bisacodyl 10 mg 11/03/23 18:10 Bisacodyl 10 Mg Supp.Rect [place] 11/02/24 18:09 DAILY PRN Constipation Clopidogrel Bisulfate 75 mg 11/04/23 09:00 11/05/23 08:19 Clopidogrel Bisulfate 75 Mg Tablet PO 11/03/24 08:59 75 mg DAILY [facility] Administration Docusate Sodium 100 mg 11/03/23 18:10 Docusate 100 Mg Capsule PO 11/02/24 18:09 BID PRN Constipation Docusate Sodium 283 mg 11/03/23 18:10 Docusate Enema 283 Mg/5 Ml Enema [place] 11/02/24 18:09 DAILY PRN Constipation Ezetimibe 10 mg 11/03/23 22:00 11/04/23 22:03 Ezetimibe 10 Mg Tablet PO 11/02/24 21:59 10 mg HS [facility] Administration Enoxaparin Sodium 40 mg 11/05/23 10:00 11/05/23 10:46 Enoxaparin 40 Mg/0.4 Ml Syringe SUBCUT 11/04/24 09:59 40 mg DAILY@1000 [facility] Administration Ferrous Sulfate 324 mg 11/05/23 09:00 11/05/23 08:19 Ferrous Sulfate 324 Mg Tablet.Dr PO 11/04/24 08:59 324 mg DAILY [facility] Administration Guaifenesin 600 mg 11/04/23 21:00 11/05/23 08:18 Guaifenesin 600 Mg Tab.Er.12h PO 11/03/24 20:59 600 mg BID [facility] Administration Insulin Aspart 0 units 11/03/23 22:00 11/05/23 11:46 Insulin Aspart 300 Units/3 Ml Insuln.Pen SUBCUT 11/02/24 21:59 Not Given TID.WM.HS [facility] Protocol Insulin Glargine 15 units 11/03/23 21:00 11/05/23 08:19 Insulin Glargine 300 Units/3 Ml Insuln.Pen SUBCUT 11/02/24 20:59 15 units BID [facility] Administration Lactulose 30 gm 11/03/23 18:10 Lactulose 20 Gm/30 Ml Udc PO 11/02/24 18:09 DAILY PRN Constipation Melatonin 10 mg 11/05/23 22:00 Melatonin 5 Mg Tablet PO 11/04/24 21:59 QHS [facility] Metoprolol Tartrate 12.5 mg 11/03/23 21:00 11/05/23 08:19 Metoprolol Tartrate 25 Mg Tablet PO 11/02/24 20:59 12.5 mg BID PAU[facility]TTE Administration Semaglutide [Ozempic 0.5 mg 11/17/23 09:00 ] 0.25 Mg Or 0.5 Mg SUBCUT 11/16/24 08:59 (2 Mg/3 Ml) Pen QWEEK [facility] Injector Sennosides 2 tab 11/04/23 12:00 Sennosides 8.6 Mg Tablet PO 11/03/24 11:59 DAILY@12 PRN If no BM in 2 days Sodium Chloride 0 ml 11/03/23 18:10 Sodium Chloride 0.9 % 10 Ml Syringe IV-PUSH 11/02/24 18:09 PRN PRN Flush Assessment/Plan Assessment/Plan (1) S/P CABG x 4: (2) Coronary artery disease: (3) Anemia: (4) NSTEMI (non-ST elevated myocardial infarction): (5) Hypertension: (6) Diabetes: (7) Impaired mobility and activities of daily living: (8) Hyperlipidemia: Plan Is a 57-year-old male with past medical history of diabetes, hypertension and hyperlipidemia presents to acute inpatient rehab unit with functional impairments in the setting of newly diagnosed CAD with multivessel disease, s/p CABG x 4. * Chest x-ray from yesterday is unremarkable. * Midsternal incision has much less drainage compared to yesterday. Continue to monitor. Culture of the drainage if persists. * Doing very well in therapy and wants to go home soon. Will bring family in for an FI. Patient education Pressure ulcer prophylaxis; encourage mobilization, frequent postural changes, pressure-relief techniques DVT prophylaxis Encourage deep breathing exercise incentive spirometry. Monitor bladder. Toileting schedule. Continue current bladder management, with scans as needed and CIC if needed. Start bowel care program every day to obtain continence, prevent ileus. Maintain fall precautions Gait and balance retraining Functional training and self-care and home management, including activities of daily living and instrumental activities of daily living Provision of the necessary gait aids and functional adaptive equipment to enhance the patient's a functional scientology Ensure adequate nutrition and hydration Sleep: No issues Pain: No issues Discharge planning: Home with family in a week or so. I spent 23 minutes for services, including [id number] encounter with the patient, discussion of the case, plan of care, and exam; and [id number] activities, such as reviewing pertinent bilingual sales consultant documentation, recent therapynotes, laboratory and radiology studies, and discussion of case with care team including physician, nursing, major case detective, and therapists. More than 50 % of time was spent on patient/family counseling or coordination ofcare. <Statement entered by Terrell Richardson MD - 11/07/23 12:36> This documentation has been reviewed and approved. Patient was personally seen by me, Dr. Richardson, on the day of encounter, reviewed the history and the relevant portions of the chart, including current orders, allied health and bilingual sales consultant notes, labs/imaging and performed clarke elements of exam and I formulated the plan of care and facilitated the medical decision making. I completed a substantive portion of this encounter, the medical decision makingportion of this note in its entirety, including Allied health note review, nursing note review, bilingual sales consultant note review, discussion with nursing and case management, and more than 50% of my time was spent on counseling and coordination of care, time spent 25 minutes Documented By: Moon Beck APRN 11/05/23 1 417 Signed By: <Electronically signed by YIN Beck> 11/05/23 1434 <Electronically signed by Terrell Richardson MD> 11/07/23 3560 [facility] Work Phone: [phone]) 927-829805-10-2024 Progress note Author Terrell Richardson [facility] November 07, 2023 12:36pm Note Date/Time November 06, 2023 11:19a m [facility] [address] [place] [address] Physiatry(Rehab) Progress Note Signed Patient: Jeramie Galvan MR#: [id number] : 1965 Acct:[id number] Age/Sex: 57 / M Adm Date: 4 Loc: 5T Room: 7I6963-4 Type: ADM IN Attending Dr: Terrell Richardson MD Copies to: ~ Date of Service: 11/06/2023 Subjective Subjective Narrative: Mr. Galvan is a 57 year old male with medical history of ayo-bmggtka-lpctsqiiv DM type II, hypertension and hyperlipidemia admitted to acute inpatient rehab with functional impairments in the setting of non-STEMI s/p CABG x 4. Patient initially presented to his family doctor with complaints of ongoing/worsening chest pain for several weeks. Patient thought he's had a viral illness with some cough, nasal drainage and associated chest tightness. Chest discomfort gradually became worse, especially with activity. He was also becoming dyspneic on exertion. Underwent a stress test which was abnormal and sent to [facility]. After some workup eventually transferred to [facility] for further management. Left Heart catheterization demonstrated multivessel disease. Echocardiogram with normal EF and no valvular abnormalities. On 10/26 patient underwent CABG x 4 (GAGNON to LAD, AICHA to OM 3, LSVG to PD, LSVG to OM 2). No major intraoperative complications. Postoperatively had some increased oxygen demands requiring BiPAP/high flow. Was diuresed with IV furosemide with improvement in respiratory status. Eventually weaned off of oxygen. Did sustain a mechanical fall while in the hospital. No injury, imaging was negative. Was evaluated by PT/OT and recommended acute rehab to address functional impairments. On assessment this morning patient is alert, oriented pleasant andcooperative. Reports no pain or major discomfort. Denies palpitations, shortness of breath. Does endorse persistent dry, nonproductive cough; this hasbeen going on since preoperative period. His vitals are stable. Is afebrile and remains on room air saturating in high 90s. Midsternal incision is well-approximated without surrounding erythema. There is moderate serous sanguinous drainage from the bottom of the incision, although there is no dehiscence. Nursing instructed to reinforce the dressing and monitor incision for signs of infection. Interval history: Patient is up in the chair on assessment this morning. He slept much better today. Feels less anxious. A.m. vitals noted, stable. BP on the low side but he has no symptoms. Blood glucose is reasonably controlled. Asking about discharge again. His family is going to come in for an FI on Friday, can discharge home afterwards if all goes well. Review of Systems Review of Systems All other systems reviewed & are negative unless noted below or in HPI Exam Physical Exam Vital Signs: Temp Pulse Resp BP Pulse Ox O2 Del Method 98.6 F 85 16 101/52 L 97 Room Air 11/06/23 10:38 11/06/23 10:38 11/06/23 10:38 11/06/23 10:38 11/06/23 10:38 11/06/23 10:38 Narrative: General: Awake, alert, oriented x3 HENT: Normal to inspection, normocephalic, atraumatic Eyes: PERRL, normal conjunctiva and sclera Neck: Normal ROM, normal visual inspection. Trachea midline. Chest: Midsternal incision, well-approximated/glue, no surrounding erythema. Lower incisional drainage, serosanguineous. Cardio: Regular heart rate and rhythm Respiratory: Clear to auscultation bilaterally, diminished in bases bilaterally. Normal respiratory effort. No respiratory distress. Dry nonproductive cough GI: Abdomen soft, nontender, nondistended, active bowel sounds x4 quadrants Neuro: CN II-XII intact. Strength 5/5, equal bilaterally Extremities: No edema, erythema, cyanosis Psych: Mood and affect appropriate. Normal speech. Objective Labs 11/04/23 05:09 11/04/23 05:09 Labs: Laboratory Results - last 24 hr 11/05/23 11/05/23 11/05/23 11:39 16:22 20:20 POC Glucose 149 154 175 POC Glucose Comment Glu2: cleaned meter 11/06/23 06:50 POC Glucose 138 POC Glucose Comment Additional Results Results Comments: I reviewed clinical lab tests, radiology reports and obtained and summated medical records and have ordered follow up lab tests and imaging studies as needed for rehabilitation care. Medications and Allergies Allergies and Active Meds: Allergies No Known Allergies Allergy (Verified 11/03/23 18:36) Active Medications Generic Name Dose Route Start Last Admin Trade Name Freq PRN Reason Stop Dose Admin Acetaminophen 500 mg 11/03/23 18:10 Acetaminophen 500 Mg Tablet PO 11/02/24 18:09 Q4H PRN Pain Al Hydrox/Mg Hydrox/Simethicone 30 ml 11/03/23 18:10 Mag Hydrox/Al Hydrox/Simeth 30 Ml Udc PO 11/02/24 18:09 Q4H PRN Indigestion Aspirin 81 mg 11/04/23 09:00 11/06/23 08:10 Aspirin 81 Mg Tab.Chew PO 11/03/24 08:59 81 mg DAILY PAU[facility] Administration Atorvastatin Calcium 80 mg 11/03/23 22:00 11/05/23 21:57 Atorvastatin 80 Mg Tablet PO 11/02/24 21:59 80 mg QHS [facility] Administration Benzonatate 200 mg 11/04/23 10:31 11/04/23 14:14 Benzonatate 100 Mg Capsule PO 11/03/24 10:30 200 mg TID PRN Administration Cough Bisacodyl 10 mg 11/03/23 18:10 Bisacodyl 10 Mg Supp.Rect [place] 11/02/24 18:09 DAILY PRN Constipation Clopidogrel Bisulfate 75 mg 11/04/23 09:00 11/06/23 08:10 Clopidogrel Bisulfate 75 Mg Tablet PO 11/03/24 08:59 75 mg DAILY PAULETTE Administration Docusate Sodium 100 mg 11/03/23 18:10 Docusate 100 Mg Capsule PO 11/02/24 18:09 BID PRN Constipation Docusate Sodium 283 mg 11/03/23 18:10 Docusate Enema 283 Mg/5 Ml Enema [place] 11/02/24 18:09 DAILY PRN Constipation Ezetimibe 10 mg 11/03/23 22:00 11/05/23 21:58 Ezetimibe 10 Mg Tablet PO 11/02/24 21:59 10 mg HS [facility] Administration Enoxaparin Sodium 40 mg 11/05/23 10:00 11/06/23 08:19 Enoxaparin 40 Mg/0.4 Ml Syringe SUBCUT 11/04/24 09:59 40 mg DAILY@1000 [facility] Administration Ferrous Sulfate 324 mg 11/05/23 09:00 11/06/23 08:10 Ferrous Sulfate 324 Mg Tablet.Dr PO 11/04/24 08:59 324 mg DAILY [facility] Administration Guaifenesin 600 mg 11/04/23 21:00 11/06/23 08:10 Guaifenesin 600 Mg Tab.Er.12h PO 11/03/24 20:59 600 mg BID [facility] Administration Insulin Aspart 0 units 11/03/23 22:00 11/06/23 08:11 Insulin Aspart 300 Units/3 Ml Insuln.Pen SUBCUT 11/02/24 21:59 Not Given TID.WM.HS [facility] Protocol Insulin Glargine 15 units 11/03/23 21:00 11/06/23 08:10 Insulin Glargine 300 Units/3 Ml Insuln.Pen SUBCUT 11/02/24 20:59 15 units BID PAULETTE Administration Lactulose 30 gm 11/03/23 18:10 Lactulose 20 Gm/30 Ml Udc PO 11/02/24 18:09 DAILY PRN Constipation Melatonin 10 mg 11/05/23 22:00 11/05/23 21:58 Melatonin 5 Mg Tablet PO 11/04/24 21:59 10 mg QHS PAULETTE Administration Metoprolol Tartrate 12.5 mg 11/03/23 21:00 11/06/23 08:10 Metoprolol Tartrate 25 Mg Tablet PO 11/02/24 20:59 12.5 mg BID PAULETTE Administration Semaglutide [Ozempic 0.5 mg 11/17/23 09:00 ] 0.25 Mg Or 0.5 Mg SUBCUT 11/16/24 08:59 (2 Mg/3 Ml) Pen QWEEK PAULETTE Injector Sennosides 2 tab 11/04/23 12:00 Sennosides 8.6 Mg Tablet PO 11/03/24 11:59 DAILY@12 PRN If no BM in 2 days Sodium Chloride 0 ml 11/03/23 18:10 Sodium Chloride 0.9 % 10 Ml Syringe IV-PUSH 11/02/24 18:09 PRN PRN Flush Assessment/Plan Assessment/Plan (1) S/P CABG x 4: (2) Coronary artery disease: (3) Anemia: (4) NSTEMI (non-ST elevated myocardial infarction): (5) Hypertension: (6) Diabetes: (7) Impaired mobility and activities of daily living: (8) Hyperlipidemia: Plan Is a 57-year-old male with past medical history of diabetes, hypertension and hyperlipidemia presents to acute inpatient rehab unit with functional impairments in the setting of newly diagnosed CAD with multivessel disease, s/p CABG x 4. * Will repeat labs over the weekend. * Continues to work with therapy. Likely approaching his functional baseline. * FI with family on Friday, hopefully home thereafter. Patient education Pressure ulcer prophylaxis; encourage mobilization, frequent postural changes, pressure-relief techniques DVT prophylaxis Encourage deep breathing exercise incentive spirometry. Monitor bladder. Toileting schedule. Continue current bladder management, with scans as needed and CIC if needed. Start bowel care program every day to obtain continence, prevent ileus. Maintain fall precautions Gait and balance retraining Functional training and self-care and home management, including activities of daily living and instrumental activities of daily living Provision of the necessary gait aids and functional adaptive equipment to enhance the patient's a functional scientology Ensure adequate nutrition and hydration Sleep: No issues Pain: No issues Discharge planning: Home with family in a week or so. I spent 15 minutes for services, including [id number] encounter with the patient, discussion of the case, plan of care, and exam; and [id number] activities, such as reviewing pertinent bilingual sales consultant documentation, recent therapynotes, laboratory and radiology studies, and discussion of case with care team including physician, nursing, major case detective, and therapists. More than 50 % of time was spent on patient/family counseling or coordination ofcare. <Statement entered by Terrell Richardson MD - 11/07/23 12:36> This documentation has been reviewed and approved. I reviewed the history and the relevant portions of the chart, including currentorders, allied health and bilingual sales consultant notes, labs/imaging and plan of care as above. Documented By: Moon Beck APRN 11/06/23 1 116 Signed By: <Electronically signed by YIN Beck> 11/06/23 1119 <Electronically signed by Terrell Richardson MD> 11/07/23 [address] [facility] Work Phone: [phone] 574-473605-08-2024 History and physical note Author Terrell Richardson [facility] November 05, 2023 9:06am Note Date/Time November 04, 2023 10:45a m [facility] [address] [place] [address] Physiatry (Rehab) H&P Signed Patient: Jeramie Galvan MR#: [id number] : 1965 Acct:[id number] Age/Sex: 57 / M Adm Date: 4 Loc: Room: 8P3074-1 Type: ADM IN Attending Dr: Terrell Richardson MD Copies to: MD Moon Restrepo, YIN Richardson MD~ Date of Service: 11/04/2023 HPI The patient was seen and examined on: 11/04/23 History of Present Illness: Mr. Galvan is a 57 year old male with medical history of [id number]-[id number] DM type II, hypertension and hyperlipidemia admitted to acute inpatient rehab with functional impairments in the setting of non-STEMI s/p CABG x 4. Patient initially presented to his family doctor with complaints of ongoing/worsening chest pain for several weeks. Patient thought he's had a viral illness with some cough, nasal drainage and associated chest tightness. Chest discomfort gradually became worse, especially with activity. He was also becoming dyspneic on exertion. Underwent a stress test which was abnormal and sent to [place] [facility]. After some workup eventually transferred to [facility] for further management. Left Heart catheterization demonstrated multivessel disease. Echocardiogram with normal EF and no valvular abnormalities. On 10/26 patient underwent CABG x 4 (GAGNON to LAD, AICHA to OM 3, LSVG to PD, LSVG to OM 2). No major intraoperative complications. Postoperatively had some increased oxygen demands requiring BiPAP/high flow. Was diuresed with IV furosemide with improvement in respiratory status. Eventually weaned off of oxygen. Did sustain a mechanical fall while in the hospital. No injury, imaging was negative. Was evaluated by PT/OT and recommended acute rehab to address functional impairments. On assessment this morning patient is alert, oriented pleasant and cooperative. Reports no pain or major discomfort. Denies palpitations, shortness of breath. Does endorse persistent dry, nonproductive cough; this hasbeen going on since preoperative period. His vitals are stable. Is afebrile and remains on room air saturating in high 90s. Midsternal incision is well-approximated without surrounding erythema. There is moderate serous sanguinous drainage from the bottom of the incision, although there is no dehiscence. Nursing instructed to reinforce the dressing and monitor incision for signs of infection. [facility] Medical History (Updated 11/04/23 @ 16:56 by Michelle Gomez APRN) Diabetes mellitus with neuropathy NSTEMI (non-ST elevated myocardial infarction) Diabetes Anemia Hypertension Myocardial infarct BPH (benign prostatic hyperplasia) GERD (gastroesophageal reflux disease) Coronary artery disease Surgical History S/P CABG x 3 Family History Father Diabetes Social History Smoking Status: Former smoker Review of Systems Review of Systems All other systems reviewed & are negative unless noted below or in HPI Meds Medications and Allergies Allergies No Known Allergies Allergy (Verified 11/03/23 18:36) Home and Active Meds: Home Medications aspirin 81 mg chewable tablet 81 mg PO DAILY 11/03/23 [History Confirmed 11/03/23] atorvastatin 80 mg tablet 80 mg PO QHS 11/03/23 [History Confirmed 11/03/23] clopidogrel 75 mg tablet 75 mg PO DAILY 11/03/23 [History Confirmed 11/03/23] ezetimibe 10 mg tablet 10 mg PO HS 11/03/23 [History Confirmed 11/03/23] ferrous sulfate 325 mg (65 mg iron) tablet (FeroSul) 325 mg PO BID.WITH.BFAST.SUPPE 11/03/23 [History Confirmed 11/03/23] gabapentin 100 mg capsule 100 mg PO TID 11/03/23 [History Confirmed 11/03/23] insulin glargine 100 unit/mL (3 mL) subcutaneous pen (Lantus Solostar U-100 Insulin) 15 unit subcut BID 11/03/23 [History Confirmed 11/03/23] metoprolol tartrate 25 mg tablet 12.5 mg PO BID 11/03/23 [History Confirmed 11/03/23] semaglutide 0.25 mg or 0.5 mg (2 mg/3 mL) subcutaneous pen injector (Ozempic) 0.5 mg subcut QWEEK 11/03/23 [History Confirmed 11/03/23] Active Medications Acetaminophen (Acetaminophen 500 Mg Tablet) 500 mg PO Q4H PRN PRN Reason: Pain Stop: 11/02/24 18:09 Al Hydrox/Mg Hydrox/Simethicone (Mag Hydrox/Al Hydrox/Simeth 30 Ml Udc) 30 ml PO Q4H PRN PRN Reason: Indigestion Stop: 11/02/24 18:09 Aspirin (Aspirin 81 Mg Tab.Chew) 81 mg PO DAILY PAULETTE Stop: 11/03/24 08:59 Last Admin: 11/04/23 08:18 Dose: 81 mg Atorvastatin Calcium (Atorvastatin 80 Mg Tablet) 80 mg PO QHS [facility] Stop: 11/02/24 21:59 Last Admin: 11/03/23 22:15 Dose: 80 mg Benzonatate (Benzonatate 100 Mg Capsule) 200 mg PO TID PRN PRN Reason: Cough Stop: 11/03/24 10:30 Bisacodyl (Bisacodyl 10 Mg Supp.Rect) 10 mg OH DAILY PRN PRN Reason: Constipation Stop: 11/02/24 18:09 Clopidogrel Bisulfate (Clopidogrel Bisulfate 75 Mg Tablet) 75 mg PO DAILY [facility] Stop: 11/03/24 08:59 Last Admin: 11/04/23 08:18 Dose: 75 mg Docusate Sodium (Docusate 100 Mg Capsule) 100 mg PO BID PRN PRN Reason: Constipation Stop: 11/02/24 18:09 Docusate Sodium (Docusate Enema 283 Mg/5 Ml Enema) 283 mg OH DAILY PRN PRN Reason: Constipation Stop: 11/02/24 18:09 Ezetimibe (Ezetimibe 10 Mg Tablet) 10 mg PO [facility] Stop: 11/02/24 21:59 Last Admin: 11/03/23 22:15 Dose: 10 mg Ferrous Sulfate (Ferrous Sulfate 324 Mg Tablet.Dr) 324 mg PO BID.WITH.BFAST.SUPPE [facility] Stop: 11/03/24 07:59 Last Admin: 11/04/23 08:18 Dose: 324 mg Gabapentin (Gabapentin 100 Mg Capsule) 100 mg PO TID [facility] Stop: 11/02/24 21:59 Last Admin: 11/04/23 08:18 Dose: 100 mg Insulin Aspart (Insulin Aspart 300 Units/3 Ml Insuln.Pen) 0 units SUBCUT TID.WM.HS [facility]; Protocol Stop: 11/02/24 21:59 Last Admin: 11/04/23 08:18 Dose: 2 units Insulin Glargine (Insulin Glargine 300 Units/3 Ml Insuln.Pen) 15 units SUBCUT BID [facility] Stop: 11/02/24 20:59 Last Admin: 11/04/23 08:19 Dose: 15 units Lactulose (Lactulose 20 Gm/30 Ml Udc) 30 gm PO DAILY PRN PRN Reason: Constipation Stop: 11/02/24 18:09 Metoprolol Tartrate (Metoprolol Tartrate 25 Mg Tablet) 12.5 mg PO BID [facility] Stop: 11/02/24 20:59 Last Admin: 11/04/23 08:18 Dose: 12.5 mg Semaglutide [Ozempic ] 0.25 Mg Or 0.5 Mg (2 Mg/3 Ml) Pen Injector 0.5 mg SUBCUTQWEEK [facility] Stop: 11/16/24 08:59 Sennosides (Sennosides 8.6 Mg Tablet) 2 tab PO DAILY@12 PRN PRN Reason: If no BM in 2 days Stop: 11/03/24 11:59 Sodium Chloride (Sodium Chloride 0.9 % 10 Ml Syringe) 0 ml IV-PUSH PRN PRN PRN Reason: Flush Stop: 11/02/24 18:09 Exam Physical Exam Vital Signs: Temp Pulse Resp BP Pulse Ox O2 Del Method 98.6 F 96 18 116/71 95 Room Air 11/04/23 06:16 11/04/23 06:16 11/04/23 06:16 11/04/23 06:16 11/04/23 06:16 11/04/23 07:30 Narrative: General: Awake, alert, oriented x3 HENT: Normal to inspection, normocephalic, atraumatic Eyes: PERRL, normal conjunctiva and sclera Neck: Normal ROM, normal visual inspection. Trachea midline. Chest: Midsternal incision, well-approximated/glue, no surrounding erythema. Lower incisional drainage, serosanguineous. Cardio: Regular heart rate and rhythm Respiratory: Clear to auscultation bilaterally, diminished in bases bilaterally. Normal respiratory effort. No respiratory distress. Dry nonproductive cough GI: Abdomen soft, nontender, nondistended, active bowel sounds x4 quadrants Neuro: CN II-XII intact. Strength 5/5, equal bilaterally Extremities: No edema, erythema, cyanosis Psych: Mood and affect appropriate. Normal speech. Results - Phys. Rehab Labs Labs: Laboratory Results - last 24 hr 11/03/23 11/04/23 11/04/23 20:50 05:09 07:05 Corrected WBC 9.4 Uncorrected WBC Count 9.4 RBC 3.03 L Hgb 9.1 L Hct 26.9 L MCV 88.9 MCH 30.0 MCHC 33.8 RDW 13.7 Plt Count 283 MPV 7.1 Neut % (Auto) 57.7 Lymph % (Auto) 26.4 [place] % (Auto) 13.6 Eos % (Auto) 1.9 Baso % (Auto) 0.4 Nucleat RBC Rel Count 0.2 Neut # (Auto) 5.4 Lymph # (Auto) 2.5 [place] # (Auto) 1.3 H Eos # (Auto) 0.2 Baso # (Auto) 0.0 PHA Creatinine Clear 89.89 Sodium 142 Potassium 3.7 Chloride 104 Carbon Dioxide 30.1 Anion Gap 11.6 BUN 14 Creatinine 0.91 Est GFR (CKD-EPI) > 60.0 Glucose 83 POC Glucose 96 152 POC Glucose Comment Glu2: cleaned meter Glu2: cleaned meter Calcium 8.6 Total Bilirubin 0.7 AST 33 ALT 26 Alkaline Phosphatase 54 Total Protein 5.6 L Albumin 3.3 L Globulin 2.3 Albumin/Globulin Ratio 1.4 Prealbumin 14.2 L Additional Results Results Comment: I reviewed clinical lab tests, radiology reports and obtained and summated medical records and have ordered follow up lab tests and imaging studies as needed for rehabilitation care. Functional Status Prior Level of Function Narrative: Patient was previously independent Current Level of Function Narrative: Ambulatory short distances with mod assist, no assistive device, supervision with bed mobility. Individualized Plan of Care Individualized Plan of Care Plan of Care: Individualized Overall Plan of Care: Admit Date/Time: November 04, 2023 Expected LOS: 14 days Expected Discharge Destination: Home Rehabilitation C: 09 Primary Diagnosis: s/p CABG Patient?s/Family?s anticipated outcomes/personal goals: To have patient become more independent and to return home. Medical/ Functional Prognosis: Good Anticipated Functional Outcomes/Goals and Interventions: -Therapy Functional Outcome/Goal: Mobility/Locomotion: Patient likely to be independent with ambulation with assistive device. Anticipated interventions: Physician management, PT, OT, Dietitian, Rehab Nursing - Therapy Functional Outcome/Goal: Self Care: Patient likely to be functionally independent for activities of daily living using assistive / adaptive equipment as needed. Anticipated interventions: Physician management, PT, OT, Dietitian, Rehab Nursing - Therapy Functional Outcome/Goal: Bladder/Bowel Management: Patient likely to be independent with bladder care and independent with bowel care. Anticipated interventions: Physician management, PT, OT, Dietitian, Rehab Nursing -Therapy Functional Outcome/Goal: Communication/Cognition: Patient will be able to communicate fully and be safe cognitively. Anticipated interventions: Physician management, PT, OT, Dietitian, Rehab Nursing -Therapy Functional Outcome/Goal: Patient will be independent for bed mobility and transfers Anticipated interventions: Physician management, PT, OT, Dietitian, Rehab Nursing -Therapy Functional Outcome/Goal: Patient will improve endurance to be able to tolerate all daily self care activities and avocational activities. Anticipated interventions: Physician management, PT, OT, Nutrition, Rehab Nursing -Therapy Functional Outcome/Goal: Patient will understand and assimilate / integrate education regarding management of their medical conditions to maintainhealth and wellbeing. Anticipated interventions: Physician management, PT, OT, Dietitian, Rehab Nursing Required Therapy PT: 1.5 hour per day at least 5 days per week with additional therapy on as needed basis. Comments: PT to improve pt's strength, endurance, bed mobility, transfers (sit-stand), standing balance, gait quality on level surfaces and stairs, coordination and functional ADL skills. Will also work to improve pt's safety awareness during transfers and ambulation. OT: 1.5 hour per day at least 5 days per week with additional therapy on as needed basis. Comments: OT for basic ADL re-training (bathing, dressing, toileting, continence, grooming, feeding, transferring), to increase activity tolerance and functional mobility and to evaluate for adaptive and assistive devices. Will work to improve pt's endurance and educate pt on fall prevention and energy conservation techniques-pacing strategies and proper breathing techniques duringfunctional tasks. Other: Nutrition, Rehab nursing, Wound, P&O RATIONALE FOR IRF ADMISSION: Patient has both medical and functional complexities that require 24 hour daily monitoring and intervention from [employer] as well as other consulting physicians including internal medicine as well as 24 hour daily wheel loader operator nursing - for medical safe / optimal management. Patient requires interdisciplinary therapy team rehabilitation care including OT, PT, SW, Rehab Nursing, requires and can tolerate at least 3 hoursof daily OT and PT therapy at least 5 days weekly. The following medical conditions significantly impact the rehabilitation process and are being addressed daily and can not be managed at home or in a lesser intense medical setting: Refer to above problem oriented plan of care Assessment/Plan (1) S/P CABG x 4: (2) Coronary artery disease: (3) Anemia: (4) NSTEMI (non-ST elevated myocardial infarction): (5) Hypertension: (6) Diabetes: (7) Impaired mobility and activities of daily living: (8) Hyperlipidemia: Plan Is a 57-year-old male with past medical history of diabetes, hypertension and hyperlipidemia presents to acute inpatient rehab unit with functional impairments in the setting of newly diagnosed CAD with multivessel disease, s/p CABG x 4. * Presents with dry, nonproductive cough. Lung sounds diminished in the bases. Obtain a chest x-ray to rule out acute abnormality. * Add Tessalon * Continue dual antiplatelet regimen. * Continue sliding scale and basal insulin for now. Does not use at home, will attempt to wean off. * Admission labs noted. H&H is trending up, 9./26.9. Otherwise unremarkable. Patient education Pressure ulcer prophylaxis; encourage mobilization, frequent postural changes, pressure-relief techniques DVT prophylaxis Encourage deep breathing exercise incentive spirometry. Monitor bladder. Toileting schedule. Continue current bladder management, with scans as needed and CIC if needed. Start bowel care program every day to obtain continence, prevent ileus. Maintain fall precautions Gait and balance retraining Functional training and self-care and home management, including activities of daily living and instrumental activities of daily living Provision of the necessary gait aids and functional adaptive equipment to enhance the patient's a functional scientology Ensure adequate nutrition and hydration Sleep: No issues Pain: No issues Discharge planning: Home with family in a week or so. I spent 42 minutes for services, including [id number] encounter with the patient, discussion of the case, plan of care, and exam; and [id number] activities, such as reviewing pertinent bilingual sales consultant documentation, recent therapynotes, laboratory and radiology studies, and discussion of case with care team including physician, nursing, major case detective, and therapists. More than 50 % of time was spent on patient/family counseling or coordination ofcare. I completed a substantive portion of this encounter, the medical decision makingportion of this note in its entirety, including Allied health note review, nursing note review, bilingual sales consultant note review, discussion with nursing and case management, and more than 50% of my time was spent on counseling and coordination of care, time spent 36 minutes Patient was personally seen by me, Dr. Richardson, on the day of encounter, within 24hours of rehab admission, reviewed the history and the relevant portions of the chart, including current orders, allied health and bilingual sales consultant notes, labs/imaging and performed clarke elements of exam and I formulated the plan of care and facilitated the medical decision making. Documented By: Moon Beck APRN 11/04/23 1 041 Signed By: <Electronically signed by YIN Beck> 11/04/23 1121 <Electronically signed by Terrell Richardson MD> 11/05/23 [address] [facility] Work Phone: [phone]) 837-411005-08-2024 Consult note Author Maty Johnson [facility] November 05, 2023 6:51am Note Date/Time November 04, 2023 4:39pm [facility] [address] [place] [address] Hospitalist Consult Note Signed Patient: Jeramie Galvan MR#: [id number] : 1965 Acct:[id number] Age/Sex: 57 / M Adm Date: 4 Loc: Room: 1P9613-6 Type: ADM IN Attending Dr: Terrell Richardson MD Copies to: MD Terrell Restrepo MD Lynn A Stackhouse-Roby, YIN Johnson MD~ HPI DATE OF CONSULTATION: 11/04/23 REQUESTING PROVIDER: Terrell Richardson Consult Narrative Reason for Consult: Hypertension, diabetes HPI: 57-year-old male past medical history significant for hyperlipidemia, anemia, neuropathy, diabetes, hypertension, anemia. Patient presented to [place] emergency department after stress test completed for ongoing chest pain with subsequent transfer to [facility]. 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 October 26 patient underwent CABG x 4. He had postoperativerespiratory failure requiring BiPAP and high flow, improved with IV diuresis andweaned off oxygen. He had reported fall without injury while in outside hospital. He was seen by therapy services with recommendations for ongoing rehab. Subsequently transferred to the inpatient rehab unit here at [facility] November 02. Hospitalist team is now consulted for ongoing management of hypertensionand diabetes. Patient seen and examined. He offers report of incisional discomfort that is minimal. Ongoing cough since prior to surgery?nonproductive. Denies chest painor palpitations. No dyspnea, or pain with inspiration. No abdominal pain or indigestion, constipation or diarrhea, nausea or vomiting. No dysuria or retention. No headache or dizziness. No fevers or chills. Review of Systems Review of Systems All other systems reviewed & are negative unless noted below or in HPI [facility] Medical History (Updated 11/04/23 @ 16:56 by Michelle Gomez APRN) Diabetes mellitus with neuropathy NSTEMI (non-ST elevated myocardial infarction) Diabetes Anemia Hypertension Myocardial infarct BPH (benign prostatic hyperplasia) GERD (gastroesophageal reflux disease) Coronary artery disease Surgical History S/P CABG x 3 Family History Father Diabetes Social History Smoking Status: Former smoker Meds Medications and Allergies Allergies No Known Allergies Allergy (Verified 11/03/23 18:36) Home Medications aspirin 81 mg chewable tablet 81 mg PO DAILY 11/03/23 [History Confirmed 11/03/23] atorvastatin 80 mg tablet 80 mg PO QHS 11/03/23 [History Confirmed 11/03/23] clopidogrel 75 mg tablet 75 mg PO DAILY 11/03/23 [History Confirmed 11/03/23] ezetimibe 10 mg tablet 10 mg PO HS 11/03/23 [History Confirmed 11/03/23] ferrous sulfate 325 mg (65 mg iron) tablet (FeroSul) 325 mg PO BID.WITH.BFAST.SUPPE 11/03/23 [History Confirmed 11/03/23] gabapentin 100 mg capsule 100 mg PO TID 11/03/23 [History Confirmed 11/03/23] insulin glargine 100 unit/mL (3 mL) subcutaneous pen (Lantus Solostar U-100 Insulin) 15 unit subcut BID 11/03/23 [History Confirmed 11/03/23] metoprolol tartrate 25 mg tablet 12.5 mg PO BID 11/03/23 [History Confirmed 11/03/23] semaglutide 0.25 mg or 0.5 mg (2 mg/3 mL) subcutaneous pen injector (Ozempic) 0.5 mg subcut QWEEK 11/03/23 [History Confirmed 11/03/23] Active Medications: Active Medications Generic Name Dose Route Start Last Admin Trade Name Freq PRN Reason Stop Dose Admin Acetaminophen 500 mg 11/03/23 18:10 Acetaminophen 500 Mg Tablet PO 11/02/24 18:09 Q4H PRN Pain Al Hydrox/Mg Hydrox/Simethicone 30 ml 11/03/23 18:10 Mag Hydrox/Al Hydrox/Simeth 30 Ml Udc PO 11/02/24 18:09 Q4H PRN Indigestion Aspirin 81 mg 11/04/23 09:00 11/04/23 08:18 Aspirin 81 Mg Tab.Chew PO 11/03/24 08:59 81 mg DAILY PAULETTE Administration Atorvastatin Calcium 80 mg 11/03/23 22:00 11/03/23 22:15 Atorvastatin 80 Mg Tablet PO 11/02/24 21:59 80 mg QHS PAULETTE Administration Benzonatate 200 mg 11/04/23 10:31 11/04/23 14:14 Benzonatate 100 Mg Capsule PO 11/03/24 10:30 200 mg TID PRN Administration Cough Bisacodyl 10 mg 11/03/23 18:10 Bisacodyl 10 Mg Supp.Rect [place] 11/02/24 18:09 DAILY PRN Constipation Clopidogrel Bisulfate 75 mg 11/04/23 09:00 11/04/23 08:18 Clopidogrel Bisulfate 75 Mg Tablet PO 11/03/24 08:59 75 mg DAILY PAULETTE Administration Docusate Sodium 100 mg 11/03/23 18:10 Docusate 100 Mg Capsule PO 11/02/24 18:09 BID PRN Constipation Docusate Sodium 283 mg 11/03/23 18:10 Docusate Enema 283 Mg/5 Ml Enema [place] 11/02/24 18:09 DAILY PRN Constipation Ezetimibe 10 mg 11/03/23 22:00 11/03/23 22:15 Ezetimibe 10 Mg Tablet PO 11/02/24 21:59 10 mg HS PAULETTE Administration Enoxaparin Sodium 40 mg 11/05/23 10:00 Enoxaparin 40 Mg/0.4 Ml Syringe SUBCUT 11/04/24 09:59 DAILY@1000 PAULETTE Ferrous Sulfate 324 mg 11/05/23 09:00 Ferrous Sulfate 324 Mg Tablet.Dr PO 11/04/24 08:59 DAILY PAULETTE Insulin Aspart 0 units 11/03/23 22:00 11/04/23 14:04 Insulin Aspart 300 Units/3 Ml Insuln.Pen SUBCUT 11/02/24 21:59 Not Given TID.WM.HS [facility] Protocol Insulin Glargine 15 units 11/03/23 21:00 11/04/23 08:19 Insulin Glargine 300 Units/3 Ml Insuln.Pen SUBCUT 11/02/24 20:59 15 units BID PAULETTE Administration Lactulose 30 gm 11/03/23 18:10 Lactulose 20 Gm/30 Ml Udc PO 11/02/24 18:09 DAILY PRN Constipation Metoprolol Tartrate 12.5 mg 11/03/23 21:00 11/04/23 08:18 Metoprolol Tartrate 25 Mg Tablet PO 11/02/24 20:59 12.5 mg BID PAULETTE Administration Semaglutide [Ozempic 0.5 mg 11/17/23 09:00 ] 0.25 Mg Or 0.5 Mg SUBCUT 11/16/24 08:59 (2 Mg/3 Ml) Pen [facility]EEK [facility] Injector Sennosides 2 tab 11/04/23 12:00 Sennosides 8.6 Mg Tablet PO 11/03/24 11:59 DAILY@12 PRN If no BM in 2 days Sodium Chloride 0 ml 11/03/23 18:10 Sodium Chloride 0.9 % 10 Ml Syringe IV-PUSH 11/02/24 18:09 PRN PRN Flush Exam Physical Exam Vital Signs: Temp Pulse Resp BP Pulse Ox O2 Del Method 98.5 F 98 18 127/74 98 Room Air 11/04/23 14:50 11/04/23 14:50 11/04/23 14:50 11/04/23 14:50 11/04/23 14:50 11/04/23 14:50 Narrative: CONST- alert, in bed, no acute distress HEAD- normocephalic and atraumatic EENT- sclera nonicteric and conjunctiva nonerythemic, moist oral mucosa, pharynxclear NECK- supple, no cervical lymphadenopathy CARDIAC- RRR no abnormal heart tones PULM- diminished without wheeze or rhonchi, RA, no accessory muscle use or coughnoted ABD- S/NT, NABS, round EXTREM- no edema BLE, calves nontender SKIN- W/D, good turgor. Midsternal incision approximated with surgical glue without erythema. Distal incision puckering with some serosanguineous drainage noted but no erythema or odor MS- MAEx4 spontaneously with equal strength NEURO- A&Ox3, speech clear and tongue midline, equal facial symmetry PSYCH-mood and behavior appropriate Results - Hospitalist Consult Lab Results Labs: Laboratory Results - last 72 hr 11/04/23 11:39: POC Glucose 104 11/04/23 07:05: POC Glucose 152, POC Glucose Comment Glu2: cleaned meter 11/04/23 05:09: Corrected WBC 9.4, Uncorrected WBC Count 9.4, RBC 3.03 L, Hgb 9.1 L, Hct 26.9 L, MCV 88.9, MCH 30.0, MCHC 33.8, RDW 13.7, Plt Count 283, MPV 7.1, Neut % (Auto) 57.7, Lymph % (Auto) 26.4, [place] % (Auto) 13.6, Eos % (Auto) 1.9, Baso % (Auto) 0.4, Nucleat RBC Rel Count 0.2, Neut # (Auto) 5.4, Lymph # (Auto) 2.5, [place] # (Auto) 1.3 H, Eos # (Auto) 0.2, Baso # (Auto) 0.0, PHA Creatinine Clear 89.89, Sodium 142, Potassium 3.7, Chloride 104, Carbon Dioxide 30.1, Anion Gap 11.6, BUN 14, Creatinine 0.91, Est GFR (CKD-EPI) > 60.0, Svoqfzo96, Calcium 8.6, Total Bilirubin 0.7, AST 33, ALT 26, Alkaline Phosphatase 54, Total Protein 5.6 L, Albumin 3.3 L, Globulin 2.3, Albumin/Globulin Ratio 1.4, Prealbumin 14.2 L 11/03/23 20:50: POC Glucose 96, POC Glucose Comment Glu2: cleaned meter Assessment & Plan Assessment/Plan (1) Coronary artery disease: (2) S/P CABG x 4: (3) Hypertension: (4) Hyperlipidemia: (5) Diabetes mellitus with neuropathy: (6) Anemia: Plan CAD s/p CABG x 4 10/26, NSTEMI Postoperative anemia Impaired ADLs, weakness -Further POC per PMR team for rehabilitative therapy, pain control and bowel regimen, DVT PPx enoxaparin, surgical wound care -Please defer any postoperative questions/concerns to CT surgery at [facility] -Trend hemoglobin, continue ferrous sulfate -Cardiac meds as below Chronic conditions 1. HTN, HLD?ASA, atorvastatin, clopidogrel, metoprolol 2. T2DM with neuropathy?gabapentin, SSI C, glargine, Semaglutide Documented By: Michelle Gomez APRN 01/20 1557 Signed By: <Electronically signed by YIN Gomez> 11/04/23 1656 <Electronically signed by Maty Johnson MD> 11/05/23 [address] [facility] Work Phone: 1(299) 645-347505-06-2024 [facility]-02-2023 [facility]Un[facility]-20[facility] 11-01-2023 [facility]-04-2024 [facility]-03-2024 [facility] 10-31-2023 [facility]05-02-[facility]24 [facility]Sp[facility] and they have officially accepted pt and submitted to pre-cert today. Updated AVS and updated pt.[facility] 10-30-2023 [facility]05-02-2024 [facility]-02-2024 [facility] 10-30-2023 [facility]-02-2024 [facility]-01-2024 [facility] 10-29-2023 [facility]05-01-2024 Note[facility]05-01-2024 [facility] 10-29-2023 Note[facility]05-01-2024 NoteK[facility]04-30-2024 [facility] 10-28-2023 [facility]04-30-2024 [facility]04-30-2024 [facility] 10-28-2023 [facility]04-30-2024 NoteK[facility]04-29-2024 NotePt extubated to high flow nasal cannula. 50lpm and 40% fio2. Voice intact. No stridor present. Aerosol immediately given. Nurse present in room. Not complications.[facility]04-29-2024 NotePeripheral IV Date/Time: 10/27/2023 9:23 AM Inserted by: Angela Cole MD Placement Needle size: 18 G Laterality: right Location: hand Local anesthetic: none Site prep: alcohol Technique: anatomical landmarks Attempts: 1[facility]04-29-2024 [facility]04-29-2024 [facility] 10-27-2023 [facility]04-29-2024 NoteK[facility]04-28-2024 [facility] 10-26-2023 NoteK[facility]04-28-2024 NoteK[facility]04-27-2024 [facility] 10-25-2023 [facility]04-27-2024 [facility]11-30-2022 Hospital Discharge instructions Patient Education 05/29/2022 10:25:12 Erectile Dysfunction [...] Follow these instructions at home: Medicines Take doxp-moa-pgdexkx and prescription medicines only as told by your health care provider. Do not increase the dosage without first discussing it with your health care provider. If you are using self-injections, perform injections as directed by your health care provider. Makesure to avoid any veins that are on [...] come with the pump and discuss any questionswith your health care provider. Keep all follow-up [...] and may include medicines, hormone therapy, surgery, orvacuum pump. You may need follow-up visits to [...] 06/13/2001 Document Revised: 05/29/2018 Document Reviewed: 07/02/2017 [employer] Patient Education 2020 [employer]. Follow Up Care 04/25/2022 16:00:36 With:Sathya PAVON, Najma Lyon URJace, URO Address: When:3 months Comments:f/u to vacuum device [facility] 11-16-2022 NoteChief Complaint consultation for colonoscopy HPI Staff 56 year old male presents on consultation from Dr. Link for colonoscopy recall. Colonoscopy completed 03/13/2015 and [...] swallowing difficulties, no hearing loss, no ear infection(s),no nose bleeds. Cardiovascular: normal blood pressure, no [...] Tobacco Use:. Never Smokeless Tobacco Use:. Cigarettes, 1per day. Started age 19.0 Years. Stopped age 40 Years., 05/15/2022 Family History Cancer: Father. Diabetes mellitus type 2: Father and Brother.[facility]Comment [facility]:Result Comment: Electronically Signed By: HEVER PAVON, Domingo Boo.kenneth\Date and Time Signed: 05/15/22 17:38 [id number] Evaluation note* Encounter Date Diagnosis Assessment Notes Treatment Notes Treatment Clinical Notes May, Contact with and (suspected) exposure [...] has COVID that you follow current CDC recommendations. These can be found at CDC.GOV. Follow [...] Patient care instructions given in writting by [facility] Care At Home document. [employer] Other Evaluation + Plan note Future Appointments Appointment Date:08/28/2022 09:30:00 AM Scheduled Provider:Najma Mcdonnell MD Location[facility] Appointment Type:URO Office Visit [facility] evaluation note* Diagnosis Onset Date Resolution Status Anemia acute Coronary artery disease acut e Diabetes acute Diabetes mellitus with neuropathy acute Hyperlipidemia acute Hypertension acute Impaired mobility and activities of daily living acute NSTEMI (non-ST elevated myocardial infarction) acute S/P CABG x 4 [facility] Work Phone: Hisjjji general Narrative - Reported* Type Description Date Medical History Diabetes type 2 Surgical History half thryroid removal Hospitalization History see above [employer] Other Hospital course Narrative No data available for this section [facility] Hospital Discharge instructions No data available for this section [facility] progress note No data available for this section [facility] Summary Purpose Family History No Family History Records Found Relationship Condition Age at Onset Recorded Date/T fco father Diabetes mellitus Unknown Advance Directives No Advanced Directives Records Found Advance Directive Response Recorded Date/ Time Advance Directives No November 03, 2023 5:01pm Chief Complaint and Reason for Visit Chief Complaint CABG x4 CABG x4 Reason for Visit Anemia Coronary artery disease Diabetes Diabetes mellitus with neuropathy Hyperlipidemia Hypertension Impaired mobility and activities of daily living NSTEMI (non-ST elevated myocardial infarction) S/P CABG x 4 Additional Source Comments REASON FOR VISIT (unrecogniz ed section and content) #13 GIANLUCA BLACK, ANGELICA H, CONGESTION, COVID Provider Visit Patient Care team informatio n (unrecognized section and content) Team Status: Active Member Role Status Dates yRlee Link MD Primary Care Provider Active Team Status: Inactive Member Role Status Dates Rylee Link MD Primary Care Provider Active Start: November 03, 2023 End: November 10, 2023 Terrell Richardson MD Admit Provider, Atte nding Provider Active Start: November 03, 2023 End: November 10, 2023 Leora Dias , MARIO Other Provider Active Star t: November 03, 2023 End: November 10, 2023 Gudelia Harmon , MARIO Other Provider Active Start : November 03, 2023 End: November 10, 2023 Lorraine Beasley RN Other Provider Active Star t: November 03, 2023 End: November 10, 2023 Geetha Kurtz RN Other Provider Active Start: M ay 2023 End: November 10, 2023 Catherine Caro RN Other Provider Active Start: Ma y 2023 End: November 10, 2023 Katia Irvin MD Other Provider Active Start: November 03, 2023 End: November 10, 2023 Elpidio Hardwick DO Other Provider Active Start : November 03, 2023 End: November 10, 2023 Jas Winslow MD Other Provider Active Start : November 03, 2023 End: November 10, 2023 Lisandro Collado DO Other Provider Active Start: November 03, 2023 End: November 10, 2023 Won Jesus MD Other Provider Active Start: November 03, 2023 End: November 10, 2023 Cristy Miner MD Other Provider Active Start : November 03, 2023 End: November 10, 2023 Art Lombardo MD Other Provider Active Start: M ay 2023 End: November 10, 2023 Michelle Gomez APRN Other Provider Active Start: November 03, 2023 End: November 10, 2023 John Flower MD Other Provider Active Start: November 03, 2023 End: November 10, 2023 aJmes Sheets MD Other Provider Active Start: M ay 2023 End: November 10, 2023 Maty Johnson MD Other Provider Active Start: November 03, 2023 End: November 10, 2023 Doron Napier MD Other Provider Active Start: November 03, 2023 End: November 10, 2023 Domingo Merrill , Other Provider Active Start: November 03, 2023 End: November 10, 2023 Samantha Ornelas MD Other Provider Active Start: Ma y 2023 End: November 10, 2023 Parth Canales MD Other Provider Active Start: November 03, 2023 End: November 10, 2023 Iman Bustos NP-C Other Provider Active St art: November 03, 2023 End: November 10, 2023 Jeanie Spencer APRN Other Provider Active Star t: November 03, 2023 End: November 10, 2023 Morgna Jc MD Other Provider Active Start: November 03, 2023 End: November 10, 2023 Rikki Trammell MD Other Provider Active Start: Ma y 2023 End: November 10, 2023 Bo Samuel MD Other Provider Active Start: November 03, 2023 End: November 10, 2023 Maria C Daniels MD Other Provider Active Star t: November 03, 2023 End: November 10, 2023 Bill Ramos MD Other Provider Active Start: M ay 2023 End: November 10, 2023 Anali Martinez DO Other Provider Active Start: Ma y 2023 End: November 10, 2023 Parker Giron DO Other Provider Active Start : November 03, 2023 End: November 10, 2023 Gilda Bradford APRN Other Provider Active Start: November 03, 2023 End: November 10, 2023 Murali Ford DO Other Provider Active Start: November 03, 2023 End: November 10, 2023 Aditya Harvey MD Other Provider Active Sta rt: November 03, 2023 End: November 10, 2023 Cece Camejo APRN Other Provider Active Start : November 03, 2023 End: November 10, 2023 Donna Gee APRN Other Provider Active St art: November 03, 2023 End: November 10, 2023 Kai Christopher MD Other Provider Active Start: M ay 2023 End: November 10, 2023 Andrew Cárdenas MD Other Provider Active S tart: November 03, 2023 End: November 10, 2023 Won Dior , DO Other Provider Active Star t: November 03, 2023 End: November 10, 2023 Amalia Kent , DO Other Provider Active Start: November 03, 2023 End: November 10, 2023 Jeffrey Samuel MD Other Provider Active Start: November 03, 2023 End: November 10, 2023 Wilda Kuo , MARIO Other Provider Active Start: M ay 2023 End: November 10, 2023 Team Status: Active Member Role Status Dates Rylee Link MD Primary Care Provider Active Start: November 04, 2023 Terrell Richardson MD Admit Provider, Othe r Provider Active Start: November 04, 2023 Leora Dias RN Other Provider Active Star t: November 04, 2023 Gudelia Harmon , MARIO Other Provider Active Start : November 04, 2023 Lorraine Beasley RN Other Provider Active Star t: November 04, 2023 Geetha Kurtz RN Other Provider Active Start: M ay 2023 Catherine Caro RN Other Provider Active Start: Ma y 2023 Katia Irvin MD Other Provider Active Start: November 04, 2023 Elpidio Hardwick , DO Other Provider Active Start : November 04, 2023 Jas Winslow MD Other Provider Active Start : November 04, 2023 Lisandro Collado , DO Other Provider Active Start: November 04, 2023 Won Jesus MD Other Provider Active Start: November 04, 2023 Cristy Miner MD Other Provider Active Start : November 04, 2023 Art Lombardo MD Other Provider Active Start: M ay 2023 Michelle Gomez APRN Other Provider Active Start: November 04, 2023 John Flower MD Other Provider Active Start: November 04, 2023 James Sheets MD Other Provider Active Start: M ay 2023 Maty Johnson MD Other Provider Active Start: November 04, 2023 Doron Napier MD Other Provider Active Start: November 04, 2023 Domingo Merrill , Other Provider Active Start: November 04, 2023 Samantha Ornelas MD Other Provider Active Start: Ma y 2023 Parth Canales MD Other Provider Active Start: November 04, 2023 Iman Bustos [employer] SYSTEM[employer] ANALYST-C Other Provider Active St art: November 04, 2023 Jeanie Spencer APRN Other Provider Active Star t: November 04, 2023 Morgan Jc MD Other Provider Active Start: November 04, 2023 Rikki Trammell MD Other Provider Active Start: Ma y 2023 Bo Samuel MD Other Provider Active Start: November 04, 2023 Maria C Daniels MD Other Provider Active Star t: November 04, 2023 Bill Ramos MD Other Provider Active Start: M ay 2023 Anali Martinez , Other Provider Active Start: Ma y 2023 Parker Giron , Other Provider Active Start : November 04, 2023 Gilda Bradford APRN Other Provider Active Start: November 04, 2023 Murali Ford , Other Provider Active Start: November 04, 2023 Aditya Harvey MD Other Provider Active Sta rt: November 04, 2023 Cece Camejo APRN Other Provider Active Start : November 04, 2023 Donna Gee APRN Other Provider Active St art: November 04, 2023 Kai Christopher MD Other Provider Active Start: M ay 2023 Andrew Cárdenas MD Other Provider Active S tart: November 04, 2023 Won Dior , Other Provider Active Star t: November 04, 2023 Amalia Kent , Other Provider Active Start: November 04, 2023 Jeffrey Samuel MD Other Provider Active Start: November 04, 2023 Wilda Kuo RN Other Provider Active Start: M ay 2023 Moon Beck APRN Attending Provider Active Start: November 04, 2023 (unrecognized sect ion and content) No Status Records FoundNo Status Records FoundNo Status Records FoundNo Status Records FoundNo Status Records Found INFORMATION SOURCE (unrecogn ized section and content) DATE CREATED AUTHOR 08/04/2022 [facility] DATE CREATED AUTHOR AUTHOR'S ORGANIZ ATION 08/30/2022 [facility] DATE CREATED AUTHOR AUTHOR'S ORGANIZ ATION 11/25/2023 [facility] DATE CREATED AUTHOR AUTHOR'S NICOLA ATION 12/13/2023 [facility] DATE CREATED AUTHOR AUTHOR'S NICOLA ATION 12/13/2023 [facility] FOR RECORDS PERTAINING TO PATIENTS WHO ARE [...] BE BASED ON THE PRIMARY CLINICAL RECORDS. [employer] provides no warranty or guarantee of the accuracy or completeness of information in this document.
--- NOTE | 2023-12-16 11:27 | CR1_ITS ---
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
--- NOTE | 2024-01-12 14:59 | CR1_ITS ---
[facility] Test Date: 2024-01-12 Pat Name: ROSANA GALVAN Department: Room: - Gender: Male Telephone Appointment Clerk: : 1965 Requested By: RYLEE LINK Order Number: [id number] Talia MD: LORETTA CHIU Interpretive Statements Session Date: Electronically Signed On 01-23-2024 18:25:14 EDT by LORETTA CHIU
--- NOTE | 2024-02-12 08:32 | CR1_ITS ---
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
--- NOTE | 2024-03-11 09:16 | CR1_ITS ---
The [facility] Test Date: 2024-03-11 Pat Name: ROSANA GALVAN Department: Room: - Gender: Male Account Underwriter: : 1965 Requested By: RYLEE LINK Order Number: [id number] Talia MD: LORETTA CHIU Interpretive Statements Session Date: Electronically Signed On 03-11-2024 22:37:37 EDT by LORETTA CHIU
== END 2024-03-11 15:08 | disposition home or self-care (01) ==
LOC: CR 07:16
PROVIDERS: PCP Family Medicine; Visit Provider Surgery
DX: Z95.1 Presence of aortocoronary bypass graft (principal); I25.2 Old myocardial infarction
CPT/HCPCS: 93798

== ENCOUNTER 2024-02-19 16:10 | Emergency (ER) | payer OTHER, BC, SELFPAY ==
[2024-02-19 16:22] VITALS: BP 130/89; PULSE 90; TEMP 36.8; O2SAT 97; BMI 29.1
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
[2024-02-19] MEDS: OXYCODONE HCL/ACETAMINOPHEN 5MG/325MG 1 TAB PO (18:02)
[2024-02-19] MEDS: METHOCARBAMOL 500 MG TABLET 1000 MG PO (18:03)
[2024-02-19 18:57] VITALS: PULSE 84; O2SAT 99
== END 2024-02-19 18:58 | disposition home or self-care (01) ==
PROVIDERS: Emergency Provider Emergency Medicine; PCP Family Medicine
DX: S16.1XXA Strain of muscle, fascia and tendon at neck level, initial encounter (principal); V49.59XA Passenger injured in collision with other motor vehicles in traffic accident, initial encounter; M54.50 Low back pain, unspecified; Z95.1 Presence of aortocoronary bypass graft; Z79.02 Long term (current) use of antithrombotics/antiplatelets
CPT/HCPCS: 70450; 71250; 72125; 72131; 99284

== ENCOUNTER 2024-09-18 06:20 | Outpatient (OUT) | payer BC, SELFPAY ==
--- OUTSIDE RECORDS SUMMARY | 2024-09-18 06:26 | XMS_ITS | CCD ---
Author Organization [facility] Care Team Providers Care Filter Screen Cleaner Name Role Phone Eva Carrillo Unavailable Rylee Link Primary Care Physician [phone] DIANA MIGUEL Attending Unavailable DIANA MIGUEL Admitting [...] Unavailable MD Rylee Link Primary Care Provider [phone] MD Terrell Richardson Admit Provider MD Terrell Richardson Attending Provider [phone] MARIO Dias Other Provider Unavailable MARIO Harmon Other Provider Unavailable MARIO Beasley Other Provider Unavailable MARIO Kurtz Other Provider Unavailable MARIO Caro Other Provider Unavailable MD Katia Irvin Other Provider DO Elpidio Hardwick Other Provider MD Jas Winslow Other Provider DO Lisandro [...] MD Parth Canales Other Provider NAVA Bustos-C Iman Pritchard Other Provider YIN Spencer M Other Provider Unavailable MD Morgan Jc Other Provider MD Rikki Trammell Other Provider MD Bo Samuel Other Provider MD Maria C Daniels Other Provider Unavailable MD Bill Ramos Other Provider DO Anali Martinez Other Provider DO Parker Giron Other Provider YIN Bradford Other Provider DO Murali Ford Other Provider MD Aditya Harvey Other Provider YIN Camejo Other Provider YIN Gee Other Provider MD Kai Christopher Other Provider MD Andrew Cárdenas Other Provider DO Won Dior Other Provider Donte, DO Yazid Other Provider MD Jeffrey Samuel Other Provider MARIO Kuo Other Provider Unavailable DEB REED Referring Unavailable Terrell Richardson Admitting Unavailable Rylee Link Primary Care Unavailable Leora Dias Consulting Unavailable Terrell Richardson Attending Unavailable Gudelia Harmon Consulting Unavailable Lorraine Beasley Consulting Unavailable Geetha Kurtz Consulting Unavailable Catherine Caro Consulting Unavailable Katia Irvin Consulting Unavailable Elpidio Hardwick Consulting Unavailable Jas Winslow Consulting Unavailable Lisandro Collado Consulting UnavailWon Emanuel Consulting Unavailable Cristy Miner Consulting Unavailable Art Lombardo Consulting Unavailable Michelle Gomze Consulting UnavailJohn Storm Consulting Unavailable James Sheets Consulting Unavailable Maty Johnson Consulting Unavailable Doron Napier Consulting Unavailable Domingo Merrill Consulting Unavailable Samantha Ornelas Consulting Unavailable Parth Canales Consulting Unavailable Iman Bustos Consulting Unavailable Jeanie Spencer Consulting Unavailable DoMorgan stoddard Consulting Unavailab Rikki Esquivel Consulting Unavailable Bo Samuel Consulting Unavailable Maria C Daniels Consulting Unavailable Bill Ramos Consulting Unavailable Anali Martinez Consulting Unavailable Parker Giron Consulting Unavailable Gilda Bradford Consulting Unavailable Murali Ford Consulting Unavailable Aditya Harvey Consulting Unavailable Cece Camejo Consulting Unavailable Donna Gee Consulting Unavailable Kai Christopher Consulting Unavailable Andrew Cárdenas Consulting Unavailable Won Dior Consulting Unavailable Donte, Yaascencion Consulting Unavailable Jeffrey Samuel Consulting Unavailable Wilda Kuo Consulting Unavailable Rlyee Link MD Primary Care Provider [phone] MIRANDA PURDY Attending Unavailable RYLEE LINK Referring Unavailable MIRANDA PURDY Attending Unavailable RYLEE LINK Referring Unavailable MIRANDA PURDY Attending Unavailable MIRANDA PURDY Attending Unavailable DARYL PENA Referring Unavailable CORNELIO REED Referring Unavailable CORNELIO REED Referring Unavailable VICTORIA MATHEWS Referring Unavailable PAU, LAUREN Pritchard Referring Unavailabl e KUWADE, LAUREN Pritchard Referring Unavailabl e JERAMIE SAWYER Referring Unavailable VICTORIA MATHEWS Consulting Unavailable REED, CORNELIO Admitting Unavailable REED, CORNELIO Attending Unavailable REED, CORNELIO Referring Unavailable VICTORIA MATHEWS Referring Unavailable REED, CORNELIO Referring Unavailable REED, CORNELIO Referring Unavailable REED, CORNELIO Referring Unavailable KUDANELLEKOADAMS, LAUREN Pritchard Referring Unavailabl e ADALBERTO HAGAN Attending Unavailable REED, DEB Attending Unavailable REED, CORNELIO Referring Unavailable ELTAHAWY, EHAB Attending Unavailable LING, NASHDAYTON Referring Unavailable REED, CORNELIO Referring Unavailable KUWADE, LAUREN Pritchard Referring Unavailabl e ALIVICTORIA Referring Unavailable KUWADE, LAUREN Pritchard Referring Unavailabl e KULAKOWSKI, LAUREN Pritchard Referring Unavailabl e KULAKOADAMS, LAUREN Pritchard Referring Unavailabl e Allergies Allergy Classification Reported Allergen(s) Allergy Type Date of Onset Reaction(s) Facility (1 source) No Known Medication Allergies; Translations: [No Known Medication Allergies] Propensity to adverse reactions (disorder) [facility] Repository (1 source) ALLERGIES NOT ON FILE; Translations: [ALLERGIES NOT ON FILE] Propensity to adverse reactions (disorder) [facility] Repository Medications Current Medications Medication Drug Class(es) Dates Sig (Normalized) Sig (Original) aspirin 81 mg chewable tablet (6 sources) Platelet Aggregation Inhibitor, Nonsteroidal Anti-inflammatory Drug Start: 11-03-2023 End: 11-10-2023 take 1 tablet by mouth once daily Aspirin (Children's Aspirin) 81 mg Tablet,Chewable Active 81 MG PO Daily November 10, 2023 12:00am atorvastatin 80 mg oral tablet (6 sources) HMG-CoA Reductase Inhibitor Start: 11-03-2023 End: 11-10-2023 take 1 tablet by mouth at bedtime atorvastatin (Lipitor) 80 MG tablet Take 80 mg by mouth at bedtime 11/03/2023 Active clopidogrel 75 mg oral tablet (6 sources) P2Y12 Platelet Inhibitor Start: 11-03-2023 End: 11-10-2023 take 1 tablet by mouth in the morning clopidogrel (Plavix) 75 MG tablet TAKE 1 TABLET BY MOUTH IN THE MORNING *DO NOT START BEFORE 11/04/23* Oral for 30 Days 11/10/2023 Active Continuous Glucose Sensor (FreeStyle Jeff 3 Sensor) [facility] (4 sources) Start: 03-15-2024 Continuous Glucose Sensor (FreeStyle Jeff 3 Sensor) [facility] Indications: Type 2 diabetes mellitus without complication, without long-term current use of insulin (CMS/HCC) INJECT 1 DEVICE UNDER THE SKIN EVERY 14 DAYS 6 each 3 03/15/2024 Active diclofenac sodium 75 mg delayed release oral [...] Refills(s) 0 Start Date: 05/13/22 Status: Ordered empagliflozin 10 mg oral tablet (2 sources) Sodium-Glucose Cotransporter 2 Inhibitor Start: 07-26-2024 take 1 tablet by mouth once daily empagliflozin (Jardiance) 10 MG Indications: Type 2 diabetes mellitus with other circulatory complications (CMS/HCC) Take 1 tablet (10 mg) by mouth Daily 30 tablet 3 07/26/2024 Active ezetimibe 10 mg oral tablet (6 sources) Dietary Cholesterol Absorption Inhibitor Start: 11-03-2023 End: 11-10-2023 take 1 tablet by mouth at bedtime ezetimibe (Zetia) 10 MG tablet Take 10 mg by mouth at bedtime 11/03/2023 Active ferrous sulfate 324 mg delayed release oral tablet (6 sources) Start: 11-10-2023 take 324 mg by mouth once daily Ferrous Sulfate Active 324 MG PO Daily 30 November 10, 2023 12:00am Start: 11-03-2023 End: [...] Active metoprolol tartrate 25 mg oral tablet (6 sources) beta-Adrenergic Tessa Start: 11-03-2023 take 0.5 tablet by mouth twice daily metoprolol tartrate (Lopressor) 25 MG tablet TAKE 1/2 TABLET BY MOUTH TWICE A DAY Oral for 30 Days 11/03/2023 Active Start: 11-03-2023 End: 11-10-2023 take 12.5 mg by mouth twice daily Metoprolol Tartrate Active 12.5 MG PO Twice daily November 10, 2023 12:00am Semaglutide (2 sources) Start: 11-10-2023 inject 0.5 mg by subcutaneous injection every week Semaglutide Active 0.5 MG SUBCUT every week 0 November 10, 2023 12:00am Start: 11-03-2023 End: 11-10-2023 Semaglutide (Ozempic) 0.25 m g or 0.5 mg (2 mg/3 mL) pen injector Discontinued 0.5 MG SUBCUT every week November 03, 2023 12:00am November 10, 2023 9:00am semaglutide (Ozempic, 1 MG/DOSE,) 4 MG/3ML solution pen-injector (6 sources) Start: 03-22-2024 End: 03-22-2025 inject 1 mg by subcutaneous injection every week semaglutide (Ozempic, 1 MG/DOSE,) 4 MG/3ML solution pen-injector Indications: Type 2 diabetes mellitus with other circulatory complications (CMS/HCC) Inject 1 mg under the skin 1 (one) time per week 9 mL 3 03/22/2024 03/22/2025 Active Start: 12-25-2023 End: 03-22-2024 inject 1 mg by subcutaneous injection every week semaglutide (Ozempic, 1 MG/DOSE,) 4 MG/3ML solution pen-injector Indications: Type 2 diabetes mellitus with other circulatory complications (CMS/HCC) Inject 1 mg under the skin 1 (one) time per week 9 mL 3 12/25/2023 03/22/2024 Discontinued (Dose adjustment) tadalafil 20 mg oral tablet (6 sources) Phosphodiesterase 5 Inhibitor Start: 10-10-2022 take 10 mg by mouth every twenty-four hours as needed tadalafil (Cialis) 20 MG tablet Take 10 mg by mouth Daily as needed for erectile dysfunction. 10/10/2022 Active Start: 05-15-2022 take 1 tablet by kaiden th once daily tadalafil 20 mg Tab 20 mg = 1 tab(s), Oral, Daily, Refills(s) 0 Start Date: 05/15/22 Status: Ordered Completed/Discontinued Medications Medication Drug Class(es) Dates Sig (Normalized) Sig (Original) acetaminophen 500 mg oral tablet (3 sources) Start: 11-10-2023 End: 03-22-2024 acetaminophen (Tylenol) 500 MG tablet Q4H 11/10/2023 03/22/2024 Discontinued fluticasone propionate 0.05 mg/actuat metered dose nasal [...] 03, 2023 12:00am November 10, 2023 9:00am Problems Active Problems Problem Classification Problem Date Documented Date Episodic/Chronic Abdominal pain (3 sources) Unspecified abdominal pain; Translations: [UNSPECIFIED ABDOMINAL PAIN] Onset: 07-22-2022 Episodic Acute myocardial infarction (6 sources) Myocardial infarction; Translations: [Non-ST elevation (NSTEMI) myocardial infarction] Onset: 10-24-2023 11-04-2023 Chronic Administrative/social admission (3 sources) Other reduced mobility; Translations: [Impaired mobility and activities of daily living] Onset: 11-03-2023 11-04-2023 Episodic Complication of device; implant or graft [...] Coronary arteriosclerosis; Translations: [Atherosclerotic heart disease of [place] coronary artery without angina pectoris] Onset: 10-24-2023 11-04-2023 Chronic Deficiency and other anemia (1 source) Anemia; Translations: [Anemia, unspecified] 11-04-2023 Episodic Deficiency and other anemia (2 sources) Anemia, unspecified; Translations: [Anemia, unspecified] Onset: 11-03-2023 11-10-2023 Episodic Diabetes mellitus with complications (11 sources) Diabetes mellitus; Translations: [Type 2 diabetes mellitus with diabetic neuropathy, unspecified] Onset: 01-31-2023 11-04-2023 Chronic Diabetes mellitus without complication (7 sources) Type 2 diabetes mellitus without complications; Translations: [Diabetes mellitus] Onset: 07-24-2022 11-04-2023 Chronic Disorders of lipid metabolism (5 sources) Hyperlipidemia; Translations: [Hyperlipidemia, unspecified] Onset: 11-03-2023 11-04-2023 Chronic Esophageal disorders (1 source) Gastro-esophageal reflux disease without esophagitis; Translations: [GERD WITHOUT ESOPHAGITIS] Onset: 07-24-2022 Chronic Essential hypertension (6 sources) Hypertensive disorder; Translations: [Essential (primary) hypertension] Onset: 10-26-2023 11-04-2023 Chronic Hyperplasia of prostate (7 sources) Benign prostatic hypertrophy without outflow obstruction; Translations: [Benign prostatic hyperplasia without lower urinary tract symptoms] Onset: 05-29-2022 Chronic Other diseases of kidney and ureters (1 source) Other specified disorders of kidney and ureter; Translations: [OTHER SPEC DISORDERS KIDNEY URETER] Onset: 07-24-2022 Chronic Other diseases of kidney and ureters (4 sources) Disorder of kidney and ureter, unspecified; Translations: [DISORDER KIDNEY AND URETER UNS] Onset: 08-01-2022 Episodic Other male genital disorders (7 sources) Male erectile dysfunction, unspecified; Translations: [Erectile dysfunction] Onset: 05-29-2022 Chronic Other nutritional; endocrine; and metabolic disorders (2 sources) Body mass index 30+ - obesity 05-15-2022 Chronic Residual codes; unclassified (6 sources) Sleep apnea; Translations: [Sleep apnea, unspecified] Onset: 01-31-2023 05-13-2022 Chronic Residual codes; unclassified (1 source) [...] Classification Problem Date Documented Da te Episodic/Chronic Asthma (6 sources) Asthma; Translations: [Unspecified asthma, uncomplicated] Onset: 01-31-2023 Resolved: 05-08-2023 05-13-2022 Chronic Calculus of urinary tract (8 sources) History of calculus of kidney; Translations: [Calculus of kidney] Onset: 07-24-2022 05-13-2022 Episodic Coronary atherosclerosis and other heart disease (5 sources) Presence of aortocoronary bypass graft; Translations: [Aortocoronary bypass status] Onset: 11-03-2023 11-10-2023 Episodic Immunizations and screening for infectious disease (1 source) Contact with and (suspected) exposure to other viral communicable diseases Onset: 06-17-2021 Resolved: 06-17-2021 Episodic Other aftercare (4 sources) Long-term current use of insulin; 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] Onset: 12-25-2023 Resolved: 12-25-2023 12-25-2023 Episodic Other and unspecified benign neoplasm (6 sources) History of polyp of colon; Translations: [Personal history of colonic polyps] Onset: 01-31-2023 05-15-2022 Episodic Other connective tissue disease (6 sources) Impingement syndrome of shoulder region; Translations: [Impingement syndrome of unspecified shoulder] Onset: 01-31-2023 05-13-2022 Episodic Other injuries and conditions due to external causes (4 sources) Personal history of other (healed) physical injury and trauma; Translations: [Personal history of other injury] Onset: 01-31-2023 01-31-2023 Episodic Other screening for suspected conditions (not mental disorders or infectious disease) (1 source) Encounter for screening for malignant neoplasm of prostate; Translations: [ENC SCREEN MALIG NEOPLASM PROSTATE] Onset: 08-21-2021 Episodic Other upper respiratory infections (1 source) Acute laryngitis Onset: 06-17-2021 Resolved: 06-17-2021 Episodic Results Test Name Value Interpretation Reference Range Facility HbA1c (Bld) [Mass fraction]o n 07-26-2024 Interpretation and review of laboratory results Abnormal [facility] 07-26-2024 HbA1c (Bld) [Mass fraction] 8.6 % [facility] HbA1c (Bld) [Mass fraction]o n 03-22-2024 Interpretation and review of laboratory results Normal [facility] 03-22-2024 HbA1c (Bld) [Mass fraction] 7.6 % [facility] Apolipoprotein B [Mass/Vol]o n 12-11-2023 APOLIPOPROTEIN B See Below Normal [facility] Comment on above: Result Comment: NOTE TEST RESULT FLAG UNIT REF.RANGE -------- Apolipoprotein B 72 mg/dL <90 Moderate Risk: 90-119 mg/dL High Risk: >119 mg/dL Test Performed By: [facility] [address] [place] [address] Cardiovascular Technician: Lucille Kahn III #[id number] Performed By: #### Hermes CARPIO, CMP, , , HA1C #### [facility] ([id number]) [address], [address] [place] [address] COMPLETE BLOOD COUNTon 12-10 Erythrocyte distribution width (RBC) [Ratio] 14.7 % Normal 11.5-15.0 [facility] Comment on above: Performed By: #### C SHIRIN, CMP, , , HA1C #### [facility] ([id number]) [address], [address] [place] [address] Hematocrit (Bld) [Volume fraction] 38.3 % Low 39-49 [facility] Comment on above: Performed By: #### Hermes BC, CMP, , , HA1C #### [facility] ([id number]) [address], [address] [place] [address] Hemoglobin (Bld) [Mass/Vol] 13.4 g/dL Normal 13.0-17.0 [facility] Comment on above: Performed By: #### Hermes BC, CMP, , , HA1C #### [facility] ([id number]) [address], [address] [place] [address] MCH (RBC) [Entitic mass] 29.7 pg Normal 27-34 [facility] Comment on above: Performed By: #### Hermes BC, CMP, , , HA1C #### [facility] ([id number]) [address], [address] [place] [address] MCHC (RBC) [Mass/Vol] 34.9 g/dL Normal 32-36 [facility] Comment on above: Performed By: #### Hermes BC, CMP, 71321-4, , HA1C #### [facility] ([id number]) [address], [address] [place] [address] MCV (RBC) [Entitic vol] 85 fL Normal 80-100 [facility] Comment on above: Performed By: #### Hermes BC, CMP, , , HA1C #### [facility] ([id number]) [address], [address] [place] [address] Platelet mean volume (Bld) [Entitic vol] 8.7 fL Normal 7-12 [facility] Comment on above: Performed By: #### Hermes BC, CMP, , , HA1C #### [facility] ([id number]) [address], [address] [place] [address] Platelets (Bld) [#/Vol] 210 10*3/uL Normal 150-450 [facility] Comment on above: Performed By: #### Hermes CARPIO, CMP, , , HA1C #### [facility] ([id number]) [address], [address] [place] [address] RBC COUNT 4.50 X10E12/L Normal 4.10-5.70 [facility] Comment on above: Performed By: #### Hermes BC, CMP, , , HA1C #### [facility] ([id number]) [address], [address] [place] [address] WBC (Bld) [#/Vol] 6.7 10*3/uL Normal 4.0-11.0 [facility] Comment on above: Performed By: #### Hermes BC, CMP, 73106-3, , HA1C #### [facility] ([id number]) [address], [address] [place] [address] COMPREHENSIVE METABOLIC PANE Edgar 12-11-2023 Albumin [Mass/Vol] 3.9 g/dL Normal 3.2-5.3 [facility] Comment on above: Performed By: #### C BC, CMP, 80341-9, , HA1C #### [facility] ([id number]) [address], [address] [place] [address] ALP [Catalytic activity/Vol] 78 U/L Normal 39-130 [facility] Comment on above: Performed By: #### C SHIRIN, CMP, 76357-5, , HA1C #### [facility] ([id number]) [address], [address] [place] [address] ALT [Catalytic activity/Vol] 13 U/L Normal 0-40 [facility] Comment on above: Performed By: #### Hermes CARPIO, CMP, 31332-3, , HA1C #### [facility] ([id number]) [address], [address] [place] [address] Anion gap [Moles/Vol] 7 mmol/L Normal 5-15 [facility] Comment on above: Performed By: #### Hermes BC, CMP, 71456-3, , HA1C #### [facility] ([id number]) [address], [address] [place] [address] AST [Catalytic activity/Vol] 13 U/L Normal 0-41 [facility] Comment on above: Performed By: #### C BC, CMP, 46626-9, , HA1C #### [facility] ([id number]) [address], [address] [place] [address] Bilirubin [Mass/Vol] 0.5 mg/dL Normal 0.3-1.2 [facility] Comment on above: Performed By: #### Hermes BC, CMP, 80333-9, , HA1C #### [facility] ([id number]) [address], [address] [place] [address] Calcium [Mass/Vol] 9.1 mg/dL Normal 8.5-10.5 [facility] Comment on above: Performed By: #### C SHIRIN, [facility], 36536-7, , HA1C #### [facility] ([id number]) [address], [address] [place] [address] Chloride [Moles/Vol] 100 mmol/L Normal 98-109 [facility] Comment on above: Performed By: #### Hermes CARPIO, [facility], , , HA1C #### [facility] ([id number]) [address], [address] [place] [address] CO2 [Moles/Vol] 30 mmol/L Normal 22-32 [facility] Comment on above: Performed By: #### Hermes CARPIO, [facility], , , HA1C #### [facility] ([id number]) [address], [address] [place] [address] Creatinine [Mass/Vol] 0.83 mg/dL Normal 0.60-1.30 [facility] Comment on above: Result Comment: METH OD TRACEABLE TO IDMS STANDARD Performed By: #### Hermes CARPIO, [facility], , , HA1C #### [facility] ([id number]) [address], [address] [place] [address] eGFR (CKD-EPI) NON-RACE DEPENDENT >90 Normal >59 [facility] Comment on above: Result Comment: Reported eGFR is based on the CKD-EPI 2020 equation that does not use a race coefficient. Performed By: #### C BC, [facility], , , HA1C #### [facility] ([id number]) [address], [address] [place] [address] Glucose [Mass/Vol] 267 mg/dL High 65-99 [facility] Comment on above: Performed By: #### C SHIRIN, CMP, 82413-1, , HA1C #### [facility] ([id number]) [address], [address] [place] [address] Potassium [Moles/Vol] 4.3 mmol/L Normal 3.5-5.0 [facility] Comment on above: Performed By: #### Hermes BC, CMP, 00652-2, , HA1C #### [facility] ([id number]) [address], [address] [place] [address] Protein [Mass/Vol] 6.6 g/dL Normal 6.0-8.0 [facility] Comment on above: Performed By: #### Hermes CARPIO, CMP, , , HA1C #### [facility] ([id number]) [address], [address] [place] [address] Sodium [Moles/Vol] 137 mmol/L Normal 134-146 [facility] Comment on above: Performed By: #### Hermes CARPIO, CMP, , , HA1C #### [facility] ([id number]) [address], [address] [place] [address] Urea nitrogen [Mass/Vol] 14 mg/dL Normal 5-23 [facility] Comment on above: Performed By: #### Hermes BC, CMP, 64880-4, , HA1C #### [facility] ([id number]) [address], [address] [place] [address] HGB A1C (GLYCO-HGB)on 2023 Glucose [Mass/Vol] 157 mg/dL Normal [facility] Comment on above: Performed By: #### Hermes CARPIO, CMP, 63106-5, , HA1C #### [facility] ([id number]) [address], [address] [place] [address] HbA1c (Bld) [Mass fraction] 7.1 % High 4.4-5.6 [facility] Comment on above: Result Comment: NOTE ADA Guidelines Result HgbA1c Normal : less than 5.7 % Prediabetes : 5.7 % to 6.4 % Diabetes : > 6.4 % Use with caution in patients with abnormal hemoglobin variants as the half-life of red blood cells and in vivo glycation rates are affected. Performed By: #### C SHIRIN, CMP, 75331-9, , HA1C #### [facility] ([id number]) [facility] [address] [address] LIPOPROTEIN (a)on 12-11-2023 Lipoprotein a [Mass/Vol] mg/dL Normal <30 [facility] Comment on above: Result Comment: NOTE Test Performed By: [facility] [address] [place] [address] Cardiovascular Technician: Helio Almanzar III, M.D. CLIA #[id number] Performed By: #### Hermes CARPIO, CMP, 76693-2, , HA1C #### [facility] ([id number]) [address] [address] Lipid 1996 panelon 4 Cholesterol [Mass/Vol] 137 mg/dL Low 150-200 [facility] Comment on above: Performed By: #### Hermes CARPIO, CMP, 21416-6, , HA1C #### [facility] ([id number]) [address] [address] Cholesterol in HDL [Mass/Vol] 43 mg/dL Normal >39 [facility] Comment on above: Result Comment: HDL <40 mg/dL - High Risk HDL > or = 40mg/dL- Desirable HDL >60 mg/dL - Negative Risk Performed By: #### Hermes BC, [facility], 64984-5, , HA1C #### [facility] ([id number]) [address], [address] [place] [address] Cholesterol in LDL [Mass/Vol] 49 mg/dL Normal <130 [facility] Comment on above: Result Comment: LDL <100 mg/dL - Desirable LDL >160 mg/dL - High Risk Performed By: #### Hermes BC, [facility], 69066-2, , HA1C #### [facility] ([id number]) [address] [place] [address] Cholesterol in VLDL [Mass/Vol] 45 mg/dL High 0-30 [facility] Comment on above: Performed By: #### Hermes CARPIO, [facility], [address]1642-0, , HA1C #### [facility] ([id number]) [address], [address] [place] [address] CHOLESTEROL:HDL 3.2 Normal 1.0-5.0 [facility] Comment on above: Performed By: #### Hermes BC, [facility], 35755-9, , HA1C #### [facility] ([id number]) [address], [address] [place] [address] Triglyceride [Mass/Vol] 226 mg/dL High 27-150 [facility] Comment on above: Performed By: #### Hermes BC, CMP, 99317-6, , HA1C #### [facility] ([id number]) [address], [address] [place] [address] MAGNESIUMon 12-11-2023 Magnesium [Mass/Vol] 1.9 mg/dL Normal 1.8-2.[address] [facility] Comment on above: Performed By: #### C BC, [facility], 00874-1, 80395-6, HA1C #### [facility] ([id number]) [address], [address] [place] [address] Abstracton 11-25-2023 Abstract [id number] Jeramie Galvan 1965 M Date Provider Department Center 11/25/2023 2020-OLIVARES, JASS HVCVASENDO [facility] No family history on file Normal [facility] Follow-Upon 11-20-2023 Follow-Up Normal [facility] Capillary blood glucose norma urement by glucometer (mass/volume)Ordered By: Terrell Richardson on 11-10-2023 Glucose [Mass/Vol] 89 mg/dL Normal [facility] Comment on above: Random Glucose Refer ence Range is dependent on time and content of last meal. Glucose of more than 200 mg/dL in a nonstressed, ambulatory subject supports the diagnosis of Diabetes Mellitus. Result Comment: [facility] Glucose Reference Range is dependent on time and content of last meal. Glucose of more than 200 mg/dL in a nonstressed, ambulatory subject supports the diagnosis of Diabetes Mellitus. Performed By: #### G LULS #### Point of Care testing , Glucose Poct Glucometerson 0 11-10-2023 Commemt1 Glu2: Cleaned Meter Normal [facility] Comment on above: Result Comment: PERF ORMED BY: [facility] [address] [address] PATHOLOGIST DETECTIVE LIEUTENANT NAN ANDREW M.D. Performed By: #### G LULS #### Point of Care testing , No Panel InformationOrdered By: Terrell Richardson on 11-10-2023 Bedside Glucose Comment Glu2: cleaned meter [facility] Glucose Poct Glucometerson 0 11-09-2023 Glucose [Mass/Vol] 224 mg/dL Normal [facility] Comment on above: Result Comment: [place] Glucose Reference Range is dependent on time and content of last meal. Glucose of more than 200 mg/dL in a nonstressed, ambulatory subject supports the diagnosis of Diabetes Mellitus. PERFORMED BY: [address] [place] [address] PATHOLOGIST DETECTIVE LIEUTENANT NAN ANDREW M.D. Performed By: #### G LULS #### Point of Care testing , Commemt1 Glu2: Cleaned Meter Normal [facility] Comment on above: Result Comment: PERF ORMED BY: [address] [place] [address] PATHOLOGIST DETECTIVE LIEUTENANT NAN ANDREW M.D. Performed By: #### G LULS #### Point of Care testing , Glucose [Mass/Vol] 90 mg/dL Normal [facility] Comment on above: Result Comment: [place] om Glucose Reference Range is dependent on time and content of last meal. Glucose of more than 200 mg/dL in a nonstressed, ambulatory subject supports the diagnosis of Diabetes Mellitus. Performed By: #### G LULS #### Point of Care testing , Commemt1 Glu2: Cleaned Meter Normal [facility] Comment on above: Result Comment: PERF ORMED BY: [address] [place] [address] PATHOLOGIST DETECTIVE LIEUTENANT NAN ANDREW M.D. Performed By: #### G LULS #### Point of Care testing , Glucose [Mass/Vol] 196 mg/dL Normal [facility] Comment on above: Result Comment: [place] om Glucose Reference Range is dependent on time and content of last meal. Glucose of more than 200 mg/dL in a nonstressed, ambulatory subject supports the diagnosis of Diabetes Mellitus. Performed By: #### G LULS #### Point of Care testing , Glucose [Mass/Vol] 105 mg/dL Normal [facility] Comment on above: Result Comment: [place] om Glucose Reference Range is dependent on time and content of last meal. Glucose of more than 200 mg/dL in a nonstressed, ambulatory subject supports the diagnosis of Diabetes Mellitus. PERFORMED BY: [address] [place] [id number] PATHOLOGIST DETECTIVE LIEUTENANT NAN ANDREW M.D. Performed By: #### G LULS #### Point of Care testing , Glucose Poct Glucometerson 0 11-08-2023 Glucose [Mass/Vol] 150 mg/dL Normal [facility] Comment on above: Result Comment: [place] om Glucose Reference Range is dependent on time and content of last meal. Glucose of more than 200 mg/dL in a nonstressed, ambulatory subject supports the diagnosis of Diabetes Mellitus. PERFORMED BY: [address] [place] [address] PATHOLOGIST DETECTIVE LIEUTENANT NAN ANDREW M.D. Performed By: #### G LULS #### Point of Care testing , Glucose [Mass/Vol] 105 mg/dL Normal [facility] Comment on above: Result Comment: [place] om Glucose Reference Range is dependent on time and content of last meal. Glucose of more than 200 mg/dL in a nonstressed, ambulatory subject supports the diagnosis of Diabetes Mellitus. PERFORMED BY: [address] [place] [address] PATHOLOGIST DETECTIVE LIEUTENANT NAN ANDREW M.D. Performed By: #### G LULS #### Point of Care testing , Glucose [Mass/Vol] 139 mg/dL Normal [facility] Comment on above: Result Comment: [place] om Glucose Reference Range is dependent on time and content of last meal. Glucose of more than 200 mg/dL in a nonstressed, ambulatory subject supports the diagnosis of Diabetes Mellitus. PERFORMED BY: [address] [place] [address] PATHOLOGIST DETECTIVE LIEUTENANT NAN ANDREW M.D. Performed By: #### G LULS #### Point of Care testing , Glucose [Mass/Vol] 110 mg/dL Normal [facility] Comment on above: Result Comment: [place] om Glucose Reference Range is dependent on time and content of last meal. Glucose of more than 200 mg/dL in a nonstressed, ambulatory subject supports the diagnosis of Diabetes Mellitus. PERFORMED BY: [address] [place] [address] PATHOLOGIST DETECTIVE LIEUTENANT NAN ANDREW M.D. Performed By: #### G LULS #### Point of Care testing , Glucose Poct Glucometerson 0 11-07-2023 Glucose [Mass/Vol] 232 mg/dL Normal [facility] Comment on above: Result Comment: [place] om Glucose Reference Range is dependent on time and content of last meal. Glucose of more than 200 mg/dL in a nonstressed, ambulatory subject supports the diagnosis of Diabetes Mellitus. PERFORMED BY: [address] [place] [address] PATHOLOGIST DETECTIVE LIEUTENANT NAN ANDREW M.D. Performed By: #### G LULS #### Point of Care testing , Glucose [Mass/Vol] 157 mg/dL Normal [facility] Comment on above: Result Comment: [place] om Glucose Reference Range is dependent on time and content of last meal. Glucose of more than 200 mg/dL in a nonstressed, ambulatory subject supports the diagnosis of Diabetes Mellitus. PERFORMED BY: [address] [place] [address] PATHOLOGIST DETECTIVE LIEUTENANT NAN ANDREW M.D. Performed By: #### G LULS #### Point of Care testing , Glucose [Mass/Vol] 125 mg/dL Normal [facility] Comment on above: Result Comment: [place] om Glucose Reference Range is dependent on time and content of last meal. Glucose of more than 200 mg/dL in a nonstressed, ambulatory subject supports the diagnosis of Diabetes Mellitus. PERFORMED BY: [address] [place] [address] PATHOLOGIST DETECTIVE LIEUTENANT NAN ANDREW M.D. Performed By: #### G LULS #### Point of Care testing , Glucose [Mass/Vol] 84 mg/dL Normal [facility] Comment on above: Result Comment: [place] om Glucose Reference Range is dependent on time and content of last meal. Glucose of more than 200 mg/dL in a nonstressed, ambulatory subject supports the diagnosis of Diabetes Mellitus. PERFORMED BY: [address] [place] [address] PATHOLOGIST DETECTIVE LIEUTENANT NAN ANDREW M.D. Performed By: #### G LULS #### Point of Care testing , Glucose Poct Glucometerson 0 11-06-2023 Glucose [Mass/Vol] 195 mg/dL Normal [facility] Comment on above: Result Comment: [place] om Glucose Reference Range is dependent on time and content of last meal. Glucose of more than 200 mg/dL in a nonstressed, ambulatory subject supports the diagnosis of Diabetes Mellitus. PERFORMED BY: [address] [place] [address] PATHOLOGIST DETECTIVE LIEUTENANT NAN ANDREW M.D. Performed By: #### G LULS #### Point of Care testing , Glucose [Mass/Vol] 100 mg/dL Normal [facility] Comment on above: Result Comment: [place] om Glucose Reference Range is dependent on time and content of last meal. Glucose of more than 200 mg/dL in a nonstressed, ambulatory subject supports the diagnosis of Diabetes Mellitus. PERFORMED BY: [address] [place] [address] PATHOLOGIST DETECTIVE LIEUTENANT NAN ANDREW M.D. Performed By: #### G LULS #### Point of Care testing , Commemt1 Glu2: Cleaned Meter Normal [facility] Comment on above: Result Comment: PERF ORMED BY: [address] [place] [address] PATHOLOGIST DETECTIVE LIEUTENANT NAN ANDREW M.D. Performed By: #### G LULS #### Point of Care testing , Glucose [Mass/Vol] 178 mg/dL Normal [facility] Comment on above: Result Comment: [place] om Glucose Reference Range is dependent on time and content of last meal. Glucose of more than 200 mg/dL in a nonstressed, ambulatory subject supports the diagnosis of Diabetes Mellitus. Performed By: #### G LULS #### Point of Care testing , Glucose [Mass/Vol] 138 mg/dL Normal [facility] Comment on above: Result Comment: [place] om Glucose Reference Range is dependent on time and content of last meal. Glucose of more than 200 mg/dL in a nonstressed, ambulatory subject supports the diagnosis of Diabetes Mellitus. PERFORMED BY: [place] [address] PATHOLOGIST DETECTIVE LIEUTENANT NAN ANDREW M.D. Performed By: #### G LULS #### Point of Care testing , Glucose Poct Glucometerson 0 11-05-2023 Glucose [Mass/Vol] 175 mg/dL Normal [facility] Comment on above: Result Comment: [place] om Glucose Reference Range is dependent on time and content of last meal. Glucose of more than 200 mg/dL in a nonstressed, ambulatory subject supports the diagnosis of Diabetes Mellitus. PERFORMED BY: [place] [address] PATHOLOGIST DETECTIVE LIEUTENANT NAN ANDREW M.D. Performed By: #### G LULS #### Point of Care testing , Glucose [Mass/Vol] 154 mg/dL Normal [facility] Comment on above: Result Comment: [place] om Glucose Reference Range is dependent on time and content of last meal. Glucose of more than 200 mg/dL in a nonstressed, ambulatory subject supports the diagnosis of Diabetes Mellitus. PERFORMED BY: [place] [address] PATHOLOGIST DETECTIVE LIEUTENANT NAN ANDREW M.D. Performed By: #### G LULS #### Point of Care testing , Commemt1 Glu2: Cleaned Meter Normal [facility] Comment on above: Result Comment: PERF ORMED BY: [place] [address] PATHOLOGIST DETECTIVE LIEUTENANT NAN ANDREW M.D. Performed By: #### G LULS #### Point of Care testing , Glucose [Mass/Vol] 149 mg/dL Normal [facility] Comment on above: Result Comment: [place] om Glucose Reference Range is dependent on time and content of last meal. Glucose of more than 200 mg/dL in a nonstressed, ambulatory subject supports the diagnosis of Diabetes Mellitus. Performed By: #### G LULS #### Point of Care testing , Glucose [Mass/Vol] 130 mg/dL Normal [facility] Comment on above: Result Comment: [facility] Glucose Reference Range is dependent on time and content of last meal. Glucose of more than 200 mg/dL in a nonstressed, ambulatory subject supports the diagnosis of Diabetes Mellitus. PERFORMED BY: [facility] [place] [address] PATHOLOGIST DETECTIVE LIEUTENANT NAN ANDREW M.D. Performed By: #### G LULS #### Point of Care testing , Alanine aminotransferase [En zymatic activity/volume] in Serum or PlasmaOrdered By: Terrell Richardson on 11-04-2023 ALT [Catalytic activity/Vol] 26 U/L Normal 7-52 [facility] Comment on above: Performed By: #### G LULS #### Point of Care testing , Albumin [Mass/volume] in Ser um or Plasma by Bromocresol green (BCG) dye binding methoOrdered By: Terrell Richardson on 11-04-2023 Albumin BCG dye [Mass/Vol] 3.3 g/dL 3.5-5.7 [facility] Alkaline phosphatase [Enzyma tic activity/volume] in Serum or PlasmaOrdered By: Terrell Richardson on 11-04-2023 ALP [Catalytic activity/Vol] 54 U/L Normal 34-104 [facility] Comment on above: Performed By: #### G LULS #### Point of Care testing , Aspartate aminotransferase [ Enzymatic activity/volume] in Serum or PlasmaOrdered By: Terrell Richardson on 11-04-2023 AST [Catalytic activity/Vol] 33 U/L Normal 13-39 [facility] Comment on above: Performed By: #### G LULS #### Point of Care testing , Automated basophil %Ordered By: Terrell Richardson on 11-04-2023 Basophils/100 WBC (Bld) 0.4 % Normal . [facility] Comment on above: Performed By: #### G LULS #### Point of Care testing , Automated basophil countOrde red By: Terrell Richardson on 11-04-2023 Basophils (Bld) [#/Vol] 0.0 10*3/uL Normal 0.0-0.2 [facility] Comment on above: Result Comment: PERF ORMED BY: [facility] [place] [address] PATHOLOGIST DETECTIVE LIEUTENANT NAN ANDREW M.D. Performed By: #### G LULS #### Point of Care testing , Automated blood monocyte cou ntOrdered By: Terrell Richardson on 11-04-2023 Monocytes (Bld) [#/Vol] 1.3 10*3/uL High 0.0-0.8 [facility] Comment on above: Performed By: #### G LULS #### Point of Care testing , Automated eosinophil %Ordere d By: Terrell Richardson on 11-04-2023 Eosinophils/100 WBC (Bld) 1.9 % Normal . [facility] Comment on above: Performed By: #### G LULS #### Point of Care testing , Automated eosinophil countOr dered By: Terrell Richardson on 11-04-2023 Eosinophils (Bld) [#/Vol] 0.2 10*3/uL Normal 0.0-0.45 [facility] Comment on above: Performed By: #### G LULS #### Point of Care testing , Automated monocyte %Ordered By: Terrell Richardson on 11-04-2023 Monocytes/100 WBC (Bld) 13.6 % Normal . [facility] Comment on above: Performed By: #### G LULS #### Point of Care testing , Automated neutrophil %Ordere d By: Terrell Richardson on 11-04-2023 Neutrophils/100 WBC (Bld) 57.7 % Normal . [facility] Comment on above: Performed By: #### G LULS #### Point of Care testing , Bilirubin.total [Mass/volume ] in Serum or PlasmaOrdered By: Terrell Richardson on 11-04-2023 Bilirubin [Mass/Vol] 0.7 mg/dL Normal 0.3-1.0 [facility] Comment on above: Performed By: #### G LULS #### Point of Care testing , Calcium [Mass/volume] in Ser um or PlasmaOrdered By: Terrell Richardson on 11-04-2023 Calcium [Mass/Vol] 8.6 mg/dL Normal 8.6-10.3 [facility] Comment on above: Performed By: #### G LULS #### Point of Care testing , Carbon dioxide, total [Moles /volume] in Serum or PlasmaOrdered By: Terrell Richardson on 11-04-2023 CO2 [Moles/Vol] 30.1 mmol/L Normal 21.0-31.0 [facility] Comment on above: Performed By: #### G LULS #### Point of Care testing , Chloride [Moles/volume] in S stephanie or PlasmaOrdered By: Terrell Richardson on 11-04-2023 Chloride [Moles/Vol] 104 mmol/L Normal 98-107 [facility] Comment on above: Performed By: #### G LULS #### Point of Care testing , Complete Blood Count Auto Di ffon 11-04-2023 Mean Corpuscular HGB Conc 33.8 g/dL Normal 32.5-35.6 [facility] Comment on above: Performed By: #### G LULS #### Point of Care testing , NRBC% 0.2 /100{WBC} Normal 0-0.5 [facility] Comment on above: Performed By: #### G LULS #### Point of Care testing , Comprehensive Metabolic Pane edgar 11-04-2023 Albumin [Mass/Vol] 3.3 g/dL Low 3.5-5.7 [facility] Comment on above: Performed By: #### G LULS #### Point of Care testing , Creatinine Clr Calc Pharmacy 89.89 Normal [facility] Comment on above: Performed By: #### G LULS #### Point of Care testing , GFR/1.73 sq M.predicted MDRD (S/P/Bld) [Vol rate/Area] mL/min/{1.73_m2} Normal [facility] Comment on above: Performed By: #### G LULS #### Point of Care testing , Creatinine [Mass/volume] in Serum or PlasmaOrdered By: Terrell Richardson on 11-04-2023 Creatinine [Mass/Vol] 0.91 mg/dL Normal 0.70-1.30 [facility] Comment on above: Performed By: #### G LULS #### Point of Care testing , Erythrocyte distribution wid th [Ratio] by Automated countOrdered By: Terrell Richardson on 11-04-2023 Erythrocyte distribution width (RBC) [Ratio] 13.7 % Normal 12.0-14.8 [facility] Comment on above: Performed By: #### G LULS #### Point of Care testing , Erythrocytes [#/volume] in B lood by Automated countOrdered By: Terrell Richardson on 11-04-2023 RBC (Bld) [#/Vol] 3.03 10*6/uL Low 3.90-5.60 [facility] Comment on above: Performed By: #### G LULS #### Point of Care testing , Glucose Poct Glucometerson 0 11-04-2023 Commemt1 Glu2: Cleaned Meter Normal [facility] Comment on above: Result Comment: PERF ORMED BY: [facility] [address] [place] [address] PATHOLOGIST DETECTIVE LIEUTENANT NAN ANDREW M.D. Performed By: #### G LULS #### Point of Care testing , Glucose [Mass/Vol] 191 mg/dL Normal [facility] Comment on above: Result Comment: [place] Glucose Reference Range is dependent on time and content of last meal. Glucose of more than 200 mg/dL in a nonstressed, ambulatory subject supports the diagnosis of Diabetes Mellitus. Performed By: #### G LULS #### Point of Care testing , Glucose [Mass/Vol] 109 mg/dL Normal [facility] Comment on above: Result Comment: [place] Glucose Reference Range is dependent on time and content of last meal. Glucose of more than 200 mg/dL in a nonstressed, ambulatory subject supports the diagnosis of Diabetes Mellitus. PERFORMED BY: [facility] [address] [facility] [place] [address] PATHOLOGIST DETECTIVE LIEUTENANT NAN ANDREW M.D. Performed By: #### G LULS #### Point of Care testing , Glucose [Mass/Vol] 104 mg/dL Normal [facility] Comment on above: Result Comment: [place] om Glucose Reference Range is dependent on time and content of last meal. Glucose of more than 200 mg/dL in a nonstressed, ambulatory subject supports the diagnosis of Diabetes Mellitus. PERFORMED BY: [facility] [address] [address] PATHOLOGIST DETECTIVE LIEUTENANT NAN ANDREW M.D. Performed By: #### G LULS #### Point of Care testing , Commemt1 Glu2: Cleaned Meter Normal [facility] Comment on above: Result Comment: PERF ORMED BY: [facility] [address] [place] [address] PATHOLOGIST DETECTIVE LIEUTENANT NAN ANDREW M.D. Performed By: #### G LULS #### Point of Care testing , Glucose [Mass/Vol] 152 mg/dL Normal [facility] Comment on above: Result Comment: [place] om Glucose Reference Range is dependent on time and content of last meal. Glucose of more than 200 mg/dL in a nonstressed, ambulatory subject supports the diagnosis of Diabetes Mellitus. Performed By: #### G LULS #### Point of Care testing , Glucose [Mass/volume] in Ser um or PlasmaOrdered By: Terrell Richardson on 11-04-2023 Glucose [Mass/Vol] 83 mg/dL Normal 70-100 [facility] Comment on above: ADA recommended refe rence rangeRandom Glucose Reference Range is dependent on time and content of last meal. Glucose of more than 200 mg/dL in a nonstressed, ambulatory subject supports the diagnosis of Diabetes Mellitus. Result Comment: [place] om Glucose Reference Range is dependent on time and content of last meal. Glucose of more than 200 mg/dL in a nonstressed, ambulatory subject supports the diagnosis of Diabetes Mellitus. ADA recommended reference range Performed By: #### G LULS #### Point of Care testing , Hematocrit [Volume Fraction] of Blood by Automated countOrdered By: Terrell Richardson on 11-04-2023 Hematocrit (Bld) [Volume fraction] 26.9 % Low 38.8-50.0 [facility] Comment on above: Performed By: #### G LULS #### Point of Care testing , Hemoglobin [Mass/volume] in BloodOrdered By: Terrell Richardson on 11-04-2023 Hemoglobin (Bld) [Mass/Vol] 9.1 g/dL Low 13.0-17.0 [facility] Comment on above: Performed By: #### G LULS #### Point of Care testing , Leukocytes [#/volume] correc destiny for nucleated erythrocytes in Blood by Automated counOrdered By: Terrell Richardson on 11-04-2023 WBC corrected for nucl RBC Auto (Bld) [#/Vol] 9.4 10*3/uL 4.1-10.5 [facility] Leukocytes [#/volume] in Blo od by Automated countOrdered By: Terrell Richardson on 11-04-2023 WBC (Bld) [#/Vol] 9.4 10*3/uL Normal 4.1-10.5 [facility] Comment on above: Performed By: #### G LULS #### Point of Care testing , Lymphocytes [#/volume] in Bl ood by Automated countOrdered By: Terrell Richardson on 11-04-2023 Lymphocytes (Bld) [#/Vol] 2.5 10*3/uL Normal 1.00-4.8 [facility] Comment on above: Performed By: #### G LULS #### Point of Care testing , Lymphocytes/100 leukocytes i n Blood by Automated countOrdered By: Terrell Richardson on 11-04-2023 Lymphocytes/100 WBC (Bld) 26.4 % Normal . [facility] Comment on above: Performed By: #### G LULS #### Point of Care testing , MCH [Entitic mass] by Automa destiny countOrdered By: Terrell Richardson on 11-04-2023 MCH (RBC) [Entitic mass] 30.0 pg Normal 27.5-35.2 [facility] Comment on above: Performed By: #### G LULS #### Point of Care testing , MCHC Auto (RBC) [Mass/Vol]Or dered By: Terrell Richardson on 11-04-2023 MCHC (RBC) [Mass/Vol] 33.8 g/dL 32.5-35.6 [facility] MCV [Entitic volume] by Auto mated countOrdered By: Terrell Richardson on 11-04-2023 MCV (RBC) [Entitic vol] 88.9 fL Normal 83.5-101 [facility] Comment on above: Performed By: #### G LULS #### Point of Care testing , Neutrophils [#/volume] in Bl ood by Automated countOrdered By: Terrell Richardson on 11-04-2023 Neutrophils (Bld) [#/Vol] 5.4 10*3/uL Normal 1.8-7.7 [facility] Comment on above: Performed By: #### G LULS #### Point of Care testing , No Panel InformationOrdered By: Terrell Richardson on 11-04-2023 Estimated GFR (CKD-EPI) > 60.0 mL/Min [facility] Creatinine Clearance (Chem 89.89 [facility] Nucleated erythrocytes [Pres ence] in Blood by Automated countOrdered By: Terrell Richardson on 11-04-2023 Nucleated RBC Auto Ql (Bld) 0.2 /100{WBC} 0-0.5 [facility] Platelet mean volume [Entiti c volume] in Blood by Automated countOrdered By: Terrell Richardson on 11-04-2023 Platelet mean volume (Bld) [Entitic vol] 7.1 fL Normal 6.6-10.1 [facility] Comment on above: Performed By: #### G LULS #### Point of Care testing , Platelets [#/volume] in Bloo d by Automated countOrdered By: Terrell Richardson on 11-04-2023 Platelets (Bld) [#/Vol] 283 10*3/uL Normal 150-450 [facility] Comment on above: Performed By: #### G LULS #### Point of Care testing , Potassium [Moles/volume] in Serum or PlasmaOrdered By: Terrell Richardson on 11-04-2023 Potassium [Moles/Vol] 3.7 mmol/L Normal 3.5-5.1 [facility] Comment on above: Performed By: #### G LULS #### Point of Care testing , Prealbumin [Mass/volume] in Serum or PlasmaOrdered By: Terrell Richardson on 11-04-2023 Prealbumin [Mass/Vol] 14.2 mg/dL Low 17.0-34.0 [facility] Comment on above: Result Comment: PERF ORMED BY: [facility] [place] [address] PATHOLOGIST DETECTIVE LIEUTENANT NAN ANDREW M.D. Performed By: #### G LULS #### Point of Care testing , Protein [Mass/volume] in Ser um or PlasmaOrdered By: Terrell Richardson on 11-04-2023 Protein [Mass/Vol] 5.6 g/dL Low 6.4-8.9 [facility] Comment on above: Performed By: #### G LULS #### Point of Care testing , Serum globulin measurement b y calculation (mass/volume)Ordered By: Terrell Richardson on 11-04-2023 Globulin (S) [Mass/Vol] 2.3 g/dL Normal [facility] Comment on above: Performed By: #### G LULS #### Point of Care testing , Serum or plasma albumin/glob ulin mass ratioOrdered By: Terrell Richardson on 11-04-2023 Albumin/Globulin [Mass ratio] 1.4 {ratio} [facility] Comment on above: Performed By: #### G LULS #### Point of Care testing , Serum or plasma anion gap de terminationOrdered By: Terrell Richardson on 11-04-2023 Anion gap [Moles/Vol] 11.6 mmol/L Normal 6.0-15.0 [facility] Comment on above: Performed By: #### G LULS #### Point of Care testing , Sodium [Moles/volume] in Ser um or PlasmaOrdered By: Terrell Richardson on 11-04-2023 Sodium [Moles/Vol] 142 mmol/L Normal 136-145 [facility] Comment on above: Performed By: #### G LULS #### Point of Care testing , Urea nitrogen [Mass/volume] in Serum or PlasmaOrdered By: Terrell Richardson on 11-04-2023 Urea nitrogen [Mass/Vol] 14 mg/dL Normal 7-25 [facility] Comment on above: Performed By: #### G NÉSTOR #### Point of Care testing , XR chest 2V*on 11-04-2023 XR chest 2V* [facility] Main [address] [address] XRay Report Signed Patient: Jeramie Galvan MR#: [id number] : 1965 Acct:[id number] Age/Sex: 57 / M ADM Date: 11/03/23 Loc: Room: [address] [place] [address] Type: ADM IN Attending Dr: Terrell Richardson [...] Jeramie Morris M.D.11/04/2023 4:10 PM Dictation Location: [place] [address] Transcribed By: [facility] 11/04/23 1610 Dictated By: Jeramie Morris DO 11/04/23 1609 Signed By: 11/04/23 1610 Normal [facility] 30on 11-03-2023 30 Normal [facility] DSon 11-03-2023 DS Normal [facility] Glucose Poct Glucometerson 0 11-03-2023 Commemt1 Glu2: Cleaned Meter Normal [facility] Comment on above: Result Comment: PERF ORMED BY: [place] [address] PATHOLOGIST DETECTIVE LIEUTENANT JIANLAN SUN M.D. Performed By: #### G LULS #### Point of Care testing , Glucose [Mass/Vol] 96 mg/dL Normal [facility] Comment on above: Result Comment: [place] Glucose Reference Range is dependent on time and content of last meal. Glucose of more than 200 mg/dL in a nonstressed, ambulatory subject supports the diagnosis of Diabetes Mellitus. Performed By: #### G LULS #### Point of Care testing , NURSNOTEon 11-03-2023 NURSNOTE Report given to [facility], pt discharged via stretcher to [facility] without incident. [facility] NURSNOTE Report called to Shaniqua at [facility] POCT GLUCOSE METER UNSOLICIT ED RESULTSon 11-03-2023 Glucose [Mass/Vol] 170 mg/dL High 70-105 [facility] Comment on above: Order Comment: Waive d Testing in the ED is performed under the ED CLIA certificate #[id number]. Result Comment: [email or web address] Performed By: #### L [id number] ####[facility] ([facility])[address] [place] [address] Glucose [Mass/Vol] 151 mg/dL High 70-105 [facility] Comment on above: Order Comment: Waive d Testing in the ED is performed under the ED CLIA certificate #[id number]. Result Comment: [email or web address] Performed By: #### L [id number] ####[facility] ([facility])[address] [place] [address] Glucose [Mass/Vol] 89 mg/dL Normal 70-105 [facility] Comment on above: Order Comment: Waive d Testing in the ED is performed under the ED CLIA certificate #[id number]. Result Comment: [email or web address] Performed By: #### L [id number] ####[facility] ([facility])[address] [place] [address] 30on 11-02-2023 30 [facility] POCT GLUCOSE METER UNSOLICIT ED RESULTSon 11-02-2023 Glucose [Mass/Vol] 192 mg/dL High 70-105 [facility] Comment on above: Order Comment: Waive d Testing in the ED is performed under the ED CLIA certificate #[id number]. Result Comment: [email or web address] Performed By: #### L [id number] ####[facility] ([facility])[address] [place] [address] Glucose [Mass/Vol] 116 mg/dL High 70-105 [facility] Comment on above: Order Comment: Waive d Testing in the ED is performed under the ED CLIA certificate #[id number]. Result Comment: [email or web address] Performed By: #### L [id number] ####[facility] ([employer])[address] [place] [address] Glucose [Mass/Vol] 99 mg/dL Normal 70-105 [facility] Comment on above: Order Comment: Waive d Testing in the ED is performed under the ED CLIA certificate #[id number]. Result Comment: [email or web address] Performed By: #### L [id number] ####[facility] ([employer])[address] [place] [address] Glucose [Mass/Vol] 56 mg/dL Low 70-105 [facility] Comment on above: Order Comment: Waive d Testing in the ED is performed under the ED CLIA certificate #[id number]. Result Comment: [email or web address] Performed By: #### L [id number] ####[facility] ([employer])[address] [place] [address] Glucose [Mass/Vol] 107 mg/dL High 70-105 [facility] Comment on above: Order Comment: Waive d Testing in the ED is performed under the ED CLIA certificate #[id number]. Result Comment: [email or web address] Performed By: #### L [id number] ####[facility] ([facility])[address] [place] [address] 30on 11-01-2023 30 Normal [facility] BASIC METABOLIC PANELon 05-0 Anion gap [Moles/Vol] 11 mmol/L Normal 7-20 [facility] Comment on above: Performed By: #### L [id number] ####[facility] ([facility])[address] [place] [address] Calcium [Mass/Vol] 8.4 mg/dL Low 8.6-10.3 [facility] Comment on above: Performed By: #### L [id number] ####[facility] ([facility])[address] [place] [address] Chloride [Moles/Vol] 96 mmol/L Low 98-107 [facility] Comment on above: Performed By: #### L [id number] ####[facility] ([facility])[address] [place] [address] CO2 [Moles/Vol] 30 mmol/L Normal 21-31 [facility] Comment on above: Performed By: #### L [id number] ####[facility] ([facility])[address] [place] [address] Creatinine [Mass/Vol] 0.90 mg/dL Normal 0.70-1.30 [facility] Comment on above: Performed By: #### L [id number] ####[facility] ([facility])[address] [place] [address] GLOMERULAR FILTRATION RATE ML/MIN/1.73 SQ M.PREDICTED 99.6 mL/min/1.73m*2 Normal >60.0 [facility] Comment on above: Result Comment: The [facility]???s estimated glomerular filtration rate (eGFR) will no [...] of individuals. Performed By: #### L [id number] ####[facility] ([facility])[address] [place] [address] Glucose [Mass/Vol] 149 mg/dL High 70-100 [facility] Comment on above: Performed By: #### L [id number] ####[facility] ([facility])[address] [place] [address] Potassium [Moles/Vol] 3.9 mmol/L Normal 3.5-5.1 [facility] Comment on above: Performed By: #### L [id number] ####[facility] ([facility])[address] [place] [address] Sodium [Moles/Vol] 133 mmol/L Low 136-145 [facility] Comment on above: Performed By: #### L [id number] ####[facility] ([facility])[address] [place] [address] Urea nitrogen [Mass/Vol] 24 mg/dL Normal 7-25 [facility] Comment on above: Performed By: #### L [id number] ####[facility] ([facility])[address] [place] [address] UREA NITROGEN/CREATININE (MASS RATIO) IN SER/PLAS 26.7 Normal [facility] Comment on above: Performed By: #### L [id number] ####[facility] ([facility])[address] [place] [address] CBCon 11-01-2023 Erythrocyte distribution width (RBC) [Ratio] 13.0 % Normal 11.5-15.0 [facility] Comment on above: Performed By: #### L [id number] ####[facility] ([facility])[address] [place] [address] ERYTHROCYTE MEAN CORPUSCULAR HEMOGLOBIN CONCENTRATION (G/DL) BY AUTOMATED 32.2 g/dL Normal 32.0-35.0 [facility] Comment on above: Performed By: #### L [id number] ####[facility] ([facility])[address] [place] [address] Hematocrit (Bld) [Volume fraction] 24.5 % Low 39.0-55.0 [facility] Comment on above: Performed By: #### L [id number] ####[facility] ([facility])[address] [place] [address] Hemoglobin (Bld) [Mass/Vol] 7.9 g/dL Low 13.0-17.0 [facility] Comment on above: Performed By: #### L [id number] ####[facility] ([facility])[address] [place] [address] MCH (RBC) [Entitic mass] 29.8 pg Normal 27.0-33.0 [facility] Comment on above: Performed By: #### L [id number] ####[facility] ([facility])[address] [place] [address] MCV (RBC) [Entitic vol] 92.5 fL Normal 82.0-98.0 [facility] Comment on above: Performed By: #### L [id number] ####[facility] ([facility])[address] [place] [address] PLATELETS (10*3/UL) IN BLOOD AUTOMATED COUNT 174 10*3/uL Normal 150-400 [facility] Comment on above: Performed By: #### L [id number] ####[facility] ([facility])[address] [place] [address] RBC (Bld) [#/Vol] 2.65 10*6/uL Low 4.20-5.70 [facility] Comment on above: Performed By: #### L [id number] ####[facility] ([facility])[address] [place] [address] WBC (Bld) [#/Vol] 8.70 10*3/uL Normal 4.00-10.60 [facility] Comment on above: Performed By: #### L [id number] ####[facility] ([facility])[address] [place] [address] MAGNESIUMon 11-01-2023 Magnesium [Mass/Vol] 2.1 mg/dL Normal 1.9-2.7 [facility] Comment on above: Performed By: #### L [id number] ####[facility] ([employer])[address] [place] [address] NURSNOTEon 11-01-2023 NURSNOTE [facility] POCT GLUCOSE METER UNSOLICIT ED RESULTSon 11-01-2023 Glucose [Mass/Vol] 90 mg/dL Normal 70-105 [facility] Comment on above: Order Comment: Waive d Testing in the ED is performed under the ED CLIA certificate #[id number]. Result Comment: [email or web address] Performed By: #### L [id number] ####[facility] ([facility])[address] [place] [address] Glucose [Mass/Vol] 108 mg/dL High 70-105 [facility] Comment on above: Order Comment: Waive d Testing in the ED is performed under the ED CLIA certificate #[id number]. Result Comment: [email or web address] Performed By: #### L [id number] ####[facility] ([employer])[address] [place] [address] Glucose [Mass/Vol] 183 mg/dL High 70-105 [facility] Comment on above: Order Comment: Waive d Testing in the ED is performed under the ED CLIA certificate #[id number]. Result Comment: [email or web address] Performed By: #### L [id number] ####[facility] ([employer])[address] [place] [address] Glucose [Mass/Vol] 202 mg/dL High 70-105 [facility] Comment on above: Order Comment: Waive d Testing in the ED is performed under the ED CLIA certificate #[id number]. Result Comment: [email or web address] Performed By: #### L [id number] ####[facility] ([facility])[address] [place] [address] 30on 10-31-2023 30 [facility] 30 [facility] 30 The patient is Moderately Stable - Low risk of patient condition declining or worsening The patient's goals for the shift include comfort, rest The clinical goals for the shift include Stable vitals, comfort Normal [facility] BASIC METABOLIC PANELon 05-0 Anion gap [Moles/Vol] 11 mmol/L Normal 7-20 [facility] Comment on above: Performed By: #### L [id number] ####[facility] ([facility])[address] [place] [address] Calcium [Mass/Vol] 8.4 mg/dL Low 8.6-10.3 [facility] Comment on above: Performed By: #### L [id number] ####[facility] ([facility])[address] [place] [address] Chloride [Moles/Vol] 95 mmol/L Low 98-107 [facility] Comment on above: Performed By: #### L [id number] ####[facility] ([facility])[address] [place] [address] CO2 [Moles/Vol] 31 mmol/L Normal 21-31 [facility] Comment on above: Performed By: #### L [id number] ####[facility] ([facility])[address] [place] [address] Creatinine [Mass/Vol] 0.94 mg/dL Normal 0.70-1.30 [facility] Comment on above: Performed By: #### L [id number] ####[facility] ([facility])[address] [place] [address] GLOMERULAR FILTRATION RATE ML/MIN/1.73 SQ M.PREDICTED 94.6 mL/min/1.73m*2 Normal >60.0 [facility] Comment on above: Result Comment: The [facility]???s estimated glomerular filtration rate (eGFR) will no [...] of individuals. Performed By: #### L [id number] ####[facility] ([facility])[address] [place] [address] Glucose [Mass/Vol] 146 mg/dL High 70-100 [facility] Comment on above: Performed By: #### L [id number] ####[facility] ([facility])[address] [place] [address] Potassium [Moles/Vol] 4.2 mmol/L Normal 3.5-5.1 [facility] Comment on above: Performed By: #### L [id number] ####[facility] ([facility])[address] [place] [address] Sodium [Moles/Vol] 133 mmol/L Low 136-145 [facility] Comment on above: Performed By: #### L [id number] ####[facility] ([facility])[address] [place] [address] Urea nitrogen [Mass/Vol] 26 mg/dL High 7-25 [facility] Comment on above: Performed By: #### L [id number] ####[facility] ([facility])[address] [place] [address] UREA NITROGEN/CREATININE (MASS RATIO) IN SER/PLAS 27.7 Normal [facility] Comment on above: Performed By: #### L [id number] ####[facility] ([facility])[address] [place] [address] CBCon 10-31-2023 Erythrocyte distribution width (RBC) [Ratio] 12.9 % Normal 11.5-15.0 [facility] Comment on above: Performed By: #### L [id number] ####[facility] ([facility])[address] [place] [address] ERYTHROCYTE MEAN CORPUSCULAR HEMOGLOBIN CONCENTRATION (G/DL) BY AUTOMATED 33.1 g/dL Normal 32.0-35.0 [facility] Comment on above: Performed By: #### L [id number] ####[facility] ([facility])[address] [place] [address] Hematocrit (Bld) [Volume fraction] 24.2 % Low 39.0-55.0 [facility] Comment on above: Performed By: #### L [id number] ####[facility] ([facility])[address] [place] [address] Hemoglobin (Bld) [Mass/Vol] 8.0 g/dL Low 13.0-17.0 [facility] Comment on above: Performed By: #### L [id number] ####[facility] ([facility])[address] [place] [address] MCH (RBC) [Entitic mass] 29.4 pg Normal 27.0-33.0 [facility] Comment on above: Performed By: #### L [id number] ####[facility] ([facility])[address] [place] [address] MCV (RBC) [Entitic vol] 89.0 fL Normal 82.0-98.0 [facility] Comment on above: Performed By: #### L [id number] ####[facility] ([facility])[address] [place] [address] PLATELETS (10*3/UL) IN BLOOD AUTOMATED COUNT 151 10*3/uL Normal 150-400 [facility] Comment on above: Performed By: #### L [id number] ####[facility] ([facility])[address] [place] [address] RBC (Bld) [#/Vol] 2.72 10*6/uL Low 4.20-5.70 [facility] Comment on above: Performed By: #### L [id number] ####[facility] ([facility])[address] [place] [address] WBC (Bld) [#/Vol] 9.44 10*3/uL Normal 4.00-10.60 [facility] Comment on above: Performed By: #### L [id number] ####[facility] ([facility])[address] [place] [address] CT CHEST WO IV CONTRASTon CT CHEST WO IV CONTRAST Invalid Interpretation Code [facility] CT HEAD WO IV CONTRASTon CT HEAD WO IV CONTRAST Invalid Interpretation Code [facility] MAGNESIUMon 10-31-2023 Magnesium [Mass/Vol] 2.3 mg/dL Normal 1.9-2.7 [facility] Comment on above: Performed By: #### L [id number] ####[facility] ([facility])[address] [place] [address] NURSNOTEon 10-31-2023 NURSNOTE Normal [facility] POCT GLUCOSE METER UNSOLICIT ED RESULTSon 10-31-2023 Glucose [Mass/Vol] 189 mg/dL High 70-105 [facility] Comment on above: Order Comment: Waive d Testing in the ED is performed under the ED CLIA certificate #[id number]. Result Comment: [email or web address] Performed By: #### L [id number] ####[facility] ([facility])[address] [place] [address] Glucose [Mass/Vol] 152 mg/dL High 70-105 [facility] Comment on above: Order Comment: Waive d Testing in the ED is performed under the ED CLIA certificate #[id number]. Result Comment: [email or web address] Performed By: #### L [id number] ####[facility] ([facility])[address] [place] [address] Glucose [Mass/Vol] 171 mg/dL High 70-105 [facility] Comment on above: Order Comment: Waive d Testing in the ED is performed under the ED CLIA certificate #[id number]. Result Comment: [email or web address] Performed By: #### L [id number] ####[facility] ([employer])[address] [place] [address] Glucose [Mass/Vol] 171 mg/dL High 70-105 [facility] Comment on above: Order Comment: Waive d Testing in the ED is performed under the ED CLIA certificate #[id number]. Result Comment: [email or web address] Performed By: #### L [id number] ####[facility] ([facility])[address] [place] [address] 30on 10-30-2023 30 Normal [facility] BASIC METABOLIC PANELon 05-0 Anion gap [Moles/Vol] 6 mmol/L Low 7-20 [facility] Comment on above: Performed By: #### L [id number] ####[facility] ([facility])[address] [place] [address] Calcium [Mass/Vol] 8.3 mg/dL Low 8.6-10.3 [facility] Comment on above: Performed By: #### L [id number] ####[facility] ([facility])[address] [place] [address] Chloride [Moles/Vol] 94 mmol/L Low 98-107 [facility] Comment on above: Performed By: #### L [id number] ####[facility] ([facility])[address] [place] [address] CO2 [Moles/Vol] 35 mmol/L High 21-31 [facility] Comment on above: Performed By: #### L [id number] ####[facility] ([facility])[address] [place] [address] Creatinine [Mass/Vol] 1.11 mg/dL Normal 0.70-1.30 [facility] Comment on above: Performed By: #### L [id number] ####[facility] ([facility])[address] [place] [address] GLOMERULAR FILTRATION RATE ML/MIN/1.73 SQ M.PREDICTED 77.5 mL/min/1.73m*2 Normal >60.0 [facility] Comment on above: Result Comment: The [facility]???s estimated glomerular filtration rate (eGFR) will no [...] of individuals. Performed By: #### L [id number] ####[facility] ([facility])[address] [place] [address] Glucose [Mass/Vol] 177 mg/dL High 70-100 [facility] Comment on above: Performed By: #### L [id number] ####[facility] ([facility])[address] [place] [address] Potassium [Moles/Vol] 3.9 mmol/L Normal 3.5-5.1 [facility] Comment on above: Performed By: #### L [id number] ####[facility] ([facility])[address] [place] [address] Sodium [Moles/Vol] 131 mmol/L Low 136-145 [facility] Comment on above: Performed By: #### L [id number] ####[facility] ([facility])[address] [place] [address] Urea nitrogen [Mass/Vol] 30 mg/dL High 7-25 [facility] Comment on above: Performed By: #### L [id number] ####[facility] ([facility])[address] [place] [address] UREA NITROGEN/CREATININE (MASS RATIO) IN SER/PLAS 27.0 Normal [facility] Comment on above: Performed By: #### L [id number] ####[facility] ([facility])[address] [place] [address] CBCon 10-30-2023 Erythrocyte distribution width (RBC) [Ratio] 12.6 % Normal 11.5-15.0 [facility] Comment on above: Performed By: #### L [id number] ####[facility] ([facility])[address] [place] [address] ERYTHROCYTE MEAN CORPUSCULAR HEMOGLOBIN CONCENTRATION (G/DL) BY AUTOMATED 33.2 g/dL Normal 32.0-35.0 [facility] Comment on above: Performed By: #### L [id number] ####[facility] ([facility])[address] [place] [address] Hematocrit (Bld) [Volume fraction] 23.8 % Low 39.0-55.0 [facility] Comment on above: Performed By: #### L [id number] ####[facility] ([facility])[address] [place] [address] Hemoglobin (Bld) [Mass/Vol] 7.9 g/dL Low 13.0-17.0 [facility] Comment on above: Performed By: #### L [id number] ####[facility] ([facility])[address] [place] [address] IMMATURE PLATELET FRACTION % 6.2 % Normal 0.8-6.3 [facility] Comment on above: Performed By: #### L [id number] ####[facility] ([facility])[address] [place] [address] MCH (RBC) [Entitic mass] 30.0 pg Normal 27.0-33.0 [facility] Comment on above: Performed By: #### L [id number] ####[facility] [facility] [place] [address] MCV (RBC) [Entitic vol] 90.5 fL Normal 82.0-98.0 [facility] Comment on above: Performed By: #### L [id number] ####[facility] ([facility] [place] [address] PLATELETS (10*3/UL) IN BLOOD AUTOMATED COUNT 112 10*3/uL Low 150-400 [facility] Comment on above: Performed By: #### L [id number] ####[facility] ([facility])[address] [place] [address] RBC (Bld) [#/Vol] 2.63 10*6/uL Low 4.20-5.70 [facility] Comment on above: Performed By: #### L [id number] ####[facility] ([facility])[address] [place] [address] WBC (Bld) [#/Vol] 9.82 10*3/uL Normal 4.00-10.60 [facility] Comment on above: Performed By: #### L [id number] ####[facility] ([facility])[address] [place] [address] CONSULTon 10-30-2023 CONSULT Normal [facility] MAGNESIUMon 10-30-2023 Magnesium [Mass/Vol] 2.2 mg/dL Normal 1.9-2.7 [facility] Comment on above: Performed By: #### L [id number] ####[facility] ([facility])[address] [place] [address] NURSNOTEon 10-30-2023 NURSNOTE [facility] PHOSPHORUSon 10-30-2023 Magnesium [Mass/Vol] 3.7 mg/dL Normal 2.5-5.0 [facility] Comment on above: Performed By: #### L [id number] ####[facility] ([facility])[address] [place] [address] POCT GLUCOSE METER UNSOLICIT ED RESULTSon 10-30-2023 Glucose [Mass/Vol] 189 mg/dL High 70-105 [facility] Comment on above: Order Comment: Waive d Testing in the ED is performed under the ED CLIA certificate #[id number]. Result Comment: [email or web address] Performed By: #### L [id number] ####[facility] ([facility])[address] [place] [address] Glucose [Mass/Vol] 202 mg/dL High 70-105 [facility] Comment on above: Order Comment: Waive d Testing in the ED is performed under the ED CLIA certificate #[id number]. Result Comment: [email or web address] Performed By: #### L [id number] ####[facility] ([facility])[address] [place] [address] Glucose [Mass/Vol] 175 mg/dL High 70-105 [facility] Comment on above: Order Comment: Waive d Testing in the ED is performed under the ED CLIA certificate #[id number]. Result Comment: [email or web address] Performed By: #### L [id number] ####[facility] ([facility])[address] [place] [address] 30on 10-29-2023 30 Normal [facility] BASIC METABOLIC PANELon 05- Anion gap [Moles/Vol] 11 mmol/L Normal 7-20 [facility] Comment on above: Performed By: #### L [id number] ####[facility] ([facility])[address] [place] [address] Calcium [Mass/Vol] 8.9 mg/dL Normal 8.6-10.3 [facility] Comment on above: Performed By: #### L [id number] ####[facility] ([facility])[address] [place] [address] Chloride [Moles/Vol] 99 mmol/L Normal 98-107 [facility] Comment on above: Performed By: #### L [id number] ####[facility] ([facility])[address] [place] [address] CO2 [Moles/Vol] 28 mmol/L Normal 21-31 [facility] Comment on above: Performed By: #### L [id number] ####[facility] ([facility])[address] [place] [address] Creatinine [Mass/Vol] 1.20 mg/dL Normal 0.70-1.30 [facility] Comment on above: Performed By: #### L [id number] ####[facility] ([facility])[address] [place] [address] GLOMERULAR FILTRATION RATE ML/MIN/1.73 SQ M.PREDICTED 70.5 mL/min/1.73m*2 Normal >60.0 [facility] Comment on above: Result Comment: [facility]???s estimated glomerular filtration rate (eGFR) will no [...] of individuals. Performed By: #### L [id number] ####[facility] ([facility])[address] [place] [address] Glucose [Mass/Vol] 184 mg/dL High 70-100 [facility] Comment on above: Performed By: #### L [id number] ####[facility] ([facility])[address] [place] [address] Potassium [Moles/Vol] 4.7 mmol/L Normal 3.5-5.1 [facility] Comment on above: Performed By: #### L [id number] ####[facility] ([facility])[address] [place] [address] Sodium [Moles/Vol] 133 mmol/L Low 136-145 [facility] Comment on above: Performed By: #### L [id number] ####[facility] ([facility])[address] [place] [address] Urea nitrogen [Mass/Vol] 30 mg/dL High 7-25 [facility] Comment on above: Performed By: #### L [id number] ####[facility] ([facility])[address] [place] [address] UREA NITROGEN/CREATININE (MASS RATIO) IN SER/PLAS 25.0 Normal [facility] Comment on above: Performed By: #### L [id number] ####[facility] ([facility])[address] [place] [address] CBCon 10-29-2023 Erythrocyte distribution width (RBC) [Ratio] 12.7 % Normal 11.5-15.0 [facility] Comment on above: Performed By: #### L [id number] ####[facility] ([facility])[address] [place] [address] ERYTHROCYTE MEAN CORPUSCULAR HEMOGLOBIN CONCENTRATION (G/DL) BY AUTOMATED 33.7 g/dL Normal 32.0-35.0 [facility] Comment on above: Performed By: #### L [id number] ####[facility] ([facility])[address] [place] [address] Hematocrit (Bld) [Volume fraction] 27.0 % Low 39.0-55.0 [facility] Comment on above: Performed By: #### L [id number] ####[facility] ([facility])[address] [place] [address] Hemoglobin (Bld) [Mass/Vol] 9.1 g/dL Low 13.0-17.0 [facility] Comment on above: Performed By: #### L [id number] ####[facility] ([facility])[address] [place] [address] IMMATURE PLATELET FRACTION % 5.7 % Normal 0.8-6.3 [facility] Comment on above: Performed By: #### L [id number] ####[facility] ([facility])[address] [place] [address] MCH (RBC) [Entitic mass] 30.2 pg Normal 27.0-33.0 [facility] Comment on above: Performed By: #### L [id number] ####[facility] ([facility])[address] [place] [address] MCV (RBC) [Entitic vol] 89.7 fL Normal 82.0-98.0 [facility] Comment on above: Performed By: #### L [id number] ####[facility] ([facility])[address] [place] [address] PLATELETS (10*3/UL) IN BLOOD AUTOMATED COUNT 120 10*3/uL Low 150-400 [facility] Comment on above: Performed By: #### L [id number] ####[facility] ([facility])[address] [place] [address] RBC (Bld) [#/Vol] 3.01 10*6/uL Low 4.20-5.70 [facility] Comment on above: Performed By: #### L [id number] ####[facility] ([facility])[address] [place] [address] WBC (Bld) [#/Vol] 11.19 10*3/uL High 4.00-10.60 [facility] Comment on above: Performed By: #### L [id number] ####[facility] ([facility])[address] [place] [address] MAGNESIUMon 10-29-2023 Magnesium [Mass/Vol] 2.1 mg/dL Normal 1.9-2.7 [facility] Comment on above: Performed By: #### L [id number] ####[facility] ([facility])[address] [place] [address] PHOSPHORUSon 10-29-2023 Magnesium [Mass/Vol] 5.7 mg/dL High 2.5-5.0 [facility] Comment on above: Performed By: #### L [id number] ####[facility] ([facility])[address] [place] [address] POCT GLUCOSE METER UNSOLICIT ED RESULTSon 10-29-2023 Glucose [Mass/Vol] 147 mg/dL High 70-105 [facility] Comment on above: Order Comment: Waive d Testing in the ED is performed under the ED CLIA certificate #[id number]. Result Comment: [email or web address] Performed By: #### L [id number] ####[facility] ([facility])[address] [place] [address] Glucose [Mass/Vol] 198 mg/dL High 70-105 [facility] Comment on above: Order Comment: Waive d Testing in the ED is performed under the ED CLIA certificate #[id number]. Result Comment: [email or web address] Performed By: #### L [id number] ####[facility] ([facility])[address] [facility] [place] [address] Glucose [Mass/Vol] 194 mg/dL High 70-105 [facility] Comment on above: Order Comment: Waive d Testing in the ED is performed under the ED CLIA certificate #[id number]. Result Comment: [email or web address] Performed By: #### L [id number] ####[facility] ([facility])[address] [facility] [place] [address] Glucose [Mass/Vol] 169 mg/dL High 70-105 [facility] Comment on above: Order Comment: Waive d Testing in the ED is performed under the ED CLIA certificate #[id number]. Result Comment: [email or web address] Performed By: #### L [id number] ####[facility] ([facility])[address] [place] [address] APTTon 10-28-2023 ACTIVATED PARTIAL THROMBOPLASTIN TIME IN PPP BY COAGULATION ASSAY 31.6 Seconds Normal 25.0-35.0 [facility] Comment on above: Result Comment: Clin ical significance of the APTT is questionable in the presence of heparin. Performed By: #### L [id number] ####[facility] ([facility])[address] [place] [address] ACTIVATED PARTIAL THROMBOPLASTIN TIME IN PPP BY COAGULATION ASSAY >200.0 Critically high 25.0-35.0 [facility] Comment on above: Result Comment: Clin ical significance of the APTT is questionable in the presence of heparin. Performed By: #### L [id number] ####[facility] ([facility])[address] [address] ARTERIAL BLOOD GAS WITH IONI ZED CALCIUMon 10-28-2023 Base excess Calc (Bld) [Moles/Vol] -1.1000 mmol/L Normal -2.0-3.0 [facility] Comment on above: Order Comment: V60 1 12/05 Performed By: #### L [id number] ####[facility] [id number] [place] [address] [place] CALCIUM IONIZED (MMOL/L) IN BLOOD 1.21 mmol/L Normal 1.15-1.33 [facility] Comment on above: Order Comment: 12/05 Performed By: #### L [id number] ####[facility] [id number] [place] [address] [facility] CO2 (Bld) [Partial pressure] 48 mm[Hg] Normal 35-48 [facility] Comment on above: Order Comment: 12/05 Performed By: #### L [id number] ####[facility] [id number] [place] [address] [facility] FIO2 40 % Normal [facility] Comment on above: Order Comment: 12/05 Performed By: #### L [id number] ####[facility] [id number] [place] [address] [facility] HCO3 (Bld) [Moles/Vol] 25.3 mmol/L Normal 21.0-28.0 [facility] Comment on above: Order Comment: 12/05 Performed By: #### L [id number] ####[facility] [id number] [place] [address] [facility] Oxygen (Bld) [Partial pressure] 115 mm[Hg] High 83-100 [facility] Comment on above: Order Comment: 12/05 Performed By: #### L [id number] ####[facility] [id number] [place] [address] [place] OXYGEN SATURATION (%) IN ARTERIAL BLOOD 99.8 % High 94.0-98.0 [facility] Comment on above: Order Comment: 12/05 Performed By: #### L [id number] ####[facility] [id number] [place] [address] [place] pH (Bld) 7.33 [pH] Low 7.35-7.45 [facility] Comment on above: Order Comment: 12/05 Performed By: #### L [id number] ####[facility] RES[facility]IR[facility] [id number] [place], [place] [address] SOURCE OF OXYGEN Bi-PAP Normal [facility] Comment on above: Order Comment: V60 12/05 Performed By: #### L [id number] ####[facility] [id number] [place] [address] [facility] Base excess Calc (Bld) [Moles/Vol] -3.0000 mmol/L Low -2.0-3.0 [facility] Comment on above: Performed By: #### L [id number] ####[facility] [id number] [place] [address] [facility] CALCIUM IONIZED (MMOL/L) IN BLOOD 1.23 mmol/L Normal 1.15-1.33 [facility] Comment on above: Performed By: #### L [id number] ####[facility] [id number] [place] [address] [facility] CO2 (Bld) [Partial pressure] 52 mm[Hg] High 35-48 [facility] Comment on above: Performed By: #### L [id number] ####[facility] RES[facility]IR[facility] [id number] [place] [address] [facility] FIO2 40 % Normal [facility] Comment on above: Performed By: #### L [id number] ####[facility] [id number] [place] [address] [facility] HCO3 (Bld) [Moles/Vol] 24.4 mmol/L Normal 21.0-28.0 [facility] Comment on above: Performed By: #### L [id number] ####[facility] RESPIR[facility] [id number] [place] [address] [facility] LPM 40 Normal [facility] Comment on above: Performed By: #### L [id number] ####[facility] RESPIR[facility] [id number] [place] [address] [facility] Oxygen (Bld) [Partial pressure] 64 mm[Hg] Low 83-100 [facility] Comment on above: Performed By: #### L [id number] ####[facility] RES[facility] [id number] [place] [address] [facility] OXYGEN SATURATION (%) IN ARTERIAL BLOOD 93.0 % Low 94.0-98.0 [facility] Comment on above: Performed By: #### L [id number] ####[facility] [id number] [place] [address] [facility] pH (Bld) 7.28 [pH] Low 7.35-7.45 [facility] Comment on above: Performed By: #### L [id number] ####[facility] RESPIR[facility] [id number] [place] [address] [facility] SOURCE OF OXYGEN High flow nasal cannula Normal [facility] Comment on above: Performed By: #### L [id number] ####[facility] [id number] [place] [address] [facility] BASIC METABOLIC PANELon - Anion gap [Moles/Vol] 14 mmol/L Normal 7-20 [facility] Comment on above: Performed By: #### L [id number] ####[facility] ([facility])[address] [place] [address] Calcium [Mass/Vol] 8.5 mg/dL Low 8.6-10.3 [facility] Comment on above: Performed By: #### L [id number] ####[facility] ([facility])[address] [place] [address] Chloride [Moles/Vol] 105 mmol/L Normal 98-107 [facility] Comment on above: Performed By: #### L [id number] ####[facility] ([facility])[address] [place] [address] CO2 [Moles/Vol] 24 mmol/L Normal 21-31 [facility] Comment on above: Performed By: #### L [id number] ####[facility] ([facility])[address] [place] [address] Creatinine [Mass/Vol] 1.05 mg/dL Normal 0.70-1.30 [facility] Comment on above: Performed By: #### L [id number] ####[facility] ([facility])[address] [place] [address] GLOMERULAR FILTRATION RATE ML/MIN/1.73 SQ M.PREDICTED 82.8 mL/min/1.73m*2 Normal >60.0 [facility] Comment on above: Result Comment: [facility]???s estimated glomerular filtration rate (eGFR) will no [...] of individuals. Performed By: #### L [id number] ####[facility] ([facility])[address] [place] [address] Glucose [Mass/Vol] 175 mg/dL High 70-100 [facility] Comment on above: Performed By: #### L [id number] ####[facility] ([facility])[address] [place] [address] Potassium [Moles/Vol] 4.7 mmol/L Normal 3.5-5.1 [facility] Comment on above: Performed By: #### L [id number] ####[facility] ([facility])[address] [place] [address] Sodium [Moles/Vol] 138 mmol/L Normal 136-145 [facility] Comment on above: Performed By: #### L [id number] ####[facility] ([facility])[address] [place] [address] Urea nitrogen [Mass/Vol] 19 mg/dL Normal 7-25 [facility] Comment on above: Performed By: #### L [id number] ####[facility] ([facility])[address] [place] [address] UREA NITROGEN/CREATININE (MASS RATIO) IN SER/PLAS 18.1 Normal [facility] Comment on above: Performed By: #### L [id number] ####[facility] ([facility])[address] [place] [address] Anion gap [Moles/Vol] 10 mmol/L Normal 7-20 [facility] Comment on above: Performed By: #### L [id number] ####[facility] ([facility])[address] [place] [address] Calcium [Mass/Vol] 8.3 mg/dL Low 8.6-10.3 [facility] Comment on above: Performed By: #### L [id number] ####[facility] ([facility])[address] [place] [address] Chloride [Moles/Vol] 107 mmol/L Normal 98-107 [facility] Comment on above: Performed By: #### L [id number] ####[facility] ([facility])[address] [place] [address] CO2 [Moles/Vol] 27 mmol/L Normal 21-31 [facility] Comment on above: Performed By: #### L [id number] ####[facility] ([facility])[address] [place] [address] Creatinine [Mass/Vol] 0.94 mg/dL Normal 0.70-1.30 [facility] Comment on above: Performed By: #### L [id number] ####[facility] ([facility])[address] [place] [address] GLOMERULAR FILTRATION RATE ML/MIN/1.73 SQ M.PREDICTED 94.6 mL/min/1.73m*2 Normal >60.0 [facility] Comment on above: Result Comment: [facility]???s estimated glomerular filtration rate (eGFR) will no [...] of individuals. Performed By: #### L [id number] ####[facility] ([facility])[address] [place] [address] Glucose [Mass/Vol] 84 mg/dL Normal 70-100 [facility] Comment on above: Performed By: #### L [id number] ####[facility] ([facility])[address] [place] [address] Potassium [Moles/Vol] 4.6 mmol/L Normal 3.5-5.1 [facility] Comment on above: Performed By: #### L [id number] ####[facility] ([facility])[address] [place] [address] Sodium [Moles/Vol] 139 mmol/L Normal 136-145 [facility] Comment on above: Performed By: #### L [id number] ####[facility] ([facility])[address] [place] [address] Urea nitrogen [Mass/Vol] 17 mg/dL Normal 7-25 [facility] Comment on above: Performed By: #### L [id number] ####[facility] ([facility])[address] [place] [address] UREA NITROGEN/CREATININE (MASS RATIO) IN SER/PLAS 18.1 Normal [facility] Comment on above: Performed By: #### L [id number] ####[facility] ([facility])[address] [place] [address] CBCon 10-28-2023 Erythrocyte distribution width (RBC) [Ratio] 12.4 % Normal 11.5-15.0 [facility] Comment on above: Performed By: #### L [id number] ####[facility] ([facility])[address] [place] [address] ERYTHROCYTE MEAN CORPUSCULAR HEMOGLOBIN CONCENTRATION (G/DL) BY AUTOMATED 34.3 g/dL Normal 32.0-35.0 [facility] Comment on above: Performed By: #### L [id number] ####[facility] ([facility])[address] [place] [address] Hematocrit (Bld) [Volume fraction] 27.4 % Low 39.0-55.0 [facility] Comment on above: Performed By: #### L [id number] ####[facility] ([facility])[address] [place] [address] Hemoglobin (Bld) [Mass/Vol] 9.4 g/dL Low 13.0-17.0 [facility] Comment on above: Performed By: #### L [id number] ####[facility] ([facility])[address] [place] [address] IMMATURE PLATELET FRACTION % 4.2 % Normal 0.8-6.3 [facility] Comment on above: Performed By: #### L [id number] ####[facility] ([facility])[address] [place] [address] MCH (RBC) [Entitic mass] 29.6 pg Normal 27.0-33.0 [facility] Comment on above: Performed By: #### L [id number] ####[facility] ([facility])[address] [place] [address] MCV (RBC) [Entitic vol] 86.2 fL Normal 82.0-98.0 [facility] Comment on above: Performed By: #### L [id number] ####[facility] ([facility])[address] [place] [address] PLATELETS (10*3/UL) IN BLOOD AUTOMATED COUNT 138 10*3/uL Low 150-400 [facility] Comment on above: Performed By: #### L [id number] ####[facility] ([facility])[address] [place] [address] RBC (Bld) [#/Vol] 3.18 10*6/uL Low 4.20-5.70 [facility] Comment on above: Performed By: #### L [id number] ####[facility] ([facility])[address] [place] [address] WBC (Bld) [#/Vol] 9.88 10*3/uL Normal 4.00-10.[address] [facility] Comment on above: Performed By: #### L [id number] ####[facility] ([facility])[address] [place] [address] CONSULTon 10-28-2023 CONSULT Normal [facility] LACTIC ACID, PLASMAon 2023 LACTATE (MMOL/L) IN SER/PLAS 1.1 mmol/L Normal 0.5-2.2 [facility] Comment on above: Performed By: #### L [id number] ####[facility] ([facility])[address] [place] [address] MAGNESIUMon 10-28-2023 Magnesium [Mass/Vol] 2.0 mg/dL Normal 1.9-2.7 [facility] Comment on above: Performed By: #### L [id number] ####[facility] ([facility])[address] [place] [address] Magnesium [Mass/Vol] 2.1 mg/dL Normal 1.9-2.7 [facility] Comment on above: Performed By: #### L [id number] ####[facility] ([facility])[address] [place] [address] Magnesium [Mass/Vol] 2.0 mg/dL Normal 1.9-2.7 [facility] Comment on above: Performed By: #### L [id number] ####[facility] ([facility])[address] [place] [address] Magnesium [Mass/Vol] 2.1 mg/dL Normal 1.9-2.7 [facility] Comment on above: Performed By: #### L [id number] ####[facility] ([facility])[address] [place] [address] PHOSPHORUSon 10-28-2023 Magnesium [Mass/Vol] 5.2 mg/dL High 2.5-5.0 [facility] Comment on above: Performed By: #### L [id number] ####[facility] ([facility])[address] [place] [address] Magnesium [Mass/Vol] 5.4 mg/dL High 2.5-5.0 [facility] Comment on above: Performed By: #### L [id number] ####[facility] ([facility])[address] [place] [address] POCT GLUCOSE METER UNSOLICIT ED RESULTSon 10-28-2023 Glucose [Mass/Vol] 181 mg/dL High 70-105 [facility] Comment on above: Order Comment: Waive d Testing in the ED is performed under the ED CLIA certificate #[id number]. Result Comment: [email or web address] Performed By: #### L [id number] ####[facility] ([facility])[address] [place] [address] Glucose [Mass/Vol] 214 mg/dL High 70-105 [facility] Comment on above: Order Comment: Waive d Testing in the ED is performed under the ED CLIA certificate #[id number]. Result Comment: [email or web address] th123 Performed By: #### L [id number] ####[facility] ([facility])[address] [place] [address] Glucose [Mass/Vol] 173 mg/dL High 70-105 [facility] Comment on above: Order Comment: Waive d Testing in the ED is performed under the ED CLIA certificate #[id number]. Result Comment: cand [email or web address] Performed By: #### L [id number] ####[facility] ([facility])[address] [place] [address] Glucose [Mass/Vol] 148 mg/dL High 70-105 [facility] Comment on above: Order Comment: Waive d Testing in the ED is performed under the ED CLIA certificate #[id number]. Result Comment: ebol tz Performed By: #### L [id number] ####[facility] ([facility])[address] [place] [address] Glucose [Mass/Vol] 81 mg/dL Normal 70-105 [facility] Comment on above: Order Comment: Waive d Testing in the ED is performed under the ED CLIA certificate #[id number]. Result Comment: ebol tz Performed By: #### L [id number] ####[facility] ([employer])[address] [facility] [place] [address] Glucose [Mass/Vol] 79 mg/dL Normal 70-105 [facility] Comment on above: Order Comment: Waive d Testing in the ED is performed under the ED CLIA certificate #[id number]. Result Comment: ebol tz Performed By: #### L [id number] ####[facility] ([employer])[address] [facility] [place] [address] Glucose [Mass/Vol] 95 mg/dL Normal 70-105 [facility] Comment on above: Order Comment: Waive d Testing in the ED is performed under the ED CLIA certificate #[id number]. Result Comment: ebol tz Performed By: #### L [id number] ####[facility] ([employer])[address] [facility] [place] [address] Glucose [Mass/Vol] 107 mg/dL High 70-105 [facility] Comment on above: Order Comment: Waive d Testing in the ED is performed under the ED CLIA certificate #[id number]. Result Comment: mcou [email or web address] Performed By: #### L [id number] ####[facility] ([employer])[address] [facility] [place] [address] Glucose [Mass/Vol] 107 mg/dL High 70-105 [facility] Comment on above: Order Comment: Waive d Testing in the ED is performed under the ED CLIA certificate #[id number]. Result Comment: mper due Performed By: #### L [id number] ####[facility] ([employer])[address] [facility] [place] [address] POTASSIUMon 10-28-2023 Potassium [Moles/Vol] 4.4 mmol/L Normal 3.5-5.1 [facility] Comment on above: Performed By: #### L [id number] ####[facility] ([facility])[address] [place] [address] Potassium [Moles/Vol] 4.7 mmol/L Normal 3.5-5.1 [facility] Comment on above: Performed By: #### L [id number] ####[facility] ([facility])[address] [place] [address] PROTIME-INRon 10-28-2023 INR IN PPP BY COAGULATION ASSAY 1.24 High 0.90-1.10 [facility] Comment on above: Result Comment: [facility] P RECOMMENDED INR FOR WARFARIN THERAPY CONDITION INRPROPHYLAXIS OF VENOUS THROMBOSIS 2-3(HIGH-RISK SURGERY)TREATMENT OF VENOUS THROMBOSIS 2-3TREATMENT OF PULMONARY EMBOLISM 2-3PREVENTION OF SYSTEMIC EMBOLISM: 2-3 ACUTE MYOCARDIAL INFARCTION TISSUE HEART VALVES VALVULAR HEART DISEASE ATRIAL FIBRILLATION RECURRENT SYSTEMIC EMBOLISMMECHANICAL HEART VALVE 2.5-3.5 FROM: ORAL ANTICOAGULANTS. MECHANISM OF ACTION, CLINICAL EFFECTIVENESS, AND OPTIMAL THERAPEUTIC RANGE. CHEST 1995;108:231S-246S. Performed By: #### L [id number] ####[facility] ([facility])[address] [place] [address] PROTHROMBIN TIME (PT) IN PPP BY COAGULATION ASSAY 15.6 Seconds High 12.3-14.8 [facility] Comment on above: Performed By: #### L [id number] ####[facility] ([facility])[address] [place] [address] INR IN PPP BY COAGULATION ASSAY 1.31 High 0.90-1.10 [facility] Comment on above: Result Comment: [facility] P RECOMMENDED INR FOR WARFARIN THERAPY CONDITION INRPROPHYLAXIS OF VENOUS THROMBOSIS 2-3(HIGH-RISK SURGERY)TREATMENT OF VENOUS THROMBOSIS 2-3TREATMENT OF PULMONARY EMBOLISM 2-3PREVENTION OF SYSTEMIC EMBOLISM: 2-3 ACUTE MYOCARDIAL INFARCTION TISSUE HEART VALVES VALVULAR HEART DISEASE ATRIAL FIBRILLATION RECURRENT SYSTEMIC EMBOLISMMECHANICAL HEART VALVE 2.5-3.5 FROM: ORAL ANTICOAGULANTS. MECHANISM OF ACTION, CLINICAL EFFECTIVENESS, AND OPTIMAL THERAPEUTIC RANGE. CHEST 1995;108:231S-246S. Performed By: #### L [id number] ####[facility] [employer])[address] [place] [address] PROTHROMBIN TIME (PT) IN PPP BY COAGULATION ASSAY 16.3 Seconds High 12.3-14.8 [facility] Comment on above: Performed By: #### L [id number] ####[facility] [employer])[address] [place] [address] [id number] 10-27-2023 [id number] Normal [facility] 30on 10-27-2023 30 The patient is Moderately Stable - Low risk of patient condition declining or worsening The patient's goals for the shift include comfort The clinical goals for the shift include safety Normal [facility] ANESon 10-27-2023 ANES Normal [facility] APTTon 10-27-2023 ACTIVATED PARTIAL THROMBOPLASTIN TIME IN PPP BY COAGULATION ASSAY 32.8 Seconds Normal 25.0-35.0 [facility] Comment on above: Result Comment: Clin ical significance of the APTT is questionable in the presence of heparin. Performed By: #### L [id number] ####[facility] [employer])[address] [place] [address] ACTIVATED PARTIAL THROMBOPLASTIN TIME IN PPP BY COAGULATION ASSAY 28.9 Seconds Normal 25.0-35.0 [facility] Comment on above: Order Comment: Pre-o p diagnosis:NSTEMI (non-ST elevated myocardial infarction) (CMS/HCC) [I21.4] Result Comment: Clin ical significance of the APTT is questionable in the presence of heparin. Performed By: #### L [id number] ####[facility] ([facility])[address] [place] [address] ACTIVATED PARTIAL THROMBOPLASTIN TIME IN PPP BY COAGULATION ASSAY 31.2 Seconds Normal 25.0-35.0 [facility] Comment on above: Result Comment: Clin ical significance of the APTT is questionable in the presence of heparin. Performed By: #### L [id number] ####[facility] ([facility])[address] [place] [address] ARTERIAL BLOOD GAS WITH IONI ZED CALCIUMon 10-27-2023 Base excess Calc (Bld) [Moles/Vol] -4.2000 mmol/L Low -2.0-3.0 [facility] Comment on above: Order Comment: On ar rival to CVU Performed By: #### L [id number] ####[facility] [id number] [place] [address] [facility] CALCIUM IONIZED (MMOL/L) IN BLOOD 1.23 mmol/L Normal 1.15-1.33 [facility] Comment on above: Order Comment: On ar rival to CVU Performed By: #### L [id number] ####[facility] [id number] [place] [address] [place] CO2 (Bld) [Partial pressure] 47 mm[Hg] Normal 35-48 [facility] Comment on above: Order Comment: On ar rival to CVU Performed By: #### L [id number] ####[facility] [id number] [place] [address] [place] FIO2 50 % Normal [facility] Comment on above: Order Comment: On ar rival to CVU Performed By: #### L [id number] ####[facility] [id number] [place], [place] [address] HCO3 (Bld) [Moles/Vol] 22.6 mmol/L Normal 21.0-28.0 [facility] Comment on above: Order Comment: On ar rival to CVU Performed By: #### L [id number] ####[facility] [id number] [address] LPM 40 Normal [facility] Comment on above: Order Comment: On ar rival to CVU Performed By: #### L [id number] ####[facility] [id number] [address] Oxygen (Bld) [Partial pressure] 109 mm[Hg] High 83-100 [facility] Comment on above: Order Comment: On ar rival to CVU Performed By: #### L [id number] ####[facility] [id number] [address] OXYGEN SATURATION (%) IN ARTERIAL BLOOD 99.7 % High 94.0-98.0 [facility] Comment on above: Order Comment: On ar rival to CVU Performed By: #### L [id number] ####[facility] [id number] pH (Bld) 7.29 [pH] Low 7.35-7.45 [facility] Comment on above: Order Comment: On ar rival to CVU Performed By: #### L [id number] ####[facility] [id number] [address] SOURCE OF OXYGEN High flow nasal cannula Normal [facility] Comment on above: Order Comment: On ar rival to CVU Performed By: #### L [id number] ####[facility] [id number] [address] Base excess Calc (Bld) [Moles/Vol] -3.3000 mmol/L Low -2.0-3.0 [facility] Comment on above: Performed By: #### L [id number] ####[facility] [id number] [place] [address] [facility] CALCIUM IONIZED (MMOL/L) IN BLOOD 1.12 mmol/L Low 1.15-1.33 [facility] Comment on above: Performed By: #### L [id number] ####[facility] [id number] [place] [address] [facility] CO2 (Bld) [Partial pressure] 40 mm[Hg] Normal 35-48 [facility] Comment on above: Performed By: #### L [id number] ####[facility] [id number] [place] [address] [facility] FIO2 40 % Normal [facility] Comment on above: Performed By: #### L [id number] ####[facility] [id number] [place] [address] [facility] HCO3 (Bld) [Moles/Vol] 22.1 mmol/L Normal 21.0-28.0 [facility] Comment on above: Performed By: #### L [id number] ####[facility] [id number] [place] [address] [facility] Oxygen (Bld) [Partial pressure] 93 mm[Hg] Normal 83-100 [facility] Comment on above: Performed By: #### L [id number] ####[facility] [id number] [place] [address] [facility] OXYGEN SATURATION (%) IN ARTERIAL BLOOD 99.0 % High 94.0-98.0 [facility] Comment on above: Performed By: #### L [id number] ####[facility] [id number] [place] [address] [place] PEEP 8 cmH2O Normal [facility] Comment on above: Performed By: #### L [id number] ####[facility] [id number] [place] [address] [facility] pH (Bld) 7.35 [pH] Normal 7.35-7.45 [facility] Comment on above: Performed By: #### L [id number] ####[facility] [id number] [place] [address] [facility] PRESSURE SUPPORT 10 Normal [facility] Comment on above: Performed By: #### L [id number] ####[facility] [id number] [place] [address] [facility] SOURCE OF OXYGEN Vent Normal [facility] Comment on above: Performed By: #### L [id number] ####[facility] [id number] [place] [address] [facility] BASIC METABOLIC PANELon 04-2 Anion gap [Moles/Vol] 12 mmol/L Normal 7-20 [facility] Comment on above: Performed By: #### L [id number] ####[facility] ([facility])[address] [place] [address] Calcium [Mass/Vol] 8.3 mg/dL Low 8.6-10.3 [facility] Comment on above: Performed By: #### L [id number] ####[facility] ([facility])[address] [place] [address] Chloride [Moles/Vol] 107 mmol/L Normal 98-107 [facility] Comment on above: Performed By: #### L [id number] ####[facility] ([facility])[address] [place] [address] CO2 [Moles/Vol] 24 mmol/L Normal 21-31 [facility] Comment on above: Performed By: #### L [id number] ####[facility] ([facility])[address] [place] [address] Creatinine [Mass/Vol] 1.01 mg/dL Normal 0.70-1.30 [facility] Comment on above: Performed By: #### L [id number] ####[facility] ([facility])[address] [place] [address] GLOMERULAR FILTRATION RATE ML/MIN/1.73 SQ M.PREDICTED 86.7 mL/min/1.73m*2 Normal >60.0 [facility] Comment on above: Result Comment: The [facility]???s estimated glomerular filtration rate (eGFR) will no [...] of individuals. Performed By: #### L [id number] ####[facility] ([facility])[address] [place] [address] Glucose [Mass/Vol] 151 mg/dL High 70-100 [facility] Comment on above: Performed By: #### L [id number] ####[facility] ([facility])[address] [place] [address] Potassium [Moles/Vol] 4.2 mmol/L Normal 3.5-5.1 [facility] Comment on above: Performed By: #### L [id number] ####[facility] ([facility])[address] [place] [address] Sodium [Moles/Vol] 139 mmol/L Normal 136-145 [facility] Comment on above: Performed By: #### L [id number] ####[facility] ([facility])[address] [place] [address] Urea nitrogen [Mass/Vol] 17 mg/dL Normal 7-25 [facility] Comment on above: Performed By: #### L [id number] ####[facility] ([facility])[address] [place] [address] UREA NITROGEN/CREATININE (MASS RATIO) IN SER/PLAS 16.8 Normal [facility] Comment on above: Performed By: #### L [id number] ####[facility] ([facility])[address] [place] [address] Anion gap [Moles/Vol] 10 mmol/L Normal 7-20 [facility] Comment on above: Order Comment: Pre-o p diagnosis:NSTEMI (non-ST elevated myocardial infarction) (CMS/HCC) [I21.4] Performed By: #### L [id number] ####[facility] ([facility]ER)[address] [place] [address] Calcium [Mass/Vol] 7.7 mg/dL Low 8.6-10.3 [facility] Comment on above: Order Comment: Pre-o p diagnosis:NSTEMI (non-ST elevated myocardial infarction) (CMS/HCC) [I21.4] Performed By: #### L [id number] ####[facility] (BEAKER)[address] [place] [address] Chloride [Moles/Vol] 108 mmol/L High 98-107 [facility] Comment on above: Order Comment: Pre-o p diagnosis:NSTEMI (non-ST elevated myocardial infarction) (CMS/HCC) [I21.4] Performed By: #### L [id number] ####[facility] (BEAKER)[address] [place] [address] CO2 [Moles/Vol] 24 mmol/L Normal 21-31 [facility] Comment on above: Order Comment: Pre-o p diagnosis:NSTEMI (non-ST elevated myocardial infarction) (CMS/HCC) [I21.4] Performed By: #### L [id number] ####[facility] (BE[facility]ER)[address] [place] [address] Creatinine [Mass/Vol] 0.85 mg/dL Normal 0.70-1.30 [facility] Comment on above: Order Comment: Pre-o p diagnosis:NSTEMI (non-ST elevated myocardial infarction) (CMS/HCC) [I21.4] Performed By: #### L [id number] ####[facility] ([facility]ER)[address] [place] [address] GLOMERULAR FILTRATION RATE ML/MIN/1.73 SQ M.PREDICTED 101.4 mL/min/1.73m*2 Normal >60.0 [facility] Comment on above: Order Comment: Pre-o p diagnosis:NSTEMI (non-ST elevated myocardial infarction) (CMS/HCC) [I21.4] Result Comment: The [facility]???s estimated glomerular filtration rate (eGFR) will no [...] of individuals. Performed By: #### L [id number] ####[facility] ([facility]ER)[address] [place] [address] Glucose [Mass/Vol] 142 mg/dL High 70-100 [facility] Comment on above: Order Comment: Pre-o p diagnosis:NSTEMI (non-ST elevated myocardial infarction) ([facility]) [I21.4] Performed By: #### L [id number] ####[facility] (BEAKER)[address] [place] [address] Potassium [Moles/Vol] 4.2 mmol/L Normal 3.5-5.1 [facility] Comment on above: Order Comment: Pre-o p diagnosis:NSTEMI (non-ST elevated myocardial infarction) ([facility]) [I21.4] Performed By: #### L [id number] ####[facility] (BEAKER)[address] [place] [address] Sodium [Moles/Vol] 138 mmol/L Normal 136-145 [facility] Comment on above: Order Comment: Pre-o p diagnosis:NSTEMI (non-ST elevated myocardial infarction) ([facility]) [I21.4] Performed By: #### L [id number] ####[facility] (BEAKER)[address] [place] [address] Urea nitrogen [Mass/Vol] 15 mg/dL Normal 7-25 [facility] Comment on above: Order Comment: Pre-o p diagnosis:NSTEMI (non-ST elevated myocardial infarction) ([facility]) [I21.4] Performed By: #### L [id number] ####[facility] (BEAKER)[address] [place] [address] UREA NITROGEN/CREATININE (MASS RATIO) IN SER/PLAS 17.6 Normal [facility] Comment on above: Order Comment: Pre-o p diagnosis:NSTEMI (non-ST elevated myocardial infarction) (CMS/HCC) [I21.4] Performed By: #### L [id number] ####[facility] ([facility])[address] [place] [address] Anion gap [Moles/Vol] 11 mmol/L Normal 7-20 [facility] Comment on above: Performed By: #### L [id number] ####[facility] (BEAKER)[address] [place] [address] Calcium [Mass/Vol] 8.7 mg/dL Normal 8.6-10.3 [facility] Comment on above: Performed By: #### L [id number] ####[facility] (BEAKER)[address] [place] [address] Chloride [Moles/Vol] 104 mmol/L Normal 98-107 [facility] Comment on above: Performed By: #### L [id number] ####[facility] (BEAKER)[address] [place] [address] CO2 [Moles/Vol] 27 mmol/L Normal 21-31 [facility] Comment on above: Performed By: #### L [id number] ####[facility] (BEAKER)[address] [place] [address] Creatinine [Mass/Vol] 1.04 mg/dL Normal 0.70-1.30 [facility] Comment on above: Performed By: #### L [id number] ####[facility] (BEAKER)[address] [place] [address] GLOMERULAR FILTRATION RATE ML/MIN/1.73 SQ M.PREDICTED 83.7 mL/min/1.73m*2 Normal >60.0 [facility] Comment on above: Result Comment: The [facility]???s estimated glomerular filtration rate (eGFR) will no [...] of individuals. Performed By: #### L [id number] ####[facility] (BEAKER)[address] [place] [address] Glucose [Mass/Vol] 149 mg/dL High 70-100 [facility] Comment on above: Performed By: #### L [id number] ####[facility] (BEAKER)[address] [place] [address] Potassium [Moles/Vol] 4.1 mmol/L Normal 3.5-5.1 [facility] Comment on above: Performed By: #### L [id number] ####[facility] (BEAKER)[address] [place] [address] Sodium [Moles/Vol] 138 mmol/L Normal 136-145 [facility] Comment on above: Performed By: #### L [id number] ####[facility] (BEAKER)[address] [place] [address] Urea nitrogen [Mass/Vol] 19 mg/dL Normal 7-25 [facility] Comment on above: Performed By: #### L [id number] ####[facility] (BEAKER)[address] [place] [address] UREA NITROGEN/CREATININE (MASS RATIO) IN SER/PLAS 18.3 Normal [facility] Comment on above: Performed By: #### L [id number] ####[facility] (BEAKER)[address] [place] [address] CALCIUM, IONIZEDon 4 CALCIUM IONIZED (MMOL/L) IN BLOOD 1.18 mmol/L Normal 1.15-1.33 [facility] Comment on above: Performed By: #### C ALCIUM, IONIZED ####[facility] RES[facility] [id number] [place] [address] [facility] CALCIUM IONIZED (MMOL/L) IN BLOOD 1.17 mmol/L Normal 1.15-1.33 [facility] Comment on above: Performed By: #### C ALCIUM, IONIZED ####[facility] RES[facility] [id number] [facility] [place] [address] [facility] CALCIUM IONIZED (MMOL/L) IN BLOOD 1.23 mmol/L Normal 1.15-1.33 [facility] Comment on above: Performed By: #### C ALCIUM, IONIZED ####[facility] RES[facility] [id number] [place] [address] [facility] CBCon 10-27-2023 Erythrocyte distribution width (RBC) [Ratio] 12.4 % Normal 11.5-15.0 [facility] Comment on above: Performed By: #### L [id number] ####[facility] (BEAKER)[address] [place] [address] ERYTHROCYTE MEAN CORPUSCULAR HEMOGLOBIN CONCENTRATION (G/DL) BY AUTOMATED 35.1 g/dL High 32.0-35.0 [facility] Comment on above: Performed By: #### L [id number] ####[facility] (BEAKER)[address] [facility] [place] [address] Hematocrit (Bld) [Volume fraction] 31.9 % Low 39.0-55.0 [facility] Comment on above: Performed By: #### L [id number] ####[facility] (BEAKER)[address] [place] [address] Hemoglobin (Bld) [Mass/Vol] 11.2 g/dL Low 13.0-17.0 [facility] Comment on above: Performed By: #### L [id number] ####[facility] (BEAKER)[address] [facility] [place] [address] MCH (RBC) [Entitic mass] 29.9 pg Normal 27.0-33.0 [facility] Comment on above: Performed By: #### L [id number] ####[facility] (BEAKER)[address] [place] [address] MCV (RBC) [Entitic vol] 85.1 fL Normal 82.0-98.0 [facility] Comment on above: Performed By: #### L [id number] ####[facility] (BEAKER)[address] [place] [address] PLATELETS (10*3/UL) IN BLOOD AUTOMATED COUNT 188 10*3/uL Normal 150-400 [facility] Comment on above: Performed By: #### L [id number] ####[facility] (BEAKER)[address] [place] [address] RBC (Bld) [#/Vol] 3.75 10*6/uL Low 4.20-5.70 [facility] Comment on above: Performed By: #### L [id number] ####[facility] (BEAKER)[address] [place] [address] WBC (Bld) [#/Vol] 17.04 10*3/uL High 4.00-10.60 [facility] Comment on above: Performed By: #### L [id number] ####[facility] (BEAKER)[address] [place] [address] Erythrocyte distribution width (RBC) [Ratio] 12.2 % Normal 11.5-15.0 [facility] Comment on above: Order Comment: Pre-o p diagnosis:NSTEMI (non-ST elevated myocardial infarction) (CMS/HCC) [I21.4] Performed By: #### L [id number] ####[facility] ([facility]AKER)[address] [place] [address] ERYTHROCYTE MEAN CORPUSCULAR HEMOGLOBIN CONCENTRATION (G/DL) BY AUTOMATED 33.9 g/dL Normal 32.0-35.0 [facility] Comment on above: Order Comment: Pre-o p diagnosis:NSTEMI (non-ST elevated myocardial infarction) (CMS/HCC) [I21.4] Performed By: #### L [id number] ####[facility] ([employer] [place] [address] Hematocrit (Bld) [Volume fraction] 29.5 % Low 39.0-55.0 [facility] Comment on above: Order Comment: Pre-o p diagnosis:NSTEMI (non-ST elevated myocardial infarction) (CMS/HCC) [I21.4] Performed By: #### L [id number] ####[facility] [facility] ([facility])[address] [place] [address] Hemoglobin (Bld) [Mass/Vol] 10.0 g/dL Low 13.0-17.0 [facility] Comment on above: Order Comment: Pre-o p diagnosis:NSTEMI (non-ST elevated myocardial infarction) (CMS/HCC) [I21.4] Performed By: #### L [id number] ####[facility] ([employer])[address] [place] [address] MCH (RBC) [Entitic mass] 30.2 pg Normal 27.0-33.0 [facility] Comment on above: Order Comment: Pre-o p diagnosis:NSTEMI (non-ST elevated myocardial infarction) (CMS/HCC) [I21.4] Performed By: #### L [id number] ####[facility] ([employer])[address] [place] [address] MCV (RBC) [Entitic vol] 89.1 fL Normal 82.0-98.0 [facility] Comment on above: Order Comment: Pre-o p diagnosis:NSTEMI (non-ST elevated myocardial infarction) (CMS/HCC) [I21.4] Performed By: #### L [id number] ####[facility] ([employer])[address] [place] [address] PLATELETS (10*3/UL) IN BLOOD AUTOMATED COUNT 135 10*3/uL Low 150-400 [facility] Comment on above: Order Comment: Pre-o p diagnosis:NSTEMI (non-ST elevated myocardial infarction) (CMS/HCC) [I21.4] Performed By: #### L [id number] ####[facility] ([facility])[address] [place] [address] RBC (Bld) [#/Vol] 3.31 10*6/uL Low 4.20-5.70 [facility] Comment on above: Order Comment: Pre-o p diagnosis:NSTEMI (non-ST elevated myocardial infarction) (CMS/HCC) [I21.4] Performed By: #### L [id number] ####[facility] ([facility])[address] [place] [address] WBC (Bld) [#/Vol] 12.96 10*3/uL High 4.00-10.60 [facility] Comment on above: Order Comment: Pre-o p diagnosis:NSTEMI (non-ST elevated myocardial infarction) (CMS/HCC) [I21.4] Performed By: #### L [id number] ####[facility] ([facility])[address] [place] [address] CBC WITH AUTO DIFFERENTIALon 10-27-2023 Basophils (Bld) [#/Vol] 0.03 10*3/uL Normal 0.00-0.20 [facility] Comment on above: Performed By: #### L [id number] ####[facility] ([facility])[address] [place] [address] Basophils/100 WBC (Bld) 0.4 % Normal 0.0-1.0 [facility] Comment on above: Performed By: #### L [id number] ####[facility] ([facility])[address] [place] [address] Eosinophils (Bld) [#/Vol] 0.16 10*3/uL Normal 0.00-0.50 [facility] Comment on above: Performed By: #### L [id number] ####[facility] ([facility])[address] [place] [address] Eosinophils/100 WBC (Bld) 2.0 % Normal 0.0-6.0 [facility] Comment on above: Performed By: #### L [id number] ####[facility] ([facility])[address] [place] [address] Erythrocyte distribution width (RBC) [Ratio] 12.3 % Normal 11.5-15.0 [facility] Comment on above: Performed By: #### L [id number] ####[facility] ([facility])[address] [place] [address] ERYTHROCYTE MEAN CORPUSCULAR HEMOGLOBIN CONCENTRATION (G/DL) BY AUTOMATED 34.1 g/dL Normal 32.0-35.0 [facility] Comment on above: Performed By: #### L [id number] ####[facility] ([facility])[address] [place] [address] Hematocrit (Bld) [Volume fraction] 41.4 % Normal 39.0-55.0 [facility] Comment on above: Performed By: #### L [id number] ####[facility] ([facility])[address] [place] [address] Hemoglobin (Bld) [Mass/Vol] 14.1 g/dL Normal 13.0-17.0 [facility] Comment on above: Performed By: #### L [id number] ####[facility] ([facility])[address] [place] [address] Immature granulocytes (Bld) [#/Vol] 0.03 10*3/uL Normal 0.00-0.20 [facility] Comment on above: Performed By: #### L [id number] ####[facility] ([facility])[address] [place] [address] Immature granulocytes/100 WBC (Bld) 0.4 % Normal 0.0-1.0 [facility] Comment on above: Performed By: #### L [id number] ####[facility] ([facility])[address] [place] [address] Lymphocytes (Bld) [#/Vol] 3.47 10*3/uL Normal 1.20-4.00 [facility] Comment on above: Performed By: #### L [id number] ####[facility] ([facility])[address] [place] [address] Lymphocytes/100 WBC (Bld) 44.2 % Normal 20.0-45.0 [facility] Comment on above: Performed By: #### L [id number] ####[facility] ([facility])[address] [place] [address] MCH (RBC) [Entitic mass] 29.4 pg Normal 27.0-33.0 [facility] Comment on above: Performed By: #### L [id number] ####[facility] ([facility])[address] [place] [address] MCV (RBC) [Entitic vol] 86.3 fL Normal 82.0-98.0 [facility] Comment on above: Performed By: #### L [id number] ####[facility] ([facility])[address] [place] [address] Monocytes (Bld) [#/Vol] 0.79 10*3/uL Normal 0.10-1.00 [facility] Comment on above: Performed By: #### L [id number] ####[facility] ([facility])[address] [place] [address] Monocytes/100 WBC (Bld) 10.1 % Normal 5.0-12.0 [facility] Comment on above: Performed By: #### L [id number] ####[facility] ([facility])[address] [place] [address] Neutrophils (Bld) [#/Vol] 3.37 10*3/uL Normal 1.60-7.60 [facility] Comment on above: Performed By: #### L [id number] ####[facility] ([facility])[address] [place] [address] Neutrophils/100 WBC (Bld) 42.9 % Normal 40.0-72.0 [facility] Comment on above: Performed By: #### L [id number] ####[facility] ([facility])[address] [place] [address] NRBC (PER 100 WBCS) BY AUTOMATED COUNT 0.0 % Normal 0 [facility] Comment on above: Performed By: #### L [id number] ####[facility] ([facility])[address] [place] [address] PLATELETS (10*3/UL) IN BLOOD AUTOMATED COUNT 177 10*3/uL Normal 150-400 [facility] Comment on above: Performed By: #### L [id number] ####[facility] ([facility])[address] [place] [address] RBC (Bld) [#/Vol] 4.80 10*6/uL Normal 4.20-5.70 [facility] Comment on above: Performed By: #### L [id number] ####[facility] ([facility])[address] [place] [address] WBC (Bld) [#/Vol] 7.85 10*3/uL Normal 4.00-10.60 [facility] Comment on above: Performed By: #### L [id number] ####[facility] ([facility])[address] [place] [address] CONSULTon 10-27-2023 CONSULT Normal [facility] FIBRINOGENon 10-27-2023 Magnesium [Mass/Vol] 253 mg/dL Normal 150-425 [facility] Comment on above: Order Comment: Pre-o p diagnosis:NSTEMI (non-ST elevated myocardial infarction) (CMS/HCC) [I21.4] Performed By: #### L [id number] ####[facility] ([facility])[address] [place] [address] LACTIC ACID WITH 4 HOUR REFL EXon 10-27-2023 LACTATE (MMOL/L) IN SER/PLAS 1.9 mmol/L Normal 0.5-2.2 [facility] Comment on above: Order Comment: Pre-o p diagnosis:NSTEMI (non-ST elevated myocardial infarction) (CMS/HCC) [I21.4] Performed By: #### L [id number] ####[facility] ([facility])[address] [place] [address] LACTIC ACID, PLASMAon 2023 LACTATE (MMOL/L) IN SER/PLAS 3.7 mmol/L Critically high 0.5-2.2 [facility] Comment on above: Result Comment: M-CR ITICAL RESULT(S) REVIEWED, CALLED TO AND READ BACK BY DARYL SPICER RN AT 2203 Performed By: #### L [id number] ####[facility] ([facility])[address] [place] [address] MAGNESIUMon 10-27-2023 Magnesium [Mass/Vol] 2.2 mg/dL Normal 1.9-2.7 [facility] Comment on above: Performed By: #### L [id number] ####[facility] ([facility])[address] [place] [address] Magnesium [Mass/Vol] 2.4 mg/dL Normal 1.9-2.7 [facility] Comment on above: Order Comment: Pre-o p diagnosis:NSTEMI (non-ST elevated myocardial infarction) ([facility]) [I21.4] Performed By: #### L [id number] ####[facility] ([facility])[address] [place] [address] Magnesium [Mass/Vol] 2.0 mg/dL Normal 1.9-2.7 [facility] Comment on above: Performed By: #### L [id number] ####[facility] ([facility])[address] [place] [address] OPNOTEon 10-27-2023 OPNOTE Normal [facility] PHOSPHORUSon 10-27-2023 Magnesium [Mass/Vol] 4.6 mg/dL Normal 2.5-5.0 [facility] Comment on above: Performed By: #### L [id number] ####[facility] ([facility])[address] [place] [address] Magnesium [Mass/Vol] 3.7 mg/dL Normal 2.5-5.0 [facility] Comment on above: Performed By: #### L [id number] ####[facility] ([facility])[address] [place] [address] POCT ACTIVATED CLOTTING TIME UNSOLICITED RESULTSon 10-27-2023 POC ACTIVATED CLOTTING TIME 122 sec Normal 82-152 [facility] Comment on above: Performed By: #### L [id number] ####[facility] ([facility])[address] [place] [address] POC ACTIVATED CLOTTING TIME 462 sec High 82-152 [facility] Comment on above: Performed By: #### L [id number] ####[facility] ([facility])[address] [place] [address] POC ACTIVATED CLOTTING TIME 462 sec High 82-152 [facility] Comment on above: Performed By: #### L [id number] ####[facility] ([facility])[address] [place] [address] POC ACTIVATED CLOTTING TIME 495 sec High 82-152 [facility] Comment on above: Performed By: #### L [id number] ####[facility] ([facility])[address] [place] [address] POC ACTIVATED CLOTTING TIME 540 sec High 82-152 [facility] Comment on above: Performed By: #### L [id number] ####[facility] ([facility])[address] [place] [address] POC ACTIVATED CLOTTING TIME 462 sec High 82-152 [facility] Comment on above: Performed By: #### L [id number] ####[facility] ([facility])[address] [place] [address] POC ACTIVATED CLOTTING TIME 508 sec High 82-152 [facility] Comment on above: Performed By: #### L [id number] ####[facility] ([facility])[address] [place] [address] POC ACTIVATED CLOTTING TIME 348 sec High 82-152 [facility] Comment on above: Performed By: #### L [id number] ####[facility] ([facility])[address] [place] [address] POC ACTIVATED CLOTTING TIME 129 sec Normal 82-152 [facility] Comment on above: Performed By: #### L [id number] ####[facility] ([employer])[address] [place] [address] POCT GLUCOSE METER UNSOLICIT ED RESULTSon 10-27-2023 Glucose [Mass/Vol] 120 mg/dL High 70-105 [facility] Comment on above: Order Comment: Waive d Testing in the ED is performed under the ED CLIA certificate #[id number]. Result Comment: [email or web address] Performed By: #### L [id number] ####[facility] ([facility])[address] [place] [address] Glucose [Mass/Vol] 144 mg/dL High 70-105 [facility] Comment on above: Order Comment: Waive d Testing in the ED is performed under the ED CLIA certificate #[id number]. Result Comment: [email or web address] tz Performed By: #### L [id number] ####[facility] ([employer])[address] [place] [address] Glucose [Mass/Vol] 147 mg/dL High 70-105 [facility] Comment on above: Order Comment: Waive d Testing in the ED is performed under the ED CLIA certificate #[id number]. Result Comment: ebol tz Performed By: #### L [id number] ####[facility] ([employer])[address] [place] [address] Glucose [Mass/Vol] 178 mg/dL High 70-105 [facility] Comment on above: Order Comment: Waive d Testing in the ED is performed under the ED CLIA certificate #[id number]. Result Comment: ebol tz Performed By: #### L [id number] ####[facility] ([employer])[address] [place] [address] Glucose [Mass/Vol] 180 mg/dL High 70-105 [facility] Comment on above: Order Comment: Waive d Testing in the ED is performed under the ED CLIA certificate #[id number]. Result Comment: [email or web address] Performed By: #### L [id number] ####[facility] ([facility])[address] [place] [address] Glucose [Mass/Vol] 208 mg/dL High 70-105 [facility] Comment on above: Order Comment: Waive d Testing in the ED is performed under the ED CLIA certificate #[id number]. Result Comment: [email or web address] Performed By: #### L [id number] ####[facility] ([facility])[address] [place] [address] Glucose [Mass/Vol] 197 mg/dL High 70-105 [facility] Comment on above: Order Comment: Waive d Testing in the ED is performed under the ED CLIA certificate #[id number]. Result Comment: [email or web address] Performed By: #### L [id number] ####[facility] ([facility])[address] [place] [address] Glucose [Mass/Vol] 144 mg/dL High 70-105 [facility] Comment on above: Order Comment: Waive d Testing in the ED is performed under the ED CLIA certificate #[id number]. Result Comment: [email or web address] Performed By: #### L [id number] ####[facility] ([facility])[address] [place] [address] POCT PERFUSION PANEL UNSOLIC ITED RESULTSon 10-27-2023 CO2 [Moles/Vol] 24.0 mmol/L Normal 21.0-29.0 [facility] Comment on above: Performed By: #### L [id number] ####[facility] ([facility])[address] [place] [address] Glucose [Mass/Vol] 136 mg/dL High 70-105 [facility] Comment on above: Performed By: #### L [id number] ####[facility] ([facility])[address] [place] [address] HCO3 (Bld) [Moles/Vol] 22.6 mmol/L Low 23.0-28.0 [facility] Comment on above: Performed By: #### L [id number] ####[facility] ([facility])[address] [place] [address] Hematocrit (Bld) [Volume fraction] 29 % Low 38-51 [facility] Comment on above: Performed By: #### L [id number] ####[facility] ([facility])[address] [place] [address] Hemoglobin (Bld) [Mass/Vol] 9.9 g/dL Low 12.0-17.0 [facility] Comment on above: Performed By: #### L [id number] ####[facility] ([facility])[address] [place] [address] POCT BASE EXCESS -3.0 mmol/L Low -2.0-3.0 [facility] Comment on above: Performed By: #### L [id number] ####[facility] ([facility])[address] [place] [address] POCT IONIZED CALCIUM 1.24 mmol/L Normal 1.12-1.32 [facility] Comment on above: Performed By: #### L [id number] ####[facility] ([facility])[address] [place] [address] POCT PCO2 40.6 mmHg Low 41.0-51.0 [facility] Comment on above: Performed By: #### L [id number] ####[facility] ([facility])[address] [place] [address] POCT PH 7.36 Normal 7.31-7.41 [facility] Comment on above: Performed By: #### L [id number] ####[facility] ([facility])[address] [place] [address] POCT PO2 118 mmHg High 80-105 [facility] Comment on above: Performed By: #### L [id number] ####[facility] ([facility])[address] [place] [address] POCT SO2 98 % Normal 95-98 [facility] Comment on above: Performed By: #### L [id number] ####[facility] ([facility])[address] [place] [address] Potassium [Moles/Vol] 4.2 mmol/L Normal 3.5-4.9 [facility] Comment on above: Performed By: #### L [id number] ####[facility] ([facility])[address] [place] [address] Sodium [Moles/Vol] 140 mmol/L Normal 138.0-146.0 [facility] Comment on above: Performed By: #### L [id number] ####[facility] ([facility])[address] [place] [address] CO2 [Moles/Vol] 24.0 mmol/L Normal 21.0-29.0 [facility] Comment on above: Performed By: #### L [id number] ####[facility] ([facility])[address] [place] [address] Glucose [Mass/Vol] 135 mg/dL High 70-105 [facility] Comment on above: Performed By: #### L [id number] ####[facility] ([facility])[address] [place] [address] HCO3 (Bld) [Moles/Vol] 22.3 mmol/L Low 23.0-28.0 [facility] Comment on above: Performed By: #### L [id number] ####[facility] ([facility])[address] [place] [address] Hematocrit (Bld) [Volume fraction] 25 % Low 38-51 [facility] Comment on above: Performed By: #### L [id number] ####[facility] ([facility])[address] [place] [address] Hemoglobin (Bld) [Mass/Vol] 8.5 g/dL Low 12.0-17.0 [facility] Comment on above: Performed By: #### L [id number] ####[facility] ([facility])[address] [place] [address] POCT BASE EXCESS -3.0 mmol/L Low -2.0-3.0 [facility] Comment on above: Performed By: #### L [id number] ####[facility] ([facility])[address] [place] [address] POCT IONIZED CALCIUM 1.28 mmol/L Normal 1.12-1.32 [facility] Comment on above: Performed By: #### L [id number] ####[facility] ([facility])[address] [place] [address] POCT PCO2 38.9 mmHg Low 41.0-51.0 [facility] Comment on above: Performed By: #### L [id number] ####[facility] ([facility])[address] [place] [address] POCT PH 7.37 Normal 7.31-7.41 [facility] Comment on above: Performed By: #### L [id number] ####[facility] ([facility])[address] [place] [address] POCT PO2 72 mmHg Low 80-105 [facility] Comment on above: Performed By: #### L [id number] ####[facility] ([facility])[address] [place] [address] POCT SO2 94 % Low 95-98 [facility] Comment on above: Performed By: #### L [id number] ####[facility] ([facility])[address] [place] [address] Potassium [Moles/Vol] 3.9 mmol/L Normal 3.5-4.9 [facility] Comment on above: Performed By: #### L [id number] ####[facility] ([facility])[address] [place] [address] Sodium [Moles/Vol] 139 mmol/L Normal 138.0-146.0 [facility] Comment on above: Performed By: #### L [id number] ####[facility] ([facility])[address] [place] [address] CO2 [Moles/Vol] 27.0 mmol/L Normal 21.0-29.0 [facility] Comment on above: Performed By: #### L [id number] ####[facility] ([facility])[address] [place] [address] Glucose [Mass/Vol] 150 mg/dL High 70-105 [facility] Comment on above: Performed By: #### L [id number] ####[facility] ([facility])[address] [place] [address] HCO3 (Bld) [Moles/Vol] 25.6 mmol/L Normal 23.0-28.0 [facility] Comment on above: Performed By: #### L [id number] ####[facility] ([facility])[address] [place] [address] Hematocrit (Bld) [Volume fraction] 26 % Low 38-51 [facility] Comment on above: Performed By: #### L [id number] ####[facility] ([facility])[address] [place] [address] Hemoglobin (Bld) [Mass/Vol] 8.8 g/dL Low 12.0-17.0 [facility] Comment on above: Performed By: #### L [id number] ####[facility] ([facility])[address] [place] [address] POCT BASE EXCESS 0.0 mmol/L Normal -2.0-3.0 [facility] Comment on above: Performed By: #### L [id number] ####[facility] ([facility])[address] [place] [address] POCT IONIZED CALCIUM 1.04 mmol/L Low 1.12-1.32 [facility] Comment on above: Performed By: #### L [id number] ####[facility] ([facility])[address] [place] [address] POCT PCO2 42.8 mmHg Normal 41.0-51.0 [facility] Comment on above: Performed By: #### L [id number] ####[facility] ([facility])[address] [place] [address] POCT PH 7.39 Normal 7.31-7.41 [facility] Comment on above: Performed By: #### L [id number] ####[facility] ([facility])[address] [place] [address] POCT PO2 474 mmHg High 80-105 [facility] Comment on above: Performed By: #### L [id number] ####[facility] ([facility])[address] [place] [address] POCT SO2 100 % High 95-98 [facility] Comment on above: Performed By: #### L [id number] ####[facility] ([facility])[address] [place] [address] Potassium [Moles/Vol] 4.7 mmol/L Normal 3.5-4.9 [facility] Comment on above: Performed By: #### L [id number] ####[facility] ([facility])[address] [place] [address] Sodium [Moles/Vol] 138 mmol/L Normal 138.0-146.0 [facility] Comment on above: Performed By: #### L [id number] ####[facility] ([facility])[address] [place] [address] CO2 [Moles/Vol] 27.0 mmol/L Normal 21.0-29.0 [facility] Comment on above: Performed By: #### L [id number] ####[facility] ([facility])[address] [place] [address] Glucose [Mass/Vol] 155 mg/dL High 70-105 [facility] Comment on above: Performed By: #### L [id number] ####[facility] ([facility])[address] [place] [address] HCO3 (Bld) [Moles/Vol] 26.0 mmol/L Normal 23.0-28.0 [facility] Comment on above: Performed By: #### L [id number] ####[facility] ([facility])[address] [place] [address] Hematocrit (Bld) [Volume fraction] 28 % Low 38-51 [facility] Comment on above: Performed By: #### L [id number] ####[facility] ([facility])[address] [address] Hemoglobin (Bld) [Mass/Vol] 9.5 g/dL Low 12.0-17.0 [facility] Comment on above: Performed By: #### L [id number] ####[facility] ([facility])[address] [place] [address] POCT BASE EXCESS 1.0 mmol/L Normal -2.0-3.0 [facility] Comment on above: Performed By: #### L [id number] ####[facility] ([facility])[address] [place] [address] POCT IONIZED CALCIUM 1.04 mmol/L Low 1.12-1.32 [facility] Comment on above: Performed By: #### L [id number] ####[facility] ([facility])[address] [place] [address] POCT PCO2 40.7 mmHg Low 41.0-51.0 [facility] Comment on above: Performed By: #### L [id number] ####[facility] ([facility])[address] [place] [address] POCT PH 7.41 Normal 7.31-7.41 [facility] Comment on above: Performed By: #### L [id number] ####[facility] ([facility])[address] [place] [address] POCT PO2 379 mmHg High 80-105 [facility] Comment on above: Performed By: #### L [id number] ####[facility] ([facility])[address] [place] [address] POCT SO2 100 % High 95-98 [facility] Comment on above: Performed By: #### L [id number] ####[facility] ([facility])[address] [place] [address] Potassium [Moles/Vol] 4.3 mmol/L Normal 3.5-4.9 [facility] Comment on above: Performed By: #### L [id number] ####[facility] ([facility])[address] [place] [address] Sodium [Moles/Vol] 139 mmol/L Normal 138.0-146.0 [facility] Comment on above: Performed By: #### L [id number] ####[facility] ([facility])[address] [place] [address] CO2 [Moles/Vol] 26.0 mmol/L Normal 21.0-29.0 [facility] [facility] Comment on above: Performed By: #### L [id number] ####[facility] (BEAKER)[address] [place] [address] Glucose [Mass/Vol] 164 mg/dL High 70-105 [facility] Comment on above: Performed By: #### L [id number] ####[facility] (BEAKER)[address] [place] [address] HCO3 (Bld) [Moles/Vol] 25.2 mmol/L Normal 23.0-28.0 [facility] Comment on above: Performed By: #### L [id number] ####[facility] (BEAKER)[address] [place] [address] Hematocrit (Bld) [Volume fraction] 28 % Low 38-51 [facility] Comment on above: Performed By: #### L [id number] ####[facility] (BEAKER)[address] [place] [address] Hemoglobin (Bld) [Mass/Vol] 9.5 g/dL Low 12.0-17.0 [facility] Comment on above: Performed By: #### L [id number] ####[facility] (BEAKER)[address] [place] [address] POCT BASE EXCESS 0.0 mmol/L Normal -2.0-3.0 [facility] Comment on above: Performed By: #### L [id number] ####[facility] LAB (BEAKER)[address] [place] [address] POCT IONIZED CALCIUM 1.07 mmol/L Low 1.12-1.32 [facility] Comment on above: Performed By: #### L [id number] ####[facility] LAB (BEBANNER)[address] [place] [address] POCT PCO2 40.0 mmHg Low 41.0-51.0 [facility] Comment on above: Performed By: #### L [id number] ####[facility] ([facility])[address] [place] [address] POCT PH 7.41 Normal 7.31-7.41 [facility] Comment on above: Performed By: #### L [id number] ####[facility] ([facility])[address] [place] [address] POCT PO2 408 mmHg High 80-105 [facility] Comment on above: Performed By: #### L [id number] ####[facility] LAB (BEBANNER)[address] [place] [address] POCT SO2 100 % High 95-98 [facility] Comment on above: Performed By: #### L [id number] ####[facility] (BEBANNER)[address] [place] [address] Potassium [Moles/Vol] 4.3 mmol/L Normal 3.5-4.9 [facility] Comment on above: Performed By: #### L [id number] ####[facility] (BEAKER)[address] [place] [address] Sodium [Moles/Vol] 138 mmol/L Normal 138.0-146.0 [facility] Comment on above: Performed By: #### L [id number] ####[facility] (BEAKER)[address] [place] [address] CO2 [Moles/Vol] 27.0 mmol/L Normal 21.0-29.0 [facility] Comment on above: Performed By: #### L [id number] ####[facility] (BEAKER)[address] [place] [address] Glucose [Mass/Vol] 147 mg/dL High 70-105 [facility] Comment on above: Performed By: #### L [id number] ####[facility] (BEAKER)[address] [place] [address] HCO3 (Bld) [Moles/Vol] 26.0 mmol/L Normal 23.0-28.0 [facility] Comment on above: Performed By: #### L [id number] ####[facility] (BEAKER)[address] [place] [address] Hematocrit (Bld) [Volume fraction] 27 % Low 38-51 [facility] Comment on above: Performed By: #### L [id number] ####[facility] (BEAKER)[address] [place] [address] Hemoglobin (Bld) [Mass/Vol] 9.2 g/dL Low 12.0-17.0 [facility] Comment on above: Performed By: #### L [id number] ####[facility] (BEAKER)[address] [place] [address] POCT BASE EXCESS 2.0 mmol/L Normal -2.0-3.0 [facility] Comment on above: Performed By: #### L [id number] ####[facility] (BEAKER)[address] [place] [address] POCT IONIZED CALCIUM 1.02 mmol/L Low 1.12-1.32 [facility] Comment on above: Performed By: #### L [id number] ####[facility] (BEAKER)[address] [place] [address] POCT PCO2 38.3 mmHg Low 41.0-51.0 [facility] Comment on above: Performed By: #### L [id number] ####[facility] (BEAKER)[address] [place] [address] POCT PH 7.44 High 7.31-7.41 [facility] Comment on above: Performed By: #### L [id number] ####[facility] (BEAKER)[address] [place] [address] POCT PO2 403 mmHg High 80-105 [facility] Comment on above: Performed By: #### L [id number] ####[facility] (BEAKER)[address] [place] [address] POCT SO2 100 % High 95-98 [facility] Comment on above: Performed By: #### L [id number] ####[facility] (BEAKER)[address] [place] [address] Potassium [Moles/Vol] 4.7 mmol/L Normal 3.5-4.9 [facility] Comment on above: Performed By: #### L [id number] ####[facility] (BEAKER)[address] [place] [address] Sodium [Moles/Vol] 137 mmol/L Low 138.0-146.0 [facility] Comment on above: Performed By: #### L [id number] ####[facility] (BEAKER)[address] [place] [address] CO2 [Moles/Vol] 27.0 mmol/L Normal 21.0-29.0 [facility] Comment on above: Performed By: #### L [id number] ####[facility] (BEAKER)[address] [place] [address] Glucose [Mass/Vol] 133 mg/dL High 70-105 [facility] Comment on above: Performed By: #### L [id number] ####[facility] (BEAKER)[address] [place] [address] HCO3 (Bld) [Moles/Vol] 25.8 mmol/L Normal 23.0-28.0 [facility] Comment on above: Performed By: #### L [id number] ####[facility] (BEAKER)[address] [place] [address] Hematocrit (Bld) [Volume fraction] 25 % Low 38-51 [facility] Comment on above: Performed By: #### L [id number] ####[facility] (BEBANNER)[address] [place], [place] [address] Hemoglobin (Bld) [Mass/Vol] 8.5 g/dL Low 12.0-17.0 [facility] Comment on above: Performed By: #### L [id number] ####[facility] (BEBANNER)[address] [place] [address] POCT BASE EXCESS 0.0 mmol/L Normal -2.0-3.0 [facility] Comment on above: Performed By: #### L [id number] ####[facility] (BEBANNER)[address], [place] [address] POCT IONIZED CALCIUM 0.95 mmol/L Low 1.12-1.32 [facility] Comment on above: Performed By: #### L [id number] ####[facility] (BEAKER)[address] [place] [address] POCT PCO2 46.0 mmHg Normal 41.0-51.0 [facility] Comment on above: Performed By: #### L [id number] ####[facility] (BEAKER)[address] [place], [place] [address] POCT PH 7.36 Normal 7.31-7.41 [facility] Comment on above: Performed By: #### L [id number] ####[facility] (BEAKER)[address] [place] [address] POCT PO2 367 mmHg High 80-105 [facility] Comment on above: Performed By: #### L [id number] ####[facility] (BEAKER)[address] [place] [address] POCT SO2 100 % High 95-98 [facility] Comment on above: Performed By: #### L [id number] ####[facility] (BEAKER)[address] [place] [address] Potassium [Moles/Vol] 5.0 mmol/L High 3.5-4.9 [facility] Comment on above: Performed By: #### L [id number] ####[facility] (BEAKER)[address] [place] [address] Sodium [Moles/Vol] 137 mmol/L Low 138.0-146.0 [facility] Comment on above: Performed By: #### L [id number] ####[facility] (BEAKER)[address] [place] [address] CO2 [Moles/Vol] 24.0 mmol/L Normal 21.0-29.0 [facility] Comment on above: Performed By: #### L [id number] ####[facility] (BEAKER)[address] [place] [address] Glucose [Mass/Vol] 187 mg/dL High 70-105 [facility] Comment on above: Performed By: #### L [id number] ####[facility] (BEAKER)[address] [place] [address] HCO3 (Bld) [Moles/Vol] 22.7 mmol/L Low 23.0-28.0 [facility] Comment on above: Performed By: #### L [id number] ####[facility] (BEAKER)[address] [place] [address] Hematocrit (Bld) [Volume fraction] 40 % Normal 38-51 [facility] Comment on above: Performed By: #### L [id number] ####[facility] (BEAKER)[address] [place] [address] Hemoglobin (Bld) [Mass/Vol] 13.6 g/dL Normal 12.0-17.0 [facility] Comment on above: Performed By: #### L [id number] ####[facility] (BEAKER)[address] [place] [address] POCT BASE EXCESS -2.0 mmol/L Normal -2.0-3.0 [facility] Comment on above: Performed By: #### L [id number] ####[facility] (BEAKER)[address] [place] [address] POCT IONIZED CALCIUM 1.21 mmol/L Normal 1.12-1.32 [facility] Comment on above: Performed By: #### L [id number] ####[facility] (BEAKER)[address] [place] [address] POCT PCO2 39.7 mmHg Low 41.0-51.0 [facility] Comment on above: Performed By: #### L [id number] ####[facility] (BEAKER)[address] [place] [address] POCT PH 7.37 Normal 7.31-7.41 [facility] Comment on above: Performed By: #### L [id number] ####[facility] (BEAKER)[address] [place] [address] POCT PO2 189 mmHg High 80-105 [facility] Comment on above: Performed By: #### L [id number] ####[facility] (BEAKER)[address] [place] [address] POCT SO2 100 % High 95-98 [facility] Comment on above: Performed By: #### L [id number] ####[facility] (BEAKER)[address] [place] [address] Potassium [Moles/Vol] 4.4 mmol/L Normal 3.5-4.9 [facility] Comment on above: Performed By: #### L [id number] ####[facility] (BEAKER)[address] [place] [address] Sodium [Moles/Vol] 138 mmol/L Normal 138.0-146.0 [facility] Comment on above: Performed By: #### L [id number] ####[facility] (BEAKER)[address] [place] [address] CO2 [Moles/Vol] 25.0 mmol/L Normal 21.0-29.0 [facility] Comment on above: Performed By: #### L [id number] ####[facility] (BEAKER)[address] [place] [address] Glucose [Mass/Vol] 159 mg/dL High 70-105 [facility] Comment on above: Performed By: #### L [id number] ####[facility] (BEAKER)[address] [place] [address] HCO3 (Bld) [Moles/Vol] 24.2 mmol/L Normal 23.0-28.0 [facility] Comment on above: Performed By: #### L [id number] ####[facility] (BEAKER)[address] [place] [address] Hematocrit (Bld) [Volume fraction] 40 % Normal 38-51 [facility] Comment on above: Performed By: #### L [id number] ####[facility] (BEAKER)[address] [place] [address] Hemoglobin (Bld) [Mass/Vol] 13.6 g/dL Normal 12.0-17.0 [facility] Comment on above: Performed By: #### L [id number] ####[facility] (BEAKER)[address] [place] [address] POCT BASE EXCESS -1.0 mmol/L Normal -2.0-3.0 [facility] Comment on above: Performed By: #### L [id number] ####[facility] (BEAKER)[address] [place] [address] POCT IONIZED CALCIUM 1.22 mmol/L Normal 1.12-1.32 [facility] Comment on above: Performed By: #### L [id number] ####[facility] (BEAKER)[address] [place] [address] POCT PCO2 42.4 mmHg Normal 41.0-51.0 [facility] Comment on above: Performed By: #### L [id number] ####[facility] (BEAKER)[address] [place] [address] POCT PH 7.36 Normal 7.31-7.41 [facility] Comment on above: Performed By: #### L [id number] ####[facility] (BEBANNER)[address] [place] [address] POCT PO2 263 mmHg High 80-105 [facility] Comment on above: Performed By: #### L [id number] ####[facility] (BE[facility]ANNER)[address] [place] [address] POCT SO2 100 % High 95-98 [facility] Comment on above: Performed By: #### L [id number] ####[facility] (BEAKER)[address] [place] [address] Potassium [Moles/Vol] 4.4 mmol/L Normal 3.5-4.9 [facility] Comment on above: Performed By: #### L [id number] ####[facility] (BEAKER)[address] [place] [address] Sodium [Moles/Vol] 138 mmol/L Normal 138.0-146.0 [facility] Comment on above: Performed By: #### L [id number] ####[facility] (BEAKER)[address] [place] [address] CO2 [Moles/Vol] 26.0 mmol/L Normal 21.0-29.0 [facility] Comment on above: Performed By: #### L [id number] ####[facility] (BEAKER)[address] [place] [address] Glucose [Mass/Vol] 188 mg/dL High 70-105 [facility] Comment on above: Performed By: #### L [id number] ####[facility] (BEAKER)[address] [place] [address] HCO3 (Bld) [Moles/Vol] 24.4 mmol/L Normal 23.0-28.0 [facility] Comment on above: Performed By: #### L [id number] ####[facility] (BEAKER)[address] [place] [address] Hematocrit (Bld) [Volume fraction] 41 % Normal 38-51 [facility] Comment on above: Performed By: #### L [id number] ####[facility] (BEAKER)[address] [place] [address] Hemoglobin (Bld) [Mass/Vol] 13.9 g/dL Normal 12.0-17.0 [facility] Comment on above: Performed By: #### L [id number] ####[facility] (BEAKER)[address] [place] [address] POCT BASE EXCESS -1.0 mmol/L Normal -2.0-3.0 [facility] Comment on above: Performed By: #### L [id number] ####[facility] (BEAKER)[address] [place] [address] POCT IONIZED CALCIUM 1.21 mmol/L Normal 1.12-1.32 [facility] Comment on above: Performed By: #### L [id number] ####[facility] (BEAKER)[address] [place] [address] POCT PCO2 41.6 mmHg Normal 41.0-51.0 [facility] Comment on above: Performed By: #### L [id number] ####[facility] (BEAKER)[address] [place] [address] POCT PH 7.38 Normal 7.31-7.41 [facility] Comment on above: Performed By: #### L [id number] ####[facility] (BEAKER)[address] [place] [address] POCT PO2 417 mmHg High 80-105 [facility] Comment on above: Performed By: #### L [id number] ####[facility] LAB (BEBANNER)[address] [place] [address] POCT SO2 100 % High 95-98 [facility] Comment on above: Performed By: #### L [id number] ####[facility] ([facility])[address] [place] [address] Potassium [Moles/Vol] 4.4 mmol/L Normal 3.5-4.9 [facility] Comment on above: Performed By: #### L [id number] ####[facility] ([facility])[address] [place] [address] Sodium [Moles/Vol] 138 mmol/L Normal 138.0-146.0 [facility] Comment on above: Performed By: #### L [id number] ####[facility] ([facility])[address] [place] [address] POTASSIUM, WHOLE BLOODon Potassium [Moles/Vol] 4.2 mmol/L Normal 3.5-5.1 [facility] Comment on above: Performed By: #### P OTASSIUM, WHOLE BLOOD ####[facility] RESPIRATORY [id number] [place] [address] [facility] Potassium [Moles/Vol] 4.1 mmol/L Normal 3.5-5.1 [facility] Comment on above: Performed By: #### P OTASSIUM, WHOLE BLOOD ####[facility] RESPIRATORY [id number] [place] [address] [facility] Potassium [Moles/Vol] 4.3 mmol/L Normal 3.5-5.1 [facility] Comment on above: Performed By: #### P OTASSIUM, WHOLE BLOOD ####[facility] RESPIR[facility] [id number] [facility] [place] [address] [facility] PROTIME-INRon 10-27-2023 INR IN PPP BY COAGULATION ASSAY 1.26 High 0.90-1.10 [facility] Comment on above: Result Comment: ACCC P [...] CHEST 1995;108:231S-246S. Performed By: #### L [id number] ####[facility] Scryer (Social[employer])[address] [place] [address] PROTHROMBIN TIME (PT) IN PPP BY COAGULATION ASSAY 15.8 Seconds High 12.3-14.8 [facility] Comment on above: Performed By: #### L [id number] ####[facility] LAB ([employer])[address] [place] [address] INR IN PPP BY COAGULATION ASSAY 1.39 High 0.90-1.10 [facility] Comment on above: Order Comment: Pre-o p diagnosis:NSTEMI (non-ST elevated myocardial infarction) ([facility]) [I21.4] [facility]: [facility] FOR [facility] THERAPY CONDITION INRPROPHYLAXIS OF VENOUS THROMBOSIS 2-3(HIGH-RISK SURGERY)TREATMENT OF VENOUS THROMBOSIS 2-3TREATMENT OF PULMONARY EMBOLISM 2-3PREVENTION OF SYSTEMIC EMBOLISM: 2-3 ACUTE MYOCARDIAL INFARCTION TISSUE HEART VALVES VALVULAR HEART DISEASE ATRIAL FIBRILLATION RECURRENT SYSTEMIC EMBOLISMMECHANICAL HEART VALVE 2.5-3.5 FROM: ORAL ANTICOAGULANTS. MECHANISM OF ACTION, CLINICAL EFFECTIVENESS, AND OPTIMAL THERAPEUTIC RANGE. CHEST 1995;108:231S-246S. Performed By: #### L [id number] ####[facility] LAB ([employer])[address] [place] [address] PROTHROMBIN TIME (PT) IN PPP BY COAGULATION ASSAY 17.1 Seconds High 12.3-14.8 [facility] Comment on above: Order Comment: Pre-o p diagnosis:NSTEMI (non-ST elevated myocardial infarction) ([facility]) [I21.4] Performed By: #### L [id number] ####[facility] LAB ([employer])[address] [place] [address] INR IN PPP BY COAGULATION ASSAY 0.97 Normal 0.90-1.10 [facility] Comment on above: Result Comment: ACCC P [...] CHEST 1995;108:231S-246S. Performed By: #### L [id number] ####[facility] LAB (BEAKER)[address] [place] [address] PROTHROMBIN TIME (PT) IN PPP BY COAGULATION ASSAY 12.9 Seconds Normal 12.3-14.8 [facility] Comment on above: Performed By: #### L [id number] ####[facility] LAB (BEAKER)[address] [place] [address] SODIUM, WHOLE BLOODon 2023 SODIUM, WHOLE BLOOD 136 Normal 136-145 [facility] Comment on above: Performed By: #### S ODIUM, WHOLE BLOOD ####[facility] RESPIRATORY [id number] [place] [address] [place] SODIUM, WHOLE BLOOD 136 Normal 136-145 [facility] Comment on above: Performed By: #### S ODIUM, WHOLE BLOOD ####[facility] RESPIRATORY [id number] [place] [address] [facility] SODIUM, WHOLE BLOOD 135 Low 136-145 [facility] Comment on above: Performed By: #### S ODIUM, WHOLE BLOOD ####[facility] RESPIRATORY [id number] [place] [address] [place] 30on 10-26-2023 30 Normal [facility] 30 The patient is Moderately Stable - Low risk of patient condition declining or worsening The patient's goals for the shift include comfort The clinical goals for the shift include safety Normal [facility] ANESon 10-26-2023 ANES Normal [facility] ANTI-XA (HEPARIN LEVEL)on HEPARIN UNFRACTIONATED (U/ML) IN PPP BY CHROMOGENIC METHOD 0.42 IU/mL Normal 0.3-0.7 [facility] Comment on above: Result Comment: [place] roxaban and Apixaban will interfere with the anti Xa assay used to monitor UFH and LMWH. Performed By: #### L [id number] ####[facility] LAB (BEAKER)[address] [place] [address] HEPARIN UNFRACTIONATED (U/ML) IN PPP BY CHROMOGENIC METHOD 0.49 IU/mL Normal 0.3-0.7 [facility] Comment on above: Result Comment: [place] roxaban and Apixaban will interfere with the anti Xa assay used to monitor UFH and LMWH. Performed By: #### L [id number] ####[facility] LAB ([facility])[address] [place] [address] MRSA/MSSA DNA NASALon 2023 MRSA DNA Negative Normal Negative [facility] Comment on above: Order Comment: Testi ng [...] preclude nasal colonization. Performed By: #### L [id number] ####[facility] LAB ([facility])[address] [place] [address] MSSA DNA Negative Normal Negative [facility] Comment on above: Order Comment: Testi ng [...] preclude nasal colonization. Performed By: #### L [id number] ####[facility] LAB (BE[facility]ANNER)[address] [place] [address] POCT GLUCOSE METER UNSOLICIT ED RESULTSon 10-26-2023 Glucose [Mass/Vol] 180 mg/dL High 70-105 [facility] Comment on above: Order Comment: Waive d Testing in the ED is performed under the ED CLIA certificate #[id number]. Result Comment: [email or web address] Performed By: #### L [id number] ####[facility] LAB ([facility])[address] [place] [address] Glucose [Mass/Vol] 164 mg/dL High 70-105 [facility] Comment on above: Order Comment: Waive d Testing in the ED is performed under the ED CLIA certificate #[id number]. Result Comment: [email or web address] Performed By: #### L [id number] ####[facility] LAB (BEAKER)[address] [place] [address] Glucose [Mass/Vol] 158 mg/dL High 70-105 [facility] Comment on above: Order Comment: Waive d Testing in the ED is performed under the ED CLIA certificate #[id number]. Result Comment: [email or web address] Performed By: #### L [id number] ####[facility] LAB ([facility])[address] [place] [address] TOXICOLOGY PANEL URINEon AMPHETAMINE+METHAMPHETA MINE SCREEN (PRESENCE) IN URINE Negative Normal Negative [facility] Comment on above: Performed By: #### L [id number] ####[facility] LAB ([facility]ANNER)[address] [place] [address] BARBITURATES PRESENCE IN URINE BY SCREEN METHOD Negative Normal Negative [facility] Comment on above: Performed By: #### L [id number] ####[facility] LAB ([facility])[address] [facility] [address] Benzodiazepines Ql (U) Positive [facility] on above: Performed By: #### L [id number] ####[facility] LAB (BE[facility]ANNER)[address] [place] [address] CANNABINOID (PRESENCE) IN URINE BY SCREEN METHOD Negative Normal Negative [facility] Comment on above: Performed By: #### L [id number] ####[facility] LAB (BEAK[facility])[address] [place] [address] Cocaine Ql (U) Negative Normal Negative [facility] Comment on above: Performed By: #### L [id number] ####[facility] ([facility])[address] [place] [address] METHADONE (PRESENCE) IN URINE BY SCREEN METHOD Negative Normal Negative [facility] Comment on above: Performed By: #### L [id number] ####[facility] ([facility])[address] [place] [address] OPIATES (PRESENCE) IN URINE BY SCREEN METHOD Negative Normal Negative [facility] Comment on above: Performed By: #### L [id number] ####[facility] ([facility])[address] [place] [address] PHENCYCLIDINE PRESENCE IN URINE BY SCREEN METHOD Negative Normal Negative [facility] Comment on above: Performed By: #### L [id number] ####[facility] ([facility])[address] [place] [address] Propoxyphene Screen Ql (U) Negative Normal Negative [facility] Comment on above: Performed By: #### L [id number] ####[facility] ([facility])[address] [place] [address] TRICYCLIC ANTIDEPRESSANTS (PRESENCE) IN URINE Negative Normal Negative [facility] Comment on above: Performed By: #### L [id number] ####[facility] [facility] LAB ([facility]AKER)[address] [place] [address] TYPE AND SCREENon 10-26-2023 AB SCREEN Negative Normal [facility] Comment on above: Performed By: #### L [id number] ####[facility] BLOOD BANK, ABO group Nom (Bld) O Normal [facility] Comment on above: Performed By: #### L [id number] ####[facility]OD [facility], RH TYPE IN BLOOD Negative Normal [facility] Comment on above: Performed By: #### L [id number] ####[facility] B[facility]OD [facility], URINALYSISon 10-26-2023 BILIRUBIN, TOTAL PRESENCE IN URINE Negative Normal Negative [facility] Comment on above: Order Comment: Micro scopics not performed on urines with negative chemical reactions unless requested on original order. Performed By: #### L [id number] ####[facility] (BEAKER)[address] [place] [address] Clarity (U) Clear Normal Clear [facility] Comment on above: Order Comment: Micro scopics not performed on urines with negative chemical reactions unless requested on original order. Performed By: #### L [id number] ####[facility] ([facility])[address] [place] [address] Color (U) Yellow Normal Yellow [facility] Comment on above: Order Comment: Micro scopics not performed on urines with negative chemical reactions unless requested on original order. Performed By: #### L [id number] ####[facility] ([facility])[address] [place] [address] Glucose (U) [Mass/Vol] Negative Normal [facility] Comment on above: Order Comment: Micro scopics not performed on urines with negative chemical reactions unless requested on original order. Performed By: #### L [id number] ####[facility] ([facility])[address] [place] [address] HEMOGLOBIN PRESENCE IN URINE Negative Normal Negative [facility] Comment on above: Order Comment: Micro scopics not performed on urines with negative chemical reactions unless requested on original order. Performed By: #### L [id number] ####[facility] ([facility])[address] [place] [address] Ketones Ql (U) Negative Normal Negative [facility] Comment on above: Order Comment: Micro scopics not performed on urines with negative chemical reactions unless requested on original order. Performed By: #### L [id number] ####[facility] ([facility])[address] [place] [address] LEUKOCYTE ESTERASE PRESENCE IN URINE BY TEST STRIP Negative Normal Negative [facility] Comment on above: Order Comment: Micro scopics not performed on urines with negative chemical reactions unless requested on original order. Performed By: #### L [id number] ####[facility] ([facility])[address] [place] [address] NITRITE PRESENCE IN URINE Negative Normal Negative [facility] Comment on above: Order Comment: Micro scopics not performed on urines with negative chemical reactions unless requested on original order. Performed By: #### L [id number] ####[facility] (BE[facility]ER)[address] [place] [address] pH (U) 5.0 [pH] Normal 5.0-8.0 [facility] Comment on above: Order Comment: Micro scopics not performed on urines with negative chemical reactions unless requested on original order. Performed By: #### L [id number] ####[facility] (BEAKER)[address] [place] [address] Protein (U) [Mass/Vol] Negative Normal [facility] Comment on above: Order Comment: Micro scopics not performed on urines with negative chemical reactions unless requested on original order. Performed By: #### L [id number] ####[facility] ([facility])[address] [place] [address] Specific gravity (U) [Rel density] 1.025 High 1.015-1.020 [facility] Comment on above: Order Comment: Micro scopics not performed on urines with negative chemical reactions unless requested on original order. Performed By: #### L [id number] ####[facility] ([facility])[address] [place] [address] 30on 10-25-2023 30 Normal [facility] 30 The patient is Moderately Stable - Low risk of patient condition declining or worsening The patient's goals for the shift include comfort The clinical goals for the shift include stable vitals Normal [facility] ANESon 10-25-2023 ANES Normal [facility] ANTI-XA (HEPARIN LEVEL)on HEPARIN UNFRACTIONATED (U/ML) IN PPP BY CHROMOGENIC METHOD 0.23 IU/mL Low 0.3-0.7 [facility] Comment on above: Result Comment: [place] roxaban and Apixaban will interfere with the anti Xa assay used to monitor UFH and LMWH. Performed By: #### L [id number] ####[facility] (BEAKER)[address] [place] [address] HEPARIN UNFRACTIONATED (U/ML) IN PPP BY CHROMOGENIC METHOD <0.10 Invalid Interpretation Code 0.3-0.7 [facility] Comment on above: Result Comment: [place] roxaban and Apixaban will interfere with the anti Xa assay used to monitor UFH and LMWH. Performed By: #### L [id number] ####[facility] ([facility])[address] [place] [address] HEPARIN UNFRACTIONATED (U/ML) IN PPP BY CHROMOGENIC METHOD 0.22 IU/mL Low 0.3-0.7 [facility] Comment on above: Order Comment: Check anti-Xa level every 6 hours while on heparin infusion, or per protocol. Result Comment: [place] roxaban and Apixaban will interfere with the anti Xa assay used to monitor UFH and LMWH. Performed By: #### L [id number] ####[facility] ([facility])[address] [place] [address] BASIC METABOLIC PANELon 04-2 Anion gap [Moles/Vol] 16 mmol/L Normal 7-20 [facility] Comment on above: Performed By: #### L [id number] ####[facility] ([facility])[address] [place] [address] Calcium [Mass/Vol] 9.0 mg/dL Normal 8.6-10.3 [facility] Comment on above: Performed By: #### L [id number] ####[facility] ([facility])[address] [place] [address] Chloride [Moles/Vol] 104 mmol/L Normal 98-107 [facility] Comment on above: Performed By: #### L [id number] ####[facility] ([facility])[address] [place] [address] CO2 [Moles/Vol] 21 mmol/L Normal 21-31 [facility] Comment on above: Performed By: #### L [id number] ####[facility] ([facility])[address] [place] [address] Creatinine [Mass/Vol] 1.02 mg/dL Normal 0.70-1.30 [facility] Comment on above: Performed By: #### L [id number] ####[facility] ([facility])[address] [place] [address] GLOMERULAR FILTRATION RATE ML/MIN/1.73 SQ M.PREDICTED 85.7 mL/min/1.73m*2 Normal >60.0 [facility] Comment on above: Result Comment: The [facility]???s estimated glomerular filtration rate (eGFR) will no [...] of individuals. Performed By: #### L [id number] ####[facility] ([facility])[address] [place] [address] Glucose [Mass/Vol] 194 mg/dL High 70-100 [facility] Comment on above: Performed By: #### L [id number] ####[facility] ([facility])[address] [place] [address] Potassium [Moles/Vol] 3.7 mmol/L Normal 3.5-5.1 [facility] Comment on above: Performed By: #### L [id number] ####[facility] ([facility])[address] [place] [address] Sodium [Moles/Vol] 137 mmol/L Normal 136-145 [facility] Comment on above: Performed By: #### L [id number] ####[facility] ([facility])[address] [place] [address] Urea nitrogen [Mass/Vol] 18 mg/dL Normal 7-25 [facility] Comment on above: Performed By: #### L [id number] ####[facility] ([facility])[address] [place] [address] UREA NITROGEN/CREATININE (MASS RATIO) IN SER/PLAS 17.6 Normal [facility] Comment on above: Performed By: #### L [id number] ####[facility] ([facility])[address] [place] [address] CBCon 10-25-2023 Erythrocyte distribution width (RBC) [Ratio] 12.2 % Normal 11.5-15.0 [facility] Comment on above: Performed By: #### L [id number] ####[facility] ([facility])[address] [place] [address] ERYTHROCYTE MEAN CORPUSCULAR HEMOGLOBIN CONCENTRATION (G/DL) BY AUTOMATED 33.9 g/dL Normal 32.0-35.0 [facility] Comment on above: Performed By: #### L [id number] ####[facility] ([facility])[address] [place] [address] Hematocrit (Bld) [Volume fraction] 42.5 % Normal 39.0-55.0 [facility] Comment on above: Performed By: #### L [id number] ####[facility] ([facility])[address] [place] [address] Hemoglobin (Bld) [Mass/Vol] 14.4 g/dL Normal 13.0-17.0 [facility] Comment on above: Performed By: #### L [id number] ####[facility] ([facility])[address] [place] [address] MCH (RBC) [Entitic mass] 29.8 pg Normal 27.0-33.0 [facility] Comment on above: Performed By: #### L [id number] ####[facility] ([facility])[address] [place] [address] MCV (RBC) [Entitic vol] 87.8 fL Normal 82.0-98.0 [facility] Comment on above: Performed By: #### L [id number] ####[facility] ([facility])[address] [place] [address] PLATELETS (10*3/UL) IN BLOOD AUTOMATED COUNT 200 10*3/uL Normal 150-400 [facility] Comment on above: Performed By: #### L [id number] ####[facility] ([facility])[address] [place] [address] RBC (Bld) [#/Vol] 4.84 10*6/uL Normal 4.20-5.70 [facility] Comment on above: Performed By: #### L [id number] ####[facility] ([facility])[address] [place] [address] WBC (Bld) [#/Vol] 8.97 10*3/uL Normal 4.00-10.60 [facility] Comment on above: Performed By: #### L [id number] ####[facility] ([facility])[address] [place] [address] CONSULTon 10-25-2023 CONSULT Normal [facility] CT ABDOMEN PELVIS WO IV CONT RASTon 10-25-2023 CT ABDOMEN PELVIS WO IV CONTRAST Invalid Interpretation Code [facility] CT CHEST WO IV CONTRASTon CT CHEST WO IV CONTRAST Invalid Interpretation Code [facility] HPon 10-25-2023 HP Normal [facility] POCT GLUCOSE METER UNSOLICIT ED RESULTSon 10-25-2023 Glucose [Mass/Vol] 242 mg/dL High 70-105 [facility] Comment on above: Order Comment: Waive d Testing in the ED is performed under the ED CLIA certificate #[id number]. Result Comment: [email or web address] Performed By: #### L [id number] ####[facility] ([facility])[address] [place] [address] Glucose [Mass/Vol] 195 mg/dL High 70-105 [facility] Comment on above: Order Comment: Waive d Testing in the ED is performed under the ED CLIA certificate #[id number]. Result Comment: [email or web address] Performed By: #### L [id number] ####[facility] ([facility])[address] [place] [address] Glucose [Mass/Vol] 170 mg/dL High 70-105 [facility] Comment on above: Order Comment: Waive d Testing in the ED is performed under the ED CLIA certificate #[id number]. Result Comment: [email or web address] Performed By: #### L [id number] ####[facility] ([facility])[address] [place] [address] TROPONIN Ion 10-25-2023 Troponin I.cardiac [Mass/Vol] 0.07 ng/mL High 0.00-0.04 [facility] Comment on above: Performed By: #### L [id number] ####[facility] ([facility])[address] [place] [address] Troponin I.cardiac [Mass/Vol] 0.08 ng/mL High 0.00-0.04 [facility] Comment on above: Performed By: #### L [id number] ####[facility] ([facility])[address] [place] [address] TSH3 REFLEX TO FT4on 024 THYROTROPIN (MIU/L) IN SER/PLAS BY DETECTION LIMIT <= 0.05 MIU/L 2.92 mIU/L Normal 0.34-5.60 [facility] Comment on above: Performed By: #### L [id number] ####[facility] ([facility])[address] [place] [address] ANTI-XA (HEPARIN LEVEL)on HEPARIN UNFRACTIONATED (U/ML) IN PPP BY CHROMOGENIC METHOD 0.19 IU/mL Low 0.3-0.7 [facility] Comment on above: Order Comment: Check anti-Xa level every 6 hours while on heparin infusion, or per protocol. Result Comment: [place] roxaban and Apixaban will interfere with the anti Xa assay used to monitor UFH and LMWH. Performed By: #### L [id number] ####[facility] ([facility])[address] [place] [address] APTTon 10-24-2023 ACTIVATED PARTIAL THROMBOPLASTIN TIME IN PPP BY COAGULATION ASSAY 39.6 Seconds High 25.0-35.0 [facility] Comment on above: Order Comment: Basel ine aPTT before initiating heparin infusion. Result Comment: Clin ical significance of the APTT is questionable in the presence of heparin. Performed By: #### L [id number] ####[facility] ([facility])[address] [place] [address] CBC WITH AUTO DIFFERENTIALon 10-24-2023 Basophils (Bld) [#/Vol] 0.06 10*3/uL Normal 0.00-0.20 [facility] Comment on above: Performed By: #### L [id number] ####[facility] ([facility])[address] [place] [address] Basophils/100 WBC (Bld) 0.6 % Normal 0.0-1.0 [facility] Comment on above: Performed By: #### L [id number] ####[facility] ([facility])[address] [place] [address] Eosinophils (Bld) [#/Vol] 0.14 10*3/uL Normal 0.00-0.50 [facility] Comment on above: Performed By: #### L [id number] ####[facility] ([facility])[address] [place] [address] Eosinophils/100 WBC (Bld) 1.5 % Normal 0.0-6.0 [facility] Comment on above: Performed By: #### L [id number] ####[facility] ([facility])[address] [place] [address] Erythrocyte distribution width (RBC) [Ratio] 12.3 % Normal 11.5-15.0 [facility] Comment on above: Performed By: #### L [id number] ####[facility] ([facility])[address] [place] [address] ERYTHROCYTE MEAN CORPUSCULAR HEMOGLOBIN CONCENTRATION (G/DL) BY AUTOMATED 33.7 g/dL Normal 32.0-35.0 [facility] Comment on above: Performed By: #### L [id number] ####[facility] ([facility])[address] [place] [address] Hematocrit (Bld) [Volume fraction] 45.1 % Normal 39.0-55.0 [facility] Comment on above: Performed By: #### L [id number] ####[facility] ([facility])[address] [place] [address] Hemoglobin (Bld) [Mass/Vol] 15.2 g/dL Normal 13.0-17.0 [facility] Comment on above: Performed By: #### L [id number] ####[facility] ([facility])[address] [place] [address] Immature granulocytes (Bld) [#/Vol] 0.03 10*3/uL Normal 0.00-0.20 [facility] Comment on above: Performed By: #### L [id number] ####[facility] ([facility])[address] [place] [address] Immature granulocytes/100 WBC (Bld) 0.3 % Normal 0.0-1.0 [facility] Comment on above: Performed By: #### L [id number] ####[facility] ([facility])[address] [place] [address] Lymphocytes (Bld) [#/Vol] 4.32 10*3/uL High 1.20-4.00 [facility] Comment on above: Performed By: #### L [id number] ####[facility] ([facility])[address] [place] [address] Lymphocytes/100 WBC (Bld) 45.8 % High 20.0-45.0 [facility] Comment on above: Performed By: #### L [id number] ####[facility] ([facility])[address] [place] [address] MCH (RBC) [Entitic mass] 29.7 pg Normal 27.0-33.0 [facility] Comment on above: Performed By: #### L [id number] ####[facility] ([facility])[address] [place] [address] MCV (RBC) [Entitic vol] 88.3 fL Normal 82.0-98.0 [facility] Comment on above: Performed By: #### L [id number] ####[facility] ([facility])[address] [place] [address] Monocytes (Bld) [#/Vol] 0.91 10*3/uL Normal 0.10-1.00 [facility] Comment on above: Performed By: #### L [id number] ####[facility] ([facility])[address] [place] [address] Monocytes/100 WBC (Bld) 9.6 % Normal 5.0-12.0 U [facility] Comment on above: Performed By: #### L [id number] ####[facility] ([facility])[address] [place] [address] Neutrophils (Bld) [#/Vol] 3.98 10*3/uL Normal 1.60-7.60 [facility] Comment on above: Performed By: #### L [id number] ####[facility] ([facility])[address] [place] [address] Neutrophils/100 WBC (Bld) 42.2 % Normal 40.0-72.0 [facility] Comment on above: Performed By: #### L [id number] ####[facility] ([facility])[address] [place] [address] NRBC (PER 100 WBCS) BY AUTOMATED COUNT 0.0 % Normal 0 [facility] Comment on above: Performed By: #### L [id number] ####[facility] ([facility])[address] [place] [address] PLATELETS (10*3/UL) IN BLOOD AUTOMATED COUNT 208 10*3/uL Normal 150-400 [facility] Comment on above: Performed By: #### L [id number] ####[facility] ([facility])[address] [place] [address] RBC (Bld) [#/Vol] 5.11 10*6/uL Normal 4.20-5.70 [facility] Comment on above: Performed By: #### L [id number] ####[facility] ([facility])[address] [place] [address] WBC (Bld) [#/Vol] 9.44 10*3/uL Normal 4.00-10.60 [facility] Comment on above: Performed By: #### L [id number] ####[facility] ([facility])[address] [place] [address] COMPREHENSIVE METABOLIC PANE Edgar 10-24-2023 Albumin [Mass/Vol] 4.4 g/dL Normal 3.5-5.7 [facility] Comment on above: Performed By: #### L [id number] ####[facility] ([facility])[address] [place] [address] ALP [Catalytic activity/Vol] 66 U/L Normal 34-104 [facility] Comment on above: Performed By: #### L [id number] ####[facility] ([facility])[address] [place] [address] ALT [Catalytic activity/Vol] 11 U/L Normal 7-52 [facility] Comment on above: Performed By: #### L [id number] ####[facility] ([facility])[address] [place] [address] Anion gap [Moles/Vol] 14 mmol/L Normal 7-20 [facility] Comment on above: Performed By: #### L [id number] ####[facility] ([facility])[address] [place] [address] AST [Catalytic activity/Vol] 14 U/L Normal 13-39 [facility] Comment on above: Performed By: #### L [id number] ####[facility] ([facility])[address] [place] [address] Bilirubin [Mass/Vol] 0.4 mg/dL Normal 0.3-1.0 [facility] Comment on above: Performed By: #### L [id number] ####[facility] ([facility])[address] [place] [address] Calcium [Mass/Vol] 9.8 mg/dL Normal 8.6-10.3 [facility] Comment on above: Performed By: #### L [id number] ####[facility] ([facility])[address] [place] [address] Chloride [Moles/Vol] 102 mmol/L Normal 98-107 [facility] Comment on above: Performed By: #### L [id number] ####[facility] ([facility])[address] [place] [address] CO2 [Moles/Vol] 26 mmol/L Normal 21-31 [facility] Comment on above: Performed By: #### L [id number] ####[facility] ([facility])[address] [place] [address] Creatinine [Mass/Vol] 1.13 mg/dL Normal 0.70-1.30 [facility] Comment on above: Performed By: #### L [id number] ####[facility] ([facility])[address] [place] [address] GLOMERULAR FILTRATION RATE ML/MIN/1.73 SQ M.PREDICTED 75.8 mL/min/1.73m*2 Normal >60.0 [facility] Comment on above: Result Comment: The [facility]???s estimated glomerular filtration rate (eGFR) will no [...] of individuals. Performed By: #### L [id number] ####[facility] ([facility])[address] [place] [address] Glucose [Mass/Vol] 116 mg/dL High 70-100 [facility] Comment on above: Performed By: #### L [id number] ####[facility] ([facility])[address] [place] [address] Potassium [Moles/Vol] 4.2 mmol/L Normal 3.5-5.1 [facility] Comment on above: Performed By: #### L [id number] ####[facility] ([facility])[address] [place] [address] Protein [Mass/Vol] 7.4 g/dL Normal 6.0-8.3 [facility] Comment on above: Performed By: #### L [id number] ####[facility] ([facility])[address] [place] [address] Sodium [Moles/Vol] 138 mmol/L Normal 136-145 [facility] Comment on above: Performed By: #### L [id number] ####[facility] ([facility])[address] [place] [address] Urea nitrogen [Mass/Vol] 19 mg/dL Normal 7-25 [facility] Comment on above: Performed By: #### L [id number] ####[facility] ([facility])[address] [place] [address] UREA NITROGEN/CREATININE (MASS RATIO) IN SER/PLAS 16.8 [facility] Comment on above: Performed By: #### L [id number] ####[facility] ([facility])[address] [place] [address] CONSULTon 10-24-2023 CONSULT Normal [facility] EDNURSon 10-24-2023 EDNURS [place] transfer for NSTEMI. No chest pain at this time. Normal [facility] EDPROVon 10-24-2023 EDPROV Normal [facility] EDPROV This report has been cancelled. Normal [facility] ETHANOLon 10-24-2023 ETHANOL (MG/DL) IN SER/PLAS <10 Normal [facility] Comment on above: Performed By: #### L [id number] ####[facility] ([facility])[address] [place] [address] ETHANOL CALCULATED (%) Normal Un [facility] Comment on above: Performed By: #### L [id number] ####[facility] ([facility])[address] [place] [address] HEMOGLOBIN A1Con 10-24-2023 Glucose [Mass/Vol] 163 mg/dL Normal [facility] Comment on above: Performed By: #### L [id number] ####[facility] ([facility])[address] [place] [address] HbA1c (Bld) [Mass fraction] 7.3 % High 4.0-6.0 [facility] Comment on above: Performed By: #### L [id number] ####[facility] ([facility])[address] [place] [address] HPon 10-24-2023 HP Normal [facility] HP Normal [facility] LIPID PANELon 10-24-2023 CHOL/HDL 4.2 mg/dL Normal [facility] Comment on above: Performed By: #### L [id number] ####[facility] ([facility])[address] [place] [address] Cholesterol [Mass/Vol] 203 mg/dL High 120-200 [facility] Comment on above: Performed By: #### L [id number] ####[facility] ([facility])[address] [place] [address] Magnesium [Mass/Vol] 206 mg/dL High 40-149 [facility] Comment on above: Result Comment: TRIG LYCERIDE REFERENCE RANGE:20 YEARS AND OLDER CARDIOVASCULAR RISKLESS THAN 150 mg/dL LOW [id number] TO 199 mg/dL BORDERLINE [id number] mg/dL AND GREATER HIGH RISK Performed By: #### L [id number] ####[facility] ([facility])[address] [place] [address] Magnesium [Mass/Vol] 114 mg/dL Normal 0-160 [facility] Comment on above: Performed By: #### L [id number] ####[facility] ([facility])[address] [place] [address] Magnesium [Mass/Vol] 48 mg/dL Normal 23-92 [facility] Comment on above: Performed By: #### L [id number] ####[facility] ([facility])[address] [place] [address] NON HDL CHOL. (LDL+VLDL) 155 Normal [facility] Comment on above: Performed By: #### L [id number] ####[facility] ([facility])[address] [facility] [place] [address] TOTAL VLDL-C 41 mg/dL High 0-40 [facility] Comment on above: Performed By: #### L [id number] ####[facility] ([facility])[address] [place] [address] MAGNESIUMon 10-24-2023 Magnesium [Mass/Vol] 2.1 mg/dL Normal 1.9-2.7 [facility] Comment on above: Performed By: #### L [id number] ####[facility] ([facility])[address] [place] [address] PLATELET COUNTon 10-24-2023 PLATELETS (10*3/UL) IN BLOOD AUTOMATED COUNT 199 10*3/uL Normal 150-400 [facility] Comment on above: Performed By: #### L [id number] ####[facility] ([facility])[address] [place] [address] POCT GLUCOSE METER UNSOLICIT ED RESULTSon 10-24-2023 Glucose [Mass/Vol] 120 mg/dL High 70-105 [facility] Comment on above: Order Comment: Waive d Testing in the ED is performed under the ED CLIA certificate #[id number]. Result Comment: derek shepard Performed By: #### L [id number] ####[facility] ([facility])[address] [facility] [place] [address] TROPONIN Ion 10-24-2023 Troponin I.cardiac [Mass/Vol] 0.09 ng/mL High 0.00-0.04 [facility] Comment on above: Performed By: #### L [id number] ####[facility] ([facility])[address] [place] [address] Troponin I.cardiac [Mass/Vol] 0.10 ng/mL High 0.00-0.04 [facility] Comment on above: Performed By: #### L [id number] ####[facility] ([facility])[address] [place] [address] TSH3 REFLEX TO FT4on 024 THYROTROPIN (MIU/L) IN SER/PLAS BY DETECTION LIMIT <= 0.05 MIU/L 2.35 mIU/L Normal 0.34-5.60 [facility] Comment on above: Performed By: #### L [id number] ####[facility] ([facility])[address] [place] [address] US KIDNEYSon 08-01-2022 US KIDNEYS US KIDNEYS EXAM DATE: 08/01/2022 5:49 AM MST COMPARISON: CT abdomen and pelvis 07/22/2022, ultrasound kidney 09/15/2019, CT abdomen and pelvis 09/14/2019. INDICATION: Right superior pole cortical lesion measuring [address] abdomen and pelvis 07/22/2022. TECHNIQUE: Real-time ultrasound scanning of the kidneys and bladder was performed by the brick kiln worker. Robotics Systems Engineer static images are submitted for review. Cine [...] COLLEEN NORIEGA Date: 2022-08-01 11:31 Normal [facility] CBC AUTO DIFFon 07-22-2022 BASO # 0.0 103/ul Normal 0.0-0.1 [facility] Comment on above: Performed By: #### U MICRO, ERUR #### [facility] [address] [place] [address] Dr. Allyson Guerrero Basophils/100 WBC (Bld) 0.4 % Normal 0.2-2.0 [facility] Comment on above: Performed By: #### U MICRO, ERUR #### [facility] [address] [place] [address] Dr. Allyson Guerrero EO # 0.1 103/ul Normal 0.0-0.7 [facility] Comment on above: Performed By: #### U MICRO, ERUR #### [facility] [address] [place] [address] Dr. Allyson Guerrero Eosinophils/100 WBC (Bld) 1.3 % Normal 0.9-7.0 [facility] Comment on above: Performed By: #### U MICRO, ERUR #### [facility] [address] [place] [address] Dr. Allyson Guerrero Erythrocyte distribution width (RBC) [Ratio] 12.4 % Normal 11.0-15.0 [facility] Comment on above: Performed By: #### U MICRO, ERUR #### [facility] [address] [place] [address] Dr. Allyson Guerrero Hematocrit (Bld) [Volume fraction] 40.3 % Critically low 42.0-54.0 [facility] Comment on above: Performed By: #### U MICRO, ERUR #### [facility] [address] [place] [address] Dr. Allyson Guerrero Hemoglobin (Bld) [Mass/Vol] 14.2 g/dL Normal 14.0-18.0 [facility] Comment on above: Performed By: #### U MICRO, ERUR #### [facility] [address] [place] [address] Dr. Allyson Guerrero IG # 0.02 10e3/ul Normal 0.00-0.03 [facility] Comment on above: Performed By: #### U MICRO, ERUR #### [facility] [address] [place] [address] Dr. Allyson Guerrero IG % 0.3 % Normal 0.0-0.5 [facility] Comment on above: Performed By: #### U MICRO, ERUR #### [facility] [address] [address] [address] Allyson Guerrero LYMPH # 3.1 103/ul Normal 1.2-3.8 [facility] Comment on above: Performed By: #### U MICRO, ERUR #### [facility] [address] [place] [address] Dr. Allyson Guerrero Lymphocytes/100 WBC (Bld) 44.5 % Normal 20.5-60.0 [facility] Comment on above: Performed By: #### U MICRO, ERUR #### [facility] [address] [place] [address] Dr. Allyson Guerrero MANUAL DIFF REQ NO Normal [facility] Comment on above: Performed By: #### U MICRO, ERUR #### [facility] [address] [place] [address] Dr. Allyson Guerrero MCH (RBC) [Entitic mass] 30.0 pg Normal 25.9-34.0 [facility] Comment on above: Performed By: #### U MICRO, ERUR #### [facility] [address] [place] [address] Dr. Allyson Guerrero MCHC (RBC) [Mass/Vol] 35.2 g/dL Normal 29.9-35.2 [facility] Comment on above: Performed By: #### U MICRO, ERUR #### [facility] [address] [place] [address] Dr. Allyson Guerrero MCV (RBC) [Entitic vol] 85.0 fL Normal 80.0-94.0 [facility] Comment on above: Performed By: #### U MICRO, ERUR #### [facility] [address] [place] [address] Dr. Allyson Guerrero MONO # 0.6 103/ul Normal 0.3-0.8 [facility] Comment on above: Performed By: #### U MICRO, ERUR #### [facility] [address] [place] [address] Dr. Allyson Guerrero Monocytes/100 WBC (Bld) 9.1 % Normal 1.7-12.0 [facility] Comment on above: Performed By: #### U MICRO, ERUR #### [facility] [address] [place] [address] Dr. Allyson Guerrero NEUT # 3.1 103/ul Normal 1.4-6.5 [facility] Comment on above: Performed By: #### U MICRO, ERUR #### [facility] [address] [place] [address] Dr. Allyson Guerrero Neutrophils/100 WBC (Bld) 44.4 % Normal 43.0-75.0 [facility] Comment on above: Performed By: #### U MICRO, ERUR #### [facility] [address] [place] [address] Dr. Allyson Guerrero Platelet mean volume (Bld) [Entitic vol] 9.9 fL Normal 9.5-13.5 [facility] Comment on above: Performed By: #### U MICRO, ERUR #### [facility] [address] [place] [address] Dr. Allyson Guerrero PLT 166 103/ul Normal 150-450 [facility] Comment on above: Performed By: #### U MICRO, ERUR #### [facility] [address] [place] [address] Dr. Allyson Guerrero RBC 4.74 106/ul Normal 4.70-6.10 [facility] Comment on above: Performed By: #### U MICRO, ERUR #### [facility] [address] [place] [address] Dr. Allyson Guerrero WBC 7.0 103/ul Normal 4.0-11.0 [facility] Comment on above: Performed By: #### U MICRO, ERUR #### [facility] [address] [address] ABD/PELVIS WO CONon [...] YURI ALONZO Date: 2022-07-22 06:56 Normal [facility] ER URINE PROFILEon 3 Bilirubin Ql (U) Negative Normal NEGATIVE [facility] Comment on above: Performed By: #### U MICRO, ERUR #### [facility] [address] [address] [address] Allyson Guerrero Clarity (U) CLEAR Normal CLEAR [facility] Comment on above: Performed By: #### U MICRO, ERUR #### [facility] [address] [address] [address] Allyson Guerrero Color (U) LT. YELLOW Normal YELLOW [facility] Comment on above: Performed By: #### U MICRO, ERUR #### [facility] [address] [address] [address] Allyson HIGH A micrscopic examination will be performed if indicated. Normal [facility] Comment on above: Performed By: #### U MICRO, ERUR #### [facility] [address] [address] [address] Allyson Guerrero Glucose Ql (U) Negative Normal NEGATIVE [facility] Comment on above: Performed By: #### U MICRO, ERUR #### [facility] [address] [address] [address] Allyson Guerrero Hemoglobin Ql (U) LARGE Abnormal NEGATIVE [facility] Comment on above: Performed By: #### U MICRO, ERUR #### [facility] [address] [place] [address] Dr. Allyson Guerrero Ketones Ql (U) Negative Normal NEGATIVE [facility] Comment on above: Performed By: #### U MICRO, ERUR #### [facility] [address] [address] [address] Allyson Guerrero LEUKOCYTES Negative Normal NEGATIVE [facility] Comment on above: Performed By: #### U MICRO, ERUR #### [facility] [address] [address] [address] Allyson Guerrero Nitrite Ql (U) Negative Normal NEGATIVE [facility] Comment on above: Performed By: #### U MICRO, ERUR #### [facility] [address] [address] [address] Allyson Guerrero pH (U) 6.0 [pH] Normal 5-9 [facility] Comment on above: Performed By: #### U MICRO, ERUR #### [facility] [address] [address] [address] Allyson Guerrero SPEC GRAVITY 1.015 Normal 1.005-<=1.0 25 [facility] Comment on above: Performed By: #### U MICRO, ERUR #### [facility] [address] [place] [address] Dr. Allyson Guerrero UA PROTEIN TRACE Normal NEGATIVE/ TRACE [facility] Comment on above: Performed By: #### U MICRO, ERUR #### [facility] [address] [place] [address] Dr. Allyson Guerrero UR MICRO IND INDICATED Normal [facility] Comment on above: Performed By: #### U MICRO, ERUR #### [facility] [address] [place] [address] Dr. Allyson Guerrero Urobilinogen Qn (U) 0.2 {Dianna'U}/dL Normal 0.2 - 1. 0 [facility] Comment on above: Performed By: #### U MICRO, ERUR #### [facility] [address] [place] [address] Dr. Allyson Guerrero PROF CHEM 8 (BAS METB)on Anion gap [Moles/Vol] 12.7 mmol/L Normal [facility] Comment on above: Performed By: #### U MICRO, ERUR #### [facility] [address] [place] [address] Dr. Allyson Guerrero Calcium [Mass/Vol] 8.9 mg/dL Normal 8.5-10.1 [facility] Comment on above: Performed By: #### U MICRO, ERUR #### [facility] [address] [place] [address] Dr. Allyson Guerrero Chloride [Moles/Vol] 103 mmol/L Normal 98-107 [facility] Comment on above: Performed By: #### U MICRO, ERUR #### [facility] [address] [place] [address] Dr. Allyson Guerrero CO2 [Moles/Vol] 28.9 mmol/L Normal 21.0-32.0 [facility] Comment on above: Performed By: #### U MICRO, ERUR #### [facility] [address] [place] [address] Dr. Allyson Guerrero Creatinine [Mass/Vol] 1.06 mg/dL Normal 0.70-1.30 [facility] Comment on above: Performed By: #### U MICRO, ERUR #### [facility] [address] [address] [address] Allyosn Guerrero EGFR-AF CITIZEN OF [place] >60 Normal >=60 [facility] Comment on above: Performed By: #### U MICRO, ERUR #### [facility] [address] [address] [address] Allyson Guerrero EGFR-NON AF CITIZEN OF [place] >60 Normal >=60 [facility] Comment on above: Performed By: #### U MICRO, ERUR #### [facility] [address] [address] [address] Allyson Guerrero Glucose [Mass/Vol] 191 mg/dL Critically high 74-106 [facility] Comment on above: Performed By: #### U MICRO, ERUR #### [facility] [address] [address] [address] Allyson Guerrero Potassium [Moles/Vol] 4.0 mmol/L Normal 3.5-5.1 [facility] Comment on above: Performed By: #### U MICRO, ERUR #### [facility] [address] [place] [address] Dr. Allyson Guerrero Sodium [Moles/Vol] 141 mmol/L Normal 136-145 [facility] Comment on above: Performed By: #### U MICRO, ERUR #### [facility] [address] [place] [address] Dr. Allyson Guerrero Urea nitrogen [Mass/Vol] 15.0 mg/dL Normal 7.0-18.0 [facility] Comment on above: Performed By: #### U MICRO, ERUR #### [facility] [address] [place] [address] Dr. Allyson Guerrero Urea nitrogen/Creatinine [Mass ratio] 14.2 mg/mg Normal [facility] Comment on above: Performed By: #### U MICRO, ERUR #### [facility] [address] [address] [address] Allyson Guerrero URINE MICROSCOPIC ONLYon BACTERIA NONE SEEN Normal NONE SEEN [facility] Comment on above: Performed By: #### U MICRO, ERUR #### [facility] [address] [place] [address] Dr. Allyson Guerrero Bacteria identified Cx Nom (U) NOT INDICATED Normal [facility] Comment on above: Performed By: #### U MICRO, ERUR #### [facility] [address] [address] [address] Allyson Guerrero CAST NONE SEEN Normal NONE SEEN [facility] Comment on above: Performed By: #### U MICRO, ERUR #### [facility] [address] [address] [address] Allyson Guerrero Crystals LM Nom (Urine sed) NONE SEEN Normal NONE SEEN [facility] Comment on above: Performed By: #### U MICRO, ERUR #### [facility] [address] [place] [address] Dr. Allyson Guerrero Epithelial cells LM Ql (Urine sed) FEW Abnormal NONE SEEN /RARE [facility] Comment on above: Performed By: #### U MICRO, ERUR #### [facility] [address] [place] [address] Dr. Allyson Guerrero MUCOUS NONE SEEN Normal NONE SEEN [facility] Comment on above: Performed By: #### U MICRO, ERUR #### [facility] [address] [address] [address] Allyson Guerrero RBC 10-20 Abnormal 0-2 [facility] Comment on above: Performed By: #### U MICRO, ERUR #### [facility] [address] [place] [address] Dr. Allyson Guerrero WBC NONE SEEN Normal NONE SEEN [facility] Comment on above: Performed By: #### U MICRO, ERUR #### [facility] [address] [place] [address] Dr. Allyson Guerrero Auth for Release of Medical Recordson 05-30-2022 Auth for Release of Medical Records [id number] .00CD:127 Normal [facility] Formson 05-30-2022 Forms 1 [id number] .00CD:127 Normal [facility] Physician Referralon 022 Physician Referral 10436. [id number] .00CD:127 Normal [facility] Screenson 05-30-2022 Screens [id number]. 00CD:127 Normal [facility] Screens [id number]#1. 00CD:127 Normal [facility] Patient Educationon 05-29-20 Patient Education Urology Erectile Dysfunction Erectile dysfunction [...] these instructions at home: Medicines ? Take gdku-brn-iljwblv and prescription medicines only as told by [...] of your (more content not included)... Normal [facility] Retail - Clinical Noteon Retail - Clinical Note [id number] [id number] .00CD:127 Normal [facility] Urology Office/Clinic Noteon 05-29-2022 Urology Office/Clinic [...] vs IPP -LINO will be ordered from [facility]. Education/instruction s provided 2. BPH (benign prostatic [...] Procedure/Surgical Hist (more content not included)... Normal [facility] Comment on above: Result Comment: Elec tronically Signed By: Sathya PAVON, Najma Lyon\.br\Date and Time Signed: 05/29/22 20:32 EST Facesheeton 05-16-2022 Facesheet [id number] .00CD:127 Normal [facility] Ambulatory Visit Summaryon 1 07-15-2021 Ambulatory Visit Summary JERAMIE GALVAN Francheska :1965 Visit Date:05/15/2022 Ambulatory Visit Instructions Your [...] PAVON, Najma Lyon Where: [facility] Historical Records Officeon 04-18-2022 Historical Records Office [id number] .00CD:127 Normal [facility] Historical Records Office [id number] .00CD:127 Normal [facility] Physician Referralon 022 Physician Referral [id number] .00CD:127 Normal [facility] INSULINon 08-20-2021 Insulin 20.0 uIU/mL Normal 2.6-24.9 [facility] Comment on above: Performed By: #### I NSULIN #### [facility] [address] [place] [address] Dr. Allyson Guerrero CBC AUTO DIFFon 08-18-2021 BASO # 0.0 103/ul Normal 0.0-0.1 [facility] Comment on above: Performed By: #### U MICRO, ERUR #### [facility] [address] [place] [address] Dr. Allyson Guerrero Basophils/100 WBC (Bld) 0.6 % Normal 0.2-2.0 [facility] Comment on above: Performed By: #### U MICRO, ERUR #### [facility] [address] [place] [address] Dr. Allyson Guerrero EO # 0.1 103/ul Normal 0.0-0.7 [facility] Comment on above: Performed By: #### U MICRO, ERUR #### [facility] [address] [place] [address] Dr. Allyson Guerrero Eosinophils/100 WBC (Bld) 1.3 % Normal 0.9-7.0 [facility] Comment on above: Performed By: #### U MICRO, ERUR #### [facility] [address] [place] [address] Dr. Allyson Guerrero Erythrocyte distribution width (RBC) [Ratio] 12.2 % Normal 11.0-15.0 [facility] Comment on above: Performed By: #### U MICRO, ERUR #### [facility] [address] [place] [address] Dr. Allyson Guerrero Hematocrit (Bld) [Volume fraction] 42.7 % Normal 42.0-54.0 [facility] Comment on above: Performed By: #### U MICRO, ERUR #### [facility] [address] [place] [address] Dr. Allyson Guerrero Hemoglobin (Bld) [Mass/Vol] 14.1 g/dL Normal 14.0-18.0 [facility] Comment on above: Performed By: #### U MICRO, ERUR #### [facility] [address] [place] [address] Dr. Allyson Guerrero IG # 0.03 10e3/ul Normal 0.00-0.03 [facility] Comment on above: Performed By: #### U MICRO, ERUR #### [facility] [address] [place] [address] Dr. Allyson Guerrero IG % 0.5 % Normal 0.0-0.5 [facility] Comment on above: Performed By: #### U MICRO, ERUR #### [facility] [address] [place] [address] Dr. Allyson Guerrero LYMPH # 2.8 103/ul Normal 1.2-3.8 [facility] Comment on above: Performed By: #### U MICRO, ERUR #### [facility] [address] [place] [address] Dr. Allyson Guerrero Lymphocytes/100 WBC (Bld) 45.0 % Normal 20.5-60.0 [facility] Comment on above: Performed By: #### U MICRO, ERUR #### [facility] [address] [address] [address] Allyson Guerrero MANUAL DIFF REQ NO Normal [facility] Comment on above: Performed By: #### U MICRO, ERUR #### [facility] [address] [place] [address] Dr. Allyson Guerrero MCH (RBC) [Entitic mass] 28.9 pg Normal 25.9-34.0 [facility] Comment on above: Performed By: #### U MICRO, ERUR #### [facility] [address] [place] [address] Dr. Allyson Guerrero MCHC (RBC) [Mass/Vol] 33.0 g/dL Normal 29.9-35.2 [facility] Comment on above: Performed By: #### U MICRO, ERUR #### [facility] [address] [place] [address] Dr. Allyson Guerrero MCV (RBC) [Entitic vol] 87.5 fL Normal 80.0-94.0 [facility] Comment on above: Performed By: #### U MICRO, ERUR #### [facility] [address] [place] [address] Dr. Allyson Guerrero MONO # 0.6 103/ul Normal 0.3-0.8 [facility] Comment on above: Performed By: #### U MICRO, ERUR #### [facility] [address] [place] [address] Dr. Allyson Guerrero Monocytes/100 WBC (Bld) 10.1 % Normal 1.7-12.0 [facility] Comment on above: Performed By: #### U MICRO, ERUR #### [facility] [address] [place] [address] Dr. Allyson Guerrero NEUT # 2.6 103/ul Normal 1.4-6.5 [facility] Comment on above: Performed By: #### U MICRO, ERUR #### [facility] [address] [place] [address] Dr. Allyson Guerrero Neutrophils/100 WBC (Bld) 42.5 % Critically low 43.0-75.0 [facility] Comment on above: Performed By: #### U MICRO, ERUR #### [facility] [address] [place] [address] Dr. Allyson Guerrero Platelet mean volume (Bld) [Entitic vol] 10.2 fL Normal 9.5-13.5 [facility] Comment on above: Performed By: #### U MICRO, ERUR #### [facility] [address] [place] [address] Dr. Allyson Guerrero PLT 191 103/ul Normal 150-450 [facility] Comment on above: Performed By: #### U MICRO, ERUR #### [facility] [address] [place] [address] Dr. Allyson Guerrero RBC 4.88 106/ul Normal 4.70-6.10 [facility] Comment on above: Performed By: #### U MICRO, ERUR #### [facility] [address] [place] [address] Dr. Allyson Guerrero WBC 6.2 103/ul Normal 4.0-11.0 [facility] Comment on above: Performed By: #### U MICRO, ERUR #### [facility] [address] [place] [address] Dr. Allyson Guerrero FREE THYROXINE INDEX T7on FTI 1.69 Normal [facility] Comment on above: Performed By: #### T SH, T4, LIPID, T7, URIC, CMP #### [facility] [address] [place] [address] Dr. Allyson Guerrero T3U 36.0 % Normal 23.5-40.5 [facility] Comment on above: Performed By: #### T SH, T4, LIPID, T7, URIC, CMP #### [facility] [address] [place] [address] Dr. Allyson Guerrero T4 [Mass/Vol] 4.70 ug/dL Critically low 5.53-11.00 [facility] Comment on above: Performed By: #### T SH, T4, LIPID, T7, URIC, CMP #### [facility] [address] [address] [address] Allyson Guerrero Performed By: #### U MICRO, ERUR #### [facility] [address] [address] [address] Allyson Guerrero GLYCOHEMOGLOBIN A1Con 2021 ADA RECOMMENDATION ADA THERAPEUTIC TARGET 6.0 - 7.0 ACTION SUGGESTED > 7.0 Normal [facility] Comment on above: Performed By: #### A 1C #### [facility] [address] [place] [address] Dr. Allyson Guerrero Glucose [Mass/Vol] 258 mg/dL Normal [facility] Comment on above: Performed By: #### A 1C #### [facility] [address] [place] [address] Dr. Allyson Guerrero HbA1c (Bld) [Mass fraction] 10.6 % Critically high <=6.0 [facility] Comment on above: Performed By: #### A 1C #### [facility] [address] [place] [address] Dr. Allyson Guerrero LIPID PROFILEon 08-18-2021 CHOL-HDL RATIO NORM SEE BELOW Normal [facility] Comment on above: Result Comment: 3.3 - 4.4 LOW RISK 4.4 - 7.1 AVERAGE RISK 7.1 - 11.0 MODERATE RISK >11.0 HIGH RISK Performed By: #### T SH, T4, LIPID, T7, URIC, CMP #### [facility] [address] [place] [address] Dr. Allyson Guerrero Cholesterol [Mass/Vol] 200 mg/dL Normal <=200 [facility] Comment on above: Performed By: #### T SH, T4, LIPID, T7, URIC, CMP #### [facility] [address] [place] [address] Dr. Allyson Guerrero Cholesterol in HDL [Mass/Vol] 36 mg/dL Normal [facility] Comment on above: Performed By: #### T SH, T4, LIPID, T7, URIC, CMP #### [facility] [address] [place] [address] Dr. Allyson Guerrero Cholesterol in LDL [Mass/Vol] 120.6 mg/dL Normal [facility] Comment on above: Performed By: #### T SH, T4, LIPID, T7, URIC, CMP #### [facility] [address] [address] [address] Allyson Guerrero Cholesterol.total/Malu sterol in HDL [Mass ratio] 5.6 {ratio} Normal [facility] Comment on above: Performed By: #### T SH, T4, LIPID, T7, URIC, CMP #### [facility] [address] [address] [address] Allyson Guerrero HDL NORMAL > or = 60 mg/dl - LO W CARDIOVASCULAR RISK <40 mg/dl - HIGH CARDIOVASCULAR RISK Normal [facility] Comment on above: Performed By: #### T SH, T4, LIPID, T7, URIC, CMP #### [facility] [address] [place] [address] Dr. Allyson Guerrero LDL CALC NORMAL SEE BELOW Normal [facility] Comment on above: Result Comment: <100 mg/dl OPTIMAL 100 - 129 mg/dl NEAR OR ABOVE OPTIMAL 130 - 159 mg/dl BORDERLINE HIGH 160 - 189 mg/dl HIGH >190 mg/dl VERY HIGH Performed By: #### T SH, T4, LIPID, T7, URIC, CMP #### [facility] [address] [place] [address] Dr. Allyson Guerrero Triglyceride [Mass/Vol] 217 mg/dL Critically high <=150 [facility] Comment on above: Performed By: #### T SH, T4, LIPID, T7, URIC, CMP #### [facility] [address] [address] [address] Allyson Guerrero VLDL CALC 43.4 mg/dL Normal [facility] Comment on above: Performed By: #### T SH, T4, LIPID, T7, URIC, CMP #### [facility] [address] [address] [address] Allyson Guerrero PROF 14(COMP METB)on 022 Albumin [Mass/Vol] 3.5 g/dL Normal 3.5-5.0 [facility] Comment on above: Performed By: #### T SH, T4, LIPID, T7, URIC, CMP #### [facility] [address] [place] [address] Dr. Allyson Guerrero Albumin/Globulin [Mass ratio] 0.9 {ratio} Normal [facility] Comment on above: Performed By: #### T SH, T4, LIPID, T7, URIC, CMP #### [facility] [address] [place] [address] Dr. Allyson Guerrero ALP [Catalytic activity/Vol] 94 U/L Normal 38-126 [facility] Comment on above: Performed By: #### T SH, T4, LIPID, T7, URIC, CMP #### [facility] [address] [place] [address] Dr. Allyson Guerrreo ALT [Catalytic activity/Vol] 27 U/L Normal 21-72 [facility] Comment on above: Performed By: #### T SH, T4, LIPID, T7, URIC, CMP #### [facility] [address] [place] [address] Dr. Allyson Guerrero Anion gap [Moles/Vol] 8.5 mmol/L Normal [facility] Comment on above: Performed By: #### T SH, T4, LIPID, T7, URIC, CMP #### [facility] [address] [place] [address] Dr. Allyson Guerrero AST [Catalytic activity/Vol] 12 U/L Critically low 17-59 [facility] Comment on above: Performed By: #### T SH, T4, LIPID, T7, URIC, CMP #### [facility] [address] [place] [address] Dr. Allyson Guerrero Bilirubin [Mass/Vol] 0.4 mg/dL Normal 0.2-1.3 [facility] Comment on above: Performed By: #### T SH, T4, LIPID, T7, URIC, CMP #### [facility] [address] [place] [address] Dr. Allyson Guerrero Calcium [Mass/Vol] 9.1 mg/dL Normal 8.4-10.2 [facility] Comment on above: Performed By: #### T SH, T4, LIPID, T7, URIC, CMP #### [facility] [address] [place] [address] Dr. Allyson Guerrero Chloride [Moles/Vol] 101 mmol/L Normal 98-107 [facility] Comment on above: Performed By: #### T SH, T4, LIPID, T7, URIC, CMP #### [facility] [address] [place] [address] Dr. Allyson Guerrero CO2 [Moles/Vol] 30.9 mmol/L Critically high 22.0-30.0 [facility] Comment on above: Performed By: #### T SH, T4, LIPID, T7, URIC, CMP #### [facility] [address] [address] [address] Allyson Guerrero Creatinine [Mass/Vol] 0.98 mg/dL Normal 0.66-1.25 [facility] Comment on above: Performed By: #### T SH, T4, LIPID, T7, URIC, CMP #### [facility] [address] [place] [address] Dr. Allyson Guerrero EGFR-AF CITIZEN [place] >60 Normal >=60 [facility] Comment on above: Performed By: #### T SH, T4, LIPID, T7, URIC, CMP #### [facility] [address] [place] [address] Dr. Allyson Guerrero EGFR-NON AF CITIZEN OF [place] >60 Normal >=60 [facility] Comment on above: Performed By: #### T SH, T4, LIPID, T7, URIC, CMP #### [facility] [address] [place] [address] Dr. Allyson Guerrero Globulin (S) [Mass/Vol] 3.7 g/dL Normal [facility] Comment on above: Performed By: #### T SH, T4, LIPID, T7, URIC, CMP #### [facility] [address] [address] [address] Allyson Guerrero Glucose [Mass/Vol] 265 mg/dL Critically high 74-106 [facility] Comment on above: Performed By: #### T SH, T4, LIPID, T7, URIC, CMP #### [facility] [address] [place] [address] Dr. Allyson Guerrero Potassium [Moles/Vol] 4.4 mmol/L Normal 3.4-5.0 [facility] Comment on above: Performed By: #### T SH, T4, LIPID, T7, URIC, CMP #### [facility] [address] [place] [address] Dr. Allyson Guerrero Protein [Mass/Vol] 7.2 g/dL Normal 6.1-8.2 [facility] Comment on above: Performed By: #### T SH, T4, LIPID, T7, URIC, CMP #### [facility] [address] [place] [address] Dr. Allyson Guerrero Sodium [Moles/Vol] 136 mmol/L Critically low 137-145 [facility] Comment on above: Performed By: #### T SH, T4, LIPID, T7, URIC, CMP #### [facility] [address] [place] [address] Dr. Allyson Guerrero Urea nitrogen [Mass/Vol] 13.0 mg/dL Normal 9.0-20.0 [facility] Comment on above: Performed By: #### T SH, T4, LIPID, T7, URIC, CMP #### [facility] [address] [place] [address] Dr. Allyson Guerrero Urea nitrogen/Creatinine [Mass ratio] 13.3 mg/mg Normal [facility] Comment on above: Performed By: #### T SH, T4, LIPID, T7, URIC, CMP #### [facility] [address] [place] [address] Dr. Allyson Guerrero TSHon 08-18-2021 TSH 2.147 uIU/mL Normal 0.470-4.680 [facility] Comment on above: Performed By: #### U MICRO, ERUR #### [facility] [address] [place] [address] Dr. Allyson Guerrero TSH RANGE SEE BELOW Normal [facility] Comment on above: Result Comment: <0.3 4 UIU/ml HYPERTHYROID 0.34-5.60 UIU/ml EUTHYROID >5.60 UIU/ml HYPOTHYROID Performed By: #### U MICRO, ERUR #### [facility] [address] [place] [address] Dr. Allyson Guerrero URIC ACID SERUMon 08-18-2021 Urate [Mass/Vol] 4.4 mg/dL Normal 3.5-8.5 [facility] Comment on above: Performed By: #### U MICRO, ERUR #### [facility] [address] [address] [address] Allyson Guerrero COVID Quick Testingon 2020 Result Negative [facility] Other Vital Signs Date Time Vital Sign Value Performing Clinician Facility 07-26-2024 14:50-0500 Body height 165.1 cm Miranda Petznick DO Work Phone: [facility] 07-26-2024 14:50-0500 Body mass index (BMI) [Ratio] 32.62 kg/m2 Miranda Petznick DO Work Phone: [facility] 07-26-2024 14:50-0500 Body temperature 98.2 [degF] Miranda Petznick DO Work Phone: [facility] 07-26-2024 14:50-0500 Body weight 88.91 kg Miranda Petznick DO Work Phone: [facility] 07-26-2024 14:50-0500 Diastolic blood pressure 72 mm[Hg] Miranda Petznick DO Work Phone: [facility] 07-26-2024 14:50-0500 Heart rate 89 /min Miranda Petznick DO Work Phone: [facility] 07-26-2024 14:50-0500 SaO2% (BldA) [Mass fraction] 95 % Miranda Petznick DO Work Phone: [facility] 07-26-2024 14:50-0500 Systolic blood pressure 126 mm[Hg] Miranda Petznick DO Work Phone: [facility] 03-22-2024 15:46-0400 Body height 165.1 cm Miranda Petznick DO Work Phone: [facility] 03-22-2024 15:46-0400 Body mass index (BMI) [Ratio] 31.12 kg/m2 Miranda Petznick DO Work Phone: [facility] 03-22-2024 15:46-0400 Body temperature 97.5 [degF] Miranda Petznick DO Work Phone: [facility] 03-22-2024 15:46-0400 Body weight 84.82 kg Miranda Petznick DO Work Phone: [facility] 03-22-2024 15:46-0400 Diastolic blood pressure 78 mm[Hg] Miranda Petznick DO Work Phone: [facility] 03-22-2024 15:46-0400 Heart rate 79 /min Miranda Petznick DO Work Phone: [facility] 03-22-2024 15:46-0400 SaO2% (BldA) [Mass fraction] 95 % Miranda Petznick DO Work Phone: [facility] 03-22-2024 15:46-0400 Systolic blood pressure 120 mm[Hg] Miranda Petznick DO Work Phone: [facility] 11-10-2023 07:54-0400 Body temperature 98.2 [degF] MD Rylee Link Work Phone: [facility] 11-10-2023 07:54-0400 Diastolic blood pressure 76 mm[Hg] MD Rylee Link Work Phone: [facility] 11-10-2023 07:54-0400 Heart rate 92 /min MD Rylee Link Work Phone: [facility] 11-10-2023 07:54-0400 Respiratory rate 14 /min MD Rylee Link Work Phone: [facility] 11-10-2023 07:54-0400 SaO2% (BldA) [Mass fraction] 95 % MD Rylee Link Work Phone: [facility] 11-10-2023 07:54-0400 Systolic blood pressure 114 mm[Hg] MD Rylee Link Work Phone: [facility] 11-07-2023 09:40-0400 Body height 167.64 cm MD Rylee Link Work Phone: [facility] 11-04-2023 06:18-0400 Body weight 81.7 kg MD Rylee Link Work Phone: [facility] 05-29-2022 08:59-0500 Blood Pressure Location Najma Lue [facility] 05-29-2022 08:59-0500 Diastolic blood pressure 66 mm[Hg] Najma Lue [facility] 05-29-2022 08:59-0500 Heart rate 106 /min Najma Lue [facility] 05-29-2022 08:59-0500 Systolic blood pressure 147 mm[Hg] Najma Lue [facility] 06-17-2021 13:00-0500 Body height 161.29 cm Eva Carrillo Other [facility] 06-17-2021 13:00-0500 Body mass index (BMI) [Ratio] 33.13 kg/m2 Eva Carrillo Other [facility] 06-17-2021 13:00-0500 Body temperature 97.7 [degF] Eva Carrillo Other [facility] Other 06-17-2021 13:00-0500 Body weight 86.18 kg Eva Carrillo Other [facility] Other 06-17-2021 13:00-0500 Respiratory rate 18 /min Eva Carrillo Other [facility] Other 06-17-2021 13:00-0500 SaO2% (BldA) [Mass fraction] 96 % Eva Carrillo Other [facility] Other Encounters Encounter Date Encounter Type Care Provider Facility Start: 07-26-2024 End: 07-26-2024 ambulatory MIRANDA PURDY Not Available Start: 07-26-2024 End: 07-26-2024 Office outpatient visit 25 minutes Miranda Purdy DO Work Phone: [facility] Comment on above: 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) Start: 03-22-2024 End: 03-22-2024 Office outpatient visit 25 minutes Miranda Purdy DO Work Phone: [facility] Comment on above: 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) Start: 03-22-2024 End: 03-22-2024 ambulatory MIRANDA CALIICK Not Available Start: 03-22-2024 End: 03-22-2024 ambulatory [facility] Start: 12-25-2023 End: 12-25-2023 ambulatory MIRANDA CALIICK Not Available Start: 12-11-2023 End: 12-11-2023 ambulatory [facility] Start: 12-11-2023 End: 12-11-2023 ambulatory [facility] Start: 11-20-2023 ambulatory [facility] Start: 11-04-2023 Non-patient / Non-visit MD Bere Link Work Phone: [facility] Work Phone: Start: 11-03-2023 End: 11-10-2023 Evaluation and management of inpatient MD Rylee Link Work Phone: [facility] Work Phone: Start: 11-03-2023 Evaluation and management of inpatient [facility] Start: 11-01-2023 Evaluation and management of inpatient [facility] Start: 10-31-2023 Evaluation and management of inpatient [facility] Start: 10-31-2023 Evaluation and management of inpatient [facility] Start: 10-30-2023 [facility]: 10-29-2023 Evaluation and management of inpatient [facility] Start: 10-28-2023 Evaluation and management of inpatient [facility] Start: 10-28-2023 Evaluation and management of [facility] Start: 10-28-2023 Evaluation and management of inpatient [facility] Start: 10-27-2023 Evaluation and management of inpatient [facility] Start: 10-27-2023 Evaluation and management of inpatient DARYL PENA [facility] Start: 10-27-2023 Evaluation and management of inpatient LAUREN Pritchard [facility] Start: 10-27-2023 Evaluation and management of inpatient [facility] Start: 10-27-2023 Evaluation and management of inpatient VICTORIA [facility] Start: 10-26-2023 Evaluation and management [facility] Start: 10-25-2023 Evaluation and management of inpatient [facility] Start: 10-25-2023 Evaluation and management of inpatient [facility] Start: 10-25-2023 Evaluation and management of inpatient KESSLER [facility] Start: 10-24-2023 Emergency department patient visit [facility] Start: 10-24-2023 End: 11-03-2023 Evaluation and management of inpatient JERAMIE [facility] Start: 09-25-2023 End: 09-25-2023 ambulatory MIRANDA PURDY Not Available Start: 08-28-2022 End: 08-29-2022 ambulatory Najma Mcdonnell Facility:[facility] Start: 08-28-2022 End: 08-28-2022 Patient encounter procedure Najma Mcdonnell [facility] Start: 08-01-2022 End: 08-02-[address] RYLEE LINK Facility:[facility] Start: 07-22-2022 End: 07-22-2022 ambulatory DIANA MIGUEL Facility:[facility] Start: 05-29-2022 End: 05-30-2022 ambulatory Najma Mcdonnell Facility:[facility] Start: 05-29-2022 End: 05-29-2022 Patient encounter procedure Najma Mcdonnell [facility] Start: 05-15-2022 End: 05-16-2022 ambulatory Rylee Link Facility:[facility] Start: 04-25-2022 ambulatory Najma Mcdonnell Facility:[facility] Start: 04-16-2022 ambulatory Rylee Link Facility:[facility] Start: 08-21-2021 Encounter for genera l adult medical examination without abnormal findings DR RYLEE LINK [facility] Start: 08-18-2021 End: 08-19-[address] RYLEE LINK Facility:[facility] Start: 08-18-2021 End: 08-19-2021 Encounter for general adult medical examination without abnormal findings DR RYLEE LINK Facility:[facility] Start: 06-17-2021 End: 06-17-2021 ambulatory Eva Carrillo Other [facility] Other Start: 06-17-2021 Office outpatient vi sit 15 minutes Eva Carrillo [facility] Procedures Date Procedure Procedure Detail Performing Clinician Start: 07-26-2024 Hemoglobin glycosylated a1c Miranda Lopezkiara DO Work Phone: Start: 03-22-2024 Hemoglobin glycosylated a1c Miranda Purdy DO Work Phone: Start: 03-22-2024 Follow-up visit DARYL Mirza ATE Start: 12-11-2023 Follow-up visit DARYL Mirza ATE Start: 11-04-2023 Plain chest X-ray MD Hinojosa Work Phone: Start: 08-18-2021 PSA screening DIANA MCCORD Comment on above: Performed By: #### [facility] #### [facility] [address] [place] [address] Dr. Allyson Guerrero Start: 03-28-2015 Colonoscopy Miranda marte DO Work Phone: Start: 03-28-2015 Colonoscopy Najma Mcdonnell Start: 03-13-2015 Colonoscopy Najma Mcdonnell Decompression of med pari nerve Najma Mcdonnell History of coronary artery bypass grafting S/P CABG x 4 MD Rylee Link Work Phone: History of subtotal thyroidectomy Najma Mcdonnell Repair of tendo achilles Tiara hy Ludenzel Plan of Treatment Date Care Activity Detail Author Start: 03-28-2025 Screening for malign ant neoplasm of colon [facility] Start: 10-18-2024 End: 10-18-2024 Patient encounter procedure 10/18/2024 3:00 PM EDT Office Visit [facility] [address] [place] [address] Miranda Purdy DO [address] [place] [address] [facility] Start: 07-26-2024 End: 07-26-2024 Patient encounter procedure 07/26/2024 4:00 PM EST Office Visit [facility] [address] [place] [address] PetMiranda craig M, DO [address] [place] [address] [facility] Start: 02-29-2024 Influenza vaccination Influenza Vacc ine (#1) [facility] Start: 11-10-2023 [facility] Start: 11-03-2023 Hospital admission [facility] Start: 11-03-2023 Referral to clinical policeman [facility] Start: 1965 Screening for malign ant neoplasm of colon [facility] Patient Education Heart Healthy Diet Sternal Precautions After Heart Bypass Surgery Coronary Artery Disease (DC) Know your Meds [facility] Work Phone: Patient referral [facility] Work Phone: Immunizations Immunization Date Immunization Notes Care Provider Prasanna drake 04-18-2023 Influenza, injectabl e, Madin Reena Canine Kidney, preservative free, quadrivalent Miranda Petznick DO Work Phone: [facility] 04-18-2023 influenza virus vaccine, unspecified formulation Miranda Petznick DO Work Phone: [facility] 04-17-2022 influenza virus vaccine, unspecified formulation Najma Lue [facility] 04-17-2022 influenza, injectabl e, quadrivalent, preservative free Miranda Petznick DO Work Phone: [facility] 05-18-2021 influenza virus vaccine, unspecified formulation Miranda Petznick DO Work Phone: [facility] 05-18-2021 influenza, unspecifi ed formulation Najma Lue [facility] 04-18-2021 influenza virus vaccine, unspecified formulation Najma Lue [facility] 10-20-2021 influenza, injectabl e, quadrivalent, preservative free Miranad Petznick DO Work Phone: [facility] 02-14-2021 SARS-CoV-2 (COVID-19 ) mRNA BNT-162b2 vax Najma Lue [facility] Comment on above: Result Comment: 2021: [id number] 01-24-2021 SARS-CoV-2 (COVID-19 ) mRNA BNT-162i0 vax Najma Lue [facility] Comment on above: Result Comment: 2021: [id number] 03-29-2020 influenza virus vaccine, unspecified formulation Najma Lue [facility] 03-29-2020 influenza, injectabl e, quadrivalent, preservative free Miranda Petznick DO Work Phone: [facility] 04-14-2019 influenza virus vaccine, unspecified formulation Najma Lue [facility] 04-14-2019 Influenza, injectabl e, Madin Reena Canine Kidney, preservative free, quadrivalent Miranda Petznick DO Work Phone: [facility] 04-07-2018 influenza virus vaccine, unspecified formulation Najma Lue [facility] 04-07-2018 Influenza, injectabl e, Madin Crowheart Canine Kidney, preservative free, quadrivalent Miranda Petznick DO Work Phone: [facility] 04-09-2017 influenza virus vaccine, unspecified formulation Najma Lue [facility] 04-09-2017 Influenza, injectabl e, Madin Reena Canine Kidney, preservative free, quadrivalent Miranda Petznick DO Work Phone: [facility] 04-10-2016 influenza virus vaccine, unspecified formulation Najma Mcdonnell [facility] 04-10-2016 influenza, injectabl e, quadrivalent, preservative free Miranda Purdy DO Work Phone: [facility] Healthcare Payers Date Payer Category Payer [facility] BCBS [id number] 2024 Unknown [id number] 2023 Self-pay 2022 Unknown BCBS BCBS [id number] [id number] 2022-Present [phone] [address] [place] [id number] 1965 Unknown [id number] [id number]. 593 1965 Unknown [id number] [id number]. 593 1965 Unknown [id number] [id number]. 593 1965 Unknown [id number] [id number]. 727 1965 Unknown [id number] [id number]. 727 1965 Unknown [id number] [id number]. 727 1965 Unknown [id number] [id number]. 727 1965 Unknown [id number] [id number]. 1259 1965 Unknown [id number] [id number]. 9 1965 Unknown [id number] 2.16.840.1.267210.3.579.2. 9 1965 Unknown [id number] [id number]. 1259 1959 Unknown [id number] Private Health Insurance [id number] Unknown [facility] [id number] Unknown [id number] 531 Social History Date Type Detail Facility Unknown if ever smoked [facility] Start: 01-24-2023 End: 07-25-2024 Sex Assigned At [facility] Start: 05-29-2022 End: 12-25-2023 Tobacco smoking status Ex-smoker (finding) [facility] Tobacco smoking status Never [facility] Start: 1965 Sex Assigned At Male [facility] History of tobacco use Current smoker [facility] History of tobacco use Cigarette Smoker [facility] Start: 12-25-2023 Tobacco use and exposure Smokeless tobacco non-user [facility] Start: 03-22-2024 End: 07-26-2024 Alcoholic beverage intake Lifetime non-drinker (finding) [facility] Start: 01-24-2023 End: 07-25-2024 History of Social function [facility] Within the last year , have you been afraid of your partner or ex-partner? No [facility] Are you now , , , , never or living with a partner? [facility] How often to you hav e a drink containing alcohol? Never [facility] How hard is it for y ou to pay for the very basics like food, housing, medical care, and heating Not very hard [facility] Do you feel stress - tense, restless, nervous, or anxious, or unable to sleep at night because your mind is troubled all the time - these days [OSQ] Only a little [facility] (I/We) worried gilbert er (my/our) food would run out before (I/we) got money to buy more. Never true [facility] Start: 01-24-2023 Gender identity Identifies as male gender (finding) [facility] Start: 01-24-2023 Sexual orientation Heterosexual (finding) [facility] Do you belong to any clubs or organizations such as roman catholic groups, unions, fraternal or athletic groups, or school groups? Yes [facility] Do you feel stress - tense, restless, nervous, or anxious, or unable to sleep at night because your mind is troubled all the time - these days [OSQ] Not at all [facility] Goals Date Patient Goal Desired Activity /State Functional Status Date Assessment Result Facility 11-10-2023 Functional status Patient at Baseline [facility] Work Phone: 05-29-2022 Functional Status N/A [facility] [facility] Mental Status Date Assessment Result Facility 11-10-2023 Cognitive function Cognitive Sta tus Patient at Baseline [facility] Work Phone: Clinical Notes 06-17-2021 to 07-26-2024 Miranda Purdy, DO - 07/26/2024 8:46 PM Kelton Purdy, DO - 07/26/2024 2:45 PM Kelton Purdy, DO - 03/23/2024 2:13 PM Liya Purdy, DO - 03/22/2024 4:00 PM EDT Note Date & Type Note Facility 07-26-2024 History of Present illness Narrative Associated Problem(s): Type 2 diabetes mellitus with other circulatory complications ([facility]) During the appointment today all pertinent labs, imaging, health maintenance, and glucose readings were reviewed. Encouraged to check blood glucose throughout the day with some fasting and some PP readings. They are to bring their glucose meter/cgm in to all appointments. All of the patients questions, treatment options, and current care plan and goals were discussed. A copy of this along with pertinent instructions were given to the patient at the end of the appointment. The patient voices understanding of all of this and is to call in between appointments if they have any problems or questions. Jeramie Galvan blood sugars are worsening. , The patient is wearing their cgm on a daily basis and making decisions in regards to adjusting insulin daily as well for at least the last 60 days , Discussed dietary changes at length. Encouraged to limit simple carbs and focus more on healthy protein/fat with all meals and snacks. They should also avoid any sugary drinks. , Instructions given today include: Dietary education. It sounds like he is eating healthy so doesn't make much sense for his weight gain and increased bg. Will add jardiance. SGLT2 inhibitors: Discussed risk of dehydration and yeast infection. instructed on the importance of drinking enough water. If this is not helpful, will need to consider adding insulin. Images from the original note were not included. Jeramie Galvan is a 58 y.o. male presents with chief complaint of Diabetes HPI: Diabetes Mellitus Follow-up: Jeramie Galvan is here for follow-up evaluation of diabetes mellitus. The initial diagnosis of diabetes was made around 2002 or earlier Diabetes complications: none He has been checking his blood glucose with a Freestyle Jeff 3 CGM -LINKED-on a daily basis. He is spiking up with meals frequently, bg come down overnight. Last A1c: 7.6 (03/22/24) Eye exam 2022- My eye doctor Current concerns include: Bg levels: Has not checked in the past month. Having trouble with the jeff staying on and losing connection Ozempic 0.5 ( 37 clicks) Diet: trying to limit carbs, more wraps with protein Drinks: water Exercise: none Hypoglycemia: none Breakfast: eggs and mckinley Lunch: keto tortilla with pepperoni and cheese with fruit Dinner: keto tortilla, meat, vegetables Snacks: none SUBJECTIVE: PROBLEM LIST SOCIAL ALLERGIES: Patient Active Problem List Diagnosis BPH (benign prostatic hyperplasia) Erectile dysfunction History of nephrolithiasis History of rupture of Achilles tendon Personal history of colonic polyps Shoulder impingement syndrome Sleep apnea Type 2 diabetes mellitus with other circulatory complications (CMS/HCC) Social History Tobacco Use Smoking status: Former Current packs/day: 3.00 Types: Cigarettes Smokeless tobacco: Never Substance Use Topics Alcohol use: Never Drug use: Never No Known Allergies Synopsis SmartLink 07/26/2024 Antidiabetic medications Empagliflozin 10 mg Daily PO Semaglutide 1 mg Weekly SC Labs MHPT A1C 8.6 Outpatient prescription Medication marked as long-term The ASCVD Risk score (Valerie TORRES, et al., 2019) failed to calculate for the following reasons: Risk score cannot be calculated because patient has a medical history suggesting prior/existing ASCVD REVIEW OF SYMPTOMS: Review of Systems Constitutional: Negative for appetite change, fatigue and unexpected weight change. Eyes: Negative for visual disturbance. Respiratory: Negative for cough, shortness of breath and wheezing. Cardiovascular: Negative for chest pain, palpitations and leg swelling. Neurological: Negative for numbness. Endocrine: Negative for polydipsia, polyphagia and polyuria. OBJECTIVE: 07/26/2024 2:50 PM 03/22/2024 3:46 PM 12/25/2023 9:39 AM Vitals BMI 32.62 kg/m2 31.12 kg/m2 29.79 kg/m2 Systolic 126 120 118 Diastolic 72 78 78 Heart Rate 89 79 88 Temp 98.2 F 97.5 F 98.9 F Height (in) 5' 5 5' 5 5' 5 Weight (lb) 196 187 179 Visit Report Report Report Report Physical Exam Constitutional: General: He is not in acute distress. Appearance: Normal appearance. Cardiovascular: Rate and Rhythm: Normal rate and regular rhythm. Heart sounds: No murmur heard. No friction rub. No gallop. Pulmonary: Breath sounds: Normal breath sounds. No wheezing, rhonchi or rales. Musculoskeletal: General: No swelling. Neurological: Mental Status: He is alert. ASSESSMENT AND PLAN: Problem List Items Addressed This Visit Type 2 diabetes mellitus with other circulatory complications (CMS/HCC) During the appointment today all pertinent labs, imaging, health maintenance, and glucose readings were reviewed. Encouraged to check blood glucose throughout the day with some fasting and some PP readings. They are to bring their glucose meter/cgm in to all appointments. All of the patients questions, treatment options, and current care plan and goals were discussed. A copy of this along with pertinent instructions were given to the patient at the end of the appointment. The patient voices understanding of all of this and is to call in between appointments if they have any problems or questions. Jeramie Galvan blood sugars are worsening. , The patient is wearing their cgm on a daily basis and making decisions in regards to adjusting insulin daily as well for at least the last 60 days , Discussed dietary changes at length. Encouraged to limit simple carbs and focus more on healthy protein/fat with all meals and snacks. They should also avoid any sugary drinks. , Instructions given today include: Dietary education. It sounds like he is eating healthy so doesn't make much sense for his weight gain and increased bg. Will add jardiance. SGLT2 inhibitors: Discussed risk of dehydration and yeast infection. instructed on the importance of drinking enough water. If this is not helpful, will need to consider adding insulin. Relevant Medications empagliflozin (Jardiance) 10 MG Other Relevant Orders POCT glycosylated hemoglobin (Hb A1C) docked device (Completed) Follow up in about 3 months (around 10/24/2024) for Recheck. Patient's Medications New Prescriptions EMPAGLIFLOZIN (JARDIANCE) 10 MG Take 1 tablet (10 mg) by mouth Daily Previous Medications ASPIRIN LOW DOSE 81 MG CHEWABLE TABLET Chew 81 mg Daily ATORVASTATIN (LIPITOR) 80 MG TABLET Take 80 mg by mouth at bedtime CLOPIDOGREL (PLAVIX) 75 MG TABLET TAKE 1 TABLET BY MOUTH IN THE MORNING *DO NOT START BEFORE 11/04/23* Oral for 30 Days CONTINUOUS GLUCOSE SENSOR (FREESTYLE JEFF 3 SENSOR) MISC INJECT 1 DEVICE UNDER THE SKIN EVERY 14 DAYS EZETIMIBE (ZETIA) 10 MG TABLET Take 10 mg by mouth at bedtime FERROUS SULFATE 324 (65 FE) MG EC TABLET TAKE 1 TABLET BY MOUTH EVERY DAY Oral for 30 Days METOPROLOL TARTRATE (LOPRESSOR) 25 MG TABLET TAKE 1/2 TABLET BY MOUTH TWICE A DAY Oral for 30 Days SEMAGLUTIDE (OZEMPIC, 1 MG/DOSE,) 4 MG/3ML SOLUTION PEN-INJECTOR Inject 1 mg under the skin 1 (one) time per week TADALAFIL (CIALIS) 20 MG TABLET Take 10 mg by mouth Daily as needed for erectile dysfunction. Modified Medications No medications on file Discontinued Medications No medications on file I have reviewed and reconciled the history and medication list with the patient today. documented in this encounter [facility] 03-23-2024 History of Present illness Narrative Associated Problem(s): Type 2 diabetes mellitus with other circulatory complications ([facility]) During the appointment today all pertinent labs, imaging, health maintenance, and glucose readings were reviewed. Encouraged to check blood glucose throughout the day with some fasting and some PP readings. They are to bring their glucose meter/cgm in to all appointments. All of the patients questions, treatment options, and current care plan and goals were discussed. A copy of this along with pertinent instructions were given to the patient at the end of the appointment. The patient voices understanding of all of this and is to call in between appointments if they have any problems or questions. Jeramie Galvan is making improvements and encouraged on this. , Will stay on current medications. , Discussed dietary changes at length. Encouraged to limit simple carbs and focus more on healthy protein/fat with all meals and snacks. They should also avoid any sugary drinks. , Instructions given today include: Dietary education Images from the original note were not included. Jeramie Galvan is a 58 y.o. male presents with chief complaint of Diabetes HPI: Diabetes Mellitus Follow-up: Jeramie Galvan is here for follow-up evaluation of diabetes mellitus. The initial diagnosis of diabetes was made around 2002 or earlier Diabetes complications: none He has been checking his blood glucose with a [employer] Jeff 3 CGM -LINKED-on a daily basis. He will spike up with some meals but not consistent and comes right back down. Last A1c: 7.1 on 12/11/2023 Eye exam 2022- My eye doctor Current concerns include: Last office visit was on 12/25/2023 States bg levels are okay but fluctuation. States the sensors have been reading different. Diet: 100% whole wheat breads, trying to limit carbs Drinks: water Exercise: none- started cardiac rehab Hypoglycemia: a few times as low as 50 since last visit. Mostly in the middle of the night. SUBJECTIVE: PROBLEM LIST SOCIAL ALLERGIES: Patient Active Problem List Diagnosis BPH (benign prostatic hyperplasia) Erectile dysfunction History of nephrolithiasis History of rupture of Achilles tendon Personal history of colonic polyps Shoulder impingement syndrome Sleep apnea Type 2 diabetes mellitus with other circulatory complications ([facility]) Social History Tobacco Use Smoking status: Former Current packs/day: 3.00 Types: Cigarettes Smokeless tobacco: Never Substance Use Topics Alcohol use: Never Drug use: Never No Known Allergies Synopsis SmartLink 03/22/2024 15:55 12/25/2023 Antidiabetic medications Semaglutide 0.5 mg Weekly SC (2 MG/3ML SOPN) -Discontinued No sig Semaglutide 1 mg Weekly SC 1 mg Weekly SC Labs MHPT A1C 7.6 Outpatient prescription Medication marked as long-term REVIEW OF SYMPTOMS: Review of Systems Constitutional: Negative for appetite change, fatigue and unexpected weight change. Eyes: Negative for visual disturbance. Respiratory: Negative for cough, shortness of breath and wheezing. Cardiovascular: Negative for chest pain, palpitations and leg swelling. Neurological: Negative for numbness. Endocrine: Negative for polydipsia, polyphagia and polyuria. OBJECTIVE: 03/22/2024 3:46 PM 12/25/2023 9:39 AM 09/25/2023 2:52 PM Vitals BMI 31.12 kg/m2 29.79 kg/m2 31.12 kg/m2 Systolic 120 118 112 Diastolic 78 78 62 Heart Rate 79 88 105 Temp 97.5 F 98.9 F 98.9 F Height (in) 5' 5 5' 5 5' 5 Weight (lb) 187 179 187 Visit Report Report Report Report Physical Exam Constitutional: General: He is not in acute distress. Appearance: Normal appearance. Cardiovascular: Rate and Rhythm: Normal rate and regular rhythm. Heart sounds: No murmur heard. No friction rub. No gallop. Pulmonary: Breath sounds: Normal breath sounds. No wheezing, rhonchi or rales. Musculoskeletal: General: No swelling. Neurological: Mental Status: He is alert. ASSESSMENT AND PLAN: Problem List Items Addressed This Visit Type 2 diabetes mellitus with other circulatory complications ([facility]) During the appointment today all pertinent labs, imaging, health maintenance, and glucose readings were reviewed. Encouraged to check blood glucose throughout the day with some fasting and some PP readings. They are to bring their glucose meter/cgm in to all appointments. All of the patients questions, treatment options, and current care plan and goals were discussed. A copy of this along with pertinent instructions were given to the patient at the end of the appointment. The patient voices understanding of all of this and is to call in between appointments if they have any problems or questions. Jeramie Francheska Galvan is making improvements and encouraged on this. , Will stay on current medications. , Discussed dietary changes at length. Encouraged to limit simple carbs and focus more on healthy protein/fat with all meals and snacks. They should also avoid any sugary drinks. , Instructions given today include: Dietary education Relevant Medications semaglutide (Ozempic, 1 MG/DOSE,) 4 MG/3ML solution pen-injector Other Relevant Orders POCT glycosylated hemoglobin (Hb A1C) docked device (Completed) Follow up in about 4 months (around 07/22/2024) for Recheck. Patient's Medications New Prescriptions No medications on file Previous Medications ASPIRIN LOW DOSE 81 MG CHEWABLE TABLET Chew 81 mg Daily ATORVASTATIN (LIPITOR) 80 MG TABLET Take 80 mg by mouth at bedtime CLOPIDOGREL (PLAVIX) 75 MG TABLET TAKE 1 TABLET BY MOUTH IN THE MORNING *DO NOT START BEFORE 11/04/23* Oral for 30 Days CONTINUOUS GLUCOSE SENSOR (FREESTYLE JEFF 3 SENSOR) MISC INJECT 1 DEVICE UNDER THE SKIN EVERY 14 DAYS EZETIMIBE (ZETIA) 10 MG TABLET Take 10 mg by mouth at bedtime FERROUS SULFATE 324 (65 FE) MG EC TABLET TAKE 1 TABLET BY MOUTH EVERY DAY Oral for 30 Days METOPROLOL TARTRATE (LOPRESSOR) 25 MG TABLET TAKE 1/2 TABLET BY MOUTH TWICE A DAY Oral for 30 Days TADALAFIL (CIALIS) 20 MG TABLET Take 10 mg by mouth Daily as needed for erectile dysfunction. Modified Medications Modified Medication Previous Medication SEMAGLUTIDE (OZEMPIC, 1 MG/DOSE,) 4 MG/3ML SOLUTION PEN-INJECTOR semaglutide (Ozempic, 1 MG/DOSE,) 4 MG/3ML solution pen-injector Inject 1 mg under the skin 1 (one) time per week Inject 1 mg under the skin 1 (one) time per week Discontinued Medications ACETAMINOPHEN (TYLENOL) 500 MG TABLET Q4H I have reviewed and reconciled the history and medication list with the patient today. documented in this encounter [facility] 03-22-2024 Note [facility] 12-11-2023 Note [facility] 11-20-2023 Note [facility] 11-07-2023 Progress note Note Date/Time November 05, 2023 2:19pm [facility] [address] [place] [address] Physiatry(Rehab) Progress Note Signed Patient: Jeramie Galvan MR#: [id number] : 1965 Acct:[id number] Age/Sex: 57 / M Adm Date: 4 Loc: Room: [address] [place] [address] Type: ADM IN Attending Dr: Terrell Richardson MD Copies to: ~ Date of Service: 11/05/2023 Subjective Subjective Narrative: Mr. Galvan is a 57 year old male with medical history of tsd-jlssmrq-nfzckglbz DM type II, hypertension and hyperlipidemia admitted [...] test which was abnormal and sent to [place] [facility]. After some workup eventually transferred to [facility] for further management. Left Heart catheterization [...] mg 11/03/23 18:10 Bisacodyl 10 Mg Supp.Rect AR 11/02/24 18:09 DAILY PRN Constipation Clopidogrel Bisulfate 75 mg 11/04/23 09:00 11/05/23 08:19 Clopidogrel Bisulfate 75 Mg Tablet PO 11/03/24 08:59 75 mg DAILY PAULETTE Administration Docusate Sodium 100 mg 11/03/23 18:10 Docusate 100 Mg Capsule PO 11/02/24 18:09 BID PRN Constipation Docusate Sodium 283 mg 11/03/23 18:10 Docusate Enema 283 Mg/5 Ml Enema AR 11/02/24 18:09 DAILY PRN Constipation Ezetimibe 10 [...] PAULETTE Administration Guaifenesin 600 mg 11/04/23 21:00 11/05/23 08:18 Guaifenesin 600 Mg Tab.Er.12h PO 11/03/24 20:59 600 mg BID PAULETTE Administration Insulin Aspart 0 units 11/03/23 22:00 11/05/23 11:46 Insulin Aspart 300 Units/3 Ml Insuln.Pen SUBCUT 11/02/24 21:59 Not Given TID.[facility] Protocol Insulin Glargine 15 units 11/03/23 [...] equipment to enhance the patient's a functional judaism Ensure adequate nutrition and hydration Sleep: No issues Pain: No issues Discharge planning: Home with family in a week or so. I spent 23 minutes for services, including pmyo-tj-prla encounter with the patient, discussion of the case, plan of care, and exam; and patjrfn-im-cdur activities, such as reviewing pertinent business info consultant documentation, recent therapynotes, laboratory and radiology studies, and discussion of case with care team including physician, nursing, case loader operator, and therapists. More than 50 % of time was spent on patient/family counseling or coordination ofcare. <Statement entered by Terrell Richardson MD - 11/07/23 12:36> This documentation has been reviewed and approved. Patient was personally seen by me, Dr. Richardson, on the day of encounter, reviewed the history and the relevant portions of the chart, including current orders, allied health and business info consultant notes, labs/imaging and performed clarke elements of exam and I formulated the plan of care and facilitated the medical decision making. I completed a substantive portion of this encounter, the medical decision makingportion of this note in its entirety, including Allied health note review, nursing note review, business info consultant note review, discussion with nursing and case management, and more than 50% of my time was spent on counseling and coordination of care, time spent 25 minutes Documented By: Moon Beck APRN 11/05/23 1 417 Signed By: <Electronically signed by YIN Beck> 11/05/23 1434 <Electronically signed by Terrell Richardson MD> 11/07/23 1236 [facility] Work Phone: 1(729) 620-927805-10-2024 Progress note Author Terrell Richardson [facility] November 07, 2023 12:36pm Note Date/Time November 06, 2023 11:19a m [facility] [address] [place] [address] Physiatry(Rehab) Progress Note Signed Patient: Jeramie Galvan MR#: [id number] : 1965 Acct:[id number] Age/Sex: 57 / M Adm Date: 4 Loc: Room: [address] [place] [address] Type: ADM IN Attending Dr: Terrell Richardson MD Copies to: ~ Date of Service: 11/06/2023 Subjective Subjective Narrative: Mr. Galvan is a 57 year old male with medical history of wee-qavwhsj-qlbqetrsz DM type II, hypertension and hyperlipidemia admitted [...] test which was abnormal and sent to [facility]. After some workup eventually transferred to [facility] for further management. Left Heart catheterization [...] mg 11/03/23 18:10 Bisacodyl 10 Mg Supp.Rect AR 11/02/24 18:09 DAILY PRN Constipation Clopidogrel Bisulfate 75 mg 11/04/23 09:00 11/06/23 08:10 Clopidogrel Bisulfate 75 Mg Tablet PO 11/03/24 08:59 75 mg DAILY PAULETTE Administration Docusate Sodium 100 mg 11/03/23 18:10 Docusate 100 Mg Capsule PO 11/02/24 18:09 BID PRN Constipation Docusate Sodium 283 mg 11/03/23 18:10 Docusate Enema 283 Mg/5 Ml Enema AR 11/02/24 18:09 DAILY PRN Constipation Ezetimibe 10 [...] Ml Insuln.Pen SUBCUT 11/02/24 21:59 Not Given TID.[facility] Protocol Insulin Glargine 15 units 11/03/23 21:00 11/06/23 08:10 Insulin Glargine 300 Units/3 Ml Insuln.Pen SUBCUT 11/02/24 20:59 15 units BID PAULETTE Administration Lactulose 30 gm 11/03/23 18:10 Lactulose 20 Gm/30 Ml Udc PO 11/02/24 18:09 DAILY PRN Constipation Melatonin 10 mg 11/05/23 22:00 11/05/23 21:58 Melatonin 5 Mg Tablet PO 11/04/24 21:59 10 mg QHS [facility] Administration Metoprolol Tartrate 12.5 mg 11/03/23 21:00 11/06/23 08:10 Metoprolol Tartrate 25 Mg Tablet PO 11/02/24 20:59 12.5 mg BID PAULETTE Administration Semaglutide [Ozempic 0.5 mg 11/17/23 09:00 ] 0.25 Mg Or 0.5 Mg SUBCUT 11/16/24 08:59 (2 Mg/3 Ml) Pen QWEEK [facility] Injector Sennosides 2 tab 11/04/23 12:00 Sennosides [...] equipment to enhance the patient's a functional judaism Ensure adequate nutrition and hydration Sleep: No issues Pain: No issues Discharge planning: Home with family in a week or so. I spent 15 minutes for services, including utlg-sg-wwwi encounter with the patient, discussion of the case, plan of care, and exam; and hxicjlg-dp-zgly activities, such as reviewing pertinent business info consultant documentation, recent therapynotes, laboratory and radiology studies, and discussion of case with care team including physician, nursing, case loader operator, and therapists. More than 50 % of time was spent on patient/family counseling or coordination ofcare. <Statement entered by Terrell Richardson MD - 11/07/23 12:36> This documentation has been reviewed and approved. I reviewed the history and the relevant portions of the chart, including currentorders, allied health and business info consultant notes, labs/imaging and plan of care as above. Documented By: Moon Beck APRN 11/06/23 1 116 Signed By: <Electronically signed by YIN Beck> 11/06/23 1119 <Electronically signed by Terrell Richardson MD> 11/07/23 1236 [facility] Work Phone: 1(203) 378-378505-08-2024 History and physical note Author Terrell Richardson [facility] November 05, 2023 9:06am Note Date/Time November 04, 2023 10:45a m [facility] [address] [place] [address] Physiatry (Rehab) H&P Signed Patient: Jeramie Galvan MR#: [id number] : 1965 Acct:[id number] Age/Sex: 57 / M Adm Date: 4 Loc: Room: [address] [place] [address] Type: ADM IN Attending Dr: Terrell Richardson MD Copies to: MD Moon Restrepo, YIN Richardson MD~ Date of Service: 11/04/2023 HPI The patient was seen and examined on: 11/04/23 History of Present Illness: Mr. Galvan is a 57 year old male with medical history of skj-etdzkle-rvdfwtrjc DM type II, hypertension and hyperlipidemia admitted [...] test which was abnormal and sent to [facility]. After some workup eventually transferred to [facility] for further management. Left Heart catheterization [...] and monitor incision for signs of infection. [facility] Medical History (Updated 11/04/23 @ 16:56 [...] 81 Mg Tab.Chew) 81 mg PO DAILY [facility] Stop: 11/03/24 08:59 Last Admin: 11/04/23 08:18 Dose: 81 mg Atorvastatin Calcium (Atorvastatin 80 Mg Tablet) 80 mg PO QHS PAULETTE Stop: 11/02/24 21:59 Last Admin: 11/03/23 22:15 Dose: 80 mg Benzonatate (Benzonatate 100 Mg Capsule) 200 mg PO TID PRN PRN Reason: Cough Stop: 11/03/24 10:30 Bisacodyl (Bisacodyl 10 Mg Supp.Rect) 10 mg AR DAILY PRN PRN Reason: Constipation Stop: 11/02/24 18:09 Clopidogrel Bisulfate (Clopidogrel Bisulfate 75 Mg Tablet) 75 mg PO DAILY PAULETTE Stop: 11/03/24 08:59 Last Admin: 11/04/23 08:18 Dose: 75 mg Docusate Sodium (Docusate 100 Mg Capsule) 100 mg PO BID PRN PRN Reason: Constipation Stop: 11/02/24 18:09 Docusate Sodium (Docusate Enema 283 Mg/5 Ml Enema) 283 mg AR DAILY PRN PRN Reason: Constipation Stop: 11/02/24 18:09 Ezetimibe (Ezetimibe 10 Mg Tablet) 10 mg PO [facility] Stop: 11/02/24 21:59 Last Admin: 05/06/24 22:15 Dose: 10 mg Ferrous Sulfate (Ferrous Sulfate 324 Mg Tablet.Dr) 324 mg PO BID.WITH.BFAST.SUPPE [facility] Stop: 11/03/24 07:59 Last Admin: 11/04/23 08:18 Dose: 324 mg Gabapentin (Gabapentin 100 Mg Capsule) 100 mg PO TID [facility] Stop: 11/02/24 21:59 Last Admin: 11/04/23 08:18 Dose: 100 mg Insulin Aspart (Insulin Aspart 300 Units/3 Ml Insuln.Pen) 0 units SUBCUT TID.WM.HS [facility]; Protocol Stop: 11/02/24 21:59 Last Admin: 11/04/23 08:18 Dose: 2 units Insulin Glargine (Insulin Glargine 300 Units/3 Ml Insuln.Pen) 15 units SUBCUT BID [facility] Stop: 11/02/24 20:59 Last Admin: 11/04/23 08:19 Dose: 15 units Lactulose (Lactulose 20 Gm/30 Ml Udc) 30 gm PO DAILY PRN PRN Reason: Constipation Stop: 11/02/24 18:09 Metoprolol Tartrate (Metoprolol Tartrate 25 Mg Tablet) 12.5 mg PO BID [facility] Stop: 11/02/24 20:59 Last Admin: 11/04/23 08:18 Dose: 12.5 mg Semaglutide [Ozempic ] 0.25 Mg Or 0.5 Mg (2 Mg/3 Ml) Pen Injector 0.5 mg SUBCUTQWEEK [facility] Stop: 11/16/24 08:59 Sennosides (Sennosides 8.6 Mg [...] % (Auto) 57.7 Lymph % (Auto) 26.4 [place] % (Auto) 13.6 Eos % (Auto) 1.9 Baso % (Auto) 0.4 Nucleat RBC Rel Count 0.2 Neut # (Auto) 5.4 Lymph # (Auto) 2.5 [place] # (Auto) 1.3 H Eos # (Auto) [...] 14 days Expected Discharge Destination: Home Rehabilitation [facility]: 09 Primary Diagnosis: s/p CABG Patient?s/Family?s anticipated [...] 24 hour daily monitoring and intervention from [employer] as well as other consulting physicians including internal medicine as well as 24 hour daily project accountant nursing - for medical safe / optimal [...] Admission labs noted. H&H is trending up, 9.1/26.9. Otherwise unremarkable. Patient education Pressure ulcer prophylaxis; [...] equipment to enhance the patient's a functional judaism Ensure adequate nutrition and hydration Sleep: No issues Pain: No issues Discharge planning: Home with family in a week or so. I spent 42 minutes for services, including divv-rz-[id number] encounter with the patient, discussion of the case, plan of care, and exam; and mzlbure-jq-saef activities, such as reviewing pertinent business info consultant documentation, recent therapynotes, laboratory and radiology studies, and discussion of case with care team including physician, nursing, case loader operator, and therapists. More than 50 % of time was spent on patient/family counseling or coordination ofcare. I completed a substantive portion of this encounter, the medical decision makingportion of this note in its entirety, including Allied health note review, nursing note review, business info consultant note review, discussion with nursing and case management, and more than 50% of my time was spent on counseling and coordination of care, time spent 36 minutes Patient was personally seen by me, Dr. Richardson, on the day of encounter, within 24hours of rehab admission, reviewed the history and the relevant portions of the chart, including current orders, allied health and business info consultant notes, labs/imaging and performed clarke elements of exam and I formulated the plan of care and facilitated the medical decision making. Documented By: Moon Beck APRN 11/04/23 1 041 Signed By: <Electronically signed by YIN Beck> 11/04/23 1121 <Electronically signed by Terrell Richardson MD> 11/05/23 0906 [facility] Work Phone: 1(157) 276-489205-08-2024 Consult note Author Maty Johnson [facility] November 05, 2023 6:51am Note Date/Time November 04, 2023 4:39pm [facility] [address] [place] [address] Hospitalist Consult Note Signed Patient: Jeramie Galvan MR#: [id number] : 1965 Acct:[id number] Age/Sex: 57 / M Adm Date: 4 Loc: Room: [address] [place] [address] Type: ADM IN Attending Dr: Terrell Richardson MD Copies to: MD Terrell Restrepo MD Lynn A Stackhouse-Roby, APRN Mazhar Rahman, MD~ HPI DATE OF CONSULTATION: 11/04/23 REQUESTING PROVIDER: Terrell Richardson Consult Narrative Reason for Consult: Hypertension, diabetes HPI: 57-year-old male past medical history significant for hyperlipidemia, anemia, neuropathy, diabetes, hypertension, anemia. Patient presented to [place] emergency department after stress test completed for ongoing chest pain with subsequent transfer to [facility]. 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 October 26 patient underwent CABG x 4. He had postoperativerespiratory failure requiring BiPAP and high flow, improved with IV diuresis andweaned off oxygen. He had reported fall without injury while in outside hospital. He was seen by therapy services with recommendations for ongoing rehab. Subsequently transferred to the inpatient rehab unit here at [facility] November 02. Hospitalist team is now [...] negative unless noted below or in HPI [facility] Medical History (Updated 11/04/23 @ 16:56 [...] mg 11/03/23 18:10 Bisacodyl 10 Mg Supp.Rect AR 11/02/24 18:09 DAILY PRN Constipation Clopidogrel Bisulfate 75 mg 11/04/23 09:00 11/04/23 08:18 Clopidogrel Bisulfate 75 Mg Tablet PO 11/03/24 08:59 75 mg DAILY [facility] Administration Docusate Sodium 100 mg 11/03/23 18:10 Docusate 100 Mg Capsule PO 11/02/24 18:09 BID PRN Constipation Docusate Sodium 283 mg 11/03/23 18:10 Docusate Enema 283 Mg/5 Ml Enema AR 11/02/24 18:09 DAILY PRN Constipation Ezetimibe 10 mg 11/03/23 22:00 11/03/23 22:15 Ezetimibe 10 Mg Tablet PO 11/02/24 21:59 10 mg HS [facility] Administration Enoxaparin Sodium 40 mg 11/05/23 10:00 Enoxaparin 40 Mg/0.4 Ml Syringe SUBCUT 11/04/24 09:59 DAILY@1000 [facility] Ferrous Sulfate 324 mg 11/05/23 09:00 Ferrous Sulfate 324 Mg Tablet.Dr PO 11/04/24 08:59 DAILY [facility] Insulin Aspart 0 units 11/03/23 22:00 11/04/23 14:04 Insulin Aspart 300 Units/3 Ml Insuln.Pen SUBCUT 11/02/24 21:59 Not Given TID.[facility] Protocol Insulin Glargine 15 units 11/03/23 21:00 11/04/23 08:19 Insulin Glargine 300 Units/3 Ml Insuln.Pen SUBCUT 11/02/24 20:59 15 units BID [facility] Administration Lactulose 30 gm 11/03/23 18:10 Lactulose 20 Gm/30 Ml Udc PO 11/02/24 18:09 DAILY PRN Constipation Metoprolol Tartrate 12.5 mg 11/03/23 21:00 11/04/23 08:18 Metoprolol Tartrate 25 Mg Tablet PO 11/02/24 20:59 12.5 mg BID [facility] Administration Semaglutide [Ozempic 0.5 mg 11/17/23 09:00 ] 0.25 Mg Or 0.5 Mg SUBCUT 11/16/24 08:59 (2 Mg/3 Ml) Pen QWEEK [facility] Injector Sennosides 2 tab 11/04/23 12:00 Sennosides [...] % (Auto) 57.7, Lymph % (Auto) 26.4, [place] % (Auto) 13.6, Eos % (Auto) 1.9, Baso % (Auto) 0.4, Nucleat RBC Rel Count 0.2, Neut # (Auto) 5.4, Lymph # (Auto) 2.5, [place] # (Auto) 1.3 H, Eos # (Auto) 0.2, Baso # (Auto) 0.0, PHA Creatinine Clear 89.89, Sodium 142, Potassium 3.7, Chloride 104, Carbon Dioxide 30.1, Anion Gap 11.6, BUN 14, Creatinine 0.91, Est GFR (CKD-EPI) > 60.0, Sdkubuz89, Calcium 8.6, Total Bilirubin 0.7, AST 33, [...] any postoperative questions/concerns to CT surgery at [facility] -Trend hemoglobin, continue ferrous sulfate -Cardiac meds as below Chronic conditions 1. HTN, HLD?ASA, atorvastatin, clopidogrel, metoprolol 2. T2DM with neuropathy?gabapentin, SSI C, glargine, Semaglutide Documented By: Michelle Gomez APRN 01/20 1557 Signed By: <Electronically signed by YIN Gomez> 11/04/23 1656 <Electronically signed by Maty Johnson MD> 11/05/23 0651 [facility] Work Phone: 1(490) 128-784405-06-2024 [facility]-02-2023 [facility] 11-01-2023 [facility]20[facility]-2024 NoteSpoke with [facility] and they have officially accepted pt and submitted to pre-cert today. Updated AVS and updated pt.[facility] 10-30-2023 [facility]20[facility] 10-30-2023 [facility]-20[facility]-2024 [facility] 10-29-2023 NotePark[facility]-2024 NotePark[facility]-2024 [facility] 10-29-2023 [facility]-2024 NotePark[facility]04-30-20[facility] 10-28-2023 [facility]Park[facility]-20[facility]-20[facility] 10-28-2023 [facility]-20[facility]04-[facility]-2024 NotePt extubated to high flow nasal cannula. 50lpm and 40% fio2. Voice intact. No stridor present. Aerosol immediately given. Nurse present in room. Not complications.[facility]04-29-2024 NotePeripheral IV Date/Time: 10/27/2023 9:23 AM Inserted by: Angela Cole MD Placement Needle size: 18 G Laterality: right Location: hand Local anesthetic: none Site prep: alcohol Technique: anatomical landmarks Attempts: [facility]Un[facility]04-29-2024 [facility]04-29-2024 [facility]Park[facility] 10-27-2023 [facility]Park[facility]04-29-2024 NotePark[facility]04-28-2024 [facility]Park[facility] 10-26-2023 NotePark[facility]04-28-2024 NotePark[facility]04-27-2024 [facility] 10-25-2023 [facility]Park[facility]04-27-2024 [facility]Park[facility]11-30-2022 Hospital Discharge instructions Patient Education 05/29/2022 10:25:12 [...] Follow these instructions at home: Medicines Take uckv-cbg-gffeyyq and prescription medicines only as told by [...] 06/13/2001 Document Revised: 05/29/2018 Document Reviewed: 07/02/2017 [employer] Patient Education 2020 [employer]. Follow Up Care 04/25/2022 16:00:36 With:Sathya PAVON, FEDERICO Ferrer, URO Address: When:3 months Comments:f/u to vacuum device [facility] 11-16-2022 NoteChief Complaint consultation for colonoscopy HPI [...] Father. Diabetes mellitus type 2: Father and Brother.[facility]Comment on above:Result Comment: Electronically Signed By: HEVER PAVON, Domingo Williamson\Date and Time Signed: 05/15/22 17:38 [id number] Evaluation note* Encounter Date Diagnosis Assessment Notes [...] Patient care instructions given in writting by [facility] Care At Home document. Spreaker Other Evaluation + Plan note Future Appointments Appointment Date:08/28/2022 09:30:00 AM Scheduled Provider:Sathya PAVON, Najma Lyon Location:[facility] Appointment Type:URO Office Visit [facility] evaluation note* Diagnosis Onset Date Resolution Status Anemia acute Coronary artery disease acut e Diabetes acute Diabetes mellitus with neuropathy acute Hyperlipidemia acute Hypertension acute Impaired mobility and activities of daily living acute NSTEMI (non-ST elevated myocardial infarction) acute S/P CABG x 4 acute [facility] Work Phone: Evaluation note* Diagnosis Type 2 diabetes mellitus with other circulatory complications (CMS/HCC) documented in this encounter [facility] HealthcareEvaluation note* Diagnosis Type 2 diabetes mellitus without complication, without long-term current use of insulin (CMS/HCC)- Primary Type 2 diabetes mellitus without complication, without long-term current use of insulin (CMS/HCC) Type 2 diabetes mellitus without complication, without long-term current use of insulin (CMS/HCC) Type 2 diabetes mellitus with other circulatory complications (CMS/HCC)- Primary Type 2 diabetes mellitus with other circulatory complications (CMS/HCC) Type 2 diabetes mellitus with other circulatory complications (CMS/HCC) documented in this encounter [facility] HealthcareHistory general Narrative - Reported* Type Description Date Medical History Diabetes type 2 Surgical History half thryroid removal Hospitalization History see above Spreaker Other Hospital course Narrative No data available for this section [facility] Discharge instructions No data available for this section [facility] progress note No data available for this section [facility] Summary Purpose Family History No Family History [...] FOR VISIT (unrecogniz ed section and content) Reason Comments Diabetes Patient Care team informatio n (unrecognized section and content) Team Status: Active Member Role Status Dates Rylee Link MD Primary Care Provider Active Team Status: Inactive Member Role Status Dates Rylee Link MD Primary Care Provider Active Start: November 03, 2023 End: November 10, 2023 Terrell Richardson MD Admit Provider, Karlos cheney Provider Active Start: November 03, 2023 End: November 10, 2023 Leora Dias RN Other Provider Active [...] 2023 End: November 10, 2023 Elpidio Hardwick , Other Provider Active Start : November 03, [...] November 03, 2023 End: November 10, 2023 James Sheets MD Other Provider Active Start: M ay 2023 End: November 10, 2023 Maty Johnson MD Other Provider Active Start: November 03, 2023 End: November 10, 2023 Doron Napier MD Other Provider Active Start: November 03, 2023 End: November 10, 2023 Domingo Merrill DO Other Provider Active Start: November 03, 2023 End: November 10, 2023 Samantha Ornelas MD Other Provider Active Start: Ma y 2023 End: November 10, 2023 Parth Canales MD Other Provider Active Start: November 03, 2023 End: November 10, 2023 ERIKA Mccoy Other Provider Active St art: November 03, 2023 End: November 10, 2023 Jeanie Spencer APRN Other Provider Active Star t: November 03, 2023 End: November 10, 2023 Morgan Jc MD Other Provider Active Start: November 03, 2023 End: November 10, 2023 Rikki Trammell MD Other Provider Active Start: Andrew rosa 2023 End: November 10, 2023 Bo Samuel MD Other Provider Active Start: November 03, 2023 End: November 10, 2023 Maria C Daniels MD Other Provider Active Star t: November 03, 2023 End: November 10, 2023 Bill Ramos MD Other Provider Active Start: M ay 2023 End: November 10, 2023 Anali Martinez , Other Provider Active Start: Andrew rosa 2023 End: November 10, 2023 Parker Giron , Other Provider Active Start : November 03, 2023 End: November 10, 2023 Gilda Bradford APRN Other Provider Active Start: November 03, 2023 End: November 10, 2023 Murali Ford , Other Provider Active Start: November 03, [...] End: November 10, 2023 Won Dior , Other Provider Active Star t: November 03, 2023 End: November 10, 2023 Amalia Kent , Other Provider Active Start: November 03, 2023 End: November 10, 2023 Jeffrey Samuel MD Other Provider Active Start: November 03, 2023 End: November 10, 2023 Wilda Kuo RN Other Provider Active Start: M ay 2023 End: November 10, 2023 Team Status: Active Member Role Status Dates Rylee Link MD Primary Care Provider Active Start: November 04, 2023 Terrell Richardson MD Admit Provider, Othe r Provider Active Start: November 04, 2023 Leora Dias , MARIO Other Provider Active Star t: November 04, 2023 Gudelia Harmon , MARIO Other Provider Active Start : November 04, 2023 Lorraine Beasley RN Other Provider Active Star t: November 04, 2023 Geetha Kurtz , MARIO Other Provider Active Start: M ay 2023 Catherine Caro , MARIO Other Provider Active Start: Ma 2023 Katia Irvin MD Other Provider Active Start: November 04, 2023 Elpidio Hardwick , Other Provider Active Start : November 04, 2023 Jas Winslow MD Other Provider Active Start : November 04, 2023 Lisandro Collado , Other Provider Active Start: November 04, [...] Active Start: November 04, 2023 Domingo Merrill DO Other Provider Active Start: November 04, 2023 Samantha Ornelas MD Other Provider Active Start: Ma y 2023 Parth Canales MD Other Provider Active Start: November 04, 2023 Iman Bustos NP-C Other Provider Active St art: November 04, [...] Provider Active Start: M ay 2023 Anali Juan , DO Other Provider Active Start: Ma y 2023 Parker Giron , DO Other Provider Active Start : November 04, 2023 Gilda Bradford , POLICE COMMUNICATIONS DISPATCHER Other Provider Active Start: November 04, 2023 Murali Ford , DO Other Provider Active Start: November 04, 2023 Aditya Harvey MD Other Provider Active Sta rt: November 04, 2023 Cece Camejo APRN Other Provider Active Start : November 04, 2023 Donna Gee , POLICE COMMUNICATIONS DISPATCHER Other Provider Active St art: November 04, 2023 Kai Christopher MD Other Provider Active Start: M ay 2023 Andrew Cárdenas MD Other Provider Active S tart: November 04, 2023 Won Dior , DO Other Provider Active Star t: November 04, 2023 Amalia Kent , DO Other Provider Active Start: November 04, 2023 Jeffrey Samuel MD Other Provider Active Start: November 04, 2023 Wilda Kuo RN Other Provider Active Start: M ay 2023 Moon Beck APRN Attending Provider Active Start: November 04, 2023 Filter Screen Cleaner Relationship Specialty Start Date End Date Rylee Link MD [address] [place] [address] PCP - General Family Medicine 01/31/23 Filter Screen Cleaner Relationship Specialty Start Date End Date Rylee Link MD [address] [place] [address] PCP - General Family Medicine 01/31/23 (unrecognized sect ion and content) No Status Records FoundNo Status Records FoundNo Status Records FoundNo Status Records FoundNo Status Records FoundNo Status Records Found INFORMATION SOURCE (unrecogn ized section and content) DATE CREATED AUTHOR 08/04/2022 [facility] DATE CREATED AUTHOR AUTHOR'S ORGANIZ ATION 08/30/2022 [facility] DATE CREATED AUTHOR AUTHOR'S ORGANIZ ATION 12/13/2023 [facility] DATE CREATED AUTHOR AUTHOR'S ORGANIZ ATION 12/19/2023 [facility] DATE CREATED AUTHOR AUTHOR'S ORGANIZ ATION 07/27/2024 [facility] EPIC DATE CREATED AUTHOR AUTHOR'S ORGANIZ ATION 08/13/2024 [facility] FOR RECORDS PERTAINING TO PATIENTS WHO [...] BE BASED ON THE PRIMARY CLINICAL RECORDS. [employer] provides no warranty or guarantee of the accuracy or completeness of information in this document.
[2024-09-18 08:01] LABS: Alanine Aminotransferase 20 U/L (16-63); Albumin Globulin Ratio 1.1; Albumin Level 3.6 g/dL (3.4-5.0); Alkaline Phosphatase 74 U/L (46-116); Anion Gap 7.8; Aspartate Amino Transferase 14 U/L (15-37); BUN Creatinine Ratio 19.8; Bilirubin Total 0.5 mg/dL (0.2-1.0); Carbon Dioxide 31.4 mmol/L (21.0-32.0); Chloride 107 mmol/L (98-107); Chol HDL Ratio 2.4; Cholesterol 106 mg/dL (<=200); Estimated GFR (African America >60 (>=60 mL/min/1.73m^2); Estimated GFR (Non-African Ame >60 (>=60 mL/min/1.73m^2); Globulin 3.2 g/dL; Glucose 113 mg/dL (74-106); HDL Cholesterol 44 mg/dL (40-60); LDL Cholesterol Calculated 49.2 mg/dL; Potassium 4.2 mmol/L (3.5-5.1); Sodium 142 mmol/L (136-145); Total Protein 6.8 g/dL (6.4-8.2); Triglycerides 64 mg/dL (<=150); VLDL CHOLESTEROL 12.8 mg/dL
== END 2024-09-18 06:21 | disposition home or self-care (01) ==
PROVIDERS: PCP Family Medicine; Visit Provider Internal Medicine Interventional Cardiology
DX: E78.5 Hyperlipidemia, unspecified (principal); I10 Essential (primary) hypertension
CPT/HCPCS: 36415; 80053; 80061